=== PATIENT | female | born 1965 | race Caucasian/White ===

== ENCOUNTER → 2016-03-29 | Outpatient (CLI) | payer MEDICAID ==
[2016-03-29 12:50] LABS: ALT 29 U/L (9-52); AST 16 U/L (14-36); Alkaline Phosphatase 62 U/L (38-126); Anion Gap 10 mmol/L; Blood Urea Nitrogen 14 mg/dL (7-17); Calcium 9.6 mg/dL (8.4-10.2); Carbon Dioxide 27 mmol/L (22-30); Chloride 105 mmol/L (98-107); Cholesterol 134 mg/dL (<200); Glucose 90 mg/dL (74-99); HDL Cholesterol 62 mg/dL (40-60); Non-African American GFR(MDRD) >60 (>60 ml/min/1.73 sqM); Potassium 4.1 mmol/L (3.5-5.1); Sodium 142 mmol/L (137-145); Total Bilirubin 0.4 mg/dL (0.2-1.3); Total Protein 6.9 g/dL (6.3-8.2); Triglycerides 139 mg/dL (<150)
== END | disposition home or self-care (01) ==
LOC: LABWHC1 10:56
PROVIDERS: ATTEND Family Medicine
DX: E03.9 Hypothyroidism, unspecified (principal); E55.9 Vitamin D deficiency, unspecified; E78.5 Hyperlipidemia, unspecified; Z80.3 Family history of malignant neoplasm of breast
CPT/HCPCS: 36415; 80053; 80061; 82306; 84439; 84443; 84481

== ENCOUNTER 2016-04-05 14:59 | Emergency (ER) | payer MEDICAID ==
[2016-04-05] MEDS ORDERED: ONDANSETRON 4 MG/2 ML VIAL IVP STA (15:37)
[2016-04-05] MEDS ORDERED: KETOROLAC 30 MG/ML 1 ML VIAL IVP STA (15:37)
[2016-04-05] MEDS ORDERED: SODIUM CHLORIDE 0.9% 1,000 ML IV STA (15:37)
[2016-04-05 16:35] LABS: Basophils % (A) 1 %; CH 33.4; CHCM 35.1; Eosinophils # (A) 0.1 k/uL (0-0.7); Eosinophils % (A) 1 %; HCT 40.4 % (34.0-46.0); HDW 2.63; HGB 13.6 gm/dL (11.4-16.0); Luc # (Auto) 0.06; Luc % (Auto) 1; Lymphocytes # (A) 1.8 k/uL (1.0-4.8); Lymphocytes % (A) 27 %; MCH 32.2 pg (25.0-35.0); MCHC 33.7 g/dL (31.0-37.0); MCV 95.7 fL (80.0-100.0); Mean Platelet Volume 6.9; Monocytes # (A) 0.4 k/uL (0-1.0); Monocytes % (A) 7 %; Neutrophils # (A) 4.1 k/uL (1.3-7.7); Neutrophils % (A) 63 %; RBC 4.22 m/uL (3.80-5.40); RDW 12.3 % (11.5-15.5); WBC 6.5 k/uL (3.8-10.6); WBC (Perox) 6.65
[2016-04-05 16:47] LABS: ALT 36 U/L (9-52); AST 25 U/L (14-36); Alkaline Phosphatase 54 U/L (38-126); Anion Gap 9 mmol/L; Blood Urea Nitrogen 6 mg/dL (7-17); Calcium 8.5 mg/dL (8.4-10.2); Carbon Dioxide 25 mmol/L (22-30); Chloride 109 mmol/L (98-107); Glucose 80 mg/dL (74-99); Non-African American GFR(MDRD) >60 (>60 ml/min/1.73 sqM); Potassium 3.9 mmol/L (3.5-5.1); Sodium 143 mmol/L (137-145); Total Bilirubin 0.4 mg/dL (0.2-1.3)
[2016-04-05 17:02] LABS: Appearance,Urine Clear (Clear); Bilirubin,Urine Negative (Negative); Glucose,Urine (UA) Negative (Negative); Ketones,Urine Negative (Negative); Leukocyte Esterase,Urine Negative (Negative); Nitrite,Urine Negative (Negative); Protein,Urine Negative (Negative); Specific Gravity,Urine 1.007 (1.001-1.035); UA Billing (MACRO vs. MICRO) CHEM; Urobilinogen,Urine <2.0 mg/dL (<2.0)
[2016-04-05 17:15] VITALS: RESP 16
--- NOTE | 2016-04-05 17:25 | ED ---
Nausea/Vomiting/Diarrhea HPI - General Chief complaint: Nausea/Vomiting/Diarrhea Stated complaint: Dr Hager/Magdy Time Seen by Provider: 04/05/16 15:29 Source: patient, RN notes reviewed Mode of arrival: wheelchair Limitations: no limitations - History of Present Illness Initial comments: 50-year-old female since emergency department for possible dehydration. Patient states that she's been sick for approximately 10 days. Patient states she started with cold like symptoms was treated for acute bronchitis with a Z- Jayjay. She states that shortly after she's been having severe diarrhea nausea vomiting. She states she's been off work for 10 days. She states started at work last night and had some near syncopal episodes. Patient went to the office today and which she continued feel very weak, run down. Patient states that she had 2 near syncopal in episodes. Though she did not lose consciousness. Patient was sent outpatient [facility] for IV hydration Tylenol with no relief. Patient states that she still feels very weak and not herself. Patient denies any chest pain, shortness breath, dizziness. Patient states she does feel lightheaded and headache. Patient denies fever but states that she's had hot and cold sweats. - Related Data Home Medications Medication Instructions Recorded Confirmed Hydrocodone/Acetaminophen 1 tab PO QID PRN 08/17/13 04/05/16 [Hydrocodone/Acetaminophen 5-325] Levothyroxine Sodium [Synthroid] 112 mcg PO MOTUWETHFRSA 08/17/13 04/05/16 Loratadine [Claritin] 10 mg PO HS 08/17/13 04/05/16 Montelukast [Singulair] 10 mg PO HS 08/17/13 04/05/16 Zolpidem [Ambien] 5 mg PO HS PRN 08/17/13 04/05/16 Levalbuterol HCl [Xopenex 1.25 mg INHALATION TID PRN 12/12/13 04/05/16 Nebulized] amLODIPine BESYLATE [Norvasc] 2.5 mg PO HS 12/12/13 04/05/16 Clopidogrel [Plavix] 75 mg PO DAILY 05/23/14 04/05/16 Aspirin 325 mg PO DAILY 10/17/14 04/05/16 Cholecalciferol [Vitamin D3] 2,000 unit PO DAILY 06/30/15 04/05/16 Ezetimibe/Simvastatin [Vytorin 1 tab PO HS 06/30/15 04/05/16 10-40 mg Tablet] Levothyroxine Sodium [Synthroid] 224 mcg PO DEAL 06/30/15 04/05/16 Vitamin B Complex 1 cap PO DAILY 06/30/15 04/05/16 Isosorbide Mononitrate ER [Imdur] 15 mg PO DAILY 10/30/15 04/05/16 LORazepam [Ativan] 0.5 mg PO QID PRN 10/30/15 04/05/16 Omeprazole 20 mg PO BID 10/30/15 04/05/16 Acetaminophen Tab [Tylenol Tab] 1,000 mg PO Q6HR PRN 04/05/16 04/05/16 Albuterol Nebulized [Ventolin 2.5 mg INHALATION QID PRN 04/05/16 04/05/16 Nebulized] Metoprolol Tartrate [Lopressor] 12.5 mg PO DAILY 04/05/16 04/05/16 Previous Rx's Medication Instructions Recorded Nitroglycerin Sl Tabs [Nitrostat] 0.4 mg SUBLINGUAL Q5M PRN #25 tab 07/04/15 Allergies Allergy/AdvReac Type Severity Reaction Status Date / Time shellfish derived Allergy throat Verified 04/05/16 15:50 swelling sulfamethoxazole Allergy Rash/Hives Verified 04/05/16 15:50 [From Bactrim] trimethoprim [From Bactrim] Allergy Rash/Hives Verified 04/05/16 15:50 atorvastatin calcium AdvReac muscle Verified 04/05/16 15:50 [From Lipitor] aches diltiazem HCl [From Cardizem] AdvReac EXTREME Verified 04/05/16 15:50 FLUSHING rosuvastatin calcium AdvReac SEVERE Verified 04/05/16 15:50 [From Crestor] MUSCLE PAIN Review of Systems ROS Statement: Those systems with pertinent positive or pertinent negative responses have been documented in the HPI. ROS Other: All systems not noted in ROS Statement are negative. Past Medical History Past Medical History: Asthma, Coronary Artery Disease (CAD), Chest Pain / Angina , GERD/Reflux, Hyperlipidemia, Musculoskeletal Disorder, Thyroid Disorder Additional Past Medical History / Comment(s): raynauds, lupus-suspected, has ruptured disc, hx. stomach ulcer, has 3 cardiac stents, hiatal hernia History of Any Multi-Drug Resistant Organisms: None Reported Past Surgical History: Cholecystectomy, Heart Catheterization With Stent, Tonsillectomy, Uterine Ablation Past Anesthesia/Blood Transfusion Reactions: No Reported Reaction, Family History of Problems w/ Anesthesia Additional Past Anesthesia/Blood Transfusion Reaction / Comment(s): has had hematomas in past after cardiac caths. & syncopal episode, mom had some issues / wanesthesia Date of Last Stent Placement:: Past Psychological History: No Psychological Hx Reported Smoking Status: Never smoker Past Alcohol Use History: None Reported Additional Past Alcohol Use History / Comment(s): quit smoking 18 yrs., smoked for 12 yrs. Past Drug Use History: None Reported - Past Family History Brother(s) Family Medical History: Coronary Artery Disease (CAD), Myocardial Infarction (ID ) Mother Family Medical History: Coronary Artery Disease (CAD), Diabetes Mellitus Father Family Medical History: Pulmonary Embolus General Exam Limitations: no limitations General appearance: alert, in no apparent distress Head exam: Present: atraumatic, normocephalic, normal inspection Eye exam: Present: normal appearance, PERRL, EOMI. Absent: scleral icterus, conjunctival injection, periorbital swelling ENT exam: Present: normal exam, mucous membranes moist Neck exam: Present: normal inspection, full ROM. Absent: tenderness, meningismus, lymphadenopathy Respiratory exam: Present: normal lung sounds bilaterally. Absent: respiratory distress, wheezes, rales, rhonchi, stridor Cardiovascular Exam: Present: regular rate, normal rhythm, normal heart sounds. Absent: systolic murmur, diastolic murmur, rubs, gallop, clicks GI/Abdominal exam: Present: soft, tenderness (Mild diffuse), normal bowel sounds. Absent: distended, guarding, rebound, rigid Neurological exam: Present: alert, oriented X3, CN II-XII intact Course Vital Signs 04/05/16 04/05/16 15:07 17:13 Temperature 97.3 F L 97.9 F Pulse Rate 71 72 Respiratory 18 16 Rate Blood Pressure 135/73 124/73 O2 Sat by Pulse 100 98 Oximetry Medical Decision Making - Medical Decision Making 50-year-old female presented emergency department for nausea vomiting weakness. Patient lab work within normal limits. Patient was sent here for admission by Dr. Gamble. Case discussed for covering physician for Dr. Gamble with Dr. Fenrandes. Who does not accept the patient for admission at this time. Patient will be discharged a at this time. Patient be discharged with C. diff check. - Lab Data Result diagrams: 04/05/16 16:20 04/05/16 16:20 Lab Results 04/05/16 04/05/16 04/05/16 Range/Units 14:50 16:10 16:20 WBC 6.5 (3.8-10.6) k/uL RBC 4.22 (3.80-5.40) m/uL Hgb 13.6 (11.4-16.0) gm/dL Hct 40.4 (34.0-46.0) % MCV 95.7 (80.0-100.0) fL MCH 32.2 (25.0-35.0) pg MCHC 33.7 (31.0-37.0) g/dL RDW 12.3 (11.5-15.5) % Plt Count 290 (150-450) k/uL Neutrophils % 63 % Lymphocytes % 27 % Monocytes % 7 % Eosinophils % 1 % Basophils % 1 % Neutrophils # 4.1 (1.3-7.7) k/uL Lymphocytes # 1.8 (1.0-4.8) k/uL Monocytes # 0.4 (0-1.0) k/uL Eosinophils # 0.1 (0-0.7) k/uL Basophils # 0.0 (0-0.2) k/uL Sodium (137-145) mmol/L Potassium (3.5-5.1) mmol/L Chloride (98-107) mmol/L Carbon Dioxide (22-30) mmol/L Anion Gap mmol/L BUN (7-17) mg/dL Creatinine (0.52-1.04) mg/dL Est GFR (MDRD) Af Amer (>60 ml/min/1.73 sqM) Est GFR (MDRD) Non-Af (>60 ml/min/1.73 sqM) Glucose (74-99) mg/dL Calcium (8.4-10.2) mg/dL Total Bilirubin (0.2-1.3) mg/dL AST (14-36) U/L ALT (9-52) U/L Alkaline Phosphatase (38-126) U/L Total Protein (6.3-8.2) g/dL Albumin (3.5-5.0) g/dL Amylase 38 (30-110) U/L Lipase (23-300) U/L Urine Color Light Yellow Urine Appearance Clear (Clear) Urine pH 6.0 (5.0-8.0) Ur Specific [place] 1.007 (1.001-1.035) Urine Protein Negative (Negative) Urine Glucose (UA) Negative (Negative) Urine Ketones Negative (Negative) Urine Blood Negative (Negative) Urine Nitrate Negative (Negative) Urine Bilirubin Negative (Negative) Urine Urobilinogen <2.0 (<2.0) mg/dL Ur Leukocyte Esterase Negative (Negative) 04/05/16 Range/Units 16:20 WBC (3.8-10.6) k/uL RBC (3.80-5.40) m/uL Hgb (11.4-16.0) gm/dL Hct (34.0-46.0) % MCV (80.0-100.0) fL MCH (25.0-35.0) pg MCHC (31.0-37.0) g/dL RDW (11.5-15.5) % Plt Count (150-450) k/uL Neutrophils % % Lymphocytes % % Monocytes % % Eosinophils % % Basophils % % Neutrophils # (1.3-7.7) k/uL Lymphocytes # (1.0-4.8) k/uL Monocytes # (0-1.0) k/uL Eosinophils # (0-0.7) k/uL Basophils # (0-0.2) k/uL Sodium 143 (137-145) mmol/L Potassium 3.9 (3.5-5.1) mmol/L Chloride 109 H (98-107) mmol/L Carbon Dioxide 25 (22-30) mmol/L Anion Gap 9 mmol/L BUN 6 L (7-17) mg/dL Creatinine 0.60 (0.52-1.04) mg/dL Est GFR (MDRD) Af Amer >60 (>60 ml/min/1.73 sqM) Est GFR (MDRD) Non-Af >60 (>60 ml/min/1.73 sqM) Glucose 80 (74-99) mg/dL Calcium 8.5 (8.4-10.2) mg/dL Total Bilirubin 0.4 (0.2-1.3) mg/dL AST 25 (14-36) U/L ALT 36 (9-52) U/L Alkaline Phosphatase 54 (38-126) U/L Total Protein 6.0 L (6.3-8.2) g/dL Albumin 3.6 (3.5-5.0) g/dL Amylase (30-110) U/L Lipase 57 (23-300) U/L Urine Color Urine Appearance (Clear) Urine pH (5.0-8.0) Ur Specific [place] (1.001-1.035) Urine Protein (Negative) Urine Glucose (UA) (Negative) Urine Ketones (Negative) Urine Blood (Negative) Urine Nitrate (Negative) Urine Bilirubin (Negative) Urine Urobilinogen (<2.0) mg/dL Ur Leukocyte Esterase (Negative) Disposition Clinical Impression: Nausea vomiting and diarrhea, Weakness Disposition: HOME SELF-CARE Condition: Undetermined Instructions: Gastroenteritis (ED) Additional Instructions: Please return to the Emergency Department if symptoms worsen or any other concerns. Time of Disposition: 18:06
[2016-04-05 18:25] VITALS: BP 118/60; PULSE 63; TEMP 97.2
== END 2016-04-05 18:37 | disposition home or self-care (01) ==
LOC: EC 14:59
DX: K52.9 Noninfective gastroenteritis and colitis, unspecified (principal); R53.1 Weakness; J45.909 Unspecified asthma, uncomplicated; I25.10 Atherosclerotic heart disease of native coronary artery without angina pectoris; K21.9 Gastro-esophageal reflux disease without esophagitis; E78.5 Hyperlipidemia, unspecified; E07.9 Disorder of thyroid, unspecified; Z86.79 Personal history of other diseases of the circulatory system; Z87.891 Personal history of nicotine dependence; Z79.52 Long term (current) use of systemic steroids; Z79.01 Long term (current) use of anticoagulants; Z79.82 Long term (current) use of aspirin; Z79.899 Other long term (current) drug therapy; Z91.013 Allergy to seafood; Z88.2 Allergy status to sulfonamides; Z88.8 Allergy status to other drugs, medicaments and biological substances
CPT/HCPCS: 99284; 96374; 96375; 96361 ×3; 36415; 93005; 80053; 82150; 83690; 85025; 81003; J2405; J1885

== ENCOUNTER → 2016-04-05 | Outpatient (CLI) | payer MEDICAID ==
[~2016-04-05] MED LIST: ACETAMINOPHEN TAB 500 MG TAB PO ONE
[2016-04-05] MEDS: SODIUM CHLORIDE 0.9% 1,000 ML IV NR ×2 (12:15→13:25)
[2016-04-05 12:41] VITALS: BP 130/78; PULSE 65; RESP 16; TEMP 98.1
== END | disposition home or self-care (01) ==
LOC: PROCWHC3 11:23
PROVIDERS: ATTEND Family Medicine
DX: E86.0 Dehydration (principal)
CPT/HCPCS: 96360; 96361

== ENCOUNTER → 2016-05-16 | Outpatient (CLI) | payer MEDICAID ==
[2016-05-17 03:42] LABS: EBV - EA (IgG) 26.6 U/mL (<9.0); EBV - VCA IgM 29.1 U/mL (<36.0)
== END | disposition home or self-care (01) ==
LOC: LABWHC1 14:39
PROVIDERS: ATTEND Family Medicine
CPT/HCPCS: 36415; 86663; 86664; 86665

== ENCOUNTER → 2016-10-09 | Outpatient (CLI) | payer MEDICAID ==
[2016-10-09 16:15] LABS: Basophils % (A) 0 %; CH 33.9; CHCM 34.9; Eosinophils # (A) 0.1 k/uL (0-0.7); Eosinophils % (A) 1 %; HCT 45.1 % (34.0-46.0); HDW 2.48; HGB 15.3 gm/dL (11.4-16.0); Luc % (Auto) 1; Lymphocytes # (A) 1.1 k/uL (1.0-4.8); Lymphocytes % (A) 12 %; MCH 33.1 pg (25.0-35.0); MCHC 33.9 g/dL (31.0-37.0); MCV 97.5 fL (80.0-100.0); Mean Platelet Volume 7.1; Monocytes # (A) 0.5 k/uL (0-1.0); Monocytes % (A) 5 %; Neutrophils # (A) 7.3 k/uL (1.3-7.7); Neutrophils % (A) 80 %; RBC 4.63 m/uL (3.80-5.40); WBC 9.1 k/uL (3.8-10.6)
[2016-10-09 16:47] LABS: ALT 31 U/L (9-52); AST 19 U/L (14-36); Alkaline Phosphatase 64 U/L (38-126); Anion Gap 12 mmol/L; Blood Urea Nitrogen 12 mg/dL (7-17); Calcium 9.9 mg/dL (8.4-10.2); Carbon Dioxide 22 mmol/L (22-30); Chloride 107 mmol/L (98-107); Cholesterol 140 mg/dL (<200); Glucose 110 mg/dL (74-99); HDL Cholesterol 60 mg/dL (40-60); Non-African American GFR(MDRD) >60 (>60 ml/min/1.73 sqM); Potassium 4.5 mmol/L (3.5-5.1); Sodium 141 mmol/L (137-145); Total Bilirubin 0.5 mg/dL (0.2-1.3); Triglycerides 77 mg/dL (<150)
[2016-10-09 17:33] LABS: Vitamin B12 370 pg/mL (239-931)
[2016-10-10 06:53] LABS: EBV - EA (IgG) 28.9 U/mL (<9.0)
== END | disposition home or self-care (01) ==
LOC: LABWHC1 15:46
PROVIDERS: ATTEND Family Medicine
DX: R53.83 Other fatigue (principal)
CPT/HCPCS: 36415; 80053; 80061; 82306; 82607; 84439; 84443; 85025; 86308; 86663; 86664; 86665

== ENCOUNTER → 2017-02-25 | Outpatient (CLI) | payer MEDICAID ==
[2017-02-25 15:04] LABS: Basophils % (A) 1 %; CH 33.4; CHCM 35.4; Eosinophils # (A) 0.1 k/uL (0-0.7); Eosinophils % (A) 2 %; HCT 41.9 % (34.0-46.0); HDW 2.74; HGB 14.4 gm/dL (11.4-16.0); Luc # (Auto) 0.07; Luc % (Auto) 2; Lymphocytes # (A) 1.5 k/uL (1.0-4.8); Lymphocytes % (A) 33 %; MCH 32.5 pg (25.0-35.0); MCHC 34.3 g/dL (31.0-37.0); MCV 94.9 fL (80.0-100.0); Mean Platelet Volume 6.2; Monocytes # (A) 0.3 k/uL (0-1.0); Monocytes % (A) 7 %; Neutrophils # (A) 2.6 k/uL (1.3-7.7); Neutrophils % (A) 56 %; RBC 4.42 m/uL (3.80-5.40); RDW 11.8 % (11.5-15.5); WBC 4.5 k/uL (3.8-10.6)
[2017-02-25 15:12] LABS: ALT 37 U/L (9-52); AST 22 U/L (14-36); Alkaline Phosphatase 54 U/L (38-126); Anion Gap 10 mmol/L; Blood Urea Nitrogen 9 mg/dL (7-17); Calcium 9.7 mg/dL (8.4-10.2); Carbon Dioxide 26 mmol/L (22-30); Chloride 105 mmol/L (98-107); Glucose 87 mg/dL (74-99); Non-African American GFR(MDRD) >60 (>60 ml/min/1.73 sqM); Potassium 4.2 mmol/L (3.5-5.1); Sodium 141 mmol/L (137-145); Total Bilirubin 0.4 mg/dL (0.2-1.3); Total Protein 6.7 g/dL (6.3-8.2)
== END | disposition home or self-care (01) ==
LOC: LABWHC1 14:34
PROVIDERS: ATTEND Family Medicine
DX: I50.40 Unspecified combined systolic (congestive) and diastolic (congestive) heart failure (principal)
CPT/HCPCS: 36415; 80053; 83880; 85025

== ENCOUNTER → 2017-04-28 | Outpatient (CLI) | payer OTHER ==
--- NOTE | 2017-04-28 16:49 | XR ---
EXAMINATION TYPE: XR ankle complete RT, XR foot complete RT DATE OF EXAM: 04/28/2017 CLINICAL HISTORY: Right ankle foot pain after fall injury. TECHNIQUE: Frontal, lateral and oblique images of the right ankle and foot are obtained. COMPARISON: None. FINDINGS: There is no acute fracture/dislocation evident in the right ankle. The ankle mortise appe ars within normal limits. The overlying soft tissue appears unremarkable. There is no acute fracture or dislocation evident in the right foot. The joint spaces in the foot ar e preserved. Overlying soft tissue is unremarkable. IMPRESSION: There is no acute fracture or dislocation in the right ankle or foot.
--- NOTE | 2017-04-28 16:50 | XR ---
EXAMINATION TYPE: XR scapula RT DATE OF EXAM: 04/28/2017 COMPARISON: NONE HISTORY: Right scapular pain after fall injury. TECHNIQUE: 2 views right scapula are obtained. FINDINGS: No acute displaced scapular fracture is seen. Visualized ribs are intact. Visualized should er is unremarkable. Overlying soft tissue is unremarkable. IMPRESSION: No acute displaced scapular fracture is seen.
--- NOTE | 2017-04-28 18:19 | CT ---
EXAMINATION TYPE: CT brain lo jules DATE OF EXAM: 04/28/2017 COMPARISON: NONE HISTORY: Fall x3 days. CT DLP: 1535.6 mGycm Automated exposure control for dose reduction was used. TECHNIQUE: CT scan of the head and cervical spine are performed without contrast. FINDINGS: Ventricles and sulci appear normal. There is no mass effect nor midline shift. There is n o sign of intracranial hemorrhage. The calvarium is intact. There is mild straightening of the cervical spine. Skull base is intact. Posterior elements are intac t. There is no evidence of a fracture. There is some narrowing at C5-6 disc space with spurring of th e endplates. There is slight encroachment on the spinal canal at C5-6. IMPRESSION: Negative CT scan of the brain. Spondylosis at C5-6. No fracture seen.
== END | disposition home or self-care (01) ==
LOC: RADCTMAIN 15:48
PROVIDERS: ATTEND Emergency Medicine
DX: M47.812 Spondylosis without myelopathy or radiculopathy, cervical region (principal); S93.401A Sprain of unspecified ligament of right ankle, initial encounter; S93.601A Unspecified sprain of right foot, initial encounter; S00.83XA Contusion of other part of head, initial encounter; S40.011A Contusion of right shoulder, initial encounter
CPT/HCPCS: 70450; 72125

== ENCOUNTER → 2017-05-05 | Outpatient (CLI) | payer OTHER ==
--- NOTE | 2017-05-05 13:14 | US ---
EXAMINATION TYPE: US venous doppler duplex LE RT DATE OF EXAM: 05/05/2017 12:53 PM COMPARISON: NONE CLINICAL HISTORY: M79.604 Pain in right leg; patient fell on 04-25-17 and rolled right ankle and injur ed rt shoulder and neck; c/o right calf pain with ambulation x 1 day SIDE PERFORMED: Right TECHNIQUE: The lower extremity deep venous system is examined utilizing real time linear array sonog hang with graded compression, Doppler sonography and color-flow sonography. VESSELS IMAGED: Common Femoral Vein Deep Femoral Vein Greater Saphenous Vein * Femoral Vein Popliteal Vein Small Saphenous Vein * Proximal Calf Veins (* superficial vessels) Grayscale, color doppler, spectral doppler imaging performed of the deep veins of the lower extremiti es. There is normal flow, compressibility, vascular waveforms. Right Leg: Negative for DVT IMPRESSION: No sonographic evidence of deep venous thrombosis within the right lower extremity.
--- NOTE | 2017-05-05 13:32 | XR ---
EXAMINATION TYPE: XR ankle complete RT DATE OF EXAM: 05/05/2017 CLINICAL HISTORY: Fall one week ago with subsequent right ankle pain TECHNIQUE: Frontal, lateral and oblique images of the right ankle are obtained. COMPARISON: None. FINDINGS: There is no acute fracture/dislocation evident in the right ankle. The ankle mortise appe ars within normal limits. The overlying soft tissue appears unremarkable. IMPRESSION: There is no acute fracture or dislocation in the right ankle.
--- NOTE | 2017-05-05 14:02 | XR ---
EXAMINATION TYPE: XR foot complete RT DATE OF EXAM: 05/05/2017 CLINICAL HISTORY: Fall one week ago with right foot and ankle pain TECHNIQUE: Frontal, lateral, and oblique images of the right foot are obtained. COMPARISON: None FINDINGS: There is no acute fracture/dislocation evident in the right foot. The joint spaces in the right foot appear within normal limits. The overlying soft tissue appears unremarkable. IMPRESSION: There is no acute fracture or dislocation in the right foot.
== END | disposition home or self-care (01) ==
LOC: RADUSWWP 11:40
PROVIDERS: ATTEND Emergency Medicine
DX: M79.604 Pain in right leg (principal); S93.401D Sprain of unspecified ligament of right ankle, subsequent encounter; S93.601D Unspecified sprain of right foot, subsequent encounter; M25.571 Pain in right ankle and joints of right foot; M79.661 Pain in right lower leg

== ENCOUNTER → 2017-05-22 | Outpatient (CLI) | payer MEDICAID ==
[2017-05-22 09:29] LABS: Calcium 9.6 mg/dL (8.4-10.2)
[2017-05-22 09:47] LABS: T4, Free (Free Thyroxine) 0.97 ng/dL (0.78-2.19)
== END | disposition home or self-care (01) ==
LOC: LABWHC1 08:40
PROVIDERS: ATTEND Internal Medicine Endocrinology, Diabetes & Metabolism
DX: E55.9 Vitamin D deficiency, unspecified (principal); E06.3 Autoimmune thyroiditis
CPT/HCPCS: 36415; 82306; 82310; 84439; 84443

== ENCOUNTER → 2017-06-13 | Outpatient (CLI) | payer OTHER ==
--- NOTE | 2017-06-14 15:57 | MR ---
EXAMINATION TYPE: MR ankle RT wo con DATE OF EXAM: 06/13/2017 COMPARISON: Right ankle x-ray May 05, 2017. HISTORY: Rt ankle pain/sprain injury per order. Right ankle pain and limited movement since fall inju ry April 25, 2017 with some improvement with physical therapy. TECHNIQUE: Standard multiplanar, multisequence MRI departmental protocol. Multiplanar, multisequence images of the right ankle were acquired. FINDINGS: Distal Achilles tendon is intact. Visualized plantar fascia is unremarkable. The Peroneus brevis and longus tendons are intact. The flexor tendons along posterior medial aspect o f the ankle are intact. There is focal fluid at level of talus involving the FHL. Fluid surrounds PET tendon at level of mid talus Extensor tendons anteriorly are intact. Anterior tibiofibular and anterior talofibular ligaments are intact. Normal sinus tarsi fat is seen. Bone marrow signal intensity is maintained. Ankle mortise symmetry is preserved. Hindfoot and midfoot articulations are satisfactory. There is moderate tibiotalar joint effusion. There is some ill-defined fluid in the posterior subcuta neous tissue at level of the talus. IMPRESSION: No ligamentous or tendon tear identified. Mild Tenosynovitis of PT and FHL tendons. Possible subcuta neous injury deep to the Achilles tendon without Achilles tear as there is some ill-defined fluid at this level.
== END | disposition home or self-care (01) ==
LOC: RADMRIMAIN 11:16
PROVIDERS: ATTEND Emergency Medicine
DX: M65.9 Synovitis and tenosynovitis, unspecified (principal); S93.401D Sprain of unspecified ligament of right ankle, subsequent encounter; S00.83XD Contusion of other part of head, subsequent encounter; S13.4XXD Sprain of ligaments of cervical spine, subsequent encounter; S40.011D Contusion of right shoulder, subsequent encounter; S93.601D Unspecified sprain of right foot, subsequent encounter

== ENCOUNTER → 2017-07-22 | Outpatient (CLI) | payer MEDICAID ==
[2017-07-22 09:51] LABS: Ionized Calcium 5.2 mg/dL (4.5-5.3)
[2017-07-22 10:16] LABS: T4, Free (Free Thyroxine) 1.16 ng/dL (0.78-2.19)
== END ==
LOC: LABWHC1 08:42
PROVIDERS: ATTEND Internal Medicine Endocrinology, Diabetes & Metabolism
DX: E55.9 Vitamin D deficiency, unspecified (principal); E06.3 Autoimmune thyroiditis
CPT/HCPCS: 36415; 82306; 82330; 84439; 84443

== ENCOUNTER → 2017-12-31 | Outpatient (CLI) | payer MEDICAID ==
--- NOTE | 2018-01-01 13:28 | MM ---
Reason for exam: screening (asymptomatic). Last mammogram was performed 1 year and 10 months ago. History: Family history of breast cancer in sister at age 62. Physical Findings: A clinical breast exam by your physician is recommended on an annual basis and results should be correlated with mammographic findings. MG 3D Screening Mammo W/Cad Bilateral CC and MLO view(s) were taken. Prior study comparison: February 23, 2016, bilateral MG 3d screening mammo w/cad. January 26, 2015, bilateral MG 3d screening mammo w/cad. There are scattered fibroglandular densities. There is no discrete abnormality. No significant changes when compared with prior studies. ASSESSMENT: Negative, BI-RAD 1 RECOMMENDATION: Routine screening mammogram of both breasts in 1 year.
== END ==
LOC: RADMAMWWP 13:22
PROVIDERS: ATTEND Obstetrics & Gynecology
DX: Z12.31 Encounter for screening mammogram for malignant neoplasm of breast (principal); Z80.3 Family history of malignant neoplasm of breast
CPT/HCPCS: 77063; 77067

== ENCOUNTER → 2017-12-31 | Outpatient (CLI) | payer MEDICAID ==
[2017-12-31 19:36] LABS: T4, Free (Free Thyroxine) 1.3 ng/dL (0.80-1.80)
== END | disposition home or self-care (01) ==
LOC: LABWHC1 13:41
PROVIDERS: ATTEND Internal Medicine Endocrinology, Diabetes & Metabolism
DX: R06.2 Wheezing (principal); E06.3 Autoimmune thyroiditis; E55.9 Vitamin D deficiency, unspecified
CPT/HCPCS: 36415; 82306; 84439; 84443

== ENCOUNTER → 2018-04-06 | Outpatient (CLI) | payer MEDICAID ==
[2018-04-06 14:25] LABS: HCT 41.3 % (34.0-46.0); HGB 13.9 gm/dL (11.4-16.0); MCH 32.4 pg (25.0-35.0); MCHC 33.8 g/dL (31.0-37.0); MCV 96.1 fL (80.0-100.0); Mean Platelet Volume 6.5; Platelet Count 298 k/uL (150-450); RBC 4.29 m/uL (3.80-5.40); RDW 12.3 % (11.5-15.5); WBC 6.4 k/uL (3.8-10.6)
[2018-04-07 00:31] LABS: Anion Gap 7.9 mmol/L (4.00-12.00); Calcium 9.3 mg/dL (8.7-10.3); Carbon Dioxide 27.1 mmol/L (21.6-31.8); Potassium 4.3 mmol/L (3.5-5.5)
== END | disposition home or self-care (01) ==
LOC: LABWHC1 13:08
PROVIDERS: ATTEND Internal Medicine Interventional Cardiology
DX: Z01.812 Encounter for preprocedural laboratory examination (principal); I25.10 Atherosclerotic heart disease of native coronary artery without angina pectoris
CPT/HCPCS: 36415; 80048; 85027

== ENCOUNTER 2018-04-09 06:36 | Observation (INO) | payer MEDICAID ==
[2018-04-07 08:58] VITALS: BMI 34.7
[~2018-04-09 06:36] MED LIST changes: -ACETAMINOPHEN TAB 500 MG TAB PO ONE; +ALPRAZolam 0.25 MG TAB PO PRN; +ALPRAZolam 0.5 MG TAB PO PRN; +ASPIRIN 325 MG TAB PO STA; +NITROGLYCERIN SL TABS 0.4 MG TAB SUBLINGUAL PRN; +SODIUM CHLORIDE 0.9% 1,000 ML in EMPTY BAG 1 BAG IV ONE
[2018-04-09] MEDS ORDERED: LIDOCAINE 1% INJ 10MG/ML (20 ML MDV) ONE (07:18)
[2018-04-09] MEDS ORDERED: MIDAZOLAM 2 MG/2 ML VIAL IV ONE (07:43)
[2018-04-09] MEDS ORDERED: LIDOCAINE 1% INJ 10MG/ML (20 ML MDV) SQ ONE (07:45)
[2018-04-09] MEDS ORDERED: fentaNYL (PF) 50 MCG/ML 2 ML AMP ONE (07:50)
[2018-04-09] MEDS: fentaNYL (PF) 50 MCG/ML 2 ML AMP IV ONE ×2 (07:53→08:13)
[2018-04-09] MEDS: NITROGLYCERIN 1000MCG/10ML SYRINGE INTRAARTER ONE ×2 (08:04→08:44)
[2018-04-09] MEDS ORDERED: BIVALIRUDIN BOLUS 250 MG/50 ML IV ONE (08:10)
[2018-04-09] MEDS ORDERED: BIVALIRUDIN 250 MG in SODIUM CHLORIDE 0.9% 50 ML IV ONE (08:10)
[2018-04-09] MEDS ORDERED: IOPAMIDOL-370 125ML BTL INJ ONE ×2 (08:44→08:58)
[2018-04-09] MEDS ORDERED: CLOPIDOGREL 75 MG TAB ONE (08:50)
[2018-04-09] MEDS ORDERED: CLOPIDOGREL 75 MG TAB PO ONE (08:57)
[2018-04-09] MEDS ORDERED: RX INFO: IV CONTRAST WAS GIVEN 1 EACH MISC MISCELLANE PRN (09:00)
[2018-04-09] MEDS ORDERED: ATROPINE SULFATE 0.1 MG/ML 10ML SYRINGE IV PRN (09:00)
[2018-04-09] MEDS ORDERED: NITROGLYCERIN SL TABS 0.4 MG TAB SUBLINGUAL PRN ×2 (09:00→18:43)
[2018-04-09] MEDS ORDERED: MAG HYDROX/AL HYDROX/SIMETH 30 ML CUP PO PRN (09:00)
[2018-04-09] MEDS ORDERED: ZOLPIDEM 5 MG TAB PO PRN ×2 (09:00→18:43)
[2018-04-09] MEDS: SODIUM CHLORIDE 0.9% 1,000 ML IV SCH ×2 (09:15→22:16)
[2018-04-09] MEDS ORDERED: ACETAMINOPHEN TAB 325 MG TAB PO PRN (09:46)
[2018-04-09] MEDS ORDERED: ONDANSETRON 4 MG/2 ML VIAL IVP STA (15:26)
[2018-04-09] MEDS: HYDROmorphone 0.5 MG/0.5 ML SYRINGE IVP PRN ×2 (15:43→23:47)
[2018-04-09] MEDS ORDERED: LORazepam 0.5 MG TAB PO PRN (18:43)
[2018-04-09] MEDS ORDERED: ALBUTEROL NEBULIZED 2.5 MG/3 ML INHALATION PRN (18:43)
[2018-04-09] MEDS: HYDROcodone/APAP 5-325MG 1 EACH TAB PO PRN (19:07)
--- NOTE | 2018-04-09 19:53 | CC ---
CARDIAC CATHETERIZATION REPORT DATE OF SERVICE: 04/09/2018. PROCEDURE: 1. Left heart catheterization and coronary angiography. 2. PTCA off LAD and diagonal with a kissing balloon technique. The diagonal lesion was a restenotic lesion. The LAD had moderate disease. PERFORMED BY: Dr. Praneeth Greenberg. SEDATION: Moderate conscious sedation time was 67 minutes. Patient was administered Versed and fentanyl. Her oxygen saturation, hemodynamics and EKG were monitored closely. CLINICAL INFORMATION: Mrs. Violette Mejias is a 52-year-old lady with a known history of CAD. She also has a strong family history of CAD, Raynaud phenomena, and hyperlipidemia. This lady had stenting of the major diagonal branch of LAD and mid LAD performed in December 2013. The diagonal branch was jailed and after stenting the LAD I bent and stented the diagonal also. Both of these were 2.5 caliber drug-eluting stents. However, she developed restenosis of the diagonal branch, but LAD was free of significant disease and the last cardiac cath was from October of 2015 and at that time I decided not to pursue intervention of the diagonal. She did well on medical therapy, but also since that time she had at least 2 other opinions from 2 intervention cardiologists. Both of whom suggested no intervention as long as there was no ischemia of significance. She did well on medical therapy, but of late has been having anginal symptoms and I performed a stress echo a few days ago which revealed that she had chest pain with ST depression in precordial leads without any evidence of wall motion abnormality on echocardiogram. However given her symptoms and also because of the fact she had significant EKG changes, I recommended coronary angiography and brought in for the procedure. Risks, benefits, options and rationale were discussed at length with the patient. PROCEDURE NOTE: Under local anesthesia and strict aseptic precautions, a 6-Angolan introducer was placed in the right femoral artery. I used a JR4 and JL3 0.5 diagnostic catheter to perform coronary angiography. Following this, I went ahead and performed intervention of the LAD and diagonal. LV pressures were checked but LV gram was not performed. CARDIAC CATHETERIZATION: The left ventricular end-diastolic pressure was about 14 mmHg without any gradient across aortic valve. CORONARY ANGIOGRAPHY FINDINGS: RIGHT CORONARY ARTERY CORONARY ARTERY: Technically a codominant vessel with no significant disease. No more than 20-30 percent narrowing. LEFT MAIN CORONARY ARTERY: Short patent disease-free vessel that bifurcates into LAD and circumflex. LEFT ANTERIOR DESCENDING CORONARY ARTERY: This vessel is widely patent at the site of stenting. There is no more than 20-30 percent narrowing. There is a diagonal branch that comes off from the stented segment and this diagonal also had a stent in it, but the proximal portion of the diagonal has about a 80% stenosis. The LAD, however, did not have any significant narrowing. LEFT POSTERIOR CIRCUMFLEX CORONARY ARTERY: This vessel is a codominant vessel, has minor irregularities, gives off 2 obtuse marginals and there is no significant disease in the circumflex system. LEFT VENTRICULOGRAM was not performed. PCI PROCEDURE DETAILS: This patient received Angiomax bolus and infusion. She also received 300 mg of Plavix additionally and she was already on Plavix and aspirin. I used a left Odalis catheter of 3.5 curve to cannulate the left coronary artery. I used a run-through wire to cross the lesion in the diagonal and kept it distally and used another run-through wire for the LAD as well and kept it distally. Using a 2.25 8 mm long NC Trek balloon, I inflated the diagonal lesion right as it came off from the LAD. Excellent angiographic result was achieved. I then advanced a 3.0 caliber 12 mm NC Trek balloon and this balloon was advanced into the LAD. Both balloons were opposed to each other and I performed a kissing balloon inflation of both the balloons after performing individual separate dilatation of the LAD as well at 13-14 atmospheres. Kissing balloon dilatation was performed at least on 2 different occasions for about 45 minutes and both were up to 12-14 atmospheres. The first time I performed a kissing balloon, the balloon seemed to slip distally in the diagonal branch, but the 2nd time I was able to get a good inflation. The patient had chest pain and mild precordial ST elevation. Angiographically, the result was excellent with remarkably good angiographic appearance and flow without any complication. Multiple angiograms in various projections were obtained. There was no significant compromise and the flow was excellent in the LAD and diagonal. The sheath was then taken out and Angio-Seal device used to secure hemostasis and she was sent to the room in a stable condition. Results were discussed with the patient and family in great detail and I expect she will be discharged tomorrow if she remains stable. MMODL / IJN: [id number] /
[2018-04-09] MEDS ORDERED: MONTELUKAST 10 MG TAB PO SCH (21:00)
[2018-04-09] MEDS ORDERED: SIMVASTATIN 40 MG PO SCH (21:00)
[2018-04-09] MEDS ORDERED: METOPROLOL TARTRATE 12.5 MG TAB PO SCH (21:00)
[2018-04-10 05:06] VITALS: PULSE 80; TEMP 97.6
[2018-04-10] MEDS: HYDROcodone/APAP 5-325MG 1 EACH TAB PO PRN (05:19)
[2018-04-10] MEDS ORDERED: LEVOTHYROXINE 137 MCG TAB PO SCH (06:30)
[2018-04-10 07:59] LABS: Anion Gap 4 mmol/L; Blood Urea Nitrogen 13 mg/dL (7-17); Calcium 8.5 mg/dL (8.4-10.2); Carbon Dioxide 21 mmol/L (22-30); Chloride 112 mmol/L (98-107); Glucose 92 mg/dL (74-99); Sodium 137 mmol/L (137-145)
[2018-04-10 08:04] LABS: Basophils # (A) 0.1 k/uL (0-0.2); Basophils % (A) 1 %; Eosinophils # (A) 0.2 k/uL (0-0.7); Eosinophils % (A) 3 %; HCT 35.4 % (34.0-46.0); HGB 12.6 gm/dL (11.4-16.0); Lymphocytes # (A) 1.1 k/uL (1.0-4.8); Lymphocytes % (A) 20 %; MCH 35.3 pg (25.0-35.0); MCHC 35.6 g/dL (31.0-37.0); MCV 98.9 fL (80.0-100.0); Mean Platelet Volume 6.2; Monocytes # (A) 0.5 k/uL (0-1.0); Monocytes % (A) 8 %; Neutrophils # (A) 3.7 k/uL (1.3-7.7); Neutrophils % (A) 67 %; Platelet Count 225 k/uL (150-450); RBC 3.58 m/uL (3.80-5.40); RDW 12.5 % (11.5-15.5); WBC 5.5 k/uL (3.8-10.6)
[2018-04-10 08:07] LABS: Potassium 4.8 mmol/L (3.5-5.1)
[2018-04-10] MEDS ORDERED: EZETIMIBE 10 MG TAB PO SCH (09:00)
[2018-04-10] MEDS ORDERED: NON-FORMULARY DRUG (Vitamin B Complex [Vitamin B Complex] 1 CAP) PO SCH (09:00)
[2018-04-10] MEDS ORDERED: METOPROLOL TARTRATE 25 MG TAB PO SCH (09:00)
[2018-04-10] MEDS ORDERED: amLODIPine 2.5 MG TAB PO SCH (09:00)
[2018-04-10] MEDS ORDERED: ISOSORBIDE MONONITRATE ER 15 MG TAB PO SCH (09:00)
[2018-04-10] MEDS ORDERED: CLOPIDOGREL 75 MG TAB PO SCH (09:00)
[2018-04-10] MEDS ORDERED: ASPIRIN 81 MG PO SCH (09:00)
[2018-04-10 11:00] VITALS: BP 136/78; RESP 18
[2018-04-10] MEDS ORDERED: CHOLECALCIFEROL 1,000 UNIT TAB PO SCH (12:00)
--- NOTE | 2018-04-10 14:42 | DS ---
DISCHARGE SUMMARY DATE OF ADMISSION: 04/09/2018. DATE OF DISCHARGE: 04/10/2018. DIAGNOSES: 1. Unstable angina with a positive stress test. 2. History of bronchial asthma. 3. Hyperlipidemia. 4. Raynaud phenomenon. PROCEDURES PERFORMED: Left heart catheterization and coronary angiography and PTCA of LAD and diagonal with a kissing balloon technique. CLINICAL INFORMATION: Mrs. Violette Sequeira is a 52-year-old lady with a known history of CAD, underwent stenting of LAD and diagonal performed sometime in 2013. Over the years, she developed angina on and off and had a stenosis involving the diagonal branch, but LAD was widely patent with good flow. She was advised medical therapy and seemed to do well. However, she has been having symptoms of angina recently. Stress echo revealed that symptoms of angina and EKG changes without clear-cut wall motion abnormality, but because of a new EKG changes and symptoms, I recommended coronary angiography. Coronary angiography was performed yesterday, which revealed that the diagonal lesion of 80%, but the LAD had about a 40% lesion. I performed PTCA of both these vessels with a kissing balloon technique with excellent angiographic result. A new stent was not deployed. Postprocedure course was uneventful. Her right groin is clean and dry with a good pulse. Her labs and EKGs were unremarkable. Cardiac catheterization revealed that the circumflex and RCA which were codominant vessel did not have any significant disease. The patient will be discharged today. Discharge instructions regarding activity, diet and medications were given. She will continue aspirin and Plavix along with simvastatin and Zetia. She was advised to call me if there is a question concern or problem. I expect that she will ambulate today and she will be discharged in the next couple of hours. MMODL / IJN: [id number] /
[2018-04-12] MEDS ORDERED: LEVOTHYROXINE 137 MCG TAB PO SCH (06:30)
== END 2018-04-10 10:50 | disposition home or self-care (01) ==
LOC: CATHCVL 06:36 → 3SCARD 08:50 → CATHCVL 04-10 02:57 → 3SCARD 04-10 03:04
PROVIDERS: ADMIT Internal Medicine Interventional Cardiology; ATTEND Internal Medicine Interventional Cardiology
DX: I25.110 Atherosclerotic heart disease of native coronary artery with unstable angina pectoris (principal); G47.33 Obstructive sleep apnea (adult) (pediatric); E78.5 Hyperlipidemia, unspecified; I73.00 Raynaud's syndrome without gangrene; E03.9 Hypothyroidism, unspecified; J45.20 Mild intermittent asthma, uncomplicated; I08.3 Combined rheumatic disorders of mitral, aortic and tricuspid valves; E78.00 Pure hypercholesterolemia, unspecified; E66.9 Obesity, unspecified; Z68.36 Body mass index [BMI] 36.0-36.9, adult; F17.210 Nicotine dependence, cigarettes, uncomplicated; Z79.02 Long term (current) use of antithrombotics/antiplatelets; Z79.82 Long term (current) use of aspirin; Z79.890 Hormone replacement therapy; Z79.899 Other long term (current) drug therapy; Z88.1 Allergy status to other antibiotic agents; Z88.2 Allergy status to sulfonamides; Z88.8 Allergy status to other drugs, medicaments and biological substances; Z95.5 Presence of coronary angioplasty implant and graft; Z82.49 Family history of ischemic heart disease and other diseases of the circulatory system
CPT/HCPCS: 93458; 92920; 92921; 80048; 85025; 81025; 99152; 99153 ×3; G0378; C1760; C1887; C1725 ×2; C1769 ×3; C1894; J2250; J2001; J3010; J0583; J1170; Q9967

== ENCOUNTER → 2018-06-23 | Outpatient (CLI) | payer MEDICAID ==
--- NOTE | 2018-06-23 16:40 | XR ---
EXAMINATION TYPE: XR chest 2V DATE OF EXAM: 06/23/2018 COMPARISON: 12/19/2013 INDICATION: Shortness of breath chest pain TECHNIQUE: Frontal and lateral views of the chest are obtained. FINDINGS: The heart size is normal. The pulmonary vasculature is normal. The lungs are clear. IMPRESSION: 1. No acute pulmonary process.
== END | disposition home or self-care (01) ==
LOC: RADXRMAIN 14:01
PROVIDERS: ATTEND Family Medicine
DX: I25.10 Atherosclerotic heart disease of native coronary artery without angina pectoris (principal)
CPT/HCPCS: 71046

== ENCOUNTER 2019-02-27 04:47 | Observation (INO) | payer BC ==
[2019-02-27] MEDS ORDERED: KETOROLAC 30 MG/ML 1 ML VIAL IVP STA (05:18)
[2019-02-27] MEDS ORDERED: ONDANSETRON 4 MG/2 ML VIAL IVP STA (05:18)
[2019-02-27 06:05] LABS: Basophils % (A) 1 %; Eosinophils # (A) 0.2 k/uL (0-0.7); Eosinophils % (A) 3 %; HCT 38.3 % (34.0-46.0); HGB 13.4 gm/dL (11.4-16.0); Lymphocytes # (A) 1.6 k/uL (1.0-4.8); Lymphocytes % (A) 20 %; MCH 32.5 pg (25.0-35.0); MCHC 34.9 g/dL (31.0-37.0); MCV 93.3 fL (80.0-100.0); Mean Platelet Volume 8.8; Monocytes # (A) 0.4 k/uL (0-1.0); Monocytes % (A) 5 %; Neutrophils # (A) 5.6 k/uL (1.3-7.7); Neutrophils % (A) 71 %; Platelet Count 140 k/uL (150-450); RBC 4.11 m/uL (3.80-5.40); RDW 12.5 % (11.5-15.5)
[2019-02-27 06:18] LABS: ALT 21 U/L (4-34); AST 38 U/L (14-36); African American GFR (CKD) >90 (>60 ml/min/1.73 sqM); Alkaline Phosphatase 84 U/L (38-126); Amylase 68 U/L (30-110); Anion Gap 8 mmol/L; Blood Urea Nitrogen 12 mg/dL (7-17); Calcium 9.6 mg/dL (8.4-10.2); Carbon Dioxide 23 mmol/L (22-30); Chloride 106 mmol/L (98-107); Glucose 106 mg/dL (74-99); Non-African American GFR(CKD) >90 (>60 ml/min/1.73 sqM); Sodium 137 mmol/L (137-145); Total Bilirubin 0.7 mg/dL (0.2-1.3); Total Protein 7.1 g/dL (6.3-8.2)
[2019-02-27 06:27] LABS: Potassium 4.5 mmol/L (3.5-5.1)
--- NOTE | 2019-02-27 06:36 | CT ---
EXAM: CT Abdomen and Pelvis Without Intravenous Contrast CLINICAL HISTORY: Reason: RLQ pain TECHNIQUE: Axial computed tomography images of the abdomen and pelvis without intravenous contrast. CTDI is 20.7 mGy and DLP is 1062 mGy-cm. This CT exam was performed using one or more of the following dose reduction techniques: automated exposure control, adjustment of the mA and/or kV according to patient size, and/or use of iterative reconstruction technique. COMPARISON: No relevant prior studies available. FINDINGS: Lung bases: Moderate-sized hiatal hernia.. ABDOMEN: Liver: Unremarkable. Gallbladder and bile ducts: The gallbladder is surgically absent.. No ductal dilation. Pancreas: Unremarkable. No ductal dilation. Spleen: Unremarkable. No splenomegaly. Adrenals: Unremarkable. No mass. Kidneys and ureters: Unremarkable. No obstructing stones. No hydronephrosis. Stomach and bowel: Unremarkable. No obstruction. No mucosal thickening. PELVIS: Appendix: Moderate appendiceal wall thickening, with the appendix measuring up to 12 mm in diameter. Trace periappendiceal infiltrative changes are seen as well. Slight irregular appearance of the appendiceal wall (best visualized on coronal image 50 of series 202) may be due to presence of small appendiceal diverticula. Bladder: Unremarkable. No stones. Reproductive: Unremarkable as visualized. ABDOMEN and PELVIS: Intraperitoneal space: Unremarkable. No free air. No significant fluid collection. Bones/joints: No acute fracture. No dislocation. Soft tissues: Unremarkable. Vasculature: Unremarkable. No abdominal aortic aneurysm. Lymph nodes: Unremarkable. No enlarged lymph nodes. IMPRESSION: Appendiceal distention, wall thickening and periappendiceal infiltrative changes. Findings are consistent with an early acute appendicitis. <MYCVCSECTION> Communications: 02/27/19 06:44 Call Doctor Regarding Appendicitis, called Dr. Wlaker on 02/27 06:44 (-05:00)
--- NOTE | 2019-02-27 06:37 | ED ---
Abdominal Pain HPI - General Chief Complaint: Abdominal Pain Stated Complaint: abd pain Time Seen by Provider: 02/27/19 05:09 Source: patient, family Mode of arrival: ambulatory Limitations: no limitations - History of Present Illness MD Complaint: abdominal pain Onset/Timin -: days(s) Location: RLQ Radiation: none Migration to: no migration Severity: moderate Quality: aching Consistency: constant Improves With: nothing Worsens With: nothing Associated Symptoms: nausea, diarrhea - Related Data Home Medications Medication Instructions Recorded Confirmed Loratadine [Claritin] 10 mg PO HS 08/17/13 04/10/18 Montelukast [Singulair] 10 mg PO HS 08/17/13 04/10/18 Zolpidem [Ambien] 5 mg PO HS PRN 08/17/13 04/10/18 Levalbuterol HCl [Xopenex 1.25 mg INHALATION RT-TID PRN 12/12/13 04/10/18 Nebulized] amLODIPine BESYLATE [Norvasc] 2.5 mg PO DAILY 12/12/13 04/10/18 Clopidogrel [Plavix] 75 mg PO DAILY 05/23/14 04/10/18 Cholecalciferol [Vitamin D3] 5,000 unit PO DAILY 06/30/15 04/10/18 Vitamin B Complex 1 cap PO DAILY 06/30/15 04/10/18 Isosorbide Mononitrate ER [Imdur] 15 mg PO DAILY 10/30/15 04/10/18 LORazepam [Ativan] 0.5 mg PO QID PRN 10/30/15 04/10/18 Omeprazole 20 mg PO BID 10/30/15 04/10/18 Acetaminophen Tab [Tylenol Tab] 1,000 mg PO Q6HR PRN 04/05/16 04/10/18 Albuterol Nebulized [Ventolin 2.5 mg INHALATION RT-QID PRN 04/05/16 04/10/18 Nebulized] Metoprolol Tartrate [Lopressor] 25 mg PO QAM 04/05/16 04/10/18 Ezetimibe [Zetia] 10 mg PO DAILY 04/07/18 04/10/18 Metoprolol Tartrate 12.5 mg PO HS 04/07/18 04/10/18 Simvastatin [Zocor] 40 mg PO HS 04/07/18 04/10/18 Aspirin EC [Ecotrin Low Dose] 81 mg PO DAILY 04/10/18 04/10/18 Levothyroxine Sodium [Synthroid] 68.5 mcg PO DEAL 04/10/18 04/10/18 Levothyroxine Sodium [Synthroid] 137 mcg PO MOTUWETHFRSA 04/10/18 04/10/18 Previous Rx's Medication Instructions Recorded Nitroglycerin Sl Tabs [Nitrostat] 0.4 mg SUBLINGUAL Q5M PRN #25 tab 07/04/15 Allergies Allergy/AdvReac Type Severity Reaction Status Date / Time shellfish derived Allergy throat Verified 02/27/19 04:55 swelling sulfamethoxazole Allergy Rash/Hives Verified 02/27/19 04:55 [From Bactrim] trimethoprim [From Bactrim] Allergy Rash/Hives Verified 02/27/19 04:55 atorvastatin calcium AdvReac muscle Verified 02/27/19 04:55 [From Lipitor] aches diltiazem HCl [From Cardizem] AdvReac EXTREME Verified 02/27/19 04:55 FLUSHING rosuvastatin calcium AdvReac SEVERE Verified 02/27/19 04:55 [From Crestor] MUSCLE PAIN Review of Systems ROS Statement: Those systems with pertinent positive or pertinent negative responses have been documented in the HPI. ROS Other: All systems not noted in ROS Statement are negative. Constitutional: Denies: fever, chills Respiratory: Denies: cough, dyspnea Cardiovascular: Denies: chest pain, palpitations Gastrointestinal: Reports: abdominal pain, nausea, diarrhea. Denies: constipation, hematemesis, melena, hematochezia Genitourinary: Denies: dysuria, hematuria Musculoskeletal: Denies: back pain Skin: Denies: rash Neurological: Denies: headache, weakness, numbness Past Medical History Past Medical History: Asthma, Coronary Artery Disease (CAD), Chest Pain / Angina, GERD/Reflux, Hyperlipidemia, Musculoskeletal Disorder, Thyroid Disorder Additional Past Medical History / Comment(s): raynauds, lupus-suspected, had ruptured disc, hx. stomach ulcer, has 3 cardiac stents, hiatal hernia, SOB w /exertion recently History of Any Multi-Drug Resistant Organisms: None Reported Past Surgical History: Cholecystectomy, Heart Catheterization, Heart C atheterization With Stent, Tonsillectomy, Uterine Ablation Past Anesthesia/Blood Transfusion Reactions: No Reported Reaction, Family History of Problems w/ Anesthesia Additional Past Anesthesia/Blood Transfusion Reaction / Comment(s): has had hematomas in past after cardiac caths. & syncopal episode, mom had some issues w/anesthesia Date of Last Stent Placement:: Past Psychological History: No Psychological Hx Reported Smoking Status: Former smoker Past Alcohol Use History: None Reported Past Drug Use History: None Reported - Past Family History Brother(s) Family Medical History: Coronary Artery Disease (CAD), Myocardial Infarction ([place]) Mother Family Medical History: Coronary Artery Disease (CAD), Diabetes Mellitus Father Family Medical History: Pulmonary Embolus General Exam Limitations: no limitations General appearance: alert, in no apparent distress Head exam: Present: atraumatic, normocephalic Eye exam: Present: normal appearance. Absent: scleral icterus, conjunctival injection Respiratory exam: Present: normal lung sounds bilaterally. Absent: respiratory distress, wheezes, rales, rhonchi, stridor Cardiovascular Exam: Present: regular rate, normal rhythm, normal heart sounds. Absent: systolic murmur, diastolic murmur, rubs, gallop GI/Abdominal exam: Present: soft, tenderness (right lower quadrant). Absent: distended, guarding, rebound, rigid, mass Extremities exam: Present: normal inspection, normal capillary refill. Absent: pedal edema, calf tenderness Back exam: Present: normal inspection. Absent: CVA tenderness (R), CVA tenderness (L) Neurological exam: Present: alert Skin exam: Present: warm, dry, intact, normal color. Absent: rash Course Vital Signs 02/27/19 04:49 Temperature 97.4 F L Pulse Rate 80 Respiratory 20 Rate Blood Pressure 142/86 O2 Sat by Pulse 98 Oximetry - Reevaluation(s) Reevaluation #1: 02/27/19 06:56 at patient request, as Dr. Luke had performed her cholecystectomy, I did discuss case with him and he states he is unavailable due to the holiday. Medical Decision Making - Medical Decision Making patient's 53-year-old woman with going on 2 days of right lower quadrant abdominal pain. She has tenderness on the exam and the computed tomography scan does show what appears to be early appendicitis. Case discussed with Dr. Vidal, who requests patient be admitted and he will see her shortly. Patient maintained nothing by mouth and antibiotics ordered. - Lab Data Result diagrams: 02/27/19 05:46 02/27/19 05:46 Lab Results 02/27/19 02/27/19 Range/Units 05:46 05:46 WBC 8.0 (3.8-10.6) k/uL RBC 4.11 (3.80-5.40) m/uL Hgb 13.4 (11.4-16.0) gm/dL Hct 38.3 (34.0-46.0) % MCV 93.3 (80.0-100.0) fL MCH 32.5 (25.0-35.0) pg MCHC 34.9 (31.0-37.0) g/dL RDW 12.5 (11.5-15.5) % Plt Count 140 L (150-450) k/uL Neutrophils % 71 % Lymphocytes % 20 % Monocytes % 5 % Eosinophils % 3 % Basophils % 1 % Neutrophils # 5.6 (1.3-7.7) k/uL Lymphocytes # 1.6 (1.0-4.8) k/uL Monocytes # 0.4 (0-1.0) k/uL Eosinophils # 0.2 (0-0.7) k/uL Basophils # 0.0 (0-0.2) k/uL Sodium 137 (137-145) mmol/L Potassium 4.5 (3.5-5.1) mmol/L Chloride 106 (98-107) mmol/L Carbon Dioxide 23 (22-30) mmol/L Anion Gap 8 mmol/L BUN 12 (7-17) mg/dL Creatinine 0.60 (0.52-1.04) mg/dL Est GFR (CKD-EPI)AfAm >90 (>60 ml/min/1.73 sqM) Est GFR (CKD-EPI)NonAf >90 (>60 ml/min/1.73 sqM) Glucose 106 H (74-99) mg/dL Calcium 9.6 (8.4-10.2) mg/dL Total Bilirubin 0.7 (0.2-1.3) mg/dL AST 38 H (14-36) U/L ALT 21 (4-34) U/L Alkaline Phosphatase 84 (38-126) U/L Total Protein 7.1 (6.3-8.2) g/dL Albumin 4.0 (3.5-5.0) g/dL Amylase 68 (30-110) U/L Lipase 55 (23-300) U/L Disposition Clinical Impression: Acute appendicitis, Abdominal pain Disposition: ADMITTED IP TO THIS HOSP Condition: Good Referrals: Rey Espinal DO [Primary Care Provider] - 1-2 days
[2019-02-27] MEDS ORDERED: PIPERACILLIN-TAZOBACTAM 3.375 GM in SODIUM CHLORIDE 0.9% 100 ML IVPB STA (06:41)
[2019-02-27] MEDS ORDERED: NALOXONE 0.4 MG/ML 1 ML VIAL IV PRN ×2 (06:42→09:05)
[2019-02-27] MEDS ORDERED: ONDANSETRON 4 MG/2 ML VIAL IVP PRN (06:42)
[2019-02-27] MEDS ORDERED: MORPHINE SULFATE 4 MG/ML SYRINGE IV PRN (06:42)
[2019-02-27] MEDS ORDERED: SODIUM CHLORIDE 0.9% 1,000 ML IV SCH (06:45)
[2019-02-27 07:09] LABS: Appearance,Urine Clear (Clear); Bilirubin,Urine Negative (Negative); Blood,Urine Trace (Negative); Color,Urine Light Yellow; Glucose,Urine (UA) Negative (Negative); Ketones,Urine Negative (Negative); Leukocyte Esterase,Urine Negative (Negative); Nitrite,Urine Negative (Negative); PH, Urine 5.5 (5.0-8.0); Protein,Urine Negative (Negative); RBC,Urine 1 /hpf (0-5); Specific Gravity,Urine 1.005 (1.001-1.035); Squamous Epithelial Cell,Urine <1 /hpf (0-4); Urobilinogen,Urine <2.0 mg/dL (<2.0)
[2019-02-27] MEDS ORDERED: PROMETHAZINE INJ 25 MG in SODIUM CHLORIDE 0.9% 50 ML IVPB STA (07:20)
--- NOTE | 2019-02-27 08:21 | P.GSHP ---
History of Present Illness H&P Date: 02/27/19 Chief Complaint: Right lower quadrant pain This a 53-year-old female who has a 2 day history of right lower quadrant pain. Patient worked up in the emergency found have evidence of appendicitis. She is admitted for appendectomy. Past Medical History Past Medical History: Asthma, Coronary Artery Disease (CAD), Chest Pain / Angina, GERD/Reflux, Hyperlipidemia, Musculoskeletal Disorder, Thyroid Disorder Additional Past Medical History / Comment(s): raynauds, lupus-suspected, had ruptured disc, hx. stomach ulcer, has 3 cardiac stents, hiatal hernia, SOB w/exertion recently History of Any Multi-Drug Resistant Organisms: None Reported Past Surgical History: Cholecystectomy, Heart Catheterization, Heart Catheterization With Stent, Tonsillectomy, Uterine Ablation Past Anesthesia/Blood Transfusion Reactions: No Reported Reaction, Family History of Problems w/ Anesthesia Additional Past Anesthesia/Blood Transfusion Reaction / Comment(s): has had hematomas in past after cardiac caths. & syncopal episode, mom had some issues w/anesthesia Date of Last Stent Placement:: Past Psychological History: No Psychological Hx Reported Smoking Status: Former smoker Past Alcohol Use History: None Reported Past Drug Use History: None Reported - Past Family History Brother(s) Family Medical History: Coronary Artery Disease (CAD), Myocardial Infarction ([place]) Mother Family Medical History: Coronary Artery Disease (CAD), Diabetes Mellitus Father Family Medical History: Pulmonary Embolus Medications and Allergies Home Medications Medication Instructions Recorded Confirmed Type Loratadine [Claritin] 10 mg PO HS 08/17/13 02/27/19 History Montelukast [Singulair] 10 mg PO HS 08/17/13 02/27/19 History Zolpidem [Ambien] 5 mg PO HS PRN 08/17/13 02/27/19 History amLODIPine BESYLATE [Norvasc] 2.5 mg PO DAILY 12/12/13 02/27/19 History Clopidogrel [Plavix] 75 mg PO DAILY 05/23/14 02/27/19 History Cholecalciferol [Vitamin D3] 5,000 unit PO DAILY 06/30/15 02/27/19 History Nitroglycerin Sl Tabs [Nitrostat] 0.4 mg SUBLINGUAL Q5M PRN #25 tab 07/04/15 02/27/19 Rx Omeprazole 20 mg PO BID 10/30/15 02/27/19 History Albuterol Nebulized [Ventolin 2.5 mg INHALATION RT-QID PRN 04/05/16 02/27/19 History Nebulized] Ezetimibe [Zetia] 10 mg PO HS 04/07/18 02/27/19 History Metoprolol Tartrate 25 mg PO DAILY 04/07/18 02/27/19 History Aspirin EC [Ecotrin Low Dose] 81 mg PO DAILY 04/10/18 02/27/19 History Levothyroxine Sodium [Synthroid] 137 mcg PO MOTUWETHFRSA 04/10/18 02/27/19 History Albuterol Inhaler [Ventolin Hfa 2 puff INHALATION RT-QID PRN 02/27/19 02/27/19 History Inhaler] Ascorbic Acid [Vitamin C] 2,000 mg PO DAILY 02/27/19 02/27/19 History Furosemide [Lasix] 20 mg PO DAILY@1200 02/27/19 02/27/19 History Isosorbide Mononitrate ER [Imdur] 30 mg PO DAILY 02/27/19 02/27/19 History Bonner-3 Fatty Acids [Bonner-3] 1,000 mg PO DAILY 02/27/19 02/27/19 History Allergies Allergy/AdvReac Type Severity Reaction Status Date / Time shellfish derived Allergy throat Verified 02/27/19 07:26 swelling sulfamethoxazole Allergy Rash/Hives Verified 02/27/19 07:26 [From Bactrim] trimethoprim [From Bactrim] Allergy Rash/Hives Verified 02/27/19 07:26 atorvastatin calcium AdvReac muscle Verified 02/27/19 07:26 [From Lipitor] aches diltiazem HCl [From Cardizem] AdvReac EXTREME Verified 02/27/19 07:26 FLUSHING rosuvastatin calcium AdvReac SEVERE Verified 02/27/19 07:26 [From Crestor] MUSCLE PAIN Surgical - Exam Vital Signs Temp Pulse Resp BP Pulse Ox 97.4 F L 80 20 142/86 98 02/27/19 04:49 02/27/19 04:49 02/27/19 04:49 02/27/19 04:49 02/27/19 04:49 - General well developed, well nourished, no distress - Eyes PERRL - ENT normal pinna, normal nares - Neck no masses - Respiratory normal expansion - Cardiovascular Rhythm: regular - Abdomen Tender right lower quadrant Abdomen: soft Results - Labs 02/27/19 05:46 02/27/19 05:46 Abnormal Lab Results - Last 24 Hours (Table) 02/27/19 02/27/19 02/27/19 Range/Units 05:46 05:46 06:50 Plt Count 140 L (150-450) k/uL Glucose 106 H (74-99) mg/dL AST 38 H (14-36) U/L Urine Blood Trace H (Negative) Diabetes panel 02/27/19 Range/Units 05:46 Sodium 137 (137-145) mmol/L Potassium 4.5 (3.5-5.1) mmol/L Chloride 106 (98-107) mmol/L Carbon Dioxide 23 (22-30) mmol/L BUN 12 (7-17) mg/dL Creatinine 0.60 (0.52-1.04) mg/dL Glucose 106 H (74-99) mg/dL Calcium 9.6 (8.4-10.2) mg/dL AST 38 H (14-36) U/L ALT 21 (4-34) U/L Alkaline Phosphatase 84 (38-126) U/L Total Protein 7.1 (6.3-8.2) g/dL Albumin 4.0 (3.5-5.0) g/dL Calcium panel 02/27/19 Range/Units 05:46 Calcium 9.6 (8.4-10.2) mg/dL Albumin 4.0 (3.5-5.0) g/dL Pituitary panel 02/27/19 Range/Units 05:46 Sodium 137 (137-145) mmol/L Potassium 4.5 (3.5-5.1) mmol/L Chloride 106 (98-107) mmol/L Carbon Dioxide 23 (22-30) mmol/L BUN 12 (7-17) mg/dL Creatinine 0.60 (0.52-1.04) mg/dL Glucose 106 H (74-99) mg/dL Calcium 9.6 (8.4-10.2) mg/dL Adrenal panel 02/27/19 Range/Units 05:46 Sodium 137 (137-145) mmol/L Potassium 4.5 (3.5-5.1) mmol/L Chloride 106 (98-107) mmol/L Carbon Dioxide 23 (22-30) mmol/L BUN 12 (7-17) mg/dL Creatinine 0.60 (0.52-1.04) mg/dL Glucose 106 H (74-99) mg/dL Calcium 9.6 (8.4-10.2) mg/dL Total Bilirubin 0.7 (0.2-1.3) mg/dL AST 38 H (14-36) U/L ALT 21 (4-34) U/L Alkaline Phosphatase 84 (38-126) U/L Total Protein 7.1 (6.3-8.2) g/dL Albumin 4.0 (3.5-5.0) g/dL - Imaging CT scan - abdomen: report reviewed (Acute early appendicitis) Assessment and Plan Assessment: Acute appendicitis. We'll perform laparoscopic appendectomy. Patient has extensive cardiac history. We will consult cardiology during her hospitalization. Patient has been on Plavix and aspirin. I discussed the risk of bleeding the patient.
[2019-02-27] MEDS ORDERED: PROPOFOL 10 MG/ML 20 ML VIAL IV ONE (08:25)
[2019-02-27] MEDS ORDERED: KETOROLAC 30 MG/ML 1 ML VIAL ONE (08:25)
[2019-02-27] MEDS ORDERED: SUCCINYLCHOLINE CHLORIDE 100 MG/5 ML SYR IV ONE (08:25)
[2019-02-27] MEDS ORDERED: ROCURONIUM BROMIDE 10 MG/ML 10 ML VIAL IV ONE (08:25)
[2019-02-27] MEDS ORDERED: fentaNYL (PF) 50 MCG/ML 2 ML AMP ONE (08:25)
[2019-02-27] MEDS ORDERED: NEOSTIGMINE 1 MG/ML 10 ML VIAL ONE (08:25)
[2019-02-27] MEDS ORDERED: GLYCOPYRROLATE 0.2 MG/ML 2 ML VIAL ONE (08:25)
[2019-02-27] MEDS ORDERED: MIDAZOLAM 2 MG/2 ML VIAL ONE (08:25)
[2019-02-27] MEDS ORDERED: LIDOCAINE 1% INJ 10MG/ML (20 ML MDV) ONE (08:25)
[2019-02-27] MEDS ORDERED: IV FLUID CONTINUATION 1,000 ML IV ONE (08:27)
[2019-02-27] MEDS ORDERED: BUPIVACAINE (PF) 0.25% 30 ML VIAL SQ ONE (08:45)
[2019-02-27] MEDS ORDERED: HYDROmorphone 0.5 MG/0.5 ML SYRINGE IVP PRN (09:05)
[2019-02-27] MEDS ORDERED: traMADol 50 MG TAB PO PRN (09:05)
[2019-02-27] MEDS ORDERED: LACTATED RINGERS 1,000 ML IV ONE (09:05)
--- NOTE | 2019-02-27 09:05 | P.OP ---
Date of Procedure: 02/27/19 Preoperative Diagnosis: Acute appendicitis Postoperative Diagnosis: Acute appendicitis Procedure(s) Performed: Laparoscopic appendectomy Anesthesia: JENNY Surgeon: Zachery Vidal Estimated Blood Loss (ml): 5 Pathology: other (Appendix) Condition: stable Disposition: PACU Description of Procedure: The patient's placed on the operating table in the supine position. The patient received general anesthesia. The abdomen was prepped and draped in the usual sterile fashion. The skin was anesthetized 1% local Xylocaine at the trocar sites. Using an 11 blade the skin was incised at the umbilicus. The umbilicus was grasped with a Olyphant clamp and then a Veress needle was placed into the peritoneal cavity. Position of the Veress needle was confirmed with positive drop test. After adequate insufflation a 5 mm trocar was placed into the peritoneal cavity. The abdomen was further insufflated. And then the laparoscope was placed in the peritoneal cavity. Next a 5 mm trocar was placed in the midline suprapubic position. And then a 10 mm trocar was placed in the midline epigastric position. The patient was rotated with the right side up and in Trendelenburg. The appendix was visualized. The appendix appeared to be inflamed. The appendix was grasped and then using the Harmonic scissors the mesoappendix was divided. A PDS Endoloop was then placed around the base of the appendix. And then the appendix was divided using Harmonic scissors. The appendix was placed into an Endo Catch and brought out through the 10 mm trocar site. The abdomen was irrigated. There is no bleeding seen. The trochars withdrawn. The skin was closed interrupted 3-0 Monocryl suture. Dermabond dressing was applied. Patient was sent to recovery room in stable condition.
[2019-02-27] MEDS ORDERED: LEVOTHYROXINE 137 MCG TAB PO SCH (12:00)
[2019-02-27] MEDS: ASPIRIN 81 MG PO SCH (12:09)
[2019-02-27] MEDS: ISOSORBIDE MONONITRATE ER 30 MG TAB.ER.24H PO SCH (12:09)
--- NOTE | 2019-02-27 13:11 | P.CONS ---
History of Present Illness - Reason for Consult Consult date: 02/27/19 medical management for multiple medical problems including bradycardia and - Chief Complaint abdominal pain - History of Present Illness this is 53 years old female who presented to the emergency department with abdominal pain patient stated that she has been dealing with abdominal pain for 2 days in the emergency department patient was evaluated by general surgery and impression was acute appendicitis and patient was taken to the surgical suite for laparoscopic appendectomy and transferred back to observation unit for closer monitoring. Patient had significant bradycardia down to the low 40s after surgery but the rest of her vital signs continued to be stable. Patient currently is denying chest pain, shortness breath, dizziness, lightheadedness, nausea, vomiting and stated that her abdominal in stents at 5/10. 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 Patient denied history of obstructive sleep apnea and stated that she was tested 5 years ago. Patient is well known to have coronary artery disease at young age with most recent stent placed in 2015 and patient has been on aspirin and Plavix since 2013 when she got her first stent for total of 3 stents and 1 ballooning in the past. Patient is denying tobacco alcohol or drug abuse. Family at the bedside had multiple concerns and questions all addressed at the bedside in the presence of nursing staff Review of Systems all 14 systems reviewed and negative except as above Past Medical History Past Medical History: Asthma, Coronary Artery Disease (CAD), Chest Pain / Angina, GERD/Reflux, Hyperlipidemia, Musculoskeletal Disorder, Pneumonia, Syncope, Thyroid Disorder, Vascular Disorder Additional Past Medical History / Comment(s): raynauds, lupus-suspected, had ruptured disc, hx. stomach ulcer, has 3 cardiac stents, hiatal hernia, SOB w/exertion recently, microvascular disease History of Any Multi-Drug Resistant Organisms: None Reported Past Surgical History: Appendectomy, Cholecystectomy, Heart Catheterization, Heart Catheterization With Stent, Tonsillectomy, Uterine Ablation Past Anesthesia/Blood Transfusion Reactions: No Reported Reaction, Family History of Problems w/ Anesthesia Additional Past Anesthesia/Blood Transfusion Reaction / Comm: has had hematomas in past after cardiac caths. & syncopal episode, mom had some issues w/anesthesia Date of Last Stent Placement:: Past Psychological History: No Psychological Hx Reported Smoking Status: Former smoker Past Alcohol Use History: None Reported Additional Past Alcohol Use History / Comment(s): quit smoking 20 yrs., smoked for 13yrs. Past Drug Use History: None Reported - Past Family History Brother(s) Family Medical History: Coronary Artery Disease (CAD), Myocardial Infarction ([place]) Mother Family Medical History: Coronary Artery Disease (CAD), Diabetes Mellitus Father Family Medical History: Pulmonary Embolus Medications and Allergies Home Medications Medication Instructions Recorded Confirmed Type Loratadine [Claritin] 10 mg PO HS 08/17/13 02/27/19 History Montelukast [Singulair] 10 mg PO HS 08/17/13 02/27/19 History Zolpidem [Ambien] 5 mg PO HS PRN 08/17/13 02/27/19 History amLODIPine BESYLATE [Norvasc] 2.5 mg PO DAILY 12/12/13 02/27/19 History Clopidogrel [Plavix] 75 mg PO DAILY 05/23/14 02/27/19 History Cholecalciferol [Vitamin D3] 5,000 unit PO DAILY 06/30/15 02/27/19 History Nitroglycerin Sl Tabs [Nitrostat] 0.4 mg SUBLINGUAL Q5M PRN #25 tab 07/04/15 02/27/19 Rx Omeprazole 20 mg PO BID 10/30/15 02/27/19 History Albuterol Nebulized [Ventolin 2.5 mg INHALATION RT-QID PRN 04/05/16 02/27/19 History Nebulized] Ezetimibe [Zetia] 10 mg PO HS 04/07/18 02/27/19 History Metoprolol Tartrate 25 mg PO DAILY 04/07/18 02/27/19 History Aspirin EC [Ecotrin Low Dose] 81 mg PO DAILY 04/10/18 02/27/19 History Levothyroxine Sodium [Synthroid] 137 mcg PO MOTUWETHFRSA 04/10/18 02/27/19 History Albuterol Inhaler [Ventolin Hfa 2 puff INHALATION RT-QID PRN 02/27/19 02/27/19 History Inhaler] Ascorbic Acid [Vitamin C] 2,000 mg PO DAILY 02/27/19 02/27/19 History Furosemide [Lasix] 20 mg PO DAILY@1200 02/27/19 02/27/19 History Isosorbide Mononitrate ER [Imdur] 30 mg PO DAILY 02/27/19 02/27/19 History Weatherford-3 Fatty Acids [[place]-3] 1,000 mg PO DAILY 02/27/19 02/27/19 History Allergies Allergy/AdvReac Type Severity Reaction Status Date / Time shellfish derived Allergy throat Verified 02/27/19 07:26 swelling sulfamethoxazole Allergy Rash/Hives Verified 02/27/19 07:26 [From Bactrim] trimethoprim [From Bactrim] Allergy Rash/Hives Verified 02/27/19 07:26 atorvastatin calcium AdvReac muscle Verified 02/27/19 07:26 [From Lipitor] aches diltiazem HCl [From Cardizem] AdvReac EXTREME Verified 02/27/19 07:26 FLUSHING rosuvastatin calcium AdvReac SEVERE Verified 02/27/19 07:26 [From Crestor] MUSCLE PAIN Physical Exam Vitals: Vital Signs Temp Pulse Pulse Pulse Resp BP BP 02/27/19 10:15 59 L 134/76 02/27/19 10:01 58 L 16 133/77 02/27/19 09:45 62 16 134/76 02/27/19 09:30 68 F L 67 16 134/78 02/27/19 09:23 97.0 F L 68 16 148/84 02/27/19 07:17 77 18 124/79 02/27/19 04:49 97.4 F L 80 20 142/86 Pulse Ox 02/27/19 10:15 100 02/27/19 10:01 100 02/27/19 09:45 100 02/27/19 09:30 100 02/27/19 09:23 100 02/27/19 07:17 98 02/27/19 04:49 98 Intake and Output 02/26/19 02/27/19 02/27/19 22:59 06:59 14:59 Intake Total 650 Output Total 5 Balance 645 Intake: IV 650 Output: Estimated Blood Loss 5 Other: Voiding Method Toilet Weight 95.708 kg 95.708 kg Gen.: in stated age, no acute distress Heart: Normal S1-S2 Lungs: Clear to auscultation bilaterally Abdomen: Soft, generalized tenderness no guarding or rebound Skin: No new rash Psych: Alert and oriented 3 Neuro: No focal deficit Results CBC & Chem 7: 02/27/19 05:46 02/27/19 05:46 Labs: Abnormal Lab Results - Last 24 Hours (Table) 02/27/19 02/27/19 02/27/19 Range/Units 05:46 05:46 06:50 Plt Count 140 L (150-450) k/uL Glucose 106 H (74-99) mg/dL AST 38 H (14-36) U/L Urine Blood Trace H (Negative) Assessment and Plan Assessment: 1. Acute appendicitis status post laparoscopic appendectomy. 2. Sinus bradycardia. 3. Coronary artery disease status post angioplasty most recent in 2015. 4. Obesity. 5. Possible underlying obstructive sleep apnea. 6. Asthma. 7. GERD. 8. Hypothyroidism. 9. Mild thrombocytopenia. 10. Hypertension. I had long discussion with patient and her family in the presence of the nursing staff where I would like to hold beta princess at this point,encourageoralintake etiology for her bradycardia could be related to recent surgery and sedation wi th vasovagal effect. We'll monitor her vital signs closely continue holding aspirin and Plavix until cleared by general surgery and then we can resume it. Patient understands risk and benefit from current treatment and we'll continue monitoring general condition closely along with vital signs and repeat her blood work in the morning we will resume her home medication with holding parameters and consider discharge based on clinical progress
--- NOTE | 2019-02-27 15:05 | CONS ---
CONSULTATION Mrs. Mejias is a 53-year-old female who presented with abdominal discomfort and was diagnosed with acute appendicitis, underwent appendectomy by Dr. Vidal. Cardiology consultation was requested because of her cardiac history. The patient has a known history of coronary artery disease, has been followed by Dr. Praneeth Greenberg on a regular basis, has underwent percutaneous revascularization in the past. Most recently underwent cardiac catheterization in March of this year. Her past history is remarkable for stenting of the major diagonal branch in mid LAD in 2013 with jailing of the LAD, but she has been complaining of recurrent episode of chest discomfort and Dr. Praneeth Greenberg proceeded to undergo repeat cardiac catheterization in March of this year. At that time, the LAD was wide open. The diagonal branch had an 80% stenosis. She underwent balloon angioplasty of the LAD with kissing balloon. The patient continues to have stable angina pectoris and has been evaluated for a second opinion at [facility] and medical therapy was recommended. She denies any dizziness. She has occasional palpitations. She has the dyspnea on exertion. The episode of chest discomfort. She is complaining of abdominal discomfort at this time that started about 2 days ago. CORONARY RISK FACTORS: Her coronary risk factors are remarkable for hypertension and hyperlipidemia. She is nondiabetic. She has history of Raynaud phenomenon. MEDICATIONS: Her medications at home include Norvasc 2.5 mg daily, Singulair 10 mg daily, metoprolol tartrate 25 mg daily, isosorbide mononitrate 30 mg daily, Lasix 20 mg daily, Zetia 10 mg daily, Plavix 75 mg daily, aspirin 81 mg daily. The patient could not tolerate a statin. REVIEW OF SYSTEMS: Respiratory system: She has history of dyspnea on exertion. No recent wheezing or cough. GI system: She had the abdominal pain and nausea as noted. system: No dysuria or hematuria. Nervous system: No stroke or seizure. PHYSICAL EXAMINATION: 53-year-old female, alert, mild discomfort from her abdomen. Blood pressure 134/70 with a heart rate in the 60s. HEAD: Normocephalic. Eyes: Sclerae anicteric. NECK: Good carotid upstroke. No bruit. No jugular venous distention. LUNGS: Clear to auscultation. HEART: Regular rate and rhythm S1, S2. No S3. No rub or gallop. ABDOMEN: Soft, nontender. Positive bowel sounds. EXTREMITIES: No edema. LAB DATA: Lab data revealed BUN and creatinine 12 and 0.6. Potassium 4.5 hemoglobin of 13.4. IMPRESSION: 1. Status post appendectomy. 2. History of coronary artery disease with chronic angina pectoris. Most recent cardiac catheterization in April done at [facility] according to the patient showed no progression of disease. 3. Hypertension. 4. Hyperlipidemia. RECOMMENDATIONS: I will hold her Plavix at this time, but I will re-initiate treatment with the aspirin. Continue rest of her medical regimen. Depending on her progress, further recommendations will be made. Thank you for this consult. We will follow with you. SUSAN / LAURAN: [id number] /
[2019-02-27] MEDS ORDERED: MONTELUKAST 10 MG TAB PO SCH (21:00)
[2019-02-27] MEDS ORDERED: EZETIMIBE 10 MG TAB PO SCH (21:00)
[2019-02-27] MEDS: FUROSEMIDE 20 MG TAB PO SCH (21:23)
[2019-02-27] MEDS: DOCUSATE 100 MG CAP PO SCH (21:23)
[2019-02-27] MEDS: HYDROcodone/APAP 5-325MG 1 EACH TAB PO PRN (21:27)
[2019-02-28] VITALS: RESP 18
[2019-02-28 07:54] VITALS: BP 126/71; PULSE 89; TEMP 98.7
[2019-02-28] MEDS: ISOSORBIDE MONONITRATE ER 30 MG TAB.ER.24H PO SCH (08:17)
[2019-02-28] MEDS: ASPIRIN 81 MG PO SCH (08:17)
[2019-02-28] MEDS: DOCUSATE 100 MG CAP PO SCH (08:17)
[2019-02-28] MEDS ORDERED: ENOXAPARIN 40 MG/0.4 ML SYRINGE SQ SCH (09:00)
[2019-02-28] MEDS ORDERED: amLODIPine 2.5 MG TAB PO SCH (09:00)
[2019-02-28] MEDS ORDERED: METOPROLOL TARTRATE 25 MG TAB PO SCH (09:45)
--- NOTE | 2019-02-28 09:56 | P.PN ---
Subjective Progress Note Date: 02/28/19 Principal diagnosis: appendicitis This is a pleasant 53-year-old patient who follows with Dr. LETY Greenberg in the office. He presented to the emergency department with abdominal pain and was diagnosed with acute appendicitis and subsequently underwent laparoscopic appendectomy by Dr. Vidal. The patient was seen in consultation yesterday by Dr. Ornelas due to the patient's extensive cardiac history. She has a history of stenting of the LAD in 2013 with subsequent angioplasty and stenting of the diagonal branch in March of this year. Cardiac-damian the patient has been feel ing fairly stable. She continues to have stable angina pectoris for which she has been evaluated by stationary equipment mechanic out of [facility] and medical therapy was recommended. This morning the patient is feeling well. She is concerned regarding her medications as her Plavix and metoprolol have been on hold. Vital signs are stable. She continues to have abdominal tenderness and bloating postoperatively. She is passing flatus. She's been up ambulating without difficulties. Objective - Vital Signs Vital signs: Vital Signs Temp 98.7 F 02/28/19 07:52 Pulse 89 02/28/19 07:52 Resp 18 02/28/19 07:52 BP 126/71 02/28/19 07:52 Pulse Ox 95 02/28/19 07:52 Intake & Output 02/27/19 02/28/19 02/28/19 18:59 06:59 18:59 Intake Total 650 160 Output Total 5 Balance 645 160 Weight 95.708 kg Intake: IV 650 Intake, IV Titration 160 Amount Lactated Ringers 1,000 ml 160 @ 80 mls/hr IV .[id number] ONE Rx#:[id number] Output: Estimated Blood Loss 5 Other: Voiding Method Toilet Toilet # Voids 2 1 - Exam PHYSICAL EXAMINATION: HEENT: Head is atraumatic, normocephalic. Pupils equal, round. Neck is supple. There is no elevated jugular venous pressure. HEART EXAMINATION: Heart sounds regular, S1 and S2 normal. No murmur or gallop heard. CHEST EXAMINATION: Lungs are clear to auscultation. No chest wall tenderness is noted on palpation or with deep breathing. ABDOMEN: Soft, mild distention noted with generalized tenderness. Bowel sounds are heard. No organomegaly noted. EXTREMITIES: 2+ peripheral pulses with evidence of +1 peripheral edema and no calf tenderness noted. NEUROLOGIC patient is awake, alert and oriented x3. . - Labs CBC & Chem 7: 02/27/19 05:46 02/27/19 05:46 Labs: Microbiology - Last 24 Hours (Table) 02/27/19 07:10 Blood Culture - Preliminary Blood No Growth after 24 hours Assessment and Plan Assessment: #1 acute appendicitis, status post laparoscopic appendectomy #2 history of coronary artery disease with chronic angina pectoris, most recent cardiac catheterization in April 2069 on hospital according to the patient showed no progression of disease #3 hypertension #4 hyperlipidemia Plan: From cardiology's perspective, we will resume Plavix and beta princess. Patient is stable for discharge home from a cardiac standpoint. Will continue follow-up with Dr. LETY Greenberg in the office as previously scheduled. MANAGER OF SECURITY note has been reviewed, I agree with a documented findings and plan of care. Patient was seen and examined.
[2019-02-28] MEDS: FUROSEMIDE 20 MG TAB PO SCH (12:30)
--- NOTE | 2019-02-28 14:08 | P.DS ---
Providers Date of admission: 02/27/19 06:43 Expected date of discharge: 02/28/19 Attending physician: Zachery Vidal Consults: 02/27/19 09:05 Consult Physician Routine Consulting Provider: René Fernandes Consult Reason/Comments: Medical management Do you want consulting provider notified?: Yes Consult Physician Routine Consulting Provider: Matt Greenberg V Consult Reason/Comments: Cardiac history Do you want consulting provider notified?: Yes Primary care physician: [facility] Course: this a 53-year-old female who was admitted for right lower quadrant abdominal pain. Patient underwent laparoscopic appendectomy. Patient did well postoperative. Please see hospital chart for details. Procedures: laparoscopic appendectomy Patient Condition at Discharge: Good Plan - Discharge Summary Discharge Rx Participant: No New Discharge Prescriptions: New Docusate [Colace] 100 mg PO BID #20 capsule HYDROcodone/APAP 5-325MG [[place] 5-325] 1 tab PO Q6HR PRN #10 tab PRN Reason: Pain No Action Zolpidem [Ambien] 5 mg PO HS PRN PRN Reason: sleep Montelukast [Singulair] 10 mg PO HS Loratadine [Claritin] 10 mg PO HS amLODIPine BESYLATE [Norvasc] 2.5 mg PO DAILY Clopidogrel [Plavix] 75 mg PO DAILY Cholecalciferol [Vitamin D3] 5,000 unit PO DAILY Nitroglycerin Sl Tabs [Nitrostat] 0.4 mg SUBLINGUAL Q5M PRN #25 tab PRN Reason: Chest Pain Omeprazole 20 mg PO BID Albuterol Nebulized [Ventolin Nebulized] 2.5 mg INHALATION RT-QID PRN PRN Reason: Shortness Of Breath Metoprolol Tartrate 25 mg PO DAILY Ezetimibe [Zetia] 10 mg PO HS Aspirin EC [Ecotrin Low Dose] 81 mg PO DAILY Levothyroxine Sodium [Synthroid] 137 mcg PO MOTUWETHFRSA Isosorbide Mononitrate ER [Imdur] 30 mg PO DAILY Furosemide [Lasix] 20 mg PO DAILY@1200 Ascorbic Acid [Vitamin C] 2,000 mg PO DAILY Albuterol Inhaler [Ventolin Hfa Inhaler] 2 puff INHALATION RT-QID PRN PRN Reason: Shortness Of Breath [place]-3 Fatty Acids [[place]-3] 1,000 mg PO DAILY Discharge Medication List Loratadine [Claritin] 10 mg PO HS 08/17/13 [History] Montelukast [Singulair] 10 mg PO HS 08/17/13 [History] Zolpidem [Ambien] 5 mg PO HS PRN 08/17/13 [History] amLODIPine BESYLATE [Norvasc] 2.5 mg PO DAILY 12/12/13 [History] Clopidogrel [Plavix] 75 mg PO DAILY 05/23/14 [History] Cholecalciferol [Vitamin D3] 5,000 unit PO DAILY 06/30/15 [History] Nitroglycerin Sl Tabs [Nitrostat] 0.4 mg SUBLINGUAL Q5M PRN #25 tab 07/04/15 [Rx] Omeprazole 20 mg PO BID 10/30/15 [History] Albuterol Nebulized [Ventolin Nebulized] 2.5 mg INHALATION RT-QID PRN 04/05/16 [History] Ezetimibe [Zetia] 10 mg PO HS 04/07/18 [History] Metoprolol Tartrate 25 mg PO DAILY 04/07/18 [History] Aspirin EC [Ecotrin Low Dose] 81 mg PO DAILY 04/10/18 [History] Levothyroxine Sodium [Synthroid] 137 mcg PO MOTUWETHFRSA 04/10/18 [History] Albuterol Inhaler [Ventolin Hfa Inhaler] 2 puff INHALATION RT-QID PRN 02/27/19 [History] Ascorbic Acid [Vitamin C] 2,000 mg PO DAILY 02/27/19 [History] Furosemide [Lasix] 20 mg PO DAILY@1200 02/27/19 [History] Isosorbide Mononitrate ER [Imdur] 30 mg PO DAILY 02/27/19 [History] [place]-3 Fatty Acids [[place]-3] 1,000 mg PO DAILY 02/27/19 [History] Docusate [Colace] 100 mg PO BID #20 capsule 02/28/19 [Rx] HYDROcodone/APAP 5-325MG [[place] 5-325] 1 tab PO Q6HR PRN #10 tab 02/28/19 [Rx] Follow up Appointment(s)/Referral(s): Rey Espinal DO [Primary Care Provider] - 1-2 days Zachery Vidal MD [STAFF PHYSICIAN] - 1 Week Discharge Disposition: HOME SELF-CARE
[2019-02-28] MEDS: HYDROcodone/APAP 5-325MG 1 EACH TAB PO PRN (14:16)
[2019-02-28] MEDS ORDERED: FUROSEMIDE 20 MG TAB PO SCH (21:16)
[2019-03-01] MEDS ORDERED: CLOPIDOGREL 75 MG TAB PO SCH (09:00)
== END 2019-02-28 15:00 | disposition home or self-care (01) ==
LOC: EC 04:47 → 6PED 06:43 → 1SOBS 09:28
PROVIDERS: ADMIT Surgery; ATTEND Surgery
DX: K35.30 Acute appendicitis with localized peritonitis, without perforation or gangrene (principal); I25.118 Atherosclerotic heart disease of native coronary artery with other forms of angina pectoris; I10 Essential (primary) hypertension; E78.5 Hyperlipidemia, unspecified; R00.1 Bradycardia, unspecified; E66.9 Obesity, unspecified; J45.909 Unspecified asthma, uncomplicated; K21.9 Gastro-esophageal reflux disease without esophagitis; E03.9 Hypothyroidism, unspecified; D69.6 Thrombocytopenia, unspecified; I73.00 Raynaud's syndrome without gangrene; K44.9 Diaphragmatic hernia without obstruction or gangrene; Z68.37 Body mass index [BMI] 37.0-37.9, adult; Z79.899 Other long term (current) drug therapy; Z79.02 Long term (current) use of antithrombotics/antiplatelets; Z79.82 Long term (current) use of aspirin; Z79.890 Hormone replacement therapy; Z91.013 Allergy to seafood; Z88.2 Allergy status to sulfonamides; Z88.8 Allergy status to other drugs, medicaments and biological substances; Z87.39 Personal history of other diseases of the musculoskeletal system and connective tissue; Z87.11 Personal history of peptic ulcer disease; Z95.5 Presence of coronary angioplasty implant and graft; Z90.49 Acquired absence of other specified parts of digestive tract; Z98.890 Other specified postprocedural states; Z90.89 Acquired absence of other organs; Z87.898 Personal history of other specified conditions; Z87.891 Personal history of nicotine dependence; Z84.89 Family history of other specified conditions; Z82.49 Family history of ischemic heart disease and other diseases of the circulatory system; Z83.3 Family history of diabetes mellitus
CPT/HCPCS: 93005; 96374; 96375; 99285; 36415; 88304; 80053; 82150; 83690; 85025; 81001; 81025; 87040; 74176; 44970; G0378 ×3; J2543; J2250; J2550; J2710; J2405; J2001; J3010; J1885; J0330; J2704; J1170

== ENCOUNTER 2019-03-31 11:07 | Inpatient (IN) | payer BC ==
--- NOTE | 2019-03-31 13:39 | CT ---
EXAMINATION TYPE: CT abdomen pelvis wo con DATE OF EXAM: 03/31/2019 COMPARISON: Prior CT 02/27/2019 HISTORY: Pelvic pain x 4 days. Appendectomy 02-27-19. CT DLP: 1038.4 mGycm Automated exposure control for dose reduction was used. TECHNIQUE: Helical acquisition of images from the lung bases through the pelvis. Is received oral co ntrast only. FINDINGS: Lack of intravenous contrast could compromise sensitivity of the exam. There is a hiatal he rnia is noted on prior exam. Increased density in the subcutaneous fat at the level of the right uppe r quadrant noted possibly due to prior surgery LUNG BASES: No significant abnormality is appreciated. AORTA: No significant abnormality is appreciataed. LIVER/GB: Gallbladder is absent status post cholecystectomy. Liver is unremarkable.. PANCREAS: No significant abnormality is seen. SPLEEN: No significant abnormality is seen. ADRENALS: No significant abnormality is seen. KIDNEYS: No significant abnormality is seen. REPRODUCTIVE ORGANS: No significant abnormality is seen. URINARY BLADDER: No significant abnormality is seen. BOWEL: The cecum shows abnormal wall thickening as does the terminal ileum. There is inflammatory ch ekaterina present within the surrounding fat at this level. The appendix shows abnormal wall thickening. FREE AIR: No Free Air is visible. ASCITES: None visible. PELVIC ADENOPATHY: None visualized. RETROPERITONEAL ADENOPATHY: No Retroperitoneal Adenopathy visible. OSSEOUS STRUCTURES: No significant abnormality is seen. IMPRESSION: FINDINGS OF APPENDICITIS HAVE PROGRESSED IN THE INTERVAL.
[2019-03-31] MEDS: HYDROmorphone 1 MG/ML 1 ML SYRINGE IVP PRN ×2 (16:48→22:19)
[2019-03-31] MEDS: PIPERACILLIN-TAZOBACTAM 3.375 GM in SODIUM CHLORIDE 0.9% 100 ML IVPB SCH (17:51)
[2019-03-31] MEDS: KETOROLAC 30 MG/ML 1 ML VIAL IVP SCH (17:51)
[2019-03-31] MEDS: D5-0.45% NACL WITH KCL 20MEQ/L 1,000 ML IV SCH (19:24)
[2019-03-31 23:56] LABS: Basophils # (A) 0.1 k/uL (0-0.2); Basophils % (A) 1 %; Eosinophils # (A) 0.2 k/uL (0-0.7); Eosinophils % (A) 2 %; HCT 43.1 % (34.0-46.0); HGB 13.8 gm/dL (11.4-16.0); Lymphocytes # (A) 1.4 k/uL (1.0-4.8); Lymphocytes % (A) 16 %; MCH 31.2 pg (25.0-35.0); MCV 97.7 fL (80.0-100.0); Mean Platelet Volume 6.8; Monocytes # (A) 0.3 k/uL (0-1.0); Monocytes % (A) 3 %; Neutrophils # (A) 6.6 k/uL (1.3-7.7); Neutrophils % (A) 77 %; RBC 4.42 m/uL (3.80-5.40); RDW 12.7 % (11.5-15.5); WBC 8.6 k/uL (3.8-10.6)
[2019-03-31 23:58] LABS: Platelet Count 328 k/uL (150-450)
[2019-04-01 00:08] LABS: African American GFR (CKD) >90 (>60 ml/min/1.73 sqM); Anion Gap 14 mmol/L; Blood Urea Nitrogen 10 mg/dL (7-17); Calcium 8.9 mg/dL (8.4-10.2); Carbon Dioxide 22 mmol/L (22-30); Chloride 100 mmol/L (98-107); Glucose 90 mg/dL (74-99); Non-African American GFR(CKD) >90 (>60 ml/min/1.73 sqM); Potassium 3.9 mmol/L (3.5-5.1); Sodium 136 mmol/L (137-145)
--- NOTE | 2019-04-01 00:12 | P.CONS ---
History of Present Illness - Reason for Consult Consult date: 03/31/19 surgical infection/appendicitis Requesting physician: Tim Luke - Chief Complaint abdominal pain and draiange x days - History of Present Illness Patient is a 53-year-old female who is status post laparoscopic appendectomy on February 27, 2019, patient apparently did have some problem with some erythema around the incision and minimal drainage with the patient has been evaluated in the outpatient setting by the surgeon and has been treated with oral Keflex however over the last few days patient seemed to be having more pain especially in the right lower quadrant area pain seem to be excruciating and almost 10 out of 10 in severity no significant radiation she has been nauseated but no vomiting she was evaluated by her primary care physician this morning and apparently was able to express some pus out from 1 of the incision which has been sent for the culture subsequently the patient has been sent for a CT of abdominal pelvis which did show some moderate to severe wall thickening involving the base of the cecum with contagious extension medially at the level of pelvis and defined fluid and fat stranding near this level no well-formed fluid collection or drainable abscess patient subsequently has been admitted to hospital directly she was started on Zosyn infectious was consulted for further recommendation about antibiotic therapy patient did have subjective fever but did not recall taking her temperature here on admission hospital patient has been afebrile and no blood work has been done so for. Review of Systems Positive point has been mentioned in HPI rest of the systems are negative Past Medical History Past Medical History: Asthma, Coronary Artery Disease (CAD), Chest Pain / Angina, GERD/Reflux, Hyperlipidemia, Musculoskeletal Disorder, Pneumonia, Syncope, Thyroid Disorder, Vascular Disorder Additional Past Medical History / Comment(s): raynauds, lupus-suspected, had ruptured disc, hx. stomach ulcer, has 3 cardiac stents, hiatal hernia, SOB w/exertion recently, microvascular disease History of Any Multi-Drug Resistant Organisms: None Reported Past Surgical History: Appendectomy, Cholecystectomy, Heart Catheterization, Heart Catheterization With Stent, Tonsillectomy, Uterine Ablation Past Anesthesia/Blood Transfusion Reactions: No Reported Reaction, Family History of Problems w/ Anesthesia Additional Past Anesthesia/Blood Transfusion Reaction / Comm: has had hematomas in past after cardiac caths. & syncopal episode, mom had some issues w/anesthesia Date of Last Stent Placement:: Past Psychological History: No Psychological Hx Reported Smoking Status: Former smoker Past Alcohol Use History: None Reported Additional Past Alcohol Use History / Comment(s): quit smoking 20 yrs., smoked for 13yrs. Past Drug Use History: None Reported - Past Family History Brother(s) Family Medical History: Coronary Artery Disease (CAD), Myocardial Infarction ([place]) Mother Family Medical History: Coronary Artery Disease (CAD), Diabetes Mellitus Father Family Medical History: Pulmonary Embolus Medications and Allergies Home Medications Medication Instructions Recorded Confirmed Type Loratadine [Claritin] 10 mg PO HS 08/17/13 03/31/19 History Montelukast [Singulair] 10 mg PO HS 08/17/13 03/31/19 History amLODIPine BESYLATE [Norvasc] 2.5 mg PO DAILY 12/12/13 03/31/19 History Clopidogrel [Plavix] 75 mg PO DAILY 05/23/14 03/31/19 History Cholecalciferol [Vitamin D3] 5,000 unit PO DAILY 06/30/15 03/31/19 History Nitroglycerin Sl Tabs [Nitrostat] 0.4 mg SUBLINGUAL Q5M PRN #25 tab 07/04/15 03/31/19 Rx Omeprazole 20 mg PO BID 10/30/15 03/31/19 History Albuterol Nebulized [Ventolin 2.5 mg INHALATION RT-QID PRN 04/05/16 03/31/19 History Nebulized] Ezetimibe [Zetia] 10 mg PO HS 04/07/18 03/31/19 History Metoprolol Tartrate 25 mg PO DAILY 04/07/18 03/31/19 History Aspirin EC [Ecotrin Low Dose] 81 mg PO DAILY 04/10/18 03/31/19 History Levothyroxine Sodium [Synthroid] 137 mcg PO MOTUWETHFRSA 04/10/18 03/31/19 History Albuterol Inhaler [Ventolin Hfa 2 puff INHALATION RT-QID PRN 02/27/19 03/31/19 History Inhaler] Ascorbic Acid [Vitamin C] 2,000 mg PO DAILY 02/27/19 03/31/19 History Furosemide [Lasix] 20 mg PO DAILY@1200 02/27/19 03/31/19 History Isosorbide Mononitrate ER [Imdur] 30 mg PO DAILY 02/27/19 03/31/19 History Zolpidem [Ambien] 10 mg PO HS PRN 03/31/19 03/31/19 History Allergies Allergy/AdvReac Type Severity Reaction Status Date / Time shellfish derived Allergy throat Verified 03/31/19 18:00 swelling sulfamethoxazole Allergy Rash/Hives Verified 03/31/19 18:00 [From Bactrim] trimethoprim [From Bactrim] Allergy Rash/Hives Verified 03/31/19 18:00 atorvastatin calcium AdvReac muscle Verified 03/31/19 18:00 [From Lipitor] aches diltiazem HCl [From Cardizem] AdvReac EXTREME Verified 03/31/19 18:00 FLUSHING rosuvastatin calcium AdvReac SEVERE Verified 03/31/19 18:00 [From Crestor] MUSCLE PAIN Physical Exam Vitals: Vital Signs Temp Pulse Resp BP Pulse Ox 03/31/19 16:26 98 F 104 H 16 113/81 97 Intake and Output 03/31/19 03/31/19 03/31/19 06:59 14:59 22:59 Other: Weight 96.162 kg GENERAL DESCRIPTION: Middle-aged male lying in bed, no distress. No tachypnea or accessory muscle of respiration use. HEENT: Shows Pallor , no scleral icterus. Oral mucous membrane is dry. NECK: Trachea central, no thyromegaly. LUNGS: Unlabored breathing. Clear to auscultation anteriorly. No wheeze or crackle. HEART: S1, S2, regular rate and rhythm. ABDOMEN: Soft, right lower quadrant tenderness , no guarding or rigidity EXTREMITIES: No edema of feet. SKIN: No rash, no masses palpable. NEUROLOGICAL: The patient is awake, alert, oriented x3, mood and affect normal. Results CBC & Chem 7: 03/31/19 23:49 Assessment and Plan Assessment: 1-patient being admitted hospital with right lower quadrant pain and concern for possible drainage from the incision in this patient who did have abnormal CT did show significant inflammatory changes in the right lower quadrant, likely organism need to cover will be enteric gram negative both aerobes and anerobes (1) Abdominal infection Current Visit: Yes Status: Acute Code(s): K65.9 - PERITONITIS, UNSPECIFIED SNOMED Code(s): 044261849 Plan: 1-Zosyn 3.375 g every 8 hour 2- Blood cultures x2 CBC BMP and CRP 3-review of CT with the radiologist if CT-guided aspirate could be done for diagnostic purposes 4-IV fluid We will follow on clinical condition and cultures to further adjust medication if needed Thank you for this consultation we will follow the patient along with you Time with Patient: Greater than 30
[2019-04-01 00:33] LABS: C Reactive Protein 177.4 mg/L (<10.0)
[2019-04-01] MEDS: KETOROLAC 30 MG/ML 1 ML VIAL IVP SCH ×5 (00:49→23:43)
[2019-04-01] MEDS: PIPERACILLIN-TAZOBACTAM 3.375 GM in SODIUM CHLORIDE 0.9% 100 ML IVPB SCH ×3 (00:49→15:39)
[2019-04-01] MEDS: HEPARIN SODIUM,PORCINE 5,000 UNIT/ML 1 ML VIAL SQ SCH ×4 (00:57→22:13)
[2019-04-01] MEDS ORDERED: ACETAMINOPHEN IV (For NPO) 1,000 MG in EMPTY BAG 1 BAG IVPB PRN (02:00)
[2019-04-01] MEDS: HYDROmorphone 1 MG/ML 1 ML SYRINGE IVP PRN ×2 (03:03→09:43)
[2019-04-01] MEDS: ONDANSETRON 4 MG/2 ML VIAL IVP PRN ×2 (04:02→11:32)
[2019-04-01 04:37] LABS: Glucose,Whole Blood 142 mg/dL (75-99)
[2019-04-01] MEDS ORDERED: ONDANSETRON 4 MG/2 ML VIAL IVP STA (04:51)
[2019-04-01] MEDS: D5-0.45% NACL WITH KCL 20MEQ/L 1,000 ML IV SCH ×2 (05:43→15:57)
[2019-04-01 05:45] LABS: Basophils # (A) 0.1 k/uL (0-0.2); Basophils % (A) 1 %; Eosinophils # (A) 0.2 k/uL (0-0.7); Eosinophils % (A) 1 %; HCT 38.5 % (34.0-46.0); HGB 12.6 gm/dL (11.4-16.0); Lymphocytes # (A) 0.4 k/uL (1.0-4.8); Lymphocytes % (A) 4 %; MCH 31.4 pg (25.0-35.0); MCHC 32.8 g/dL (31.0-37.0); MCV 95.8 fL (80.0-100.0); Mean Platelet Volume 6.8; Monocytes # (A) 0.6 k/uL (0-1.0); Monocytes % (A) 5 %; Neutrophils # (A) 11.4 k/uL (1.3-7.7); Neutrophils % (A) 89 %; Platelet Count 277 k/uL (150-450); RBC 4.02 m/uL (3.80-5.40); RDW 12.6 % (11.5-15.5); WBC 12.8 k/uL (3.8-10.6)
[2019-04-01 05:52] LABS: ALT 19 U/L (4-34); AST 29 U/L (14-36); African American GFR (CKD) >90 (>60 ml/min/1.73 sqM); Albumin 3.7 g/dL (3.5-5.0); Alkaline Phosphatase 68 U/L (38-126); Anion Gap 10 mmol/L; Blood Urea Nitrogen 11 mg/dL (7-17); Calcium 8.3 mg/dL (8.4-10.2); Carbon Dioxide 23 mmol/L (22-30); Chloride 100 mmol/L (98-107); Glucose 153 mg/dL (74-99); Non-African American GFR(CKD) >90 (>60 ml/min/1.73 sqM); Sodium 133 mmol/L (137-145); Total Bilirubin 1.3 mg/dL (0.2-1.3); Total Protein 6.4 g/dL (6.3-8.2)
[2019-04-01] MEDS: LEVOTHYROXINE 137 MCG TAB PO SCH (06:28)
[2019-04-01] MEDS: METOPROLOL TARTRATE 25 MG TAB PO SCH ×2 (08:41→09:07)
[2019-04-01] MEDS ORDERED: ZOLPIDEM 10 MG TAB PO PRN (09:00)
[2019-04-01] MEDS: PANTOPRAZOLE 40 MG/10 ML VIAL IVP SCH ×2 (09:06→22:14)
[2019-04-01] MEDS: ISOSORBIDE MONONITRATE ER 30 MG TAB.ER.24H PO SCH (09:06)
[2019-04-01] MEDS: CLOPIDOGREL 75 MG TAB PO SCH ×2 (09:06→09:25)
[2019-04-01] MEDS: ASPIRIN 81 MG PO SCH (09:06)
[2019-04-01] MEDS ORDERED: ALBUTEROL NEBULIZED 2.5 MG/3 ML INHALATION PRN (09:26)
--- NOTE | 2019-04-01 12:07 | P.GSHP ---
<Anna Marie Medina A - Last Filed: 04/01/19 11:58> History of Present Illness H&P Date: 04/01/19 CHIEF COMPLAINT: possible surgical infection HISTORY OF PRESENT ILLNESS: 53-year-old female who underwent laparoscopic appendectomy secondary to acute appendicitis with Dr. Vidal on 02/27/2019. Patient states she was doing fairly well postoperatively. She did develop some drainage from one of her surgical sites. She was evaluated by Dr. Luke in the office. She was not prescribed antibiotics at that time. She reports following up with Dr. Vidal a few days after that and was prescribed antibiotics at that time. She reports a few days ago, one of her incisions opened up and she had a lot of bloody drainage. She denies fever or chills at home. However, she did have a fever overnight of 102.5. PAST MEDICAL HISTORY: See list. PAST SURGICAL HISTORY: See list. SOCIAL HISTORY: No illicit drug use. REVIEW OF SYSTEMS: CONSTITUTIONAL: Denies fever or chills. HEENT: Denies blurred vision, vision changes, or eye pain. Denies hemoptysis CARDIOVASCULAR: Denies chest pain or pressure. RESPIRATORY: No shortness of breath. GASTROINTESTINAL: Refer to HPI for pertinent findings HEMATOLOGIC: Denies bleeding disorders. GENITOURINARY: Denies any blood in urine. SKIN: Denies pruitis. Denies rash. Reports opening of incisions with bloody drainage. PHYSICAL EXAM: VITAL SIGNS: Reviewed. GENERAL: Well-developed in no acute distress. HEENT: No sclera icterus. Extraocular movements grossly intact. Moist buccal mucosa. Head is atraumatic, normocephalic. ABDOMEN: Soft. Nondistended. Small pinhole opening near umbilicus with seropurulent drainage. Open incision above umbilicus without drainage at this time. NEUROLOGIC: Alert and oriented. Cranial nerves II through XII grossly intact. LABORATORY DATA: WBC 12.8 IMAGING: CT abdomen and pelvis: moderate to severe wall thickening involving the base of the cecum and contiguous extension medially at level of upper to mid pelvis. Fairly mild ill-defined fluid and fat stranding at this level right upper pelvis anteriorly. Mild wall thickening in the distal ileum. No well-formed fluid collection or drainable abscess. No pneumoperitoneum. Prior study showed dilated appendix without significant surrounding fat stranding there was mild to moderate wall thickening of the distal and terminal ileum. ASSESSMENT: 1. Possible post operative infection 2. Recent appendectomy, February 2019 PLAN: Continue IV antibiotics. Monitor WBC. Dr. Rich on consult Full liquid diet Patient will be re-evaluated by Dr. Luke this afternoon Nurse practitioner note has been reviewed by physician. Signing provider agrees with the documented findings, assessment, and plan of care. Past Medical History Past Medical History: Asthma, Coronary Artery Disease (CAD), Chest Pain / Angina, GERD/Reflux, Hyperlipidemia, Musculoskeletal Disorder, Pneumonia, Syncope, Thyroid Disorder, Vascular Disorder Additional Past Medical History / Comment(s): raynauds, lupus-suspected, had ruptured disc, hx. stomach ulcer, has 3 cardiac stents, hiatal hernia, SOB w/exertion recently, microvascular disease History of Any Multi-Drug Resistant Organisms: None Reported Past Surgical History: Appendectomy, Cholecystectomy, Heart Catheterization, Heart Catheterization With Stent, Tonsillectomy, Uterine Ablation Past Anesthesia/Blood Transfusion Reactions: No Reported Reaction, Family History of Problems w/ Anesthesia Additional Past Anesthesia/Blood Transfusion Reaction / Comment(s): has had hematomas in past after cardiac caths. & syncopal episode, mom had some issues w/anesthesia Date of Last Stent Placement:: Past Psychological History: No Psychological Hx Reported Smoking Status: Former smoker Past Alcohol Use History: None Reported Additional Past Alcohol Use History / Comment(s): quit smoking 20 yrs., smoked for 13yrs. Past Drug Use History: None Reported - Past Family History Brother(s) Family Medical History: Coronary Artery Disease (CAD), Myocardial Infarction ([place]) Mother Family Medical History: Coronary Artery Disease (CAD), Diabetes Mellitus Father Family Medical History: Pulmonary Embolus Medications and Allergies Home Medications Medication Instructions Recorded Confirmed Type Loratadine [Claritin] 10 mg PO HS 08/17/13 03/31/19 History Montelukast [Singulair] 10 mg PO HS 08/17/13 03/31/19 History amLODIPine BESYLATE [Norvasc] 2.5 mg PO DAILY 12/12/13 03/31/19 History Clopidogrel [Plavix] 75 mg PO DAILY 05/23/14 03/31/19 History Cholecalciferol [Vitamin D3] 5,000 unit PO DAILY 06/30/15 03/31/19 History Nitroglycerin Sl Tabs [Nitrostat] 0.4 mg SUBLINGUAL Q5M PRN #25 tab 07/04/15 03/31/19 Rx Omeprazole 20 mg PO BID 10/30/15 03/31/19 History Albuterol Nebulized [Ventolin 2.5 mg INHALATION RT-QID PRN 04/05/16 03/31/19 History Nebulized] Ezetimibe [Zetia] 10 mg PO HS 04/07/18 03/31/19 History Metoprolol Tartrate 25 mg PO DAILY 04/07/18 03/31/19 History Aspirin EC [Ecotrin Low Dose] 81 mg PO DAILY 04/10/18 03/31/19 History Levothyroxine Sodium [Synthroid] 137 mcg PO MOTUWETHFRSA 04/10/18 03/31/19 History Albuterol Inhaler [Ventolin Hfa 2 puff INHALATION RT-QID PRN 02/27/19 03/31/19 History Inhaler] Ascorbic Acid [Vitamin C] 2,000 mg PO DAILY 02/27/19 03/31/19 History Furosemide [Lasix] 20 mg PO DAILY@1200 02/27/19 03/31/19 History Isosorbide Mononitrate ER [Imdur] 30 mg PO DAILY 02/27/19 03/31/19 History Zolpidem [Ambien] 10 mg PO HS PRN 03/31/19 03/31/19 History Allergies Allergy/AdvReac Type Severity Reaction Status Date / Time shellfish derived Allergy throat Verified 03/31/19 18:00 swelling sulfamethoxazole Allergy Rash/Hives Verified 03/31/19 18:00 [From Bactrim] trimethoprim [From Bactrim] Allergy Rash/Hives Verified 03/31/19 18:00 atorvastatin calcium AdvReac muscle Verified 03/31/19 18:00 [From Lipitor] aches diltiazem HCl [From Cardizem] AdvReac EXTREME Verified 03/31/19 18:00 FLUSHING rosuvastatin calcium AdvReac SEVERE Verified 03/31/19 18:00 [From Crestor] MUSCLE PAIN Surgical - Exam Vital Signs Temp Pulse Resp BP Pulse Ox 98 F 104 H 16 113/81 97 03/31/19 16:26 03/31/19 16:26 03/31/19 16:26 03/31/19 16:26 03/31/19 16:26 Results - Labs 04/01/19 05:12 04/01/19 05:12 Abnormal Lab Results - Last 24 Hours (Table) 03/31/19 04/01/19 04/01/19 Range/Units 23:49 04:25 05:12 WBC 12.8 H (3.8-10.6) k/uL Neutrophils # 11.4 H (1.3-7.7) k/uL Lymphocytes # 0.4 L (1.0-4.8) k/uL Sodium 136 L (137-145) mmol/L Glucose (74-99) mg/dL POC Glucose (mg/dL) 142 H (75-99) mg/dL Calcium (8.4-10.2) mg/dL C-Reactive Protein 177.4 H (<10.0) mg/L 04/01/19 Range/Units 05:12 WBC (3.8-10.6) k/uL Neutrophils # (1.3-7.7) k/uL Lymphocytes # (1.0-4.8) k/uL Sodium 133 L (137-145) mmol/L Glucose 153 H (74-99) mg/dL POC Glucose (mg/dL) (75-99) mg/dL Calcium 8.3 L (8.4-10.2) mg/dL C-Reactive Protein (<10.0) mg/L Diabetes panel 03/31/19 04/01/19 Range/Units 23:49 05:12 Sodium 136 L 133 L (137-145) mmol/L Potassium 3.9 4.0 (3.5-5.1) mmol/L Chloride 100 100 (98-107) mmol/L Carbon Dioxide 22 23 (22-30) mmol/L BUN 10 11 (7-17) mg/dL Creatinine 0.70 0.65 (0.52-1.04) mg/dL Glucose 90 153 H (74-99) mg/dL Calcium 8.9 8.3 L (8.4-10.2) mg/dL AST 29 (14-36) U/L ALT 19 (4-34) U/L Alkaline Phosphatase 68 (38-126) U/L Total Protein 6.4 (6.3-8.2) g/dL Albumin 3.7 (3.5-5.0) g/dL Calcium panel 03/31/19 04/01/19 Range/Units 23:49 05:12 Calcium 8.9 8.3 L (8.4-10.2) mg/dL Albumin 3.7 (3.5-5.0) g/dL Pituitary panel 03/31/19 04/01/19 Range/Units 23:49 05:12 Sodium 136 L 133 L (137-145) mmol/L Potassium 3.9 4.0 (3.5-5.1) mmol/L Chloride 100 100 (98-107) mmol/L Carbon Dioxide 22 23 (22-30) mmol/L BUN 10 11 (7-17) mg/dL Creatinine 0.70 0.65 (0.52-1.04) mg/dL Glucose 90 153 H (74-99) mg/dL Calcium 8.9 8.3 L (8.4-10.2) mg/dL Adrenal panel 03/31/19 04/01/19 Range/Units 23:49 05:12 Sodium 136 L 133 L (137-145) mmol/L Potassium 3.9 4.0 (3.5-5.1) mmol/L Chloride 100 100 (98-107) mmol/L Carbon Dioxide 22 23 (22-30) mmol/L BUN 10 11 (7-17) mg/dL Creatinine 0.70 0.65 (0.52-1.04) mg/dL Glucose 90 153 H (74-99) mg/dL Calcium 8.9 8.3 L (8.4-10.2) mg/dL Total Bilirubin 1.3 (0.2-1.3) mg/dL AST 29 (14-36) U/L ALT 19 (4-34) U/L Alkaline Phosphatase 68 (38-126) U/L Total Protein 6.4 (6.3-8.2) g/dL Albumin 3.7 (3.5-5.0) g/dL <Tim Luke - Last Filed: 04/01/19 15:07> History of Present Illness As above. CAT scan showing phlegmon adjacent to the cecum with colonic and small bowel wall thickening. No drainable abscess. Continue IV antibiotics. Monitor white blood cell count. Follow-up blood cultures. Surgical - Exam Vital Signs Temp Pulse Resp BP Pulse Ox 98 F 104 H 16 113/81 97 03/31/19 16:26 03/31/19 16:26 03/31/19 16:26 03/31/19 16:26 03/31/19 16:26 Results - Labs 04/01/19 05:12 04/01/19 05:12 Abnormal Lab Results - Last 24 Hours (Table) 03/31/19 04/01/19 04/01/19 Range/Units 23:49 04:25 05:12 WBC 12.8 H (3.8-10.6) k/uL Neutrophils # 11.4 H (1.3-7.7) k/uL Lymphocytes # 0.4 L (1.0-4.8) k/uL Sodium 136 L (137-145) mmol/L Glucose (74-99) mg/dL POC Glucose (mg/dL) 142 H (75-99) mg/dL Calcium (8.4-10.2) mg/dL C-Reactive Protein 177.4 H (<10.0) mg/L 04/01/19 Range/Units 05:12 WBC (3.8-10.6) k/uL Neutrophils # (1.3-7.7) k/uL Lymphocytes # (1.0-4.8) k/uL Sodium 133 L (137-145) mmol/L Glucose 153 H (74-99) mg/dL POC Glucose (mg/dL) (75-99) mg/dL Calcium 8.3 L (8.4-10.2) mg/dL C-Reactive Protein (<10.0) mg/L Diabetes panel 03/31/19 04/01/19 Range/Units 23:49 05:12 Sodium 136 L 133 L (137-145) mmol/L Potassium 3.9 4.0 (3.5-5.1) mmol/L Chloride 100 100 (98-107) mmol/L Carbon Dioxide 22 23 (22-30) mmol/L BUN 10 11 (7-17) mg/dL Creatinine 0.70 0.65 (0.52-1.04) mg/dL Glucose 90 153 H (74-99) mg/dL Calcium 8.9 8.3 L (8.4-10.2) mg/dL AST 29 (14-36) U/L ALT 19 (4-34) U/L Alkaline Phosphatase 68 (38-126) U/L Total Protein 6.4 (6.3-8.2) g/dL Albumin 3.7 (3.5-5.0) g/dL Calcium panel 03/31/19 04/01/19 Range/Units 23:49 05:12 Calcium 8.9 8.3 L (8.4-10.2) mg/dL Albumin 3.7 (3.5-5.0) g/dL Pituitary panel 03/31/19 04/01/19 Range/Units 23:49 05:12 Sodium 136 L 133 L (137-145) mmol/L Potassium 3.9 4.0 (3.5-5.1) mmol/L Chloride 100 100 (98-107) mmol/L Carbon Dioxide 22 23 (22-30) mmol/L BUN 10 11 (7-17) mg/dL Creatinine 0.70 0.65 (0.52-1.04) mg/dL Glucose 90 153 H (74-99) mg/dL Calcium 8.9 8.3 L (8.4-10.2) mg/dL Adrenal panel 03/31/19 04/01/19 Range/Units 23:49 05:12 Sodium 136 L 133 L (137-145) mmol/L Potassium 3.9 4.0 (3.5-5.1) mmol/L Chloride 100 100 (98-107) mmol/L Carbon Dioxide 22 23 (22-30) mmol/L BUN 10 11 (7-17) mg/dL Creatinine 0.70 0.65 (0.52-1.04) mg/dL Glucose 90 153 H (74-99) mg/dL Calcium 8.9 8.3 L (8.4-10.2) mg/dL Total Bilirubin 1.3 (0.2-1.3) mg/dL AST 29 (14-36) U/L ALT 19 (4-34) U/L Alkaline Phosphatase 68 (38-126) U/L Total Protein 6.4 (6.3-8.2) g/dL Albumin 3.7 (3.5-5.0) g/dL
[2019-04-01] MEDS: FUROSEMIDE 20 MG TAB PO SCH (13:22)
--- NOTE | 2019-04-01 13:24 | P.CONS ---
History of Present Illness - Reason for Consult Consult date: 04/01/19 Medical management - History of Present Illness Patient is a 53-year-old female patient of Dr. Espinal with past medical history of coronary artery disease status post multiple heart catheterizations, stents and PTCA, hyperlipidemia, gastroesophageal reflux disease, hypothyroidism. Patient had a recent hospitalization status post laparoscopic appendectomy on February 27, 2019. The patient had follow-up in the office and had a reaction to the clue and tape that were used at the time. The glue and tape were removed by Dr. Luke in the office. She had a follow-up with Dr. Dubois and was placed on Keflex. On Friday, she states that she was taking her 's blood pressure and she noticed that there was blood on her shirt and her incision popped open. She tried to apply Steri-Strips but had a reaction. She contacted Dr. Vidal on Friday and was told to keep the area clean and dry gauze over it. On Friday evening and into Friday morning pain developed. She tried taking Tylenol and used heating pad but that did not help the pain and she eventually took a Lortab. Patient states that this pain was so severe worsen she's ever had in her life. Patient saw her family physician yes terday and he ordered a stat CAT scan of the abdomen and pelvis without contrast revealed overall findings are consistent with persistent infectious or inflammatory change centered right upper pelvis involving the intraperitoneal cavity, portions of the distal ileum and cecum without drainable thick-walled abscess or free air. Patient's pain is located in the right pelvis area and suprapubic area with occasional radiation up into the abdomen. Patient was directly admitted under Dr. Luke and started on IV fluids, pain medication and Zosyn. Consult in place with Dr. Rich. Blood culture is in progress and will culture will be ordered. WBC 12.8, creatinine 0.65, troponin negative, C-react kenneth protein 177.4. Temperature max 102.5, tachycardic, hypotensive. Patient is on a clear liquid diet we have held Plavix in case any intervention is necessary. 04/09/2018, patient underwent heart catheterization that revealed diagonal lesion of 80% LAD 40% and PTCA was performed of both vessels by Dr. Evita Greenberg. Patient was on Plavix and aspirin at discharge. Review of Systems Constitutional: Reports poor appetite, Denies chills, Denies fatigue, Denies fever, Denies lethargy, Denies malaise Eyes: denies blurred vision, denies pain Ears, nose, mouth and throat: Denies dysphagia, Denies headache, Denies nasal congestion, Denies nasal discharge, Denies sore throat, Denies vertigo Cardiovascular: Denies chest pain, Denies decreased exercise tolerance, Denies dyspnea on exertion, Denies edema, Denies leg edema, Denies lightheadedness, Denies shortness of breath, Denies syncope Respiratory: Denies cough, Denies cough with sputum, Denies dyspnea, Denies excessive sputum, Denies hemoptysis, Denies home oxygen, Denies respiratory infections, Denies sleep apnea Gastrointestinal: Reports abdominal pain, Reports loss of appetite, Reports nausea, Denies diarrhea, Denies vomiting Genitourinary: Reports pelvic pain, Denies dysuria, Denies urgency, Denies urinary frequency Musculoskeletal: Denies frequent falls, Denies gait dysfunction, Denies muscle weakness, Denies myalgias Integumentary: Reports wounds, Denies pruritus, Denies rash Neurological: Denies change in mentation, Denies change in speech, Denies numbness, Denies weakness Psychiatric: Denies anxiety, Denies depression Past Medical History Past Medical History: Asthma, Coronary Artery Disease (CAD), Chest Pain / Angina, GERD/Reflux, Hyperlipidemia, Musculoskeletal Disorder, Pneumonia, Syncope, Thyroid Disorder, Vascular Disorder Additional Past Medical History / Comment(s): raynauds, lupus-suspected, had ruptured disc, hx. stomach ulcer, has 3 cardiac stents, hiatal hernia, SOB w/exertion recently, microvascular disease History of Any Multi-Drug Resistant Organisms: None Reported Past Surgical History: Appendectomy, Cholecystectomy, Heart Catheterization, Heart Catheterization With Stent, Tonsillectomy, Uterine Ablation Past Anesthesia/Blood Transfusion Reactions: No Reported Reaction, Family History of Problems w/ Anesthesia Additional Past Anesthesia/Blood Transfusion Reaction / Comm: has had hematomas in past after cardiac caths. & syncopal episode, mom had some issues w/anesthesia Date of Last Stent Placement:: Past Psychological History: No Psychological Hx Reported Smoking Status: Former smoker Past Alcohol Use History: None Reported Additional Past Alcohol Use History / Comment(s): quit smoking 18 yrs., smoked for 13yrs. Past Drug Use History: None Reported - Past Family History Brother(s) Family Medical History: Coronary Artery Disease (CAD), Myocardial Infarction ([place]) Mother Family Medical History: Coronary Artery Disease (CAD), Diabetes Mellitus Father Family Medical History: Pulmonary Embolus Medications and Allergies Home Medications Medication Instructions Recorded Confirmed Type Loratadine [Claritin] 10 mg PO HS 08/17/13 03/31/19 History Montelukast [Singulair] 10 mg PO HS 08/17/13 03/31/19 History amLODIPine BESYLATE [Norvasc] 2.5 mg PO DAILY 12/12/13 03/31/19 History Clopidogrel [Plavix] 75 mg PO DAILY 05/23/14 03/31/19 History Cholecalciferol [Vitamin D3] 5,000 unit PO DAILY 06/30/15 03/31/19 History Nitroglycerin Sl Tabs [Nitrostat] 0.4 mg SUBLINGUAL Q5M PRN #25 tab 07/04/15 03/31/19 Rx Omeprazole 20 mg PO BID 10/30/15 03/31/19 History Albuterol Nebulized [Ventolin 2.5 mg INHALATION RT-QID PRN 04/05/16 03/31/19 History Nebulized] Ezetimibe [Zetia] 10 mg PO HS 04/07/18 03/31/19 History Metoprolol Tartrate 25 mg PO DAILY 04/07/18 03/31/19 History Aspirin EC [Ecotrin Low Dose] 81 mg PO DAILY 04/10/18 03/31/19 History Levothyroxine Sodium [Synthroid] 137 mcg PO MOTUWETHFRSA 04/10/18 03/31/19 History Albuterol Inhaler [Ventolin Hfa 2 puff INHALATION RT-QID PRN 02/27/19 03/31/19 History Inhaler] Ascorbic Acid [Vitamin C] 2,000 mg PO DAILY 02/27/19 03/31/19 History Furosemide [Lasix] 20 mg PO DAILY@1200 02/27/19 03/31/19 History Isosorbide Mononitrate ER [Imdur] 30 mg PO DAILY 02/27/19 03/31/19 History Zolpidem [Ambien] 10 mg PO HS PRN 03/31/19 03/31/19 History Allergies Allergy/AdvReac Type Severity Reaction Status Date / Time shellfish derived Allergy throat Verified 03/31/19 18:00 swelling sulfamethoxazole Allergy Rash/Hives Verified 03/31/19 18:00 [From Bactrim] trimethoprim [From Bactrim] Allergy Rash/Hives Verified 03/31/19 18:00 atorvastatin calcium AdvReac muscle Verified 03/31/19 18:00 [From Lipitor] aches diltiazem HCl [From Cardizem] AdvReac EXTREME Verified 03/31/19 18:00 FLUSHING rosuvastatin calcium AdvReac SEVERE Verified 03/31/19 18:00 [From Crestor] MUSCLE PAIN Physical Exam Vitals: Vital Signs Temp Pulse Resp BP Pulse Ox 04/01/19 07:00 97.6 F 80 17 94/63 95 04/01/19 04:00 18 04/01/19 02:05 102.5 F H 115 H 18 90/47 95 04/01/19 00:49 16 03/31/19 23:27 99.5 F 104 H 22 106/64 100 03/31/19 19:54 98.2 F 87 18 103/52 94 L 03/31/19 19:20 18 03/31/19 16:26 98 F 104 H 16 113/81 97 Intake and Output 03/31/19 04/01/19 04/01/19 22:59 06:59 14:59 Other: Voiding Method Toilet Toilet Weight 96.162 kg Gen: This is a 53-year-old female, patient is resting in bed and appears to be comfortable and in no acute distress. HEENT: Head is atraumatic, normocephalic. Pupils equal, round. Sclerae is anicteric. NECK: Supple. No JVD. No lymphadenopathy. No thyromegaly. LUNGS: Clear to auscultation. No wheezes or rhonchi. No intercostal retractions. HEART: Regular rate and rhythm. No murmur. ABDOMEN: Soft. Bowel sounds are present. No masses. Right lower quadrant tenderness. Wound above umbilicus a small amount of drainage. EXTREMITIES: No pedal edema. No calf tenderness. NEUROLOGICAL: Patient is awake, alert and oriented x3. Cranial nerves 2 through 12 are grossly intact. Results CBC & Chem 7: 04/01/19 05:12 04/01/19 05:12 Labs: Abnormal Lab Results - Last 24 Hours (Table) 03/31/19 04/01/19 04/01/19 Range/Units 23:49 04:25 05:12 WBC 12.8 H (3.8-10.6) k/uL Neutrophils # 11.4 H (1.3-7.7) k/uL Lymphocytes # 0.4 L (1.0-4.8) k/uL Sodium 136 L (137-145) mmol/L Glucose (74-99) mg/dL POC Glucose (mg/dL) 142 H (75-99) mg/dL Calcium (8.4-10.2) mg/dL C-Reactive Protein 177.4 H (<10.0) mg/L 04/01/19 Range/Units 05:12 WBC (3.8-10.6) k/uL Neutrophils # (1.3-7.7) k/uL Lymphocytes # (1.0-4.8) k/uL Sodium 133 L (137-145) mmol/L Glucose 153 H (74-99) mg/dL POC Glucose (mg/dL) (75-99) mg/dL Calcium 8.3 L (8.4-10.2) mg/dL C-Reactive Protein (<10.0) mg/L Assessment and Plan Plan: 1. Sepsis secondary to possible postoperative infection, inflammatory changes on CAT scan with no clearly identified abscess. Consult with Dr. Burak francis. Continue Zosyn. Wound culture to be obtained, blood culture in progress. 2. History of acute appendicitis status post laparoscopic appendectomy performed by Dr. Vidal on 02/27/2019. 3. Hypertension currently hypotensive secondary to sepsis. Hold amlodipine, hold Lasix with parameters.. 4. Coronary artery disease status post stenting and PTCA. Continue Imdur 30 mg daily, Lopressor 25 mg daily, aspirin 81 mg daily. Hold Plavix. 5. Hypothyroidism. Continue levothyroxine 137 g Friday through Friday. 6. Mild persistent asthma. Continue nebulizer treatments, Claritin, Singulair. 7. Hyperlipidemia. Continue Zetia 10 mg at bedtime. 8. Gastroesophageal reflux disease. Continue omeprazole 20 mg twice daily or equivalent. 9. DVT prophylaxis. Heparin subcu. Patient will be admitted to the hospital for a minimum of 2 night stay. Discharge plan: home Impression and plan of care have been directed as dictated by the signing physician. Toya Jung nurse practitioner acting as scribe for signing physician.
[2019-04-01] MEDS: HYDROmorphone 0.5 MG/0.5 ML SYRINGE IVP PRN ×2 (18:15→22:14)
--- NOTE | 2019-04-01 18:44 | PN ---
PROGRESS NOTE DATE OF SERVICE: 04/01/2019 REASON FOR FOLLOWUP: Intraabdominal infection. INTERVAL HISTORY: The patient did spike a fever early this morning of 102.5 degrees Fahrenheit. The patient says she was not feeling well. The patient is still complaining of pain to the right lower abdominal area, but no worsening compared to yesterday. No nausea, no vomiting. No chest pain, shortness of breath or cough and no diarrhea. PHYSICAL EXAMINATION: Blood pressure 104/68 with a pulse of 81, temperature 98.2. She is 98% on room air. General description is a middle-aged female lying in bed in no distress. RESPIRATORY SYSTEM: Unlabored breathing. Clear to auscultation anteriorly. HEART: S1, S2. Regular rate and rhythm. ABDOMEN: Soft. A little tender. No guarding or rigidity. LABS: Hemoglobin is 12.6, white count 12.8. BUN of 11, creatinine 0.65. Blood culture so far pending. DIAGNOSTIC IMPRESSION AND PLAN: Patient with abdominal infection in this patient who is status post laparoscopic appendectomy with significant inflammatory changes at the right lower quadrant area. Culture has been obtained. That will be followed. Keep the patient on Zosyn. In view of the overall extensive infection, she may benefit from outpatient IV antibiotic therapy, which the patient is currently refusing. Case was discussed with the surgeon. Continue supportive care. MMODL / IJN: [id number] /
[2019-04-01] MEDS: EZETIMIBE 10 MG TAB PO SCH (22:13)
[2019-04-01] MEDS: LORATADINE 10 MG TAB PO SCH (22:13)
[2019-04-01] MEDS: MONTELUKAST 10 MG TAB PO SCH (22:14)
[2019-04-02] MEDS: HEPARIN SODIUM,PORCINE 5,000 UNIT/ML 1 ML VIAL SQ SCH ×4 (00:37→21:45)
[2019-04-02] MEDS: PIPERACILLIN-TAZOBACTAM 3.375 GM in SODIUM CHLORIDE 0.9% 100 ML IVPB SCH ×4 (00:38→23:57)
[2019-04-02] MEDS: HYDROmorphone 1 MG/ML 1 ML SYRINGE IVP PRN ×4 (02:27→20:00)
[2019-04-02] MEDS: D5-0.45% NACL WITH KCL 20MEQ/L 1,000 ML IV SCH ×2 (04:29→11:51)
[2019-04-02] MEDS: KETOROLAC 30 MG/ML 1 ML VIAL IVP SCH ×2 (05:44→11:45)
[2019-04-02] MEDS: LEVOTHYROXINE 137 MCG TAB PO SCH (05:44)
[2019-04-02] MEDS: ASPIRIN 81 MG PO SCH (09:02)
[2019-04-02] MEDS: PANTOPRAZOLE 40 MG TABLET PO SCH ×2 (09:02→21:44)
[2019-04-02] MEDS: ISOSORBIDE MONONITRATE ER 30 MG TAB.ER.24H PO SCH (09:03)
[2019-04-02] MEDS: FUROSEMIDE 20 MG TAB PO SCH (11:44)
[2019-04-02] MEDS: CLOPIDOGREL 75 MG TAB PO SCH (11:45)
[2019-04-02 12:35] LABS: Basophils % (A) 1 %; Eosinophils # (A) 0.1 k/uL (0-0.7); Eosinophils % (A) 2 %; HCT 37.7 % (34.0-46.0); Lymphocytes # (A) 0.8 k/uL (1.0-4.8); Lymphocytes % (A) 10 %; MCH 31.6 pg (25.0-35.0); MCHC 31.8 g/dL (31.0-37.0); MCV 99.3 fL (80.0-100.0); Mean Platelet Volume 7.1; Monocytes # (A) 0.3 k/uL (0-1.0); Monocytes % (A) 4 %; Neutrophils # (A) 7.3 k/uL (1.3-7.7); Neutrophils % (A) 84 %; Platelet Count 285 k/uL (150-450); RBC 3.79 m/uL (3.80-5.40); RDW 12.6 % (11.5-15.5); WBC 8.7 k/uL (3.8-10.6)
--- NOTE | 2019-04-02 13:29 | P.PN ---
Subjective Progress Note Date: 04/02/19 Patient is a 53-year-old female patient of Dr. Espinal with past medical history of coronary artery disease status post multiple heart catheterizations, stents and PTCA, hyperlipidemia, gastroesophageal reflux disease, hypothyroidism. Patient had a recent hospitalization status post laparoscopic appendectomy on February 27, 2019. The patient had follow-up in the office and had a reaction to the clue and tape that were used at the time. The glue and tape were removed by Dr. Luke in the office. She had a follow-up with Dr. Dubois and was placed on Keflex. On Friday, she states that she was taking her 's blood pressure and she noticed that there was blood on her shirt and her incision popped open. She tried to apply Steri-Strips but had a reaction. She contacted Dr. Vidal on Friday and was told to keep the area clean and dry gauze over it. On Friday evening and into Friday morning pain developed. She tried taking Tylenol and used heating pad but that did not help the pain and she eventually took a Lortab. Patient states that this pain was so severe worsen she's ever had in her life. Patient saw her family physician yesterday and he ordered a stat CAT scan of the abdomen and pelvis without contrast revealed overall findings are consistent with persistent infectious or inflammatory change centered right upper pelvis involving the intraperitoneal cavity, portions of the distal ileum and cecum without drainable thick-walled abscess or free air. Patient's pain is located in the right pelvis area and suprapubic area with occasional radiation up into the abdomen. Patient was directly admitted under Dr. Luke and started on IV fluids, pain medication and Zosyn. Consult in place with Dr. Rich. Blood culture is in progress and will culture will be ordered. WBC 12.8, creatinine 0.65, troponin negative, C- reactive protein 177.4. Temperature max 102.5, tachycardic, hypotensive. Patient is on a clear liquid diet we have held Plavix in case any intervention is necessary. 04/09/2018, patient underwent heart catheterization that revealed diagonal lesion of 80% LAD 40% and PTCA was performed of both vessels by Dr. Evita Greenberg. Patient was on Plavix and aspirin at discharge. 04/02: Patient does not have bowel movement today. She states she had a bowel movement yesterday. She states her pain is better today. She has had no fevers. She is currently on Zosyn. She is tolerating a full liquid diet. Blood culture is no growth at 24 hours and wound culture in progress. Patient will be resumed back on Plavix as surgery is no plan for any intervention. Review of Systems Constitutional: Reports poor appetite, Denies chills, Denies fatigue, Denies fever, Denies lethargy, Denies malaise Ears, nose, mouth and throat: Denies dysphagia, Denies headache, Denies nasal co ngestion, Denies nasal discharge, Denies sore throat, Denies vertigo Cardiovascular: Denies chest pain, Denies decreased exercise tolerance, Denies dyspnea on exertion, Denies edema, Denies leg edema, Denies lightheadedness, Denies shortness of breath, Denies syncope Respiratory: Denies cough, Denies cough with sputum, Denies dyspnea, Denies excessive sputum, Denies hemoptysis, Denies home oxygen, Denies respiratory infections, Denies sleep apnea Gastrointestinal: Reports abdominal pain, Reports loss of appetite, Reports nausea, Denies diarrhea, Denies vomiting Genitourinary: Reports pelvic pain, Denies dysuria, Denies urgency, Denies urinary frequency Musculoskeletal: Denies frequent falls, Denies gait dysfunction, Denies muscle weakness, Denies myalgias Integumentary: Reports wounds, Denies pruritus, Denies rash Neurological: Denies change in mentation, Denies change in speech, Denies numbness, Denies weakness Psychiatric: Denies anxiety, Denies depression Objective - Vital Signs Vital signs: Vital Signs Temp 98.1 F 04/02/19 07:29 Pulse 75 04/02/19 07:56 Resp 16 04/02/19 07:56 BP 96/56 04/02/19 07:29 Pulse Ox 96 04/02/19 07:29 Intake & Output 04/01/19 04/02/19 04/02/19 18:59 06:59 18:59 Weight 96.162 kg Other: Voiding Method Toilet Toilet # Voids 2 1 - Exam Gen: This is a 53-year-old female, patient is resting in bed and appears to be comfortable and in no acute distress. HEENT: Head is atraumatic, normocephalic. Pupils equal, round. Sclerae is anicteric. NECK: Supple. No JVD. No lymphadenopathy. No thyromegaly. LUNGS: Clear to auscultation. No wheezes or rhonchi. No intercostal retractions. HEART: Regular rate and rhythm. No murmur. ABDOMEN: Soft. Bowel sounds are present. No masses. Right lower quadrant tenderness. EXTREMITIES: No pedal edema. No calf tenderness. NEUROLOGICAL: Patient is awake, alert and oriented x3. Cranial nerves 2 through 12 are grossly intact. - Labs CBC & Chem 7: 04/02/19 11:30 04/01/19 05:12 Labs: Microbiology - Last 24 Hours (Table) 03/31/19 23:49 Blood Culture - Preliminary Blood No Growth after 24 hours 04/01/19 09:57 Gram Stain - Preliminary Abdomen Wound Culture - Preliminary Assessment and Plan Plan: 1. Sepsis secondary to possible postoperative infection, inflammatory changes on CAT scan with no clearly identified abscess. Consult with Dr. Hilario francis. Continue Zosyn. Wound culture in progress, blood culture no gr owth. Patient is currently on a full liquid diet 2. History of acute appendicitis status post laparoscopic appendectomy performed by Dr. Vidal on 02/27/2019. 3. Hypertension currently hypotensive secondary to sepsis. Hold amlodipine, hold Lasix with parameters.. 4. Coronary artery disease status post stenting and PTCA. Continue Imdur 30 mg daily, Lopressor 25 mg daily, aspirin 81 mg daily. Hold Plavix. 5. Hypothyroidism. Continue levothyroxine 137 g Friday through Friday. 6. Mild persistent asthma. Continue nebulizer treatments, Claritin, Singulair. 7. Hyperlipidemia. Continue Zetia 10 mg at bedtime. 8. Gastroesophageal reflux disease. Continue omeprazole 20 mg twice daily or equivalent. 9. DVT prophylaxis. Heparin subcu. Discharge plan: home in 24-48 hours Impression and plan of care have been directed as dictated by the signing physician. Toya Jung nurse practitioner acting as scribe for signing physician.
[2019-04-02] MEDS: HYDROmorphone 0.5 MG/0.5 ML SYRINGE IVP PRN ×2 (16:03→23:13)
--- NOTE | 2019-04-02 18:34 | P.PN ---
Subjective Progress Note Date: 04/02/19 CHIEF COMPLAINT: Colitis HISTORY OF PRESENT ILLNESS: The patient is a 53-year-old status post appendecto my over a month ago. Over the past 3 to 4 weeks, she had a complicated perioperative course including upper respiratory infection requiring Zithromax. She was on at least 2 antibiotics including Keflex for incision infection and Zithromax for her respiratory infection. Two weeks ago, she developed acute onset right lower quadrant abdominal pain. No reports of blood in stools. She denies any urinary tract infection. She does report pelvic spasms. She is on antibiotics. No further fevers reported. Her abdominal pain has moderately improved from severe to tolerable. She denies any current diarrhea. ROS: No reports of nausea or vomiting. No fevers or chills. No new chest pain. PHYSICAL EXAM: VITAL SIGNS: Reviewed CONSTITUTIONAL: Well developed and in no acute distress. EYES: Conjuctivae without sclera icterus. Extraocular movements grossly intact. HEAD, EARS, NOSE, THROAT: Moist buccal mucosa. Head is atraumatic, normocephalic. Hears conversational speech. No nasal drainage. NECK: Supple. RESPIRATORY: Non-labored respirations and equal bilateral excursions. CARDIOVASCULAR: Palpable 2+ radial pulses. ABDOMEN: Soft. No peritonitis. VAN serosanguinous MUSCULOSKELETAL: No gross deformity of the lower extremities noted. No clubbing. No cyanosis. SKIN: Good skin turgor. Well perfused. NEUROLOGIC: Cranial nerves I through XII grossly intact. No focal or later alizing signs. PSYCH: Alert and oriented to person. CLINICAL LABS: WBC down from 12,800 to 8,700. CRP elevated 177 STUDIES: CT of the abdomen pelvis independently reviewed confirming focal inflammation of the base of the cecum including terminal ileum. ASSESSMENT: 1. Colitis 2. S/p appendectomy 1 month ago 3. Fevers 4. Leukocytosis 5. Right lower quadrant pain PLAN: 1. Infectious disease following for treatment of her colitis. 2. Continue current management. 3. No surgical intervention needed at this time. 4. Management of antibiotic for infectious disease Objective - Vital Signs Vital signs: Vital Signs Temp 98.7 F 04/02/19 14:41 Pulse 85 04/02/19 14:41 Resp 19 04/02/19 14:41 BP 100/64 04/02/19 14:41 Pulse Ox 95 04/02/19 14:41 Intake & Output 04/01/19 04/02/19 04/02/19 18:59 06:59 18:59 Intake Total 100 Balance 100 Weight 96.162 kg Intake: Intake, IV Titration 100 Amount Piperacillin-Tazobactam 3 100 .375 gm In Sodium Chloride 0.9% 100 ml @ 25 mls/hr IVPB Q8HR [facility] Rx# :[id number] Other: Voiding Method Toilet Toilet # Voids 2 1 - Labs CBC & Chem 7: 04/02/19 11:30 04/01/19 05:12 Labs: Abnormal Lab Results - Last 24 Hours (Table) 04/02/19 Range/Units 11:30 RBC 3.79 L (3.80-5.40) m/uL Lymphocytes # 0.8 L (1.0-4.8) k/uL Microbiology - Last 24 Hours (Table) 04/01/19 09:57 Gram Stain - Preliminary Abdomen Wound Culture - Preliminary 03/31/19 23:49 Blood Culture - Preliminary Blood No Growth after 24 hours Assessment and Plan (1) Colitis Current Visit: Yes Status: Acute Code(s): K52.9 - NONINFECTIVE GASTROENTERITIS AND COLITIS, UNSPECIFIED SNOMED Code(s): 81830003 (2) Fever Current Visit: Yes Status: Acute Code(s): R50.9 - FEVER, UNSPECIFIED SNOMED Code(s): 728870986 (3) S/P appendectomy Current Visit: Yes Status: Acute Code(s): Z90.49 - ACQUIRED ABSENCE OF OTHER SPECIFIED PARTS OF DIGESTIVE TRACT SNOMED Code(s): 564870709 (4) Morbid obesity due to excess calories Current Visit: Yes Status: Acute Code(s): E66.01 - MORBID (SEVERE) OBESITY DUE TO EXCESS CALORIES SNOMED Code(s): 103697627 (5) BMI 37.0-37.9, adult Current Visit: Yes Status: Acute Code(s): Z68.37 - BODY MASS INDEX (BMI) 37.0-37.9, ADULT SNOMED Code(s): 607633274 (6) Right lower quadrant abdominal pain Current Visit: Yes Status: Acute Code(s): R10.31 - RIGHT LOWER QUADRANT PAIN SNOMED Code(s): 713833560
--- NOTE | 2019-04-02 19:41 | PN ---
PROGRESS NOTE DATE OF SERVICE: 04/02/2019 REASON FOR FOLLOWUP: Abdominal infection. INTERVAL HISTORY: The patient is currently afebrile. The patient's abdominal pain has slightly decreased in intensity; about 5/10. The patient denies having any chest pain, shortness of breath or cough. No nausea, vomiting or diarrhea. PHYSICAL EXAMINATION: Blood pressure is 100/64 with a pulse of 85, temperature 98.7. She is 95% on room air. General description is a middle-aged female lying in bed in no distress. RESPIRATORY SYSTEM: Unlabored breathing. Clear to auscultation anteriorly. HEART: S1, S2. Regular rate and rhythm. ABDOMEN: Soft. Minimal tenderness. LABS: Hemoglobin is 12, white count 8.7. Abdominal culture currently pending. Blood culture has been negative. DIAGNOSTIC IMPRESSION AND PLAN: Patient with abdominal infection in this patient who did have a recent laparoscopic appendectomy. The patient is currently covered with Zosyn; to continue over the weekend, repeating a CT scan on Friday to make sure overall improvement in inflammatory changes. That will determine her discharge antibiotic as well as the culture report. Her questions and concerns were answered. MMODL / IJN: [id number] /
[2019-04-02] MEDS: ONDANSETRON 4 MG/2 ML VIAL IVP PRN (20:11)
[2019-04-02] MEDS: LORATADINE 10 MG TAB PO SCH (21:44)
[2019-04-02] MEDS: MONTELUKAST 10 MG TAB PO SCH (21:44)
[2019-04-02] MEDS: EZETIMIBE 10 MG TAB PO SCH (21:45)
[2019-04-03] MEDS: HYDROmorphone 1 MG/ML 1 ML SYRINGE IVP PRN ×4 (04:37→13:00)
[2019-04-03] MEDS: ONDANSETRON 4 MG/2 ML VIAL IVP PRN (04:42)
[2019-04-03] MEDS: LEVOTHYROXINE 137 MCG TAB PO SCH (06:53)
[2019-04-03 07:31] LABS: Basophils # (A) 0.1 k/uL (0-0.2); Basophils % (A) 1 %; Eosinophils # (A) 0.1 k/uL (0-0.7); Eosinophils % (A) 2 %; HCT 37.2 % (34.0-46.0); HGB 11.9 gm/dL (11.4-16.0); Lymphocytes # (A) 0.9 k/uL (1.0-4.8); Lymphocytes % (A) 14 %; MCH 31.4 pg (25.0-35.0); MCV 98.1 fL (80.0-100.0); Mean Platelet Volume 7.2; Monocytes # (A) 0.4 k/uL (0-1.0); Monocytes % (A) 6 %; Neutrophils # (A) 4.9 k/uL (1.3-7.7); Neutrophils % (A) 76 %; Platelet Count 305 k/uL (150-450); RBC 3.79 m/uL (3.80-5.40); RDW 12.5 % (11.5-15.5); WBC 6.5 k/uL (3.8-10.6)
[2019-04-03] MEDS: METOPROLOL TARTRATE 25 MG TAB PO SCH (08:54)
[2019-04-03] MEDS: PANTOPRAZOLE 40 MG TABLET PO SCH ×2 (08:55→21:08)
[2019-04-03] MEDS: ASPIRIN 81 MG PO SCH (08:55)
[2019-04-03] MEDS: HEPARIN SODIUM,PORCINE 5,000 UNIT/ML 1 ML VIAL SQ SCH ×2 (08:55→21:08)
[2019-04-03] MEDS: CLOPIDOGREL 75 MG TAB PO SCH (08:55)
[2019-04-03] MEDS: PIPERACILLIN-TAZOBACTAM 3.375 GM in SODIUM CHLORIDE 0.9% 100 ML IVPB SCH ×2 (08:55→23:50)
[2019-04-03] MEDS: ISOSORBIDE MONONITRATE ER 30 MG TAB.ER.24H PO SCH (08:55)
[2019-04-03] MEDS: FUROSEMIDE 20 MG TAB PO SCH (12:02)
--- NOTE | 2019-04-03 13:34 | P.PN ---
Subjective Progress Note Date: 04/03/19 Patient is a 53-year-old female patient of Dr. Espinal with past medical history of coronary artery disease status post multiple heart catheterizations, stents and PTCA, hyperlipidemia, gastroesophageal reflux disease, hypothyroidism. Patient had a recent hospitalization status post laparoscopic appendectomy on February 27, 2019. The patient had follow-up in the office and had a reaction to the clue and tape that were used at the time. The glue and tape were removed by Dr. Luke in the office. She had a follow-up with Dr. Dubois and was placed on Keflex. On Friday, she states that she was taking her 's blood pressure and she noticed that there was blood on her shirt and her incision popped open. She tried to apply Steri-Strips but had a reaction. She contacted Dr. Vidal on Friday and was told to keep the area clean and dry gauze over it. On Friday evening and into Friday morning pain developed. She tried taking Tylenol and used heating pad but that did not help the pain and she eventually took a Lortab. Patient states that this pain was so severe worsen she's ever had in her life. Patient saw her family physician yesterday and he ordered a stat CAT scan of the abdomen and pelvis without contrast revealed overall findings are consistent with persistent infectious or inflammatory change centered right upper pelvis involving the intraperitoneal cavity, portions of the distal ileum and cecum without drainable thick-walled abscess or free air. Patient's pain is located in the right pelvis area and suprapubic area with occasional radiation up into the abdomen. Patient was directly admitted under Dr. Luke and started on IV fluids, pain medication and Zosyn. Consult in place with Dr. Rich. Blood culture is in progress and will culture will be ordered. WBC 12.8, creatinine 0.65, troponin negative, C- reactive protein 177.4. Temperature max 102.5, tachycardic, hypotensive. Patient is on a clear liquid diet we have held Plavix in case any intervention is necessary. 04/09/2018, patient underwent heart catheterization that revealed diagonal lesion of 80% LAD 40% and PTCA was performed of both vessels by Dr. Evita Greenberg. Patient was on Plavix and aspirin at discharge. 04/02: Patient does not have bowel movement today. She states she had a bowel movement yesterday. She states her pain is better today. She has had no fevers. She is currently on Zosyn. She is tolerating a full liquid diet. Blood culture is no growth at 24 hours and wound culture in progress. Patient will be resumed back on Plavix as surgery is no plan for any intervention. 04/03 vision had no episode of fever overnight and has been afebrile for the past 48 hours vitals otherwise stable respiratory rate 12, pulse 85 blood pressure 93/60 leukocytosis is improved WBC 6.5 hemoglobin 11.9 infectious disease recommended continuing with Zosyn and a repeat CAT scan on Friday. Patient continues to have abdominal pain one stat ordered wears off. We'll initiate patient on [place] 5 every 6 hours along with Dilaudid for breakthrough pain. Lasix will be discontinued andblood pressure is on the softer side patient and updated on the change and will be restarted once patient's blood pressure is better Review of Systems Constitutional: Reports poor appetite, Denies chills, Denies fatigue, Denies fever, Denies lethargy, Denies malaise Ears, nose, mouth and throat: Denies dysphagia, Denies headache, Denies nasal congestion, Denies nasal discharge, Denies sore throat, Denies vertigo Cardiovascular: Denies chest pain, Denies decreased exercise tolerance, Denies d yspnea on exertion, Denies edema, Denies leg edema, Denies lightheadedness, Denies shortness of breath, Denies syncope Respiratory: Denies cough, Denies cough with sputum, Denies dyspnea, Denies excessive sputum, Denies hemoptysis, Denies home oxygen, Denies respiratory infe ctions, Denies sleep apnea Gastrointestinal: Reports abdominal pain, Reports loss of appetite, Reports nausea, Denies diarrhea, Denies vomiting Genitourinary: Reports pelvic pain, Denies dysuria, Denies urgency, Denies urinary frequency Musculoskeletal: Denies frequent falls, Denies gait dysfunction, Denies muscle weakness, Denies myalgias Integumentary: Reports wounds, Denies pruritus, Denies rash Neurological: Denies change in mentation, Denies change in speech, Denies numbness, Denies weakness Psychiatric: Denies anxiety, Denies depression Objective - Vital Signs Vital signs: Vital Signs Temp 98.8 F 04/03/19 07:00 Pulse 85 04/03/19 07:00 Resp 12 04/03/19 07:00 BP 93/60 04/03/19 07:00 Pulse Ox 98 04/03/19 07:00 Intake & Output 04/02/19 04/03/19 04/03/19 18:59 06:59 18:59 Intake Total 100 20 Balance 100 20 Weight 96.162 kg Intake: Intake, IV Titration 100 Amount Piperacillin-Tazobactam 3 100 .375 gm In Sodium Chloride 0.9% 100 ml @ 25 mls/hr IVPB Q8HR [facility] Rx# :[id number] Oral 20 Other: Voiding Method Toilet Toilet Toilet - Exam Gen: This is a 53-year-old female, patient is resting in bed and appears to be comfortable and in no acute distress. HEENT: Head is atraumatic, normocephalic. Pupils equal, round. Sclerae is anicteric. NECK: Supple. No JVD. No lymphadenopathy. No thyromegaly. LUNGS: Clear to auscultation. No wheezes or rhonchi. No intercostal retractions. HEART: Regular rate and rhythm. No murmur. ABDOMEN: Soft. Bowel sounds are present. No masses. Right lower quadrant tenderness. EXTREMITIES: No pedal edema. No calf tenderness. NEUROLOGICAL: Patient is awake, alert and oriented x3. Cranial nerves 2 through 12 are grossly intact. - Labs CBC & Chem 7: 04/03/19 06:26 04/01/19 05:12 Labs: Abnormal Lab Results - Last 24 Hours (Table) 04/02/19 04/03/19 Range/Units 11:30 06:26 RBC 3.79 L 3.79 L (3.80-5.40) m/uL Lymphocytes # 0.8 L 0.9 L (1.0-4.8) k/uL Microbiology - Last 24 Hours (Table) 03/31/19 23:49 Blood Culture - Preliminary Blood No Growth after 48 hours 04/01/19 09:57 Gram Stain - Preliminary Abdomen Wound Culture - Preliminary Assessment and Plan Plan: 1. Sepsis secondary to possible postoperative infection, inflammatory changes on CAT scan concerning for colitis with no clearly identified abscess. Consult with Dr. Rich appreciated. Continue Zosyn. Wound culture in progress, blood culture no growth. Patient is currently on a full liquid diet plan to repeat CAT scan on Friday 2. History of acute appendicitis status post laparoscopic appendectomy performed by Dr. Vidal on 02/27/2019. 3. Hypertension currently hypotensive secondary to sepsis. Hold amlodipine, hold Lasix with parameters.. 4. Coronary artery disease status post stenting and PTCA. Continue Imdur 30 mg daily, Lopressor 25 mg daily, aspirin 81 mg daily. Hold Plavix. 5. Hypothyroidism. Continue levothyroxine 137 g Friday through Friday. 6. Mild persistent asthma. Continue nebulizer treatments, Claritin, Singulair. 7. Hyperlipidemia. Continue Zetia 10 mg at bedtime. 8. Gastroesophageal reflux disease. Continue omeprazole 20 mg twice daily or equivalent. 9. DVT prophylaxis. Heparin subcu. Discharge plan: Likely Friday
[2019-04-03] MEDS: HYDROcodone/APAP 5-325MG 1 EACH TAB PO PRN ×2 (14:35→19:04)
[2019-04-03] MEDS ORDERED: DICYCLOMINE 20 MG TAB PO STA (14:58)
--- NOTE | 2019-04-03 15:02 | P.PN ---
Subjective Progress Note Date: 04/03/19 CHIEF COMPLAINT: Colitis HISTORY OF PRESENT ILLNESS: The patient is a 53-year-old status post appendecto my over a month ago. She came to localize colitis. She also reports severe abdominal spasms. She is requesting Dilaudid frequently. No further fevers or chills or temperatures over 100. At the time of my evaluation, she reports feeling sad from being ill for over a month. ROS: No fevers or chills. No new chest pain.no blood in stools. PHYSICAL EXAM: VITAL SIGNS: Reviewed CONSTITUTIONAL: Well developed and in no acute distress. EYES: Conjuctivae without sclera icterus. Extraocular movements grossly intact. HEAD, EARS, NOSE, THROAT: Moist buccal mucosa. Head is atraumatic, normoce phalic. Hears conversational speech. No nasal drainage. NECK: Supple. RESPIRATORY: Non-labored respirations and equal bilateral excursions. CARDIOVASCULAR: Palpable 2+ radial pulses. ABDOMEN: Soft. No peritonitis. Tender right lower quadrant MUSCULOSKELETAL: No gross deformity of the lower extremities noted. No clubbing. No cyanosis. SKIN: Good skin turgor. Well perfused. NEUROLOGIC: Cranial nerves I through XII grossly intact. No focal or lateralizing signs. PSYCH: Alert and oriented to person. CLINICAL LABS: WBC down from 8,700 to 6500 ASSESSMENT: 1. Colitis 2. S/p appendectomy 1 month ago 3. Fevers 4. Leukocytosis 5. Right lower quadrant pain 6. Gastrointestinal spasms PLAN: 1. Will do trial of Bentyl for gastrointestinal spasms 2. IV antibiotic per infectious disease Objective - Vital Signs Vital signs: Vital Signs Temp 98.8 F 04/03/19 07:00 Pulse 85 04/03/19 07:00 Resp 12 04/03/19 07:00 BP 93/60 04/03/19 07:00 Pulse Ox 98 04/03/19 07:00 Intake & Output 04/02/19 04/03/19 04/03/19 18:59 06:59 18:59 Intake Total 100 20 100 Balance 100 20 100 Weight 96.162 kg Intake: Intake, IV Titration 100 100 Amount Piperacillin-Tazobactam 3 100 100 .375 gm In Sodium Chloride 0.9% 100 ml @ 25 mls/hr IVPB Q8HR [facility] Rx# :[id number] Oral 20 Other: Voiding Method Toilet Toilet Toilet - Labs CBC & Chem 7: 04/03/19 06:26 04/01/19 05:12 Labs: Abnormal Lab Results - Last 24 Hours (Table) 04/03/19 Range/Units 06:26 RBC 3.79 L (3.80-5.40) m/uL Lymphocytes # 0.9 L (1.0-4.8) k/uL Microbiology - Last 24 Hours (Table) 04/01/19 09:57 Gram Stain - Final Abdomen Wound Culture - Final 03/31/19 23:49 Blood Culture - Preliminary Blood No Growth after 48 hours Assessment and Plan (1) Colitis Current Visit: Yes Status: Acute Code(s): K52.9 - NONINFECTIVE GASTROENTERITIS AND COLITIS, UNSPECIFIED SNOMED Code(s): 22430259 (2) Fever Current Visit: Yes Status: Acute Code(s): R50.9 - FEVER, UNSPECIFIED SNOMED Code(s): 769730297 (3) S/P appendectomy Current Visit: Yes Status: Acute Code(s): Z90.49 - ACQUIRED ABSENCE OF OTHER SPECIFIED PARTS OF DIGESTIVE TRACT SNOMED Code(s): 405807285 (4) Morbid obesity due to excess calories Current Visit: Yes Status: Acute Code(s): E66.01 - MORBID (SEVERE) OBESITY DUE TO EXCESS CALORIES SNOMED Code(s): 195325376 (5) BMI 37.0-37.9, adult Current Visit: Yes Status: Acute Code(s): Z68.37 - BODY MASS INDEX (BMI) 37.0-37.9, ADULT SNOMED Code(s): 612022863 (6) Right lower quadrant abdominal pain Current Visit: Yes Status: Acute Code(s): R10.31 - RIGHT LOWER QUADRANT PAIN SNOMED Code(s): 591450744
--- NOTE | 2019-04-03 16:03 | P.CRDCN ---
History of Present Illness Consult date: 04/03/19 Consult reason: known to you (Patient of LETY Greenberg) History of present illness: The patient is a 53-year-old female with past medical history coronary artery disease status post stenting and PTCA, hyperlipidemia, GERD, and hypothyroidism, who presented to the hospital with increased abdominal pain. She underwent laparoscopic appendectomy on 02/27/[address] Vidal. She developed wound dehiscence and was following in the office. She was told to keep the area clean and follow up on Friday morning. On Friday she developed increased pain, therefore she presented to the emergency room. CT of the abdomen and pelvis showed persistent infectious or inflammatory change in the intraperitoneal cavity. She was subsequently placed on antibiotics and has been treated for septicemia. Her Plavix was temporarily held due to the possibility of returning to the operating room and has since been restarted by the primary team. On exam today, she appears slightly distressed and anxious. She states she continues to have abdominal pain and is very concerned about her health. She denies any chest pain, chest pressure, dyspnea, dizziness, or vertigo. She states she does have palpitations due to her metoprolol being held. PAST MEDICAL HISTORY: Coronary artery disease status post stenting and PTCA, hyperlipidemia, GERD, hypothyroidism, asthma, hypertension REVIEW OF SYSTEMS: Positive for fever or chills. No cough or expectoration. No diaphoresis. Patient denies headache, dizziness, blurred vision, double vision. Positive for stomach pain. No nausea, vomiting. No hematochezia. No hematemesis. Denies any black stools or blood in his stools. Denies dysuria or hematuria. No muscle weakness or numbness. No chest discomfort. No shortness of breath. PHYSICAL EXAMINATION: This is a 53-year-old female in mild emotional distress at the time of my examination. HEENT: Head is atraumatic, normocephalic. Pupils are equal, round. Sclerae anicteric. Conjunctivae are clear. Mucous membranes of the mouth are moist. Neck is supple. There is no jugular venous distention. No carotid bruit is heard. CHEST EXAMINATION: Lungs are clear to auscultation. No chest wall tenderness is noted on palpation or with deep breathing. HEART EXAMINATION: Heart regular rate and rhythm. S1, S2 heard. No murmurs, gallops or rub. ABDOMEN: Soft, nontender. Bowel sounds are heard. No organomegaly noted. EXTREMITIES: 2+ peripheral pulses with no evidence of peripheral edema and no calf tenderness noted. NEUROLOGIC EXAMINATION: Patient is awake, alert and oriented x3. LABORATORY DATA: WBC 6.5, hemoglobin 11.9, hematocrit 37.2, platelet 305, sodium 133, potassium 4.0, BUN 11, creatinine 0.65, lactic acid 0.9, troponin negative 1 FINAL ASSESSMENT AND PLAN: #1 sepsis secondary to postoperative infection #2 history of coronary artery disease, currently on aspirin and Plavix #3 hypertension, Norvasc currently being held to prevent hypotension #4 palpitations #5 hyperlipidemia PLAN: We will resume metoprolol 12.5 mg twice daily. Recommend resuming aspirin and Plavix until the decision is made if she must return to the operating room. Continue holding Norvasc, unless patient becomes hypertensive. We'll continue to monitor Past Medical History Past Medical History: Asthma, Coronary Artery Disease (CAD), Chest Pain / Angina, GERD/Reflux, Hyperlipidemia, Musculoskeletal Disorder, Pneumonia, Syncope, Thyroid Disorder, Vascular Disorder Additional Past Medical History / Comment(s): raynauds, lupus-suspected, had ruptured disc, hx. stomach ulcer, has 3 cardiac stents, hiatal hernia, SOB w/exertion recently, microvascular disease History of Any Multi-Drug Resistant Organisms: None Reported Past Surgical History: Appendectomy, Cholecystectomy, Heart Catheterization, Heart Catheterization With Stent, Tonsillectomy, Uterine Ablation Past Anesthesia/Blood Transfusion Reactions: No Reported Reaction, Family History of Problems w/ Anesthesia Additional Past Anesthesia/Blood Transfusion Reaction / Comment(s): has had hematomas in past after cardiac caths. & syncopal episode, mom had some issues w/anesthesia Date of Last Stent Placement:: Smoking Status: Former smoker - Past Family History Brother(s) Family Medical History: Coronary Artery Disease (CAD), Myocardial Infarction ([place]) Mother Family Medical History: Coronary Artery Disease (CAD), Diabetes Mellitus Father Family Medical History: Pulmonary Embolus Medications and Allergies Home Medications Medication Instructions Recorded Confirmed Type Loratadine [Claritin] 10 mg PO HS 08/17/13 03/31/19 History Montelukast [Singulair] 10 mg PO HS 08/17/13 03/31/19 History amLODIPine BESYLATE [Norvasc] 2.5 mg PO DAILY 12/12/13 03/31/19 History Clopidogrel [Plavix] 75 mg PO DAILY 05/23/14 03/31/19 History Cholecalciferol [Vitamin D3] 5,000 unit PO DAILY 06/30/15 03/31/19 History Nitroglycerin Sl Tabs [Nitrostat] 0.4 mg SUBLINGUAL Q5M PRN #25 tab 07/04/15 03/31/19 Rx Omeprazole 20 mg PO BID 10/30/15 03/31/19 History Albuterol Nebulized [Ventolin 2.5 mg INHALATION RT-QID PRN 04/05/16 03/31/19 History Nebulized] Ezetimibe [Zetia] 10 mg PO HS 04/07/18 03/31/19 History Metoprolol Tartrate 25 mg PO DAILY 04/07/18 03/31/19 History Aspirin EC [Ecotrin Low Dose] 81 mg PO DAILY 04/10/18 03/31/19 History Levothyroxine Sodium [Synthroid] 137 mcg PO MOTUWETHFRSA 04/10/18 03/31/19 History Albuterol Inhaler [Ventolin Hfa 2 puff INHALATION RT-QID PRN 02/27/19 03/31/19 History Inhaler] Ascorbic Acid [Vitamin C] 2,000 mg PO DAILY 02/27/19 03/31/19 History Furosemide [Lasix] 20 mg PO DAILY@1200 02/27/19 03/31/19 History Isosorbide Mononitrate ER [Imdur] 30 mg PO DAILY 02/27/19 03/31/19 History Zolpidem [Ambien] 10 mg PO HS PRN 03/31/19 03/31/19 History Allergies Allergy/AdvReac Type Severity Reaction Status Date / Time shellfish derived Allergy throat Verified 03/31/19 18:00 swelling sulfamethoxazole Allergy Rash/Hives Verified 03/31/19 18:00 [From Bactrim] trimethoprim [From Bactrim] Allergy Rash/Hives Verified 03/31/19 18:00 atorvastatin calcium AdvReac muscle Verified 03/31/19 18:00 [From Lipitor] aches diltiazem HCl [From Cardizem] AdvReac EXTREME Verified 03/31/19 18:00 FLUSHING rosuvastatin calcium AdvReac SEVERE Verified 03/31/19 18:00 [From Crestor] MUSCLE PAIN Physical Exam Vitals: Vital Signs Temp Pulse Resp BP Pulse Ox 04/03/19 07:00 98.8 F 85 12 93/60 98 04/03/19 01:52 99.6 F 95 16 132/81 94 L 04/02/19 20:06 98.2 F 88 120/67 99 Intake and Output 04/03/19 04/03/19 04/03/19 06:59 14:59 22:59 Intake Total 100 Balance 100 Intake: Intake, IV Titration 100 Amount Piperacillin-Tazobactam 3 100 .375 gm In Sodium Chloride 0.9% 100 ml @ 25 mls/hr IVPB Q8HR [facility] Rx# :[id number] Other: Voiding Method Toilet Results 04/03/19 06:26 04/01/19 05:12 CBC 04/03/19 Range/Units 06:26 WBC 6.5 (3.8-10.6) k/uL RBC 3.79 L (3.80-5.40) m/uL Hgb 11.9 (11.4-16.0) gm/dL Hct 37.2 (34.0-46.0) % Plt Count 305 (150-450) k/uL Current Medications Generic Name Dose Route Start Last Admin Trade Name Freq PRN Reason Stop Dose Admin Hydrocodone Bitart/Acetaminophen 1 each 04/03/19 13:09 04/03/19 14:35 Howe 5-325 PO 1 each Q6HR PRN Administration Pain Albuterol Sulfate 2.5 mg 04/01/19 09:26 Ventolin Nebulized INHALATION RT-QID PRN Shortness Of Breath Aspirin 81 mg 04/01/19 09:00 04/03/19 08:55 Aspirin PO 81 mg DAILY [facility] Administration Clopidogrel Bisulfate 75 mg 04/02/19 10:30 04/03/19 08:55 Plavix PO 75 mg DAILY [facility] Administration Dicyclomine HCl 10 mg 04/03/19 18:00 Bentyl PO QID [facility] Ezetimibe 10 mg 04/01/19 21:00 04/02/19 21:45 Zetia PO 10 mg HS [facility] Administration Heparin Sodium (Porcine) 5,000 unit 04/01/19 21:00 04/03/19 08:55 Heparin SQ 5,000 unit Q12HR [facility] Administration Hydromorphone HCl 0.5 mg 04/01/19 09:54 04/02/19 23:13 Dilaudid IVP 0.5 mg Q3HR PRN Administration Moderate Pain Piperacillin Sod/Tazobactam 100 mls @ 25 mls/hr 03/31/19 16:45 04/03/19 08:55 Sod 3.375 gm/ Sodium Chloride IVPB 25 mls/hr Q8HR [facility] Administration Isosorbide Mononitrate 30 mg 04/01/19 09:00 04/03/19 08:55 Imdur PO 30 mg DAILY [facility] Administration Levothyroxine Sodium 137 mcg 04/01/19 06:30 04/03/19 06:53 Synthroid PO 137 mcg [id number] [facility] Administration Loratadine 10 mg 04/01/19 21:00 04/02/19 21:44 Claritin PO 10 mg HS [facility] Administration Metoprolol Tartrate 25 mg 04/01/19 09:00 04/03/19 08:54 Lopressor PO Not Given DAILY [facility] Metoprolol Tartrate 12.5 mg 04/03/19 21:00 Lopressor PO BID [facility] Montelukast Sodium 10 mg 04/01/19 21:00 04/02/19 21:44 Singulair PO 10 mg HS [facility] Administration Ondansetron HCl 4 mg 03/31/19 16:24 04/03/19 04:42 Zofran IVP 4 mg Q6HR PRN Administration Nausea And Vomiting Pantoprazole Sodium 40 mg 04/02/19 09:00 04/03/19 08:55 Protonix PO 40 mg BID [facility] Administration Zolpidem Tartrate 10 mg 04/01/19 09:00 Ambien PO HS PRN Insomnia Intake and Output 04/03/19 04/03/19 04/03/19 06:59 14:59 22:59 Intake Total 100 Balance 100 Intake: Intake, IV Titration 100 Amount Piperacillin-Tazobactam 3 100 .375 gm In Sodium Chloride 0.9% 100 ml @ 25 mls/hr IVPB Q8HR [facility] Rx# :[id number] Other: Voiding Method Toilet 04/03/19 06:26 04/01/19 05:12
[2019-04-03] MEDS: DICYCLOMINE 10 MG CAP PO SCH ×2 (18:18→21:07)
[2019-04-03] MEDS: EZETIMIBE 10 MG TAB PO SCH (21:07)
[2019-04-03] MEDS: MONTELUKAST 10 MG TAB PO SCH (21:07)
[2019-04-03] MEDS: METOPROLOL TARTRATE 12.5 MG TAB PO SCH (21:08)
[2019-04-03] MEDS: LORATADINE 10 MG TAB PO SCH (21:08)
[2019-04-04] MEDS: HYDROmorphone 0.5 MG/0.5 ML SYRINGE IVP PRN ×6 (00:01→21:24)
[2019-04-04] MEDS: HYDROcodone/APAP 5-325MG 1 EACH TAB PO PRN ×5 (05:05→23:58)
[2019-04-04] MEDS: PIPERACILLIN-TAZOBACTAM 3.375 GM in SODIUM CHLORIDE 0.9% 100 ML IVPB SCH ×3 (06:56→16:12)
[2019-04-04] MEDS: ASPIRIN 81 MG PO SCH (07:36)
[2019-04-04] MEDS: DICYCLOMINE 10 MG CAP PO SCH ×4 (07:36→22:54)
[2019-04-04] MEDS: ISOSORBIDE MONONITRATE ER 30 MG TAB.ER.24H PO SCH (07:36)
[2019-04-04] MEDS: HEPARIN SODIUM,PORCINE 5,000 UNIT/ML 1 ML VIAL SQ SCH ×2 (07:36→22:43)
[2019-04-04] MEDS: CLOPIDOGREL 75 MG TAB PO SCH (07:36)
[2019-04-04] MEDS: METOPROLOL TARTRATE 12.5 MG TAB PO SCH ×2 (07:36→21:24)
[2019-04-04] MEDS: PANTOPRAZOLE 40 MG TABLET PO SCH ×2 (10:29→21:24)
--- NOTE | 2019-04-04 13:33 | P.PN ---
Subjective Progress Note Date: 04/04/19 CHIEF COMPLAINT: Colitis HISTORY OF PRESENT ILLNESS: The patient is a 53-year-old status post appendecto my over a month ago. She came in with localized colitis. Yesterday, she had severe abdominal spasms. She was placed on Bentyl with moderate relief of her abdominal pain. She is in happier spirits today than yesterday. Dr. Su also at bedside. ROS: No fevers or chills. No new chest pain. PHYSICAL EXAM: VITAL SIGNS: Reviewed CONSTITUTIONAL: Well developed and in no acute distress. EYES: Conjuctivae without sclera icterus. Extraocular movements grossly intact. HEAD, EARS, NOSE, THROAT: Moist buccal mucosa. Head is atraumatic, normocephalic. Hears conversational speech. No nasal drainage. NECK: Supple. RESPIRATORY: Non-labored respirations and equal bilateral excursions. CARDIOVASCULAR: Palpable 2+ radial pulses. ABDOMEN: No peritonitis. MUSCULOSKELETAL: No gross deformity of the lower extremities noted. No clubbing. No cyanosis. SKIN: Good skin turgor. Well perfused. NEUROLOGIC: Cranial nerves I through XII grossly intact. No focal or lateralizing signs. PSYCH: Alert and oriented to person. CLINICAL LABS: WBC normal ASSESSMENT: 1. Colitis 2. S/p appendectomy 1 month ago 3. Fevers 4. Leukocytosis 5. Right lower quadrant pain 6. Gastrointestinal spasms, improved. PLAN: 1. Colon spasms moderately improved with Bentyl. Please continue following discharge. 2. No surgical intervention needed. Objective - Vital Signs Vital signs: Vital Signs Temp 98.7 F 04/04/19 07:00 Pulse 89 04/04/19 07:00 Resp 18 04/04/19 07:00 BP 115/78 04/04/19 07:00 Pulse Ox 92 L 04/04/19 07:00 Intake & Output 04/03/19 04/04/19 04/04/19 18:59 06:59 18:59 Intake Total 100 120 118 Balance 100 120 118 Intake: Intake, IV Titration 100 Amount Piperacillin-Tazobactam 3 100 .375 gm In Sodium Chloride 0.9% 100 ml @ 25 mls/hr IVPB Q8HR [facility] Rx# :[id number] Oral 120 118 Other: Voiding Method Toilet Toilet # Voids 1 - Labs CBC & Chem 7: 04/03/19 06:26 04/01/19 05:12 Labs: Microbiology - Last 24 Hours (Table) 03/31/19 23:49 Blood Culture - Preliminary Blood No Growth after 72 hours 04/01/19 09:57 Gram Stain - Final Abdomen Wound Culture - Final Assessment and Plan (1) Colitis Current Visit: Yes Status: Acute Code(s): K52.9 - NONINFECTIVE GASTROENTERITIS AND COLITIS, UNSPECIFIED SNOMED Code(s): 52797950 (2) Fever Current Visit: Yes Status: Acute Code(s): R50.9 - FEVER, UNSPECIFIED SNOMED Code(s): 062609612 (3) S/P appendectomy Current Visit: Yes Status: Acute Code(s): Z90.49 - ACQUIRED ABSENCE OF OTHER SPECIFIED PARTS OF DIGESTIVE TRACT SNOMED Code(s): 101530958 (4) Morbid obesity due to excess calories Current Visit: Yes Status: Acute Code(s): E66.01 - MORBID (SEVERE) OBESITY DUE TO EXCESS CALORIES SNOMED Code(s): 680024260 (5) BMI 37.0-37.9, adult Current Visit: Yes Status: Acute Code(s): Z68.37 - BODY MASS INDEX (BMI) 37.0-37.9, ADULT SNOMED Code(s): 936804805 (6) Right lower quadrant abdominal pain Current Visit: Yes Status: Acute Code(s): R10.31 - RIGHT LOWER QUADRANT PAIN SNOMED Code(s): 384357194
--- NOTE | 2019-04-04 16:04 | P.PN ---
Subjective Progress Note Date: 04/04/19 Patient is a 53-year-old female patient of Dr. Espinal with past medical history of coronary artery disease status post multiple heart catheterizations, stents and PTCA, hyperlipidemia, gastroesophageal reflux disease, hypothyroidism. Patient had a recent hospitalization status post laparoscopic appendectomy on February 27, 2019. The patient had follow-up in the office and had a reaction to the clue and tape that were used at the time. The glue and tape were removed by Dr. Luke in the office. She had a follow-up with Dr. Dubois and was placed on Keflex. On Friday, she states that she was taking her 's blood pressure and she noticed that there was blood on her shirt and her incision popped open. She tried to apply Steri-Strips but had a reaction. She contacted Dr. Vidal on Friday and was told to keep the area clean and dry gauze over it. On Friday evening and into Friday morning pain developed. She tried taking Tylenol and used heating pad but that did not help the pain and she eventually took a Lortab. Patient states that this pain was so severe worsen she's ever had in her life. Patient saw her family physician yesterday and he ordered a stat CAT scan of the abdomen and pelvis without contrast revealed overall findings are consistent with persistent infectious or inflammatory change centered right upper pelvis involving the intraperitoneal cavity, portions of the distal ileum and cecum without drainable thick-walled abscess or free air. Patient's pain is located in the right pelvis area and suprapubic area with occasional radiation up into the abdomen. Patient was directly admitted under Dr. Luke and started on IV fluids, pain medication and Zosyn. Consult in place with Dr. Rich. Blood culture is in progress and will culture will be ordered. WBC 12.8, creatinine 0.65, troponin negative, C- reactive protein 177.4. Temperature max 102.5, tachycardic, hypotensive. Patient is on a clear liquid diet we have held Plavix in case any intervention is necessary. 04/09/2018, patient underwent heart catheterization that revealed diagonal lesion of 80% LAD 40% and PTCA was performed of both vessels by Dr. Evita Greenberg. Patient was on Plavix and aspirin at discharge. 04/02: Patient does not have bowel movement today. She states she had a bowel movement yesterday. She states her pain is better today. She has had no fevers. She is currently on Zosyn. She is tolerating a full liquid diet. Blood culture is no growth at 24 hours and wound culture in progress. Patient will be resumed back on Plavix as surgery is no plan for any intervention. 04/03 vision had no episode of fever overnight and has been afebrile for the past 48 hours vitals otherwise stable respiratory rate 12, pulse 85 blood pressure 93/60 leukocytosis is improved WBC 6.5 hemoglobin 11.9 infectious disease recommended continuing with Zosyn and a repeat CAT scan on Friday. Patient continues to have abdominal pain one stat ordered wears off. We'll initiate patient on [place] 5 every 6 hours along with Dilaudid for breakthrough pain. Lasix will be discontinued andblood pressure is on the softer side patient and updated on the change and will be restarted once patient's blood pressure is better 04/04 patient examined bedside. Has been afebrile respiratory rate 18 pulse 77 blood pressure % on room air. Patient was initiated on Bentyl yesterday which helped with abdominal pain along with [place] and Dilaudid. Patient had no bowel movement for past 4 days senna and MiraLAX will be added and patient be switched on low fiber diet. Review of Systems Constitutional: Reports poor appetite, Denies chills, Denies fatigue, Denies fever, Denies lethargy, Denies malaise Ears, nose, mouth and throat: Denies dysphagia, Denies headache, Denies nasal congestion, Denies nasal discharge, Denies sore throat, Denies vertigo Cardiovascular: Denies chest pain, Denies decreased exercise tolerance, Denies dyspnea on exertion, Denies edema, Denies leg edema, Denies lightheadedness, Denies shortness of breath, Denies syncope Respiratory: Denies cough, Denies cough with sputum, Denies dyspnea, Denies excessive sputum, Denies hemoptysis, Denies home oxygen, Denies respiratory infections, Denies sleep apnea Gastrointestinal: Reports abdominal pain, Reports loss of appetite, Reports nausea, Denies diarrhea, Denies vomiting Genitourinary: Reports pelvic pain, Denies dysuria, Denies urgency, Denies urinary frequency Musculoskeletal: Denies frequent falls, Denies gait dysfunction, Denies muscle weakness, Denies myalgias Integumentary: Reports wounds, Denies pruritus, Denies rash Neurological: Denies change in mentation, Denies change in speech, Denies numbness, Denies weakness Psychiatric: Denies anxiety, Denies depression Objective - Vital Signs Vital signs: Vital Signs Temp 97.8 F 04/04/19 15:00 Pulse 77 04/04/19 15:00 Resp 18 04/04/19 15:00 BP 95/63 04/04/19 15:00 Pulse Ox 93 L 04/04/19 15:00 Intake & Output 04/03/19 04/04/19 04/04/19 18:59 06:59 18:59 Intake Total 100 120 918 Balance 100 120 918 Intake: Intake, IV Titration 100 100 Amount Piperacillin-Tazobactam 3 100 100 .375 gm In Sodium Chloride 0.9% 100 ml @ 25 mls/hr IVPB Q8HR [facility] Rx# :[id number] Oral 120 818 Other: Voiding Method Toilet Toilet # Voids 1 - Exam Gen: This is a 53-year-old female, patient is resting in bed and appears to be comfortable and in no acute distress. HEENT: Head is atraumatic, normocephalic. Pupils equal, round. Sclerae is anicteric. NECK: Supple. No JVD. No lymphadenopathy. No thyromegaly. LUNGS: Clear to auscultation. No wheezes or rhonchi. No intercostal retractions. HEART: Regular rate and rhythm. No murmur. ABDOMEN: Soft. Bowel sounds are present. No masses. Right lower quadrant tenderness. EXTREMITIES: No pedal edema. No calf tenderness. NEUROLOGICAL: Patient is awake, alert and oriented x3. Cranial nerves 2 through 12 are grossly intact. - Labs CBC & Chem 7: 04/03/19 06:26 04/01/19 05:12 Labs: Microbiology - Last 24 Hours (Table) 03/31/19 23:49 Blood Culture - Preliminary Blood No Growth after 72 hours 04/01/19 09:57 Gram Stain - Final Abdomen Wound Culture - Final Assessment and Plan Plan: 1. Sepsis secondary to possible postoperative infection, inflammatory changes on CAT scan concerning for colitis with no clearly identified abscess. Consult with Dr. Hilario francis. Continue Zosyn. Wound culture in progress, blood culture no growth. Patient is currently on a full liquid diet plan to repeat CAT scan on Friday pain controlled with Bentyl, not call and Dilaudid as needed 2. History of acute appendicitis status post laparoscopic appendectomy performed by Dr. Vidal on 02/27/2019. 3. Hypertension currently hypotensive secondary to sepsis. Hold amlodipine, hold Lasix with parameters.. 4. Coronary artery disease status post stenting and PTCA. Continue Imdur 30 mg daily, metoprolol 12.5 twice a day, aspirin 81 mg daily. Hold Plavix. 5. Hypothyroidism. Continue levothyroxine 137 g Friday through Friday. 6. Mild persistent asthma. Continue nebulizer treatments, Claritin, Singulair. 7. Hyperlipidemia. Continue Zetia 10 mg at bedtime. 8. Gastroesophageal reflux disease. Continue omeprazole 20 mg twice daily or equivalent. 9. DVT prophylaxis. Heparin subcu. Discharge plan: Likely Friday
[2019-04-04] MEDS: DOCUSATE 100 MG CAP PO SCH (16:11)
[2019-04-04] MEDS: POLYETHYLENE GLYCOL 3350 17 GM POWD.PACK PO SCH (16:11)
[2019-04-04] MEDS: ONDANSETRON 4 MG/2 ML VIAL IVP PRN (17:36)
[2019-04-04] MEDS: MONTELUKAST 10 MG TAB PO SCH (21:24)
[2019-04-04] MEDS: EZETIMIBE 10 MG TAB PO SCH (21:24)
[2019-04-04] MEDS: LORATADINE 10 MG TAB PO SCH (21:24)
[2019-04-04] MEDS ORDERED: IOPAMIDOL CONTRAST (ORAL USE) VIAL PO PRN (23:17)
[2019-04-05] MEDS: AMPICILLIN-SULBACTAM 3 GM in SODIUM CHLORIDE 0.9% 100 ML IVPB SCH ×4 (02:32→19:17)
[2019-04-05] MEDS: HYDROmorphone 0.5 MG/0.5 ML SYRINGE IVP PRN ×3 (02:46→09:14)
--- NOTE | 2019-04-05 06:45 | PN ---
PROGRESS NOTE DATE OF SERVICE: 04/04/2019 REASON FOR FOLLOWUP: Abdominal infection. INTERVAL HISTORY: The patient is currently afebrile. She has been breathing comfortably. Pain seems to be controlled with pain medication. No nausea, no vomiting and no diarrhea. PHYSICAL EXAMINATION: Blood pressure is 111/73 with a pulse of 82, temperature 98.7. She is 95% on room air. General description is a middle-aged female up in the bed in no distress. RESPIRATORY SYSTEM: Unlabored breathing, decreased breath sounds at the bases. No wheeze. HEART: S1, S2. Regular rate and rhythm. ABDOMEN: Soft, no tenderness. LABS: Hemoglobin is 11.9, white count 6.5, creatinine 0.65. Blood culture has been negative. Abdominal culture was negative. DIAGNOSTIC IMPRESSION AND PLAN: Patient with abdominal infection in this patient who did have a recent laparoscopic cholecystectomy with significant inflammatory changes, but there was no drainable abscess. The patient apparently did have slight drainage from the laparoscopic site. Those cultures have been negative. We will try to track down culture obtained by the PCP. Recommend antibiotic switching over to Unasyn repeating a CAT scan in the morning to follow on her abdominal infection and continue supportive care. MMODL / IJN: [id number] /
[2019-04-05] MEDS: LEVOTHYROXINE 137 MCG TAB PO SCH (06:49)
[2019-04-05] MEDS ORDERED: methylPREDNISolone SOD SUCCI 125 MG/2 ML VIAL IV ONE (08:43)
[2019-04-05] MEDS ORDERED: FAMOTIDINE 20 MG/2 ML VIAL IV ONE (08:43)
[2019-04-05] MEDS ORDERED: diphenhydrAMINE 50 MG/ML 1 ML VIAL IVP ONE (08:43)
[2019-04-05] MEDS: METOPROLOL TARTRATE 12.5 MG TAB PO SCH ×2 (09:14→21:56)
[2019-04-05] MEDS: POLYETHYLENE GLYCOL 3350 17 GM POWD.PACK PO SCH (09:14)
[2019-04-05] MEDS: CLOPIDOGREL 75 MG TAB PO SCH (09:15)
[2019-04-05] MEDS: ISOSORBIDE MONONITRATE ER 30 MG TAB.ER.24H PO SCH (09:15)
[2019-04-05] MEDS: PANTOPRAZOLE 40 MG TABLET PO SCH ×2 (09:15→21:56)
[2019-04-05] MEDS: DOCUSATE 100 MG CAP PO SCH (09:15)
[2019-04-05] MEDS: ASPIRIN 81 MG PO SCH (09:15)
[2019-04-05] MEDS: DICYCLOMINE 10 MG CAP PO SCH ×4 (09:15→21:56)
[2019-04-05] MEDS ORDERED: KETOROLAC 30 MG/ML 1 ML VIAL IVP PRN (09:21)
[2019-04-05 09:29] LABS: HCT 40.4 % (34.0-46.0); HGB 12.8 gm/dL (11.4-16.0); MCH 31.1 pg (25.0-35.0); MCHC 31.6 g/dL (31.0-37.0); MCV 98.2 fL (80.0-100.0); Platelet Count 398 k/uL (150-450); RBC 4.12 m/uL (3.80-5.40); RDW 12.5 % (11.5-15.5); WBC 6.6 k/uL (3.8-10.6)
[2019-04-05 09:44] LABS: ALT 12 U/L (4-34); AST 18 U/L (14-36); African American GFR (CKD) >90 (>60 ml/min/1.73 sqM); Albumin 3.4 g/dL (3.5-5.0); Alkaline Phosphatase 69 U/L (38-126); Anion Gap 8 mmol/L; Blood Urea Nitrogen 5 mg/dL (7-17); Calcium 8.9 mg/dL (8.4-10.2); Carbon Dioxide 28 mmol/L (22-30); Chloride 105 mmol/L (98-107); Glucose 76 mg/dL (74-99); Non-African American GFR(CKD) >90 (>60 ml/min/1.73 sqM); Potassium 4.2 mmol/L (3.5-5.1); Sodium 141 mmol/L (137-145); Total Bilirubin 0.4 mg/dL (0.2-1.3); Total Protein 6.3 g/dL (6.3-8.2)
--- NOTE | 2019-04-05 11:13 | P.PN ---
<Anna Marie Medina - Last Filed: 04/05/19 11:07> Subjective Progress Note Date: 04/05/19 CHIEF COMPLAINT: possible surgical infection HISTORY OF PRESENT ILLNESS: Patient examined this morning at the bedside. She reports persistent abdominal pain. She was started on Bentyl over the weekend which has helped with her pain but she is still requiring IV Dilaudid and [place]. She is passing flatus. Reports last BM was Friday. PHYSICAL EXAM: VITAL SIGNS: Reviewed. GENERAL: Well-developed in no acute distress. HEENT: No sclera icterus. Extraocular movements grossly intact. Moist buccal mucosa. Head is atraumatic, normocephalic. ABDOMEN: Soft. Nondistended. Incisions without drainage at time of examination. Tenderness with palpation. NEUROLOGIC: Alert and oriented. Cranial nerves II through XII grossly intact. ASSESSMENT: 1. Possible colitis 2. Possible post operative infection 3. Recent appendectomy, February 2019 PLAN: Continue IV antibiotics. Monitor WBC. Dr. Rich on consult Repeat CT scan ordered per Dr. Rich. Await results Continue Bentyl Pain management. Continue IV Dilaudid and [place]. Will add Toradol 15mg Q6 hours PRN Continue diet as tolerated Continue Miralax and colace. Nurse practitioner note has been reviewed by physician. Signing provider agrees with the documented findings, assessment, and plan of care. Objective - Vital Signs Vital signs: Vital Signs Temp 99.3 F 04/05/19 07:00 Pulse 83 04/05/19 07:20 Resp 12 04/05/19 07:20 BP 95/64 04/05/19 07:00 Pulse Ox 95 04/05/19 07:00 Intake & Output 04/04/19 04/05/19 04/05/19 18:59 06:59 18:59 Intake Total 918 Balance 918 Intake: Intake, IV Titration 100 Amount Piperacillin-Tazobactam 3 100 .375 gm In Sodium Chloride 0.9% 100 ml @ 25 mls/hr IVPB Q8HR [facility] Rx# :[id number] Oral 818 Other: Voiding Method Toilet Toilet Toilet - Labs CBC & Chem 7: 04/05/19 09:07 04/05/19 09:07 Labs: Abnormal Lab Results - Last 24 Hours (Table) 04/05/19 Range/Units 09:07 BUN 5 L (7-17) mg/dL Albumin 3.4 L (3.5-5.0) g/dL Microbiology - Last 24 Hours (Table) 03/31/19 23:49 Blood Culture - Preliminary Blood No Growth after 96 hours <Tim Luke - Last Filed: 04/05/19 13:02> Subjective As above. Patient still having spastic abdominal pain. Suspect this may be related to inflammatory changes around the ileum. Agree with plans for repeat CAT scan today. Objective - Vital Signs Vital signs: Vital Signs Temp 99.3 F 04/05/19 07:00 Pulse 83 04/05/19 07:20 Resp 12 04/05/19 07:20 BP 95/64 04/05/19 07:00 Pulse Ox 95 04/05/19 07:00 Intake & Output 04/04/19 04/05/19 04/05/19 18:59 06:59 18:59 Intake Total 918 Balance 918 Intake: Intake, IV Titration 100 Amount Piperacillin-Tazobactam 3 100 .375 gm In Sodium Chloride 0.9% 100 ml @ 25 mls/hr IVPB Q8HR [facility] Rx# :[id number] Oral 818 Other: Voiding Method Toilet Toilet Toilet - Labs CBC & Chem 7: 04/05/19 09:07 04/05/19 09:07 Labs: Abnormal Lab Results - Last 24 Hours (Table) 04/05/19 Range/Units 09:07 BUN 5 L (7-17) mg/dL Albumin 3.4 L (3.5-5.0) g/dL Microbiology - Last 24 Hours (Table) 03/31/19 23:49 Blood Culture - Preliminary Blood No Growth after 96 hours
[2019-04-05] MEDS: BARIUM SULFATE 450 ML ORAL.SUSP BOTTLE PO PRN ×2 (11:21→14:04)
--- NOTE | 2019-04-05 11:24 | P.PN ---
Subjective Progress Note Date: 04/05/19 Patient is a 53-year-old female patient of Dr. Espinal with past medical history of coronary artery disease status post multiple heart catheterizations, stents and PTCA, hyperlipidemia, gastroesophageal reflux disease, hypothyroidism. Patient had a recent hospitalization status post laparoscopic appendectomy on February 27, 2019. The patient had follow-up in the office and had a reaction to the clue and tape that were used at the time. The glue and tape were removed by Dr. Luke in the office. She had a follow-up with Dr. Dubois and was placed on Keflex. On Friday, she states that she was taking her 's blood pressure and she noticed that there was blood on her shirt and her incision popped open. She tried to apply Steri-Strips but had a reaction. She contacted Dr. Vidal on Friday and was told to keep the area clean and dry gauze over it. On Friday evening and into Friday morning pain developed. She tried taking Tylenol and used heating pad but that did not help the pain and she eventually took a Lortab. Patient states that this pain was so severe worsen she's ever had in her life. Patient saw her family physician yesterday and he ordered a stat CAT scan of the abdomen and pelvis without contrast revealed overall findings are consistent with persistent infectious or inflammatory change centered right upper pelvis involving the intraperitoneal cavity, portions of the distal ileum and cecum without drainable thick-walled abscess or free air. Patient's pain is located in the right pelvis area and suprapubic area with occasional radiation up into the abdomen. Patient was directly admitted under Dr. Luke and started on IV fluids, pain medication and Zosyn. Consult in place with Dr. Rich. Blood culture is in progress and will culture will be ordered. WBC 12.8, creatinine 0.65, troponin negative, C- reactive protein 177.4. Temperature max 102.5, tachycardic, hypotensive. Patient is on a clear liquid diet we have held Plavix in case any intervention is necessary. 04/09/2018, patient underwent heart catheterization that revealed diagonal lesion of 80% LAD 40% and PTCA was performed of both vessels by Dr. Evita Greenberg. Patient was on Plavix and aspirin at discharge. 04/02: Patient does not have bowel movement today. She states she had a bowel movement yesterday. She states her pain is better today. She has had no fevers. She is currently on Zosyn. She is tolerating a full liquid diet. Blood culture is no growth at 24 hours and wound culture in progress. Patient will be resumed back on Plavix as surgery is no plan for any intervention. 04/03 vision had no episode of fever overnight and has been afebrile for the past 48 hours vitals otherwise stable respiratory rate 12, pulse 85 blood pressure 93/60 leukocytosis is improved WBC 6.5 hemoglobin 11.9 infectious disease recommended continuing with Zosyn and a repeat CAT scan on Friday. Patient continues to have abdominal pain one stat ordered wears off. We'll initiate patient on [place] 5 every 6 hours along with Dilaudid for breakthrough pain. Lasix will be discontinued andblood pressure is on the softer side patient and updated on the change and will be restarted once patient's blood pressure is better 04/04 patient examined bedside. Has been afebrile respiratory rate 18 pulse 77 blood pressure % on room air. Patient was initiated on Bentyl yesterday which helped with abdominal pain along with [place] and Dilaudid. Patient had no bowel movement for past 4 days senna and MiraLAX will be added and patient be switched on low fiber diet. 04/05: Patient continues to have pain to the right lower pelvic area is very sore with palpation. She states her last bowel movement was on Friday. She has been tolerating a full liquid diet. Patient afebrile, heart rate 83, blood pressure 95/64, pulse ox 95% on room air. Dr. Rich has transitioned Zosyn to Unasyn. Patient is scheduled for CAT scan of the abdomen and pelvis today with contrast, patient will be premedicated due to shellfish ALLERGY. Review of Systems Constitutional: Reports poor appetite, Denies chills, Denies fatigue, Denies fever, Denies lethargy, Denies malaise Ears, nose, mouth and throat: Denies dysphagia, Denies headache, Denies nasal congestion, Denies nasal discharge, Denies sore throat, Denies vertigo Cardiovascular: Denies chest pain, Denies decreased exercise tolerance, Denies dyspnea on exertion, Denies edema, Denies leg edema, Denies lightheadedness, Denies shortness of breath, Denies syncope Respiratory: Denies cough, Denies cough with sputum, Denies dyspnea, Denies excessive sputum, Denies hemoptysis, Denies home oxygen, Denies respiratory infections, Denies sleep apnea Gastrointestinal: Reports abdominal pain, Reports loss of appetite, Reports nausea, Denies diarrhea, Denies vomiting, reports constipation Genitourinary: Reports pelvic pain, Denies dysuria, Denies urgency, Denies urinary frequency Musculoskeletal: Denies frequent falls, Denies gait dysfunction, Denies muscle weakness, Denies myalgias Integumentary: Reports wounds, Denies pruritus, Denies rash Neurological: Denies change in mentation, Denies change in speech, Denies numbness, Denies weakness Psychiatric: Denies anxiety, Denies depression Objective - Vital Signs Vital signs: Vital Signs Temp 99.3 F 04/05/19 07:00 Pulse 83 04/05/19 07:00 Resp 12 04/05/19 07:00 BP 95/64 04/05/19 07:00 Pulse Ox 95 04/05/19 07:00 Intake & Output 04/04/19 04/05/19 04/05/19 18:59 06:59 18:59 Intake Total 918 Balance 918 Intake: Intake, IV Titration 100 Amount Piperacillin-Tazobactam 3 100 .375 gm In Sodium Chloride 0.9% 100 ml @ 25 mls/hr IVPB Q8HR [facility] Rx# :[id number] Oral 818 Other: Voiding Method Toilet Toilet - Exam Gen: This is a 53-year-old female, patient is resting in bed and appears to be comfortable and in no acute distress. HEENT: Head is atraumatic, normocephalic. Pupils equal, round. Sclerae is anicteric. NECK: Supple. No JVD. No lymphadenopathy. No thyromegaly. LUNGS: Clear to auscultation. No wheezes or rhonchi. No intercostal retractions. HEART: Regular rate and rhythm. No murmur. ABDOMEN: Soft. Bowel sounds are present. No masses. Right lower quadrant/pelvic tenderness. EXTREMITIES: No pedal edema. No calf tenderness. NEUROLOGICAL: Patient is awake, alert and oriented x3. Cranial nerves 2 through 12 are grossly intact. - Labs CBC & Chem 7: 04/05/19 09:07 04/05/19 09:07 Labs: Microbiology - Last 24 Hours (Table) 03/31/19 23:49 Blood Culture - Preliminary Blood No Growth after 96 hours Assessment and Plan Plan: 1. Sepsis secondary to possible postoperative infection, inflammatory changes on CAT scan with no clearly identified abscess. Consult with Dr. Rich appreciated. Zosyn was transitioned to Unasyn. Wound culture is showing no growth and finalized. Repeat CAT scan of the abdomen and pelvis with contrast ordered for today. bhumika is currently on a full liquid diet 2. History of acute appendicitis status post laparoscopic appendectomy performed by Dr. Vidal on 02/27/2019. 3. Hypertension currently hypotensive secondary to sepsis. Hold amlodipine, hold Lasix with parameters.. 4. Coronary artery disease status post stenting and PTCA. Continue Imdur 30 mg daily, Lopressor 25 mg daily, aspirin 81 mg daily. Hold Plavix. 5. Hypothyroidism. Continue levothyroxine 137 g Friday through Friday. 6. Mild persistent asthma. Continue nebulizer treatments, Claritin, Singulair. 7. Hyperlipidemia. Continue Zetia 10 mg at bedtime. 8. Gastroesophageal reflux disease. Continue omeprazole 20 mg twice daily or equivalent. 9. DVT prophylaxis. Heparin subcu. Discharge plan: home Impression and plan of care have been directed as dictated by the signing physician. Toya Jung nurse practitioner acting as scribe for signing physician.
[2019-04-05] MEDS: HEPARIN SODIUM,PORCINE 5,000 UNIT/ML 1 ML VIAL SQ SCH ×2 (11:46→21:57)
--- NOTE | 2019-04-05 15:52 | CT ---
"EXAMINATION TYPE: CT abdomen pelvis wo/w con DATE OF EXAM: 04/05/2019 HISTORY: abdominal pain CT DLP: 3114.7mGycm Automated Exposure Control for Dose Reduction was Utilized. CONTRAST: CT scan of the abdomen and pelvis is performed with oral and without and with IV Contrast, patient in jected with 100 mL of Isovue 300. COMPARISON: CT abdomen and pelvis 5 days ago FINDINGS: LUNG BASES: No significant abnormality is appreciated. LIVER/GB: Cholecystectomy clips again seen. PANCREAS: No significant abnormality is seen. SPLEEN: No significant abnormality is seen. ADRENALS: No significant abnormality is seen. KIDNEYS: No renal calculi. Symmetric cortical medullary uptake and excretion without hydronephrosis s een bilaterally. BOWEL: Moderate size hiatal hernia redemonstrated. Oral contrast reaches level of rectum. Terminal il eum appears within normal limits coronal image 40. Persistent area of moderate to severe wall thicken ing from base of cecum or outpouching of uncertain etiology given patient have history of appendectom y. This is best seen coronal image 42. Inflammatory changes can't appear to be centered at this level on current study. Mild wall thickening in the sigmoid colon is present. UTERUS/ADNEXA: Anteverted uterus. Both ovaries likely normal in size adjacent to the superior margin of uterus. Right ovary now has present 3.4 cm thin-walled cyst on image 65 from prior study. Left ova ry more ill-defined axial image 60 on current study. There is 2.6 x 2.0 cm thin-walled fluid collecti on axial image 54 current study which is new from Prior. There is new [id number] ill-defined fl uid and fat stranding involving the left lower quadrant and pelvis with mild/moderate wall thickening involving anterior bowel loops. Smaller developing fluid collection left pelvis axial image 61 is th ought present adjacent to bowel loops. There is mild fat stranding along superior margin of the bladd er. Prominent lower uterine segment and/or cervix redemonstrated. There is 1.1 cm hypodense area righ t aspect axis image 71 less well seen on prior studies could reflect nabothian cyst. Mild fluid in pe lvic cul-de-sac on current study. LYMPH NODES: No greater than 1cm abdominal or pelvic lymph nodes are appreciated. OSSEOUS STRUCTURES: No significant abnormality is seen. OTHER: No significant additional abnormality is seen. IMPRESSION: There is worsening inflammatory change left lower quadrant and diffusely throughout the p yadira from most recent CT where it was more localized to the right pelvis. Developing intraperitoneal fluid collection or abscesses are present. One must consider leak given history of surgery for appen dectomy February 27, 2019. No contrast expulsion to definitively suggest leak is noted. There is pers istent abnormal outpouching with severe wall thickening from base of cecum could reflect portion of r etained appendix otherwise is of uncertain etiology. Reactive inflammatory changes on small and large bowel loops along with portion of bladder and uterus are thought present. A Yellow level critical message alert has been initiated for Slime Su MD~[id number] via the [employer] | Critical Results System on 04/05/2019 3:49 PM. This message alert has been sent to Slime Su MD~[id number] via the preferences provided by the clinician for the receipt of Radiology Critical Findings. Message ID [id number]."
[2019-04-05] MEDS: DEXTROSE 5%-0.45% NACL 1,000 ML IV SCH (19:18)
[2019-04-05] MEDS: EZETIMIBE 10 MG TAB PO SCH (21:56)
[2019-04-05] MEDS: MONTELUKAST 10 MG TAB PO SCH (21:56)
[2019-04-05] MEDS: LORATADINE 10 MG TAB PO SCH (21:56)
[2019-04-06] MEDS: ONDANSETRON 4 MG/2 ML VIAL IVP PRN ×2 (00:21→07:04)
[2019-04-06] MEDS: AMPICILLIN-SULBACTAM 3 GM in SODIUM CHLORIDE 0.9% 100 ML IVPB SCH ×4 (00:21→18:36)
[2019-04-06] MEDS: HYDROcodone/APAP 5-325MG 1 EACH TAB PO PRN ×2 (00:37→21:57)
--- NOTE | 2019-04-06 01:59 | PN ---
PROGRESS NOTE DATE OF SERVICE: 04/05/2019 REASON FOR FOLLOWUP: Secondary peritonitis post appendicitis/appendectomy. INTERVAL HISTORY: The patient was seen on rounds this afternoon. The patient has been afebrile. Still complaining of significant abdominal pain and requiring some IV pain medication. No nausea, no vomiting. No chest pain. Shortness of breath. No cough and no diarrhea. PHYSICAL EXAMINATION: Blood pressure 145/84 with a pulse of 94, temperature 98.7, she is 96% on room air. General description is a middle-aged female up in the room in no distress. Respiratory system: Unlabored breathing. Clear to auscultation anteriorly. Heart S1, S2. Regular rate and rhythm. ABDOMEN: Soft. Mild tenderness. LABS: Hemoglobin is 12.1, white count 6.6, BUN of 5, creatinine 0.64. Blood and urine and abdominal cultures have been negative. DIAGNOSTIC IMPRESSION/PLAN: Patient admitted to the hospital with abdominal pain and fever. This patient likely leakage from her appendectomy site as the CT did show significant worsening inflammatory changes. The patient is covered with Unasyn. The patient has been made n.p.o. with bowel rest. May need surgical exploration to control possible leak and monitor course closely. Questions and concerns were answered. MMODL / IJN: [id number] /
[2019-04-06] MEDS: HYDROmorphone 0.5 MG/0.5 ML SYRINGE IVP PRN (06:03)
[2019-04-06] MEDS: LEVOTHYROXINE 137 MCG TAB PO SCH (07:05)
[2019-04-06] MEDS: ISOSORBIDE MONONITRATE ER 30 MG TAB.ER.24H PO SCH (09:24)
[2019-04-06] MEDS: METOPROLOL TARTRATE 12.5 MG TAB PO SCH ×2 (09:24→21:55)
[2019-04-06] MEDS: DOCUSATE 100 MG CAP PO SCH (09:24)
[2019-04-06] MEDS: HEPARIN SODIUM,PORCINE 5,000 UNIT/ML 1 ML VIAL SQ SCH ×2 (09:24→22:00)
[2019-04-06] MEDS: DICYCLOMINE 10 MG CAP PO SCH ×4 (09:24→21:57)
[2019-04-06] MEDS ORDERED: ACETAMINOPHEN TAB 325 MG TAB PO PRN (09:32)
[2019-04-06 10:29] LABS: Basophils # (A) 0.3 k/uL (0-0.2); Basophils % (A) 3 %; Eosinophils % (A) 0 %; HCT 36.4 % (34.0-46.0); HGB 11.9 gm/dL (11.4-16.0); Lymphocytes # (A) 1.1 k/uL (1.0-4.8); Lymphocytes % (A) 12 %; MCH 31.9 pg (25.0-35.0); MCHC 32.7 g/dL (31.0-37.0); MCV 97.4 fL (80.0-100.0); Mean Platelet Volume 7.3; Monocytes # (A) 0.5 k/uL (0-1.0); Monocytes % (A) 6 %; Neutrophils # (A) 6.8 k/uL (1.3-7.7); Neutrophils % (A) 77 %; Platelet Count 430 k/uL (150-450); RBC 3.74 m/uL (3.80-5.40); RDW 12.5 % (11.5-15.5); WBC 8.8 k/uL (3.8-10.6)
[2019-04-06 10:33] LABS: ALT 13 U/L (4-34); AST 19 U/L (14-36); African American GFR (CKD) >90 (>60 ml/min/1.73 sqM); Albumin 3.4 g/dL (3.5-5.0); Alkaline Phosphatase 62 U/L (38-126); Anion Gap 6 mmol/L; Blood Urea Nitrogen 5 mg/dL (7-17); Carbon Dioxide 29 mmol/L (22-30); Chloride 106 mmol/L (98-107); Glucose 97 mg/dL (74-99); Non-African American GFR(CKD) >90 (>60 ml/min/1.73 sqM); Potassium 4.2 mmol/L (3.5-5.1); Sodium 141 mmol/L (137-145); Total Bilirubin 0.3 mg/dL (0.2-1.3); Total Protein 6.3 g/dL (6.3-8.2)
[2019-04-06 11:05] LABS: Creatine Kinase MB 0.6 ng/mL (0.0-2.4); Troponin I <0.012 ng/mL (0.000-0.034)
--- NOTE | 2019-04-06 11:19 | P.PN ---
<Anna Marie Medina - Last Filed: 04/06/19 11:13> Subjective Progress Note Date: 04/06/19 CHIEF COMPLAINT: possible surgical infection HISTORY OF PRESENT ILLNESS: Patient examined this morning at the bedside. She reports improvement in abdominal pain. She is passing flatus. Reports small bowel movement yesterday. She is complaining of a headache this morning. WBC 8.8. Hemoglobin 11.9. PHYSICAL EXAM: VITAL SIGNS: Reviewed. GENERAL: Well-developed in no acute distress. HEENT: No sclera icterus. Extraocular movements grossly intact. Moist buccal mucosa. Head is atraumatic, normocephalic. ABDOMEN: Soft. Nondistended. Incisions without drainage at time of examination. NEUROLOGIC: Alert and oriented. Cranial nerves II through XII grossly intact. ASSESSMENT: 1. Possible colitis 2. Possible post operative infection 3. Recent appendectomy, February 2019 PLAN: Continue IV antibiotics. Dr. Rich on consult Dr. Luke reviewed CT scan. He will also review CT scan this afternoon with radiologist. No immediate surgical intervention recommended May resume full liquid diet Nurse practitioner note has been reviewed by physician. Signing provider agrees with the documented findings, assessment, and plan of care. Objective - Vital Signs Vital signs: Vital Signs Temp 98.7 F 04/06/19 07:00 Pulse 80 04/06/19 07:00 Resp 12 04/06/19 07:00 BP 116/72 04/06/19 07:00 Pulse Ox 97 04/06/19 07:00 Intake & Output 04/05/19 04/06/19 04/06/19 18:59 06:59 18:59 Output Total 800 Balance -800 Output: Urine 800 Other: Voiding Method Toilet Toilet # Voids 3 1 - Labs CBC & Chem 7: 04/06/19 09:40 04/06/19 09:40 Labs: Abnormal Lab Results - Last 24 Hours (Table) 04/06/19 04/06/19 Range/Units 09:40 09:40 RBC 3.74 L (3.80-5.40) m/uL Basophils # 0.3 H (0-0.2) k/uL BUN 5 L (7-17) mg/dL Albumin 3.4 L (3.5-5.0) g/dL Microbiology - Last 24 Hours (Table) 03/31/19 23:49 Blood Culture - Preliminary Blood No Growth after 120 hours <Tim Luke - Last Filed: 04/06/19 21:32> Subjective As above. Films reviewed with Dr. Qureshi. Some increase in pelvic inflammatory changes. No abscess or definite stump leak seen. Excellent contrast filling of cecum. Patient had sudden increase in pain the evening following her first CAT scan. Suspect we are seeing sequela related to that episode. No surgical intervention advised at this time. Patient is asking for more Eat. Her exam is fairly benign. She is afebrile without tachycardia. Begin low fiber diet. Agree with plans for home IV antibiotics. Objective - Vital Signs Vital signs: Vital Signs Temp 98.3 F 04/06/19 19:05 Pulse 97 04/06/19 19:05 Resp 12 04/06/19 15:57 BP 105/70 04/06/19 19:05 Pulse Ox 96 04/06/19 19:05 Intake & Output 04/06/19 04/06/19 04/07/19 06:59 18:59 06:59 Output Total 800 Balance -800 Output: Urine 800 Other: Voiding Method Toilet # Voids 1 3 - Labs CBC & Chem 7: 04/06/19 09:40 04/06/19 09:40 Labs: Abnormal Lab Results - Last 24 Hours (Table) 04/06/19 04/06/19 Range/Units 09:40 09:40 RBC 3.74 L (3.80-5.40) m/uL Basophils # 0.3 H (0-0.2) k/uL BUN 5 L (7-17) mg/dL Albumin 3.4 L (3.5-5.0) g/dL Microbiology - Last 24 Hours (Table) 03/31/19 23:49 Blood Culture - Preliminary Blood No Growth after 120 hours
[2019-04-06] MEDS: PANTOPRAZOLE 40 MG TABLET PO SCH ×2 (12:12→21:56)
[2019-04-06] MEDS: POLYETHYLENE GLYCOL 3350 17 GM POWD.PACK PO SCH (12:12)
[2019-04-06] MEDS: FUROSEMIDE 20 MG TAB PO SCH (12:12)
[2019-04-06] MEDS: DEXTROSE 5%-0.45% NACL 1,000 ML IV SCH (13:18)
--- NOTE | 2019-04-06 13:48 | P.PN ---
Subjective Progress Note Date: 04/06/19 Patient is a 53-year-old female patient of Dr. Espinal with past medical history of coronary artery disease status post multiple heart catheterizations, stents and PTCA, hyperlipidemia, gastroesophageal reflux disease, hypothyroidism. Patient had a recent hospitalization status post laparoscopic appendectomy on February 27, 2019. The patient had follow-up in the office and had a reaction to the clue and tape that were used at the time. The glue and tape were removed by Dr. Luke in the office. She had a follow-up with Dr. Dubois and was placed on Keflex. On Friday, she states that she was taking her 's blood pressure and she noticed that there was blood on her shirt and her incision popped open. She tried to apply Steri-Strips but had a reaction. She contacted Dr. Vidal on Friday and was told to keep the area clean and dry gauze over it. On Friday evening and into Friday morning pain developed. She tried taking Tylenol and used heating pad but that did not help the pain and she eventually took a Lortab. Patient states that this pain was so severe worsen she's ever had in her life. Patient saw her family physician yesterday and he ordered a stat CAT scan of the abdomen and pelvis without contrast revealed overall findings are consistent with persistent infectious or inflammatory change centered right upper pelvis involving the intraperitoneal cavity, portions of the distal ileum and cecum without drainable thick-walled abscess or free air. Patient's pain is located in the right pelvis area and suprapubic area with occasional radiation up into the abdomen. Patient was directly admitted under Dr. Luke and started on IV fluids, pain medication and Zosyn. Consult in place with Dr. Rich. Blood culture is in progress and will culture will be ordered. WBC 12.8, creatinine 0.65, troponin negative, C- reactive protein 177.4. Temperature max 102.5, tachycardic, hypotensive. Patient is on a clear liquid diet we have held Plavix in case any intervention is necessary. 04/09/2018, patient underwent heart catheterization that revealed diagonal lesion of 80% LAD 40% and PTCA was performed of both vessels by Dr. Evita Greenberg. Patient was on Plavix and aspirin at discharge. 04/02: Patient does not have bowel movement today. She states she had a bowel movement yesterday. She states her pain is better today. She has had no fevers. She is currently on Zosyn. She is tolerating a full liquid diet. Blood culture is no growth at 24 hours and wound culture in progress. Patient will be resumed back on Plavix as surgery is no plan for any intervention. 04/03 vision had no episode of fever overnight and has been afebrile for the past 48 hours vitals otherwise stable respiratory rate 12, pulse 85 blood pressure 93/60 leukocytosis is improved WBC 6.5 hemoglobin 11.9 infectious disease recommended continuing with Zosyn and a repeat CAT scan on Friday. Patient continues to have abdominal pain one stat ordered wears off. We'll initiate patient on Antlers 5 every 6 hours along with Dilaudid for breakthrough pain. Lasix will be discontinued andblood pressure is on the softer side patient and updated on the change and will be restarted once patient's blood pressure is better 04/04 patient examined bedside. Has been afebrile respiratory rate 18 pulse 77 blood pressure % on room air. Patient was initiated on Bentyl yesterday which helped with abdominal pain along with Antlers and Dilaudid. Patient had no bowel movement for past 4 days senna and MiraLAX will be added and patient be switched on low fiber diet. 04/05: Patient continues to have pain to the right lower pelvic area is very sore with palpation. She states her last bowel movement was on Friday. She has been tolerating a full liquid diet. Patient afebrile, heart rate 83, blood pressure 95/64, pulse ox 95% on room air. Dr. Rich has transitioned Zosyn to Unasyn. Patient is scheduled for CAT scan of the abdomen and pelvis today with contrast, patient will be premedicated due to shellfish ALLERGY. 04/06: CAT scan of the abdomen and pelvis with and without contrast revealed worsening inflammatory change left lower quadrant and diffusely throughout the pelvis where it is more localized to the right pelvis. Developing intraperitoneal fluid collection or abscesses are present. Consider week given history of surgery for appendectomy. No contrast expulsion 2 different lays suggest leak. Persistent abnormal approaching with severe wall thickening from base of cecum could reflect portion of retained appendix otherwise uncertain etiology. Reactive inflammatory changes on small large bowel loops along with partial bladder and uterus are thought present. CAT scan to be reviewed by Dr. Luke to determine if any further intervention is necessary. Patient's abdominal pain is improving and she states she is feeling much better last night was her best night since admission. She is currently nothing by mouth. Patient is requesting Lasix be resumed which will be done. She has been afebrile, heart rate 80, blood pressure 116/72 and pulse ox 97% on room air. Patient relates that yesterday when she was given Pepcid pre-ALLERGIC prophylaxis for CAT scan, she developed episode of chest pain but none at this time. She also is con cerned that since that time her blood pressure has been elevated. 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 I'll repeat lab work reveals white count of 8.8, hemoglobin 11.9, electrolytes in liver function tests are normal, troponin negative, CK-MB negative. Anticipate probable discharge the next 24 hours. Plavix and aspirin are on hold. Review of Systems Constitutional: Reports poor appetite, Denies chills, Denies fatigue, Denies fever, Denies lethargy, Denies malaise Ears, nose, mouth and throat: Denies dysphagia, Denies headache, Denies nasal congestion, Denies nasal discharge, Denies sore throat, Denies vertigo Cardiovascular: Denies chest pain, Denies decreased exercise tolerance, Denies dyspnea on exertion, Denies edema, Denies leg edema, Denies lightheadedness, Denies shortness of breath, Denies syncope Respiratory: Denies cough, Denies cough with sputum, Denies dyspnea, Denies excessive sputum, Denies hemoptysis, Denies home oxygen, Denies respiratory infections, Denies sleep apnea Gastrointestinal: Reports abdominal pain-improving Reports loss of appetite, denies nausea, Denies diarrhea, Denies vomiting, reports constipation Genitourinary: Reports pelvic pain, Denies dysuria, Denies urgency, Denies urinary frequency Musculoskeletal: Denies frequent falls, Denies gait dysfunction, Denies muscle weakness, Denies myalgias Integumentary: Reports wounds, Denies pruritus, Denies rash Neurological: Denies change in mentation, Denies change in speech, Denies numbness, Denies weakness Psychiatric: Denies anxiety, Denies depression Objective - Vital Signs Vital signs: Vital Signs Temp 98.7 F 04/06/19 07:00 Pulse 80 04/06/19 07:00 Resp 12 04/06/19 07:00 BP 116/72 04/06/19 07:00 Pulse Ox 97 04/06/19 07:00 Intake & Output 04/05/19 04/06/19 04/06/19 18:59 06:59 18:59 Output Total 800 Balance -800 Output: Urine 800 Other: Voiding Method Toilet Toilet # Voids 3 1 - Exam Gen: This is a 53-year-old female, patient is resting in bed and appears to be comfortable and in no acute distress. HEENT: Head is atraumatic, normocephalic. Pupils equal, round. Sclerae is anicteric. NECK: Supple. No JVD. No lymphadenopathy. No thyromegaly. LUNGS: Clear to auscultation. No wheezes or rhonchi. No intercostal retractions. HEART: Regular rate and rhythm. No murmur. ABDOMEN: Soft. Bowel sounds are present. No masses. Right lower quadrant/pelvic tenderness improving. EXTREMITIES: No pedal edema. No calf tenderness. NEUROLOGICAL: Patient is awake, alert and oriented x3. Cranial nerves 2 through 12 are grossly intact. - Labs CBC & Chem 7: 04/06/19 09:40 04/06/19 09:40 Labs: Abnormal Lab Results - Last 24 Hours (Table) 04/06/19 04/06/19 Range/Units 09:40 09:40 RBC 3.74 L (3.80-5.40) m/uL Basophils # 0.3 H (0-0.2) k/uL BUN 5 L (7-17) mg/dL Albumin 3.4 L (3.5-5.0) g/dL Microbiology - Last 24 Hours (Table) 03/31/19 23:49 Blood Culture - Preliminary Blood No Growth after 120 hours Assessment and Plan Plan: 1. Sepsis secondary to possible postoperative infection, inflammatory changes on CAT scan with no clearly identified abscess. Consult with Dr. Hilario francis. Zosyn was transitioned to Unasyn. Wound culture is showing no growth and finalized. Repeat CAT scan of the abdomen and pelvis as above. Plavix and aspirin on hold. 2. History of acute appendicitis status post laparoscopic appendectomy performed by Dr. Vidal on 02/27/2019. 3. Hypertension currently hypotensive secondary to sepsis. Hold amlodipine, hold Lasix with parameters.. 4. Coronary artery disease status post stenting and PTCA. Continue Imdur 30 mg daily, Lopressor 25 mg daily, aspirin 81 mg daily. Hold Plavix. 5. Hypothyroidism. Continue levothyroxine 137 g Friday through Friday. 6. Mild persistent asthma. Continue nebulizer treatments, Claritin, Singulair. 7. Hyperlipidemia. Continue Zetia 10 mg at bedtime. 8. Gastroesophageal reflux disease. Continue omeprazole 20 mg twice daily or equivalent. 9. DVT prophylaxis. Heparin subcu. Discharge plan: home Impression and plan of care have been directed as dictated by the signing physician. Toya Jung nurse practitioner acting as scribe for signing physician.
[2019-04-06] MEDS: MONTELUKAST 10 MG TAB PO SCH (21:56)
[2019-04-06] MEDS: EZETIMIBE 10 MG TAB PO SCH (21:57)
[2019-04-06] MEDS: LORATADINE 10 MG TAB PO SCH (21:57)
--- NOTE | 2019-04-06 23:28 | PN ---
PROGRESS NOTE DATE OF SERVICE: 04/06/2019. REASON FOR FOLLOWUP: Abdominal infection. INTERVAL HISTORY: The patient is currently afebrile. The patient is breathing comfortably. Denies any chest pain, shortness of breath. No cough or any worsening abdominal pain. No nausea, vomiting or diarrhea. PHYSICAL EXAMINATION: Blood pressure is 105/70 with a pulse of 97, temperature 98.3. She is 96% on room air. GENERAL DESCRIPTION: The patient is a middle-aged female up in the bed in no distress. RESPIRATORY SYSTEM: Unlabored breathing. Clear to auscultation anteriorly. HEART S1, S2. Regular rate and rhythm. ABDOMEN: Soft. No tenderness. No guarding or rigidity. LABS: Hemoglobin is 11.1, white count 8.8 with a BUN of 5 creatinine 0.55. DIAGNOSTIC IMPRESSION AND PLAN: Patient admitted to the hospital with sepsis, concern of abdominal infection. This patient did have recent laparoscopic appendectomy. CT did show significant finding though the patient clinically does not seem toxic. Correspond with a CT finding, care has been discussed in detail with the surgeon. The patient would likely benefit from IV antibiotic therapy for which a PICC line will be placed with the discharge antibiotic either Invanz 1 g daily, Rocephin 2 g and Flagyl p.o. Depending upon the shortness and cost-effective and close outpatient followup thank you. SUSAN / KALEE: [id number] /
[2019-04-07] MEDS: DEXTROSE 5%-0.45% NACL 1,000 ML IV SCH ×2 (01:04→13:06)
[2019-04-07] MEDS: AMPICILLIN-SULBACTAM 3 GM in SODIUM CHLORIDE 0.9% 100 ML IVPB SCH ×2 (01:06→05:57)
[2019-04-07] MEDS: HYDROmorphone 0.5 MG/0.5 ML SYRINGE IVP PRN (01:31)
[2019-04-07] MEDS: LEVOTHYROXINE 137 MCG TAB PO SCH (05:56)
[2019-04-07 08:14] LABS: HCT 35.9 % (34.0-46.0); HGB 11.6 gm/dL (11.4-16.0); MCH 31.5 pg (25.0-35.0); MCHC 32.5 g/dL (31.0-37.0); MCV 97.1 fL (80.0-100.0); Mean Platelet Volume 6.8; Platelet Count 449 k/uL (150-450); RBC 3.69 m/uL (3.80-5.40); RDW 12.8 % (11.5-15.5); WBC 5.1 k/uL (3.8-10.6)
[2019-04-07 08:17] LABS: INR 0.9 (<1.2); Prothrombin Time 9.9 sec (9.0-12.0)
[2019-04-07 08:23] LABS: ALT 17 U/L (4-34); AST 27 U/L (14-36); African American GFR (CKD) >90 (>60 ml/min/1.73 sqM); Alkaline Phosphatase 60 U/L (38-126); Anion Gap 7 mmol/L; Blood Urea Nitrogen 8 mg/dL (7-17); Calcium 8.6 mg/dL (8.4-10.2); Carbon Dioxide 29 mmol/L (22-30); Chloride 105 mmol/L (98-107); Glucose 84 mg/dL (74-99); Non-African American GFR(CKD) >90 (>60 ml/min/1.73 sqM); Potassium 3.8 mmol/L (3.5-5.1); Sodium 141 mmol/L (137-145); Total Bilirubin 0.2 mg/dL (0.2-1.3); Total Protein 5.7 g/dL (6.3-8.2)
[2019-04-07] MEDS: ISOSORBIDE MONONITRATE ER 30 MG TAB.ER.24H PO SCH (08:33)
[2019-04-07] MEDS: DOCUSATE 100 MG CAP PO SCH (08:33)
[2019-04-07] MEDS: HEPARIN SODIUM,PORCINE 5,000 UNIT/ML 1 ML VIAL SQ SCH ×2 (08:33→22:04)
[2019-04-07] MEDS: DICYCLOMINE 10 MG CAP PO SCH ×4 (08:33→22:04)
[2019-04-07] MEDS: PANTOPRAZOLE 40 MG TABLET PO SCH ×2 (08:33→22:04)
[2019-04-07] MEDS: METOPROLOL TARTRATE 12.5 MG TAB PO SCH ×2 (08:33→22:20)
[2019-04-07] MEDS: POLYETHYLENE GLYCOL 3350 17 GM POWD.PACK PO SCH (08:34)
[2019-04-07] MEDS ORDERED: ONDANSETRON 4 MG TAB PO PRN (10:31)
--- NOTE | 2019-04-07 10:39 | P.PN ---
<Anna Marie Medina - Last Filed: 04/07/19 10:35> Subjective Progress Note Date: 04/07/19 CHIEF COMPLAINT: possible surgical infection HISTORY OF PRESENT ILLNESS: Patient examined this morning at the bedside. She states she had some abdominal cramping yesterday after dinner. She reports having eggs this morning for breakfast and tolerated it well. She does report some mild nausea this morning. Passing flatus. Reports having a bowel movement. Pain is currently controlled. WBC 5.1. Hemoglobin 11.6. Vital signs are stable. She is afebrile. PHYSICAL EXAM: VITAL SIGNS: Reviewed. GENERAL: Well-developed in no acute distress. HEENT: No sclera icterus. Extraocular movements grossly intact. Moist buccal mucosa. Head is atraumatic, normocephalic. ABDOMEN: Soft. Nondistended. Incisions without drainage at time of examination. NEUROLOGIC: Alert and oriented. Cranial nerves II through XII grossly intact. ASSESSMENT: 1. Possible colitis 2. Possible post operative infection 3. Recent appendectomy, February 2019 PLAN: Patient scheduled to receive PICC line today. Continue IV antibiotics per Dr. Rich Patient currently without IV access. She is requesting medication for nausea. We will add oral Zofran. Continue diet as tolerated Nurse practitioner note has been reviewed by physician. Signing provider agrees with the documented findings, assessment, and plan of care. Objective - Vital Signs Vital signs: Vital Signs Temp 98.0 F 04/07/19 07:00 Pulse 69 04/07/19 07:00 Resp 16 04/07/19 07:00 BP 125/83 04/07/19 07:00 Pulse Ox 99 04/07/19 07:00 Intake & Output 04/06/19 04/07/19 04/07/19 18:59 06:59 18:59 Intake Total 1930 Output Total 600 Balance 1330 Intake: Intake, IV Titration 1450 Amount Ampicillin-Sulbactam 3 gm 400 In Sodium Chloride 0.9% 100 ml @ 200 mls/hr IVPB Q6HR [facility] Rx#:[id number] Dextrose 5%-0.45% NaCl 1, 1050 000 ml @ 75 mls/hr IV . [id number] [facility] Rx#:[id number] Oral 480 Output: Urine 600 Other: Voiding Method Toilet # Voids 3 3 - Labs CBC & Chem 7: 04/07/19 07:42 04/07/19 07:42 Labs: Abnormal Lab Results - Last 24 Hours (Table) 04/07/19 04/07/19 Range/Units 07:42 07:42 RBC 3.69 L (3.80-5.40) m/uL Total Protein 5.7 L (6.3-8.2) g/dL Albumin 3.0 L (3.5-5.0) g/dL Microbiology - Last 24 Hours (Table) 03/31/19 23:49 Blood Culture - Final Blood No Growth after 144 hours <Tim Luke - Last Filed: 04/07/19 12:55> Subjective As above. Patient doing better. Some nausea. Resume IV fluids. Hopefully home tomorrow. Objective - Vital Signs Vital signs: Vital Signs Temp 98.0 F 04/07/19 07:00 Pulse 69 04/07/19 07:00 Resp 16 04/07/19 07:00 BP 125/83 04/07/19 07:00 Pulse Ox 99 04/07/19 07:00 Intake & Output 04/06/19 04/07/19 04/07/19 18:59 06:59 18:59 Intake Total 1930 Output Total 600 Balance 1330 Intake: Intake, IV Titration 1450 Amount Ampicillin-Sulbactam 3 gm 400 In Sodium Chloride 0.9% 100 ml @ 200 mls/hr IVPB Q6HR [facility] Rx#:[id number] Dextrose 5%-0.45% NaCl 1, 1050 000 ml @ 75 mls/hr IV . [id number] [facility] Rx#:[id number] Oral 480 Output: Urine 600 Other: Voiding Method Toilet # Voids 3 3 - Labs CBC & Chem 7: 04/07/19 07:42 04/07/19 07:42 Labs: Abnormal Lab Results - Last 24 Hours (Table) 04/07/19 04/07/19 Range/Units 07:42 07:42 RBC 3.69 L (3.80-5.40) m/uL Total Protein 5.7 L (6.3-8.2) g/dL Albumin 3.0 L (3.5-5.0) g/dL Microbiology - Last 24 Hours (Table) 03/31/19 23:49 Blood Culture - Final Blood No Growth after 144 hours
[2019-04-07] MEDS ORDERED: LIDOCAINE 1% INJ 10MG/ML (20 ML MDV) ONE (10:42)
[2019-04-07] MEDS ORDERED: LIDOCAINE 1% INJ 10MG/ML (20 ML MDV) SQ ONE (10:56)
[2019-04-07] MEDS: ONDANSETRON 4 MG/2 ML VIAL IVP PRN ×2 (11:49→22:20)
--- NOTE | 2019-04-07 12:27 | P.PN ---
Subjective Progress Note Date: 04/07/19 Patient is a 53-year-old female patient of Dr. Espinal with past medical history of coronary artery disease status post multiple heart catheterizations, stents and PTCA, hyperlipidemia, gastroesophageal reflux disease, hypothyroidism. Patient had a recent hospitalization status post laparoscopic appendectomy on February 27, 2019. The patient had follow-up in the office and had a reaction to the clue and tape that were used at the time. The glue and tape were removed by Dr. Luke in the office. She had a follow-up with Dr. Dubois and was placed on Keflex. On Friday, she states that she was taking her 's blood pressure and she noticed that there was blood on her shirt and her incision popped open. She tried to apply Steri-Strips but had a reaction. She contacted Dr. Vidal on Friday and was told to keep the area clean and dry gauze over it. On Friday evening and into Friday morning pain developed. She tried taking Tylenol and used heating pad but that did not help the pain and she eventually took a Lortab. Patient states that this pain was so severe worsen she's ever had in her life. Patient saw her family physician yesterday and he ordered a stat CAT scan of the abdomen and pelvis without contrast revealed overall findings are consistent with persistent infectious or inflammatory change centered right upper pelvis involving the intraperitoneal cavity, portions of the distal ileum and cecum without drainable thick-walled abscess or free air. Patient's pain is located in the right pelvis area and suprapubic area with occasional radiation up into the abdomen. Patient was directly admitted under Dr. Luke and started on IV fluids, pain medication and Zosyn. Consult in place with Dr. Rich. Blood culture is in progress and will culture will be ordered. WBC 12.8, creatinine 0.65, troponin negative, C- reactive protein 177.4. Temperature max 102.5, tachycardic, hypotensive. Patient is on a clear liquid diet we have held Plavix in case any intervention is necessary. 04/09/2018, patient underwent heart catheterization that revealed diagonal lesion of 80% LAD 40% and PTCA was performed of both vessels by Dr. Evita Greenberg. Patient was on Plavix and aspirin at discharge. 04/02: Patient does not have bowel movement today. She states she had a bowel movement yesterday. She states her pain is better today. She has had no fevers. She is currently on Zosyn. She is tolerating a full liquid diet. Blood culture is no growth at 24 hours and wound culture in progress. Patient will be resumed back on Plavix as surgery is no plan for any intervention. 04/03 vision had no episode of fever overnight and has been afebrile for the past 48 hours vitals otherwise stable respiratory rate 12, pulse 85 blood pressure 93/60 leukocytosis is improved WBC 6.5 hemoglobin 11.9 infectious disease recommended continuing with Zosyn and a repeat CAT scan on Friday. Patient continues to have abdominal pain one stat ordered wears off. We'll initiate patient on Letona 5 every 6 hours along with Dilaudid for breakthrough pain. Lasix will be discontinued andblood pressure is on the softer side patient and updated on the change and will be restarted once patient's blood pressure is better 04/04 patient examined bedside. Has been afebrile respiratory rate 18 pulse 77 blood pressure % on room air. Patient was initiated on Bentyl yesterday which helped with abdominal pain along with Letona and Dilaudid. Patient had no bowel movement for past 4 days senna and MiraLAX will be added and patient be switched on low fiber diet. 04/05: Patient continues to have pain to the right lower pelvic area is very sore with palpation. She states her last bowel movement was on Friday. She has been tolerating a full liquid diet. Patient afebrile, heart rate 83, blood pressure 95/64, pulse ox 95% on room air. Dr. Rich has transitioned Zosyn to Unasyn. Patient is scheduled for CAT scan of the abdomen and pelvis today with contrast, patient will be premedicated due to shellfish ALLERGY. 04/06: CAT scan of the abdomen and pelvis with and without contrast revealed worsening inflammatory change left lower quadrant and diffusely throughout the pelvis where it is more localized to the right pelvis. Developing intraperitoneal fluid collection or abscesses are present. Consider week given history of surgery for appendectomy. No contrast expulsion 2 different lays suggest leak. Persistent abnormal approaching with severe wall thickening from base of cecum could reflect portion of retained appendix otherwise uncertain etiology. Reactive inflammatory changes on small large bowel loops along with partial bladder and uterus are thought present. CAT scan to be reviewed by Dr. Luke to determine if any further intervention is necessary. Patient's abdominal pain is improving and she states she is feeling much better last night was her best night since admission. She is currently nothing by mouth. Patient is requesting Lasix be resumed which will be done. She has been afebrile, heart rate 80, blood pressure 116/72 and pulse ox 97% on room air. Patient relates that yesterday when she was given Pepcid pre-ALLERGIC prophylaxis for CAT scan, she developed episode of chest pain but none at this time. She also is con cerned that since that time her blood pressure has been elevated. She has notified her senior research consultant. I'll repeat lab work reveals white count of 8.8, hemoglobin 11.9, electrolytes in liver function tests are normal, troponin negative, CK-MB negative. Anticipate probable discharge the next 24 hours. Plavix and aspirin are on hold. 04/07: Patient's pain is well controlled today. Dr. Luke has determined that no need for surgical intervention. Dr. Rich is requesting home IV antibiotics. PICC line ordered for today. Plan is for discharge home tomorrow. Patient states she had one loose stool last night and 1 watery stool. Patient is tolerating diet. 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 Review of Systems Constitutional: Reports poor appetite, Denies chills, Denies fatigue, Denies fever, Denies lethargy, Denies malaise Ears, nose, mouth and throat: Denies dysphagia, Denies headache, Denies nasal congestion, Denies nasal discharge, Denies sore throat, Denies vertigo Cardiovascular: Denies chest pain, Denies decreased exercise tolerance, Denies dyspnea on exertion, Denies edema, Denies leg edema, Denies lightheadedness, Denies shortness of breath, Denies syncope Respiratory: Denies cough, Denies cough with sputum, Denies dyspnea, Denies excessive sputum, Denies hemoptysis, Denies home oxygen, Denies respiratory infections, Denies sleep apnea Gastrointestinal: Reports abdominal pain-improving denies loss of appetite, denies nausea, Denies diarrhea, Denies vomiting, reports constipation Genitourinary: Reports pelvic pain, Denies dysuria, Denies urgency, Denies urinary frequency Musculoskeletal: Denies frequent falls, Denies gait dysfunction, Denies muscle weakness, Denies myalgias Integumentary: Reports wounds, Denies pruritus, Denies rash Neurological: Denies change in mentation, Denies change in speech, Denies numbness, Denies weakness Psychiatric: Denies anxiety, Denies depression Objective - Vital Signs Vital signs: Vital Signs Temp 98.0 F 04/07/19 07:00 Pulse 69 04/07/19 07:00 Resp 16 04/07/19 07:00 BP 125/83 04/07/19 07:00 Pulse Ox 99 04/07/19 07:00 Intake & Output 04/06/19 04/07/19 04/07/19 18:59 06:59 18:59 Intake Total 1930 Output Total 600 Balance 1330 Intake: Intake, IV Titration 1450 Amount Ampicillin-Sulbactam 3 gm 400 In Sodium Chloride 0.9% 100 ml @ 200 mls/hr IVPB Q6HR [facility] Rx#:[id number] Dextrose 5%-0.45% NaCl 1, 1050 000 ml @ 75 mls/hr IV . [id number] [facility] Rx#:[id number] Oral 480 Output: Urine 600 Other: Voiding Method Toilet # Voids 3 3 - Exam Gen: This is a 53-year-old female, patient is resting on edge of bed and appears to be comfortable and in no acute distress. HEENT: Head is atraumatic, normocephalic. Pupils equal, round. Sclerae is anicteric. NECK: Supple. No JVD. No lymphadenopathy. No thyromegaly. LUNGS: Clear to auscultation. No wheezes or rhonchi. No intercostal retractions. HEART: Regular rate and rhythm. No murmur. ABDOMEN: Soft. Bowel sounds are present. No masses. Right lower quadrant/pelvic tenderness improving. EXTREMITIES: No pedal edema. No calf tenderness. NEUROLOGICAL: Patient is awake, alert and oriented x3. Cranial nerves 2 through 12 are grossly intact. - Labs CBC & Chem 7: 04/07/19 07:42 04/07/19 07:42 Labs: Abnormal Lab Results - Last 24 Hours (Table) 04/06/19 04/06/19 04/07/19 Range/Units 09:40 09:40 07:42 RBC 3.74 L 3.69 L (3.80-5.40) m/uL Basophils # 0.3 H (0-0.2) k/uL BUN 5 L (7-17) mg/dL Total Protein (6.3-8.2) g/dL Albumin 3.4 L (3.5-5.0) g/dL 04/07/19 Range/Units 07:42 RBC (3.80-5.40) m/uL Basophils # (0-0.2) k/uL BUN (7-17) mg/dL Total Protein 5.7 L (6.3-8.2) g/dL Albumin 3.0 L (3.5-5.0) g/dL Microbiology - Last 24 Hours (Table) 03/31/19 23:49 Blood Culture - Final Blood No Growth after 144 hours Assessment and Plan Plan: 1. Sepsis secondary to possible postoperative infection, inflammatory changes on CAT scan with no clearly identified abscess. Consult with Dr. Rich appreciated. Zosyn was transitioned to Unasyn. Wound culture is showing no growth and finalized. Repeat CAT scan of the abdomen and pelvis as above. Plavix and aspirin will be resumed. 2. History of acute appendicitis status post laparoscopic appendectomy performed by Dr. Vidal on 02/27/2019. 3. Hypertension currently hypotensive secondary to sepsis. Hold amlodipine, hold Lasix with parameters.. 4. Coronary artery disease status post stenting and PTCA. Continue Imdur 30 mg daily, Lopressor 25 mg daily, aspirin 81 mg daily. Resume Plavix. 5. Hypothyroidism. Continue levothyroxine 137 g Friday through Friday. 6. Mild persistent asthma. Continue nebulizer treatments, Claritin, Singulair. 7. Hyperlipidemia. Continue Zetia 10 mg at bedtime. 8. Gastroesophageal reflux disease. Continue omeprazole 20 mg twice daily or equivalent. 9. DVT prophylaxis. Heparin subcu. Discharge plan: home tomorrow with IV antibiotics Impression and plan of care have been directed as dictated by the signing physician. Toya Jung nurse practitioner acting as scribe for signing physician.
[2019-04-07] MEDS: FUROSEMIDE 20 MG TAB PO SCH (12:45)
[2019-04-07] MEDS: HYDROcodone/APAP 5-325MG 1 EACH TAB PO PRN ×2 (12:55→22:20)
--- NOTE | 2019-04-07 14:49 | PN ---
PROGRESS NOTE DATE OF SERVICE: 04/07/2019 REASON FOR FOLLOWUP: Abdominal infection. INTERVAL HISTORY: The patient is currently afebrile. Patient has been breathing comfortably. Denies having any chest pain, shortness of breath or cough. No nausea, no vomiting. No diarrhea. PHYSICAL EXAMINATION: Blood pressure 135/83 with a pulse of 69, temperature 98, she is 99% on room air. General description is a middle-aged female, up in the room in no distress. RESPIRATORY SYSTEM: Unlabored breathing, clear to auscultation anteriorly. HEART: S1, S2. Regular rate and rhythm. ABDOMEN: Soft, no tenderness. LABS: Hemoglobin is 11.1, white count of.5.1, BUN of 8, creatinine 0.61, abdominal culture has been negative. Cultures done with PCP did show anaerobic gram-negative, blood cultures were negative. DIAGNOSTIC IMPRESSION AND PLAN: Patient admitted to hospital with abdominal pain, recent appendectomy with evidence of abdominal infection from the CT. Plan at this time is to switch over to Rocephin 2 g daily and oral Flagyl to continue for at least 2 weeks with the plan for repeating a CAT scan at the end of antibiotic therapy. All her questions and concerns were answered. Once antibiotic is arranged, she is ready to go home from ID standpoint. MMODL / IJN: [id number] /
[2019-04-07] MEDS: metroNIDAZOLE 500 MG TAB PO SCH ×2 (17:01→22:04)
[2019-04-07] MEDS: LORATADINE 10 MG TAB PO SCH (22:04)
[2019-04-07] MEDS: EZETIMIBE 10 MG TAB PO SCH (22:04)
[2019-04-07] MEDS: MONTELUKAST 10 MG TAB PO SCH (22:04)
[2019-04-08] MEDS: DEXTROSE 5%-0.45% NACL 1,000 ML IV SCH (00:18)
[2019-04-08] MEDS: LEVOTHYROXINE 137 MCG TAB PO SCH (05:49)
[2019-04-08] MEDS: HYDROcodone/APAP 5-325MG 1 EACH TAB PO PRN ×2 (05:51→14:57)
[2019-04-08 07:13] VITALS: BP 120/72; TEMP 97.9
--- NOTE | 2019-04-08 08:44 | IR ---
EXAMINATION TYPE: IR cvc insert >=5 years DATE OF EXAM: 04/07/2019 COMPARISON: NONE CLINICAL HISTORY: Infection Needs long-term intravenous access for antibiotics. PROCEDURE: Hand hygiene obtained with soap and water and alcohol-based hand rub. After informed consent, the skin overlying the left brachial vein was localized with ultrasound and n oted to be compressible and patent. An ultrasound image was obtained and submitted on the patient's chart. The overlying skin was prepped and draped and Lidocaine was used for local anesthesia. A ski n clarke was made with a scalpel. Access was gained to the vein under ultrasound guidance with a 21 ga uge needle and a 0.018 inch wire was advanced. Access site was dilated with Peel-Away sheath and cat heter tailored to the appropriate length and advanced such that the distal tip is at the cavoatrial j unction. Spot image was obtained verifying placement. Catheter was fixed to the skin and a sterile dressing was placed following hemostasis. Catheter was aspirated and flushed with saline. Patient w as discharged in stable condition without complication.Maximal barrier technique is utilized. Ultras ound image is documented on the chart. Ultrasound used with sterile technique. Fluoro time and fluoroscopic images submitted to document procedure: 0.2 minutes fluoroscopy time, 46 intraoperative images document the procedure IMPRESSION: STATUS POST ULTRASOUND AND FLUOROSCOPIC GUIDED PICC LINE PLACEMENT, READY FOR USE. THIS PROCEDURE WAS PERFORMED BY THE UNDERSIGNED.
[2019-04-08] MEDS: HEPARIN SODIUM,PORCINE 5,000 UNIT/ML 1 ML VIAL SQ SCH (09:05)
[2019-04-08] MEDS: DICYCLOMINE 10 MG CAP PO SCH ×2 (09:09→13:52)
[2019-04-08] MEDS: DOCUSATE 100 MG CAP PO SCH (09:09)
[2019-04-08] MEDS: METOPROLOL TARTRATE 12.5 MG TAB PO SCH (09:10)
[2019-04-08] MEDS: POLYETHYLENE GLYCOL 3350 17 GM POWD.PACK PO SCH (09:10)
[2019-04-08] MEDS: metroNIDAZOLE 500 MG TAB PO SCH (09:10)
[2019-04-08] MEDS: ISOSORBIDE MONONITRATE ER 30 MG TAB.ER.24H PO SCH (09:10)
[2019-04-08] MEDS: PANTOPRAZOLE 40 MG TABLET PO SCH (09:10)
[2019-04-08 10:06] VITALS: PULSE 63; RESP 17
--- NOTE | 2019-04-08 11:33 | P.DS ---
<Anna Marie Medina Brenda - Last Filed: 04/08/19 11:28> Providers Expected date of discharge: 04/08/19 Hospital Course: 53-year-old female who underwent laparoscopic appendectomy secondary to acute appendicitis with Dr. Vidal on 02/27/2019. Patient states she was doing fairly well postoperatively. She did develop some drainage from one of her surgical sites. She was evaluated by Dr. Luke in the office. She was not prescribed antibiotics at that time. She reports following up with Dr. Vidal a few days after that and was prescribed antibiotics at that time. She reports a few days ago, one of her incisions opened up and she had a lot of bloody drainage. She denies fever or chills at home. Patient was evaluated by Dr. Luke during hospitalization. She was also evaluated by infectious disease. Patient did not require surgical intervention during hospitalization. She was started on clear liquid diet and advanced as tolerated. She received a PICC line and is discharged home with IV antibiotics per infectious disease recommendations. She is stable for discharge home today. Please see EMR for further hospital course details. DC Diagnosis: 1. Possible colitis 2. Possible post operative infection 3. Recent appendectomy, February 2019 Nurse practitioner note has been reviewed by physician. Signing provider agrees with the documented findings, assessment, and plan of care. Plan - Discharge Summary Discharge Rx Participant: No New Discharge Prescriptions: New metroNIDAZOLE [Flagyl] 500 mg PO Q8HR #42 tab cefTRIAXone [Rocephin] 2 gm IVPB Q24H #14 bag Dicyclomine [Bentyl] 10 mg PO QID #120 cap Polyethylene Glycol 3350 [Miralax] 17 gm PO DAILY #30 powd.pack HYDROcodone/APAP 5-325MG [Minter 5-325] 1 each PO Q4HR PRN #18 tab PRN Reason: Pain Ondansetron [Zofran] 4 mg PO Q6H PRN #30 tab PRN Reason: Nausea And Vomiting Continue Montelukast [Singulair] 10 mg PO HS Loratadine [Claritin] 10 mg PO HS amLODIPine BESYLATE [Norvasc] 2.5 mg PO DAILY Clopidogrel [Plavix] 75 mg PO DAILY Cholecalciferol [Vitamin D3 (25 Mcg = 1000 Iu)] 5,000 unit PO DAILY Nitroglycerin Sl Tabs [Nitrostat] 0.4 mg SUBLINGUAL Q5M PRN #25 tab PRN Reason: Chest Pain Omeprazole 20 mg PO BID Albuterol Nebulized [Ventolin Nebulized] 2.5 mg INHALATION RT-QID PRN PRN Reason: Shortness Of Breath Metoprolol Tartrate 25 mg PO DAILY Ezetimibe [Zetia] 10 mg PO HS Aspirin EC [Ecotrin Low Dose] 81 mg PO DAILY Levothyroxine Sodium [Synthroid] 137 mcg PO MOTUWETHFRSA Isosorbide Mononitrate ER [Imdur] 30 mg PO DAILY Furosemide [Lasix] 20 mg PO DAILY@1200 Ascorbic Acid [Vitamin C] 2,000 mg PO DAILY Albuterol Inhaler [Ventolin Hfa Inhaler] 2 puff INHALATION RT-QID PRN PRN Reason: Shortness Of Breath Zolpidem [Ambien] 10 mg PO HS PRN PRN Reason: Insomnia Discharge Medication List Loratadine [Claritin] 10 mg PO HS 08/17/13 [History] Montelukast [Singulair] 10 mg PO HS 08/17/13 [History] amLODIPine BESYLATE [Norvasc] 2.5 mg PO DAILY 12/12/13 [History] Clopidogrel [Plavix] 75 mg PO DAILY 05/23/14 [History] Cholecalciferol [Vitamin D3 (25 Mcg = 1000 Iu)] 5,000 unit PO DAILY 06/30/15 [History] Nitroglycerin Sl Tabs [Nitrostat] 0.4 mg SUBLINGUAL Q5M PRN #25 tab 07/04/15 [Rx] Omeprazole 20 mg PO BID 10/30/15 [History] Albuterol Nebulized [Ventolin Nebulized] 2.5 mg INHALATION RT-QID PRN 04/05/16 [History] Ezetimibe [Zetia] 10 mg PO HS 04/07/18 [History] Metoprolol Tartrate 25 mg PO DAILY 04/07/18 [History] Aspirin EC [Ecotrin Low Dose] 81 mg PO DAILY 04/10/18 [History] Levothyroxine Sodium [Synthroid] 137 mcg PO MOTUWETHFRSA 04/10/18 [History] Albuterol Inhaler [Ventolin Hfa Inhaler] 2 puff INHALATION RT-QID PRN 02/27/19 [History] Ascorbic Acid [Vitamin C] 2,000 mg PO DAILY 02/27/19 [History] Furosemide [Lasix] 20 mg PO DAILY@1200 02/27/19 [History] Isosorbide Mononitrate ER [Imdur] 30 mg PO DAILY 02/27/19 [History] Zolpidem [Ambien] 10 mg PO HS PRN 03/31/19 [History] cefTRIAXone [Rocephin] 2 gm IVPB Q24H #14 bag 04/07/19 [Rx] metroNIDAZOLE [Flagyl] 500 mg PO Q8HR #42 tab 04/07/19 [Rx] Dicyclomine [Bentyl] 10 mg PO QID #120 cap 04/08/19 [Rx] HYDROcodone/APAP 5-325MG [Minter 5-325] 1 each PO Q4HR PRN #18 tab 04/08/19 [Rx] Ondansetron [Zofran] 4 mg PO Q6H PRN #30 tab 04/08/19 [Rx] Polyethylene Glycol 3350 [Miralax] 17 gm PO DAILY #30 powd.pack 04/08/19 [Rx] Follow up Appointment(s)/Referral(s): Tim Luke MD [Medical Doctor] - 04/14/19 3:10 pm [facility], [NON-STAFF] - As Needed [facility] [NON-STAFF] - As Needed Rey Espinal DO [Primary Care Provider] - 1 Week (Please call for your appointment per office. Thank you.) Neville Rich MD [STAFF PHYSICIAN] - 1 Week Ambulatory/Diagnostic Orders: Basic Metabolic Panel [LAB.AMB] Location: None Selected Complete Blood Count w/diff [LAB.AMB] Location: None Selected Activity/Diet/Wound Care/Special Instructions: Low fiber diet Discharge Disposition: HOME WITH HOME HEALTH SERVICES <Tim Luke - Last Filed: 04/08/19 14:32> Providers Date of admission: 03/31/19 15:19 Attending physician: Tim Luke Consults: 03/31/19 16:21 Consult Physician Routine Consulting Provider: Neville Rich Consult Reason/Comments: surgical infection/appendicitis Do you want consulting provider notified?: Yes Placement Type Exists?: Yes 03/31/19 16:26 Consult Physician Routine Consulting Provider: Slime Su Consult Reason/Comments: medical management Do you want consulting provider notified?: Yes Placement Type Exists?: Yes Primary care physician: [facility] Course: As above. Patient doing well at this time. She is afebrile. Will plan discharge if cleared by consultants. Follow-up one week. Outpatient IV antibiotics.
[2019-04-08] MEDS: FUROSEMIDE 20 MG TAB PO SCH (13:52)
--- NOTE | 2019-04-08 14:08 | PN ---
PROGRESS NOTE DATE OF SERVICE: 04/08/2019 REASON FOR FOLLOWUP: Abdominal infection, possible secondary peritonitis. INTERVAL HISTORY: The patient is currently in atrial fibrillation. The patient has been breathing comfortably. Denies having any chest pain or any cough. No nausea, vomiting. The abdominal pain has decreased in intensity. No diarrhea. The patient did have not have any bowel movement. PHYSICAL EXAMINATION: Blood pressure 120/72 with a pulse of 60, temperature is 97.9. General description is a middle-aged female, up in the room in no distress. RESPIRATORY SYSTEM: Unlabored breathing, clear to auscultation anteriorly. HEART: S1, S2. Regular rate and rhythm. ABDOMEN: Soft, no tenderness. LABS: No new labs been obtained today. DIAGNOSTIC IMPRESSION AND PLAN: Patient with an abdominal infection, likely secondary peritonitis. The patient did have recent laparoscopic appendectomy with no evidence of any drainable abscess. The patient's symptoms clinically responding to the Rocephin and Flagyl to continue for 2 weeks with plan for a repeat CT before completion of the antibiotic. CBC will be repeated today. The patient remains to be stable before discharge. Questions were answered. MMODL / IJN: [id number] /
[2019-04-08 14:11] LABS: Basophils # (A) 0.2 k/uL (0-0.2); Basophils % (A) 3 %; Eosinophils # (A) 0.2 k/uL (0-0.7); Eosinophils % (A) 3 %; HCT 37.3 % (34.0-46.0); HGB 12.5 gm/dL (11.4-16.0); Lymphocytes # (A) 1.2 k/uL (1.0-4.8); Lymphocytes % (A) 22 %; MCH 32.7 pg (25.0-35.0); MCHC 33.6 g/dL (31.0-37.0); MCV 97.3 fL (80.0-100.0); Mean Platelet Volume 6.9; Monocytes # (A) 0.3 k/uL (0-1.0); Monocytes % (A) 5 %; Neutrophils # (A) 3.6 k/uL (1.3-7.7); Neutrophils % (A) 66 %; Platelet Count 434 k/uL (150-450); RBC 3.83 m/uL (3.80-5.40); RDW 12.5 % (11.5-15.5); WBC 5.4 k/uL (3.8-10.6)
--- NOTE | 2019-04-08 15:09 | P.PN ---
Subjective Progress Note Date: 04/08/19 Patient is a 53-year-old female patient of Dr. Espinal with past medical history of coronary artery disease status post multiple heart catheterizations, stents and PTCA, hyperlipidemia, gastroesophageal reflux disease, hypothyroidism. Patient had a recent hospitalization status post laparoscopic appendectomy on February 27, 2019. The patient had follow-up in the office and had a reaction to the clue and tape that were used at the time. The glue and tape were removed by Dr. Luke in the office. She had a follow-up with Dr. Dubois and was placed on Keflex. On Friday, she states that she was taking her 's blood pressure and she noticed that there was blood on her shirt and her incision popped open. She tried to apply Steri-Strips but had a reaction. She contacted Dr. Vidal on Friday and was told to keep the area clean and dry gauze over it. On Friday evening and into Friday morning pain developed. She tried taking Tylenol and used heating pad but that did not help the pain and she eventually took a Lortab. Patient states that this pain was so severe worsen she's ever had in her life. Patient saw her family physician yesterday and he ordered a stat CAT scan of the abdomen and pelvis without contrast revealed overall findings are consistent with persistent infectious or inflammatory change centered right upper pelvis involving the intraperitoneal cavity, portions of the distal ileum and cecum without drainable thick-walled abscess or free air. Patient's pain is located in the right pelvis area and suprapubic area with occasional radiation up into the abdomen. Patient was directly admitted under Dr. Luke and started on IV fluids, pain medication and Zosyn. Consult in place with Dr. Rich. Blood culture is in progress and will culture will be ordered. WBC 12.8, creatinine 0.65, troponin negative, C- reactive protein 177.4. Temperature max 102.5, tachycardic, hypotensive. Patient is on a clear liquid diet we have held Plavix in case any intervention is necessary. 04/09/2018, patient underwent heart catheterization that revealed diagonal lesion of 80% LAD 40% and PTCA was performed of both vessels by Dr. Evita Greenberg. Patient was on Plavix and aspirin at discharge. 04/02: Patient does not have bowel movement today. She states she had a bowel movement yesterday. She states her pain is better today. She has had no fevers. She is currently on Zosyn. She is tolerating a full liquid diet. Blood culture is no growth at 24 hours and wound culture in progress. Patient will be resumed back on Plavix as surgery is no plan for any intervention. 04/03 vision had no episode of fever overnight and has been afebrile for the past 48 hours vitals otherwise stable respiratory rate 12, pulse 85 blood pressure 93/60 leukocytosis is improved WBC 6.5 hemoglobin 11.9 infectious disease recommended continuing with Zosyn and a repeat CAT scan on Friday. Patient continues to have abdominal pain one stat ordered wears off. We'll initiate patient on [place] 5 every 6 hours along with Dilaudid for breakthrough pain. Lasix will be discontinued andblood pressure is on the softer side patient and updated on the change and will be restarted once patient's blood pressure is better 04/04 patient examined bedside. Has been afebrile respiratory rate 18 pulse 77 blood pressure % on room air. Patient was initiated on Bentyl yesterday which helped with abdominal pain along with [place] and Dilaudid. Patient had no bowel movement for past 4 days senna and MiraLAX will be added and patient be switched on low fiber diet. 04/05: Patient continues to have pain to the right lower pelvic area is very sore with palpation. She states her last bowel movement was on Friday. She has been tolerating a full liquid diet. Patient afebrile, heart rate 83, blood pressure 95/64, pulse ox 95% on room air. Dr. Rich has transitioned Zosyn to Unasyn. Patient is scheduled for CAT scan of the abdomen and pelvis today with contrast, patient will be premedicated due to shellfish ALLERGY. 04/06: CAT scan of the abdomen and pelvis with and without contrast revealed worsening inflammatory change left lower quadrant and diffusely throughout the pelvis where it is more localized to the right pelvis. Developing intraperitoneal fluid collection or abscesses are present. Consider week given history of surgery for appendectomy. No contrast expulsion 2 different lays suggest leak. Persistent abnormal approaching with severe wall thickening from base of cecum could reflect portion of retained appendix otherwise uncertain etiology. Reactive inflammatory changes on small large bowel loops along with partial bladder and uterus are thought present. CAT scan to be reviewed by Dr. Luke to determine if any further intervention is necessary. Patient's abdominal pain is improving and she states she is feeling much better last night was her best night since admission. She is currently nothing by mouth. Patient is requesting Lasix be resumed which will be done. She has been afebrile, heart rate 80, blood pressure 116/72 and pulse ox 97% on room air. Patient relates that yesterday when she was given Pepcid pre-ALLERGIC prophylaxis for CAT scan, she developed episode of chest pain but none at this time. She also is con cerned that since that time her blood pressure has been elevated. She has notified her community service coordinator. I'll repeat lab work reveals white count of 8.8, hemoglobin 11.9, electrolytes in liver function tests are normal, troponin negative, CK-MB negative. Anticipate probable discharge the next 24 hours. Plavix and aspirin are on hold. 04/07: Patient's pain is well controlled today. Dr. Luke has determined that no need for surgical intervention. Dr. Rich is requesting home IV antibiotics. PICC line ordered for today. Plan is for discharge home tomorrow. Patient states she had one loose stool last night and 1 watery stool. Patient is tolerating diet. manager mechanical has been updated. 04/08: The patient is seen in follow-up. She does have her PICC line in place and antibiotics have been arranged for home. She states she has had some nausea today and not much appetite. She did have her bring in food from home last evening. Patient is scheduled for discharge home today. Plavix and aspirin will be resumed. Patient is being discharged in stable condition. Review of Systems Constitutional: Reports poor appetite, Denies chills, Denies fatigue, Denies fever, Denies lethargy, Denies malaise Ears, nose, mouth and throat: Denies dysphagia, Denies headache, Denies nasal congestion, Denies nasal discharge, Denies sore throat, Denies vertigo Cardiovascular: Denies chest pain, Denies decreased exercise tolerance, Denies dyspnea on exertion, Denies edema, Denies leg edema, Denies lightheadedness, Denies shortness of breath, Denies syncope Respiratory: Denies cough, Denies cough with sputum, Denies dyspnea, Denies excessive sputum, Denies hemoptysis, Denies home oxygen, Denies respiratory infections, Denies sleep apnea Gastrointestinal: Reports abdominal pain-improving, reports nausea, Denies diarrhea, Denies vomiting, reports constipation Genitourinary: Reports pelvic pain, Denies dysuria, Denies urgency, Denies urinary frequency Musculoskeletal: Denies frequent falls, Denies gait dysfunction, Denies muscle weakness, Denies myalgias Integumentary: Reports wounds, Denies pruritus, Denies rash Neurological: Denies change in mentation, Denies change in speech, Denies numbness, Denies weakness Psychiatric: Denies anxiety, Denies depression Objective - Vital Signs Vital signs: Vital Signs Temp 97.9 F 04/08/19 07:11 Pulse 63 04/08/19 08:55 Resp 17 04/08/19 08:55 BP 120/72 04/08/19 07:11 Pulse Ox 98 04/07/19 19:25 Intake & Output 04/07/19 04/08/19 04/08/19 18:59 06:59 18:59 Output Total 600 Balance -600 Output: Urine 600 Other: Voiding Method Toilet Toilet Toilet # Voids 2 1 - Exam Gen: This is a 53-year-old female, patient is resting on edge of bed and appears to be comfortable and in no acute distress. HEENT: Head is atraumatic, normocephalic. Pupils equal, round. Sclerae is anicteric. NECK: Supple. No JVD. No lymphadenopathy. No thyromegaly. LUNGS: Clear to auscultation. No wheezes or rhonchi. No intercostal retractions. HEART: Regular rate and rhythm. No murmur. ABDOMEN: Soft. Bowel sounds are present. No masses. Mild right lower quadrant/pelvic tenderness improving. EXTREMITIES: No pedal edema. No calf tenderness. NEUROLOGICAL: Patient is awake, alert and oriented x3. Cranial nerves 2 through 12 are grossly intact. - Labs CBC & Chem 7: 04/08/19 13:57 04/07/19 07:42 Assessment and Plan Plan: 1. Sepsis secondary to possible postoperative infection, inflammatory changes on CAT scan with no clearly identified abscess. Consult with Dr. Rich appreciated. Zosyn was transitioned to Unasyn. Wound culture is showing no growth and finalized. Repeat CAT scan of the abdomen and pelvis as above. Plavix and aspirin will be resumed. for home 2. History of acute appendicitis status post laparoscopic appendectomy performed by Dr. Vidal on 02/27/2019. 3. Hypertension currently hypotensive secondary to sepsis. resume amlodipine, Lasix. 4. Coronary artery disease status post stenting and PTCA. Continue Imdur 30 mg daily, Lopressor 25 mg daily, aspirin 81 mg daily. Resume Plavix. 5. Hypothyroidism. Continue levothyroxine 137 g Friday through Friday. 6. Mild persistent asthma. Continue nebulizer treatments, Claritin, Singulair. 7. Hyperlipidemia. Continue Zetia 10 mg at bedtime. 8. Gastroesophageal reflux disease. Continue omeprazole 20 mg twice daily or equivalent. 9. DVT prophylaxis. Heparin subcu. Discharge plan: home tomorrow with IV antibiotics Impression and plan of care have been directed as dictated by the signing physician. Toya Jung nurse practitioner acting as scribe for signing physician.
[2019-04-08 16:10] VITALS: BMI 37.5
== END 2019-04-08 16:10 | disposition home health service (06) | DRG 862 ==
LOC: RADCTMAIN 11:07 → 4SSUR 15:19
PROVIDERS: ADMIT Surgery; ATTEND Surgery
PROC: 02HV33Z Insertion of Infusion Device into Superior Vena Cava, Percutaneous Approach (ICD-10-PCS; principal; 2019-04-08)
DX: T81.44XA Sepsis following a procedure, initial encounter (principal); A41.9 Sepsis, unspecified organism; K65.9 Peritonitis, unspecified; E03.9 Hypothyroidism, unspecified; E66.01 Morbid (severe) obesity due to excess calories; E78.5 Hyperlipidemia, unspecified; I10 Essential (primary) hypertension; I25.10 Atherosclerotic heart disease of native coronary artery without angina pectoris; I48.91 Unspecified atrial fibrillation; I73.00 Raynaud's syndrome without gangrene; J45.909 Unspecified asthma, uncomplicated; K21.9 Gastro-esophageal reflux disease without esophagitis; Z68.37 Body mass index [BMI] 37.0-37.9, adult; Z79.02 Long term (current) use of antithrombotics/antiplatelets; Z79.82 Long term (current) use of aspirin; Z79.890 Hormone replacement therapy; Z79.899 Other long term (current) drug therapy; Z82.49 Family history of ischemic heart disease and other diseases of the circulatory system; Z83.3 Family history of diabetes mellitus; Z87.891 Personal history of nicotine dependence; Z90.49 Acquired absence of other specified parts of digestive tract; Z95.5 Presence of coronary angioplasty implant and graft
CPT/HCPCS: 36573; 74176; 74178; 80048; 80053; 82553; 83605; 84484; 85025; 85027; 85610; 86140; 87040; 87070; 87205; 93005

== ENCOUNTER → 2019-04-28 | Outpatient (CLI) | payer BC ==
[2019-04-28 12:43] LABS: African American GFR (CKD) >90 (>60 ml/min/1.73 sqM); Blood Urea Nitrogen 13 mg/dL (7-17); Non-African American GFR(CKD) >90 (>60 ml/min/1.73 sqM)
--- NOTE | 2019-04-28 15:21 | CT ---
EXAMINATION TYPE: CT abdomen pelvis w con DATE OF EXAM: 04/28/2019 COMPARISON: 04/05/2019 HISTORY: 53-year-old female Follow up RLQ pain post appendectomy TECHNIQUE: Contiguous axial scanning of the abdomen and pelvis following administration of 100 ml Iso trent 300 IV contrast. Delayed images through the kidneys and coronal/sagittal reconstructions perform ed. CT DLP: 1730.7 mGycm Automated exposure control for dose reduction was used. FINDINGS: Heart normal size without pericardial effusion. Moderate-sized hiatal hernia. Some mild atelectasis a t the lung bases without pleural effusion. No focal liver lesion or biliary ductal dilatation. Portal venous system is patent. Cholecystectomy clips. Adrenal glands, kidneys, and spleen appear within normal limits. Slightly bulbous 1.4 cm appearance to the pancreatic tail may be transient and positional, axial imag e 14 and axial image 15 of the delayed kidney images. Short interval three-month follow-up can be per formed. No dilated small bowel, free fluid, or free air. No mesenteric or retroperitoneal lymph adenopathy. Mild atherosclerotic calcifications infrarenal abdominal aorta and common iliac arteries without aneu rysm. Mild to moderate stool in the right hemicolon. No pericolonic inflammatory change. Short stump comprising the base of the appendix is identified. Previously seen extensive inflammatory change within the lower abdomen and pelvis has resolved. Only trace right adnexal fluid remains. Bladder urine distended. Suspect 1.4 cm cervical nabothian cyst on the right. An additional 8 mm hypo density seems to be located along the posterior lower uterine segment versus cervix. Small pelvic phl eboliths. Ovaries are visualized. 2.0 cm dominant follicle or functional cyst left ovary. Trace right adnexal free fluid. Cul-de-sac free fluid seen previously has significantly improved. No pelvic lymp hadenopathy. Bones: No osseous destructive process. IMPRESSION: 1. INTERVAL RESOLUTION OF THE PREVIOUS LOWER ABDOMINAL AND PELVIC INFLAMMATION. SMALL STUMP OF THE AP PENDICEAL BASE AND TRACE RIGHT ADNEXAL FREE FLUID REMAINS. 2. Slightly bulbous 1.4 cm appearance to the pancreatic tail probably positional. Precautionary three -month follow-up CT recommended. 3. Suspect a 1.4 cm cervical nabothian cysts. An additional 8 mm hypodensity along the posterior lowe r uterine segment versus cervix, possible additional nabothian cyst. Pelvic ultrasound can further ev aluate. 4. A 2.0 cm dominant follicle or functional cyst in the left ovary.
== END | disposition home or self-care (01) ==
LOC: RADCTMAIN 11:37
PROVIDERS: ATTEND Surgery
DX: K38.8 Other specified diseases of appendix (principal); N83.202 Unspecified ovarian cyst, left side
CPT/HCPCS: 82565; 84520; 74177; 36415; Q9967

== ENCOUNTER → 2019-07-27 | Outpatient (CLI) | payer BC ==
--- NOTE | 2019-07-27 12:43 | CT ---
EXAMINATION TYPE: CT abdomen pelvis w con DATE OF EXAM: 07/27/2019 COMPARISON: 04/28/2019 INDICATION: continued RLQ pain post appendectomy, nonhealing surgical site, pancreatic cyst DLP: 2125 mGycm, Automated exposure control for dose reduction was used. CONTRAST: 100 mL of Isovue 300. Study performed with Oral Contrast TECHNIQUE: Axial images were obtained from above the diaphragm to the pubic rami in the axial plane a t 5 mm thick sections. Reconstructed images are reviewed on the computer in the coronal plane. FINDINGS: Limited CT sections are obtained the lung bases. The lung bases are clear. There is a moderate size hiatal hernia present CT ABDOMEN: Liver: Normal Spleen: Normal Pancreas: There is a rounded fullness within the distal tail of the pancreas currently measuring 1.6 cm. Previous measurement 1.7 cm, within measurement error and stable. Density is 65 suggestion this t o be solid and cystic. Remainder the pancreas appears normal without additional masses or cysts. No p ancreatic duct dilatation is evident. Adrenal glands: The adrenal glands are normal. Gallbladder: Surgically absent Kidneys: No masses are evident. No hydronephrosis is present. No cysts are present. Delayed images were obtained through the kidneys, which remain unremarkable. Aorta: Vascular calcification is within the aorta. Inferior vena cava: Normal. Loops of bowel distended with oral contrast normal. No evidence of obstruction is evident. There are loops of bowel lacking oral contrast are limited distention limiting their evaluation. IMPRESSIONS: 1. Stable appearance of the tail of the pancreas. No interval increase in size is evident. Continued monitoring with follow-up CT abdomen in 3 months is recommended.
== END | disposition home or self-care (01) ==
LOC: RADCTMAIN 11:05
PROVIDERS: ATTEND Surgery
DX: K86.2 Cyst of pancreas (principal); Z91.013 Allergy to seafood
CPT/HCPCS: 74177; Q9967

== ENCOUNTER → 2019-08-04 | Outpatient (CLI) | payer BC ==
[2019-08-04 19:25] LABS: Amylase 31 U/L (23-121)
== END | disposition home or self-care (01) ==
LOC: LABWHC1 11:28
PROVIDERS: ATTEND Family Medicine
DX: R10.9 Unspecified abdominal pain (principal)
CPT/HCPCS: 36415; 82150; 83690

== ENCOUNTER → 2019-08-11 | Outpatient (CLI) | payer BC ==
[2019-08-11 19:35] LABS: T4, Free (Free Thyroxine) 1.3 ng/dL (0.80-1.80)
== END | disposition home or self-care (01) ==
LOC: LABWHC1 13:12
PROVIDERS: ATTEND Internal Medicine
DX: E06.3 Autoimmune thyroiditis (principal); E55.9 Vitamin D deficiency, unspecified
CPT/HCPCS: 36415; 82306; 84439; 84443

== ENCOUNTER → 2019-11-09 | Outpatient (CLI) | payer BC ==
--- NOTE | 2019-11-10 10:15 | MM ---
Reason for exam: screening (asymptomatic). Last mammogram was performed 1 year and 10 months ago. History: Patient is postmenopausal. Family history of breast cancer in sister at age 62. Physical Findings: A clinical breast exam by your physician is recommended on an annual basis and results should be correlated with mammographic findings. MG 3D Screening Mammo W/Cad Bilateral CC and MLO view(s) were taken. Prior study comparison: December 31, 2017, bilateral MG 3d screening mammo w/cad. February 23, 2016, bilateral MG 3d screening mammo w/cad. The breast tissue is heterogeneously dense. This may lower the sensitivity of mammography. There is no discrete abnormality. No significant changes when compared with prior studies. ASSESSMENT: Negative, BI-RAD 1 RECOMMENDATION: Routine screening mammogram of both breasts in 1 year.
== END | disposition home or self-care (01) ==
LOC: RADMAMWWP 09:10
PROVIDERS: ATTEND Obstetrics & Gynecology
DX: Z12.31 Encounter for screening mammogram for malignant neoplasm of breast (principal); Z80.3 Family history of malignant neoplasm of breast
CPT/HCPCS: 77063; 77067

== ENCOUNTER 2020-02-04 18:40 | Inpatient (IN) | payer BC ==
[2020-02-04 19:30] LABS: Basophils % (A) 1 %; Eosinophils # (A) 0.1 k/uL (0-0.7); Eosinophils % (A) 3 %; HCT 42.8 % (34.0-46.0); Lymphocytes % (A) 38 %; MCH 31.8 pg (25.0-35.0); MCHC 32.6 g/dL (31.0-37.0); Mean Platelet Volume 6.4; Monocytes # (A) 0.4 k/uL (0-1.0); Monocytes % (A) 7 %; Neutrophils # (A) 2.6 k/uL (1.3-7.7); Neutrophils % (A) 50 %; Platelet Count 291 k/uL (150-450); RBC 4.39 m/uL (3.80-5.40); RDW 12.4 % (11.5-15.5); WBC 5.2 k/uL (3.8-10.6)
[2020-02-04 19:31] LABS: MCV 97.3 fL (80.0-100.0)
--- NOTE | 2020-02-04 19:37 | ED ---
General Adult HPI - General Chief complaint: Chest Pain Stated complaint: chest pains Time Seen by Provider: 02/04/20 18:49 Source: patient Mode of arrival: wheelchair Limitations: no limitations - History of Present Illness Initial comments: Dictation was produced using [employer] dictation software. please excuse any grammatical, word or spelling errors. This patient was cared for during a federal and state declared state of emergency secondary to Covid 19 Chief Complaint: 54-year-old female presents with chest pain History of Present Illness: 54-year-old female she has past medical history of heart disease, she has 3 stents. She presents today with worsening chest pain. Patient was talking to her dairy helper told her to come to the emergency department. Patient was full several heart catheterization on Friday which is in 4 days. Patient states she has a pressure-like sensation in her substernal chest that is improving the nitroglycerin. Patient's been going undergoing a lot of stress and causes of final stages of of her divorce. The ROS documented in this emergency department record has been reviewed and confirmed by me. Those systems with pertinent positive or negative responses have been documented in the HPI. All other systems are other negative and/or noncontributory. PHYSICAL EXAM: General Impression: Alert and oriented x3, not in acute distress HEENT: Normocephalic atraumatic, extra-ocular movements intact, pupils equal and reactive to light bilaterally, mucous membranes moist. Cardiovascular: Heart regular rate and rhythm Chest: Able to complete full sentences, no retractions, no tachypnea Abdomen: abdomen soft, non-tender, non-distended, no organomegaly Musculoskeletal: Pulses present and equal in all extremities, no peripheral edema Motor: no focal deficits noted Neurological: CN II-XII grossly intact, no focal motor or sensory deficits noted Skin: Intact with no visualized rashes Psych: Normal affect and mood ED course: 54-year-old female presents with chest pain concerning for acute coronary syndrome. She has history of coronary artery disease and has a scheduled catheterization on Friday. Vital signs upon arrival are within acceptable limits. EKG does not show any signs of myocardial infarction or ischemia. Laboratory evaluation obtained. CBC unremarkable. Cardiac panel is negative. Metabolic panel shows no acute processes. First troponin is within normal limit s. Chest x-ray shows borderline cardiomegaly. Patient reevaluated at bedside at approximately 8:15 PM found to be in stable medical condition. She states that her chest pain is barely noticeable. Given patient's clinical presentation with extensive history of coronary artery disease patient will be started on heparin and will be admitted to observation for serial troponins and cardiology consultation. Care was discussed with Dr. Whitmore who is willing to accept patients care EKG interpretation: Ventricular rate 90, normal sinus rhythm,. A little 172, QRS 96, QTC 402. No NV prolongation, no QTC prolongation, no ST or T-wave changes noted. Overall, this EKG is unremarkable - Related Data Home Medications Medication Instructions Recorded Confirmed Loratadine [Claritin] 10 mg PO HS 08/17/13 02/01/20 Montelukast [Singulair] 10 mg PO HS 08/17/13 02/01/20 amLODIPine BESYLATE [Norvasc] 2.5 mg PO DAILY 12/12/13 02/01/20 Clopidogrel [Plavix] 75 mg PO DAILY 05/23/14 02/01/20 Cholecalciferol [Vitamin D3 (25 5,000 unit PO DAILY 06/30/15 02/01/20 Mcg = 1000 Iu)] Omeprazole 20 mg PO BID 10/30/15 02/01/20 Albuterol Nebulized [Ventolin 2.5 mg INHALATION RT-QID PRN 04/05/16 02/01/20 Nebulized] Ezetimibe [Zetia] 10 mg PO HS 04/07/18 02/01/20 Metoprolol Tartrate 25 mg PO DAILY 04/07/18 02/01/20 Aspirin EC [Ecotrin Low Dose] 81 mg PO DAILY 04/10/18 02/01/20 Levothyroxine Sodium [Synthroid] 137 mcg PO MOTUWETHFRSA 04/10/18 02/01/20 Albuterol Inhaler (Mhu) [Ventolin 2 puff INHALATION RT-QID PRN 02/27/19 02/01/20 Hfa Inhaler (Mhu)] Ascorbic Acid [Vitamin C] 2,000 mg PO DAILY 02/27/19 02/01/20 Furosemide [Lasix] 20 mg PO DAILY@1000 02/27/19 02/01/20 Isosorbide Mononitrate ER [Imdur] 30 mg PO DAILY 02/27/19 02/01/20 Zolpidem [Ambien] 10 mg PO HS PRN 03/31/19 02/01/20 Glucos Sul 2Kcl/MSM/Chond/C/Mn 1 each PO DAILY 02/01/20 02/01/20 [Glucosamine Chondroitin Cap] Multivitamins, Thera [Multivitamin 1 tab PO HS 02/01/20 02/01/20 (formulary)] Turmeric Root Extract [Turmeric] 500 mg PO DAILY 02/01/20 02/01/20 Vitamin A 2,400 mcg PO DAILY 02/01/20 02/01/20 Vitamin B Complex 1 each PO DAILY 02/01/20 02/01/20 Zinc 50 mg PO DAILY 02/01/20 02/01/20 Previous Rx's Medication Instructions Recorded Nitroglycerin Sl Tabs [Nitrostat] 0.4 mg SUBLINGUAL Q5M PRN #25 tab 07/04/15 Allergies Allergy/AdvReac Type Severity Reaction Status Date / Time adhesive Allergy skin came Verified 02/04/20 18:45 off ranolazine [From Ranexa] Allergy Dyspnea, Verified 02/04/20 18:45 Edema shellfish derived Allergy throat Verified 02/04/20 18:45 swelling sulfamethoxazole Allergy Rash/Hives Verified 02/04/20 18:45 [From Bactrim] trimethoprim [From Bactrim] Allergy Rash/Hives Verified 02/04/20 18:45 atorvastatin calcium AdvReac muscle Verified 02/04/20 18:45 [From Lipitor] aches diltiazem HCl [From Cardizem] AdvReac EXTREME Verified 02/04/20 18:45 FLUSHING rosuvastatin calcium AdvReac SEVERE Verified 02/04/20 18:45 [From Crestor] MUSCLE PAIN Review of Systems ROS Statement: Those systems with pertinent positive or pertinent negative responses have been documented in the HPI. ROS Other: All systems not noted in ROS Statement are negative. Past Medical History Past Medical History: Asthma, Coronary Artery Disease (CAD), Chest Pain / Angina, GERD/Reflux, Hyperlipidemia, Musculoskeletal Disorder, Pneumonia, Syncope, Thyroid Disorder, Vascular Disorder Additional Past Medical History / Comment(s): raynauds, lupus-suspected, had ruptured disc, hx. stomach ulcer, has 3 cardiac stents, hiatal hernia, SOB w/exertion recently, microvascular disease History of Any Multi-Drug Resistant Organisms: None Reported Past Surgical History: Appendectomy, Cholecystectomy, Heart Catheterization, Heart Catheterization With Stent, Tonsillectomy, Uterine Ablation Past Anesthesia/Blood Transfusion Reactions: No Reported Reaction, Family History of Problems w/ Anesthesia Additional Past Anesthesia/Blood Transfusion Reaction / Comment(s): has had hematomas in past after cardiac caths. & syncopal episode, mom had some issues w/anesthesia Date of Last Stent Placement:: Past Psychological History: No Psychological Hx Reported Smoking Status: Never smoker Past Alcohol Use History: None Reported Past Drug Use History: None Reported - Past Family History Brother(s) Family Medical History: Coronary Artery Disease (CAD), Myocardial Infarction ([place]) Mother Family Medical History: Coronary Artery Disease (CAD), Diabetes Mellitus Sister(s) Family Medical History: Cancer Father Family Medical History: Cancer, Pulmonary Embolus General Exam Limitations: no limitations Course Vital Signs 02/04/20 18:43 Temperature 97.8 F Pulse Rate 84 Respiratory 18 Rate Blood Pressure 159/97 O2 Sat by Pulse 99 Oximetry Medical Decision Making - Lab Data Result diagrams: 02/04/20 19:20 02/04/20 19:20 Lab Results 02/04/20 02/04/20 02/04/20 Range/Units 19:20 19:20 19:20 WBC 5.2 (3.8-10.6) k/uL RBC 4.39 (3.80-5.40) m/uL Hgb 14.0 (11.4-16.0) gm/dL Hct 42.8 (34.0-46.0) % MCV 97.3 D (80.0-100.0) fL MCH 31.8 (25.0-35.0) pg MCHC 32.6 (31.0-37.0) g/dL RDW 12.4 (11.5-15.5) % Plt Count 291 (150-450) k/uL MPV 6.4 Neutrophils % 50 % Lymphocytes % 38 % Monocytes % 7 % Eosinophils % 3 % Basophils % 1 % Neutrophils # 2.6 (1.3-7.7) k/uL Lymphocytes # 2.0 (1.0-4.8) k/uL Monocytes # 0.4 (0-1.0) k/uL Eosinophils # 0.1 (0-0.7) k/uL Basophils # 0.0 (0-0.2) k/uL PT 9.4 (9.0-12.0) sec INR 0.9 (<1.2) APTT 24.5 (22.0-30.0) sec Sodium 139 (137-145) mmol/L Potassium 3.9 (3.5-5.1) mmol/L Chloride 105 (98-107) mmol/L Carbon Dioxide 27 (22-30) mmol/L Anion Gap 7 mmol/L BUN 14 (7-17) mg/dL Creatinine 0.58 (0.52-1.04) mg/dL Est GFR (CKD-EPI)AfAm >90 (>60 ml/min/1.73 sqM) Est GFR (CKD-EPI)NonAf >90 (>60 ml/min/1.73 sqM) Glucose 89 (74-99) mg/dL Calcium 9.9 (8.4-10.2) mg/dL Magnesium 2.0 (1.6-2.3) mg/dL Total Bilirubin 0.4 (0.2-1.3) mg/dL AST 26 (14-36) U/L ALT 24 (4-34) U/L Alkaline Phosphatase 85 (38-126) U/L Troponin I (0.000-0.034) ng/mL Total Protein 7.7 (6.3-8.2) g/dL Albumin 4.7 (3.5-5.0) g/dL 02/04/20 Range/Units 19:20 WBC (3.8-10.6) k/uL RBC (3.80-5.40) m/uL Hgb (11.4-16.0) gm/dL Hct (34.0-46.0) % MCV (80.0-100.0) fL MCH (25.0-35.0) pg MCHC (31.0-37.0) g/dL RDW (11.5-15.5) % Plt Count (150-450) k/uL MPV Neutrophils % % Lymphocytes % % Monocytes % % Eosinophils % % Basophils % % Neutrophils # (1.3-7.7) k/uL Lymphocytes # (1.0-4.8) k/uL Monocytes # (0-1.0) k/uL Eosinophils # (0-0.7) k/uL Basophils # (0-0.2) k/uL PT (9.0-12.0) sec INR (<1.2) APTT (22.0-30.0) sec Sodium (137-145) mmol/L Potassium (3.5-5.1) mmol/L Chloride (98-107) mmol/L Carbon Dioxide (22-30) mmol/L Anion Gap mmol/L BUN (7-17) mg/dL Creatinine (0.52-1.04) mg/dL Est GFR (CKD-EPI)AfAm (>60 ml/min/1.73 sqM) Est GFR (CKD-EPI)NonAf (>60 ml/min/1.73 sqM) Glucose (74-99) mg/dL Calcium (8.4-10.2) mg/dL Magnesium (1.6-2.3) mg/dL Total Bilirubin (0.2-1.3) mg/dL AST (14-36) U/L ALT (4-34) U/L Alkaline Phosphatase (38-126) U/L Troponin I <0.012 (0.000-0.034) ng/mL Total Protein (6.3-8.2) g/dL Albumin (3.5-5.0) g/dL Disposition Clinical Impression: Chest pain Disposition: ADMITTED IP TO THIS HOSP Condition: Fair Referrals: Rey Espinal DO [Primary Care Provider] - 1-2 days Decision Time: 20:28
[2020-02-04 19:38] LABS: ALT 24 U/L (4-34); AST 26 U/L (14-36); African American GFR (CKD) >90 (>60 ml/min/1.73 sqM); Albumin 4.7 g/dL (3.5-5.0); Alkaline Phosphatase 85 U/L (38-126); Anion Gap 7 mmol/L; Blood Urea Nitrogen 14 mg/dL (7-17); Calcium 9.9 mg/dL (8.4-10.2); Carbon Dioxide 27 mmol/L (22-30); Chloride 105 mmol/L (98-107); Glucose 89 mg/dL (74-99); Non-African American GFR(CKD) >90 (>60 ml/min/1.73 sqM); Potassium 3.9 mmol/L (3.5-5.1); Sodium 139 mmol/L (137-145); Total Bilirubin 0.4 mg/dL (0.2-1.3); Total Protein 7.7 g/dL (6.3-8.2)
[2020-02-04 19:50] LABS: INR 0.9 (<1.2); Partial Thromboplastin Time 24.5 sec (22.0-30.0); Prothrombin Time 9.4 sec (9.0-12.0)
[2020-02-04] MEDS ORDERED: HEPARIN SODIUM,PORCINE 5,000 UNIT/ML 1 ML VIAL IV ONE (20:04)
[2020-02-04] MEDS ORDERED: ASPIRIN 81 MG PO STA (20:04)
[2020-02-04] MEDS ORDERED: NITROGLYCERIN SL TABS 0.4 MG TAB SUBLINGUAL PRN (20:04)
[2020-02-04] MEDS ORDERED: HEPARIN SOD,PORK IN 0.45% NACL 25,000 UNIT in 0.45% NACL 1 250ML.BAG IV SCH (20:15)
--- NOTE | 2020-02-04 20:27 | XR ---
EXAMINATION TYPE: XR chest 1V portable DATE OF EXAM: 02/04/2020 COMPARISON: 06/23/2018 HISTORY: Chest pain TECHNIQUE: FINDINGS: Heart appears borderline enlarged. Lungs are clear. There is no heart failure. There are ch est leads. Bony thorax is intact. IMPRESSION: Borderline cardiomegaly. Heart appears increased compared to old exam.
[2020-02-05] MEDS: PANTOPRAZOLE 40 MG TABLET PO SCH ×3 (02:05→22:34)
[2020-02-05] MEDS: ACETAMINOPHEN TAB 325 MG TAB PO PRN ×3 (02:05→22:34)
[2020-02-05] MEDS: ZOLPIDEM 5 MG TAB PO PRN ×2 (02:05→22:34)
[2020-02-05] MEDS: EZETIMIBE 10 MG TAB PO SCH ×2 (02:05→22:34)
[2020-02-05] MEDS: MONTELUKAST 10 MG TAB PO SCH ×2 (02:05→22:34)
[2020-02-05] MEDS: LORATADINE 10 MG TAB PO SCH ×2 (02:05→22:34)
[2020-02-05] MEDS: LEVOTHYROXINE 137 MCG TAB PO SCH (06:49)
[2020-02-05] MEDS ORDERED: ASPIRIN 325 MG TAB PO SCH (09:00)
--- NOTE | 2020-02-05 09:53 | P.CRDCN ---
History of Present Illness Consult date: 02/05/20 Requesting physician: Vicki Whitmore Reason for Consult (text): chest pain Chief complaint: chest pain History of present illness: This is a pleasant 54-year-old female patient who follows with Dr. LETY Greenberg in the office. She has a history of CAD, hyperlipidemia, Raynaud's phenomenon. She is a history of stenting of the major diagonal branch and that mid LAD in 2013 with repeat cardiac catheterization done in March 2018 which showed the diagonal branch with an 80% stenosis and at that time underwent balloon angioplasty of the LAD with kissing balloon. She was subsequently evaluated at [facility] for a second opinion and it was recommended medical therapy at that time. She been doing fairly well from a cardiac standpoint up until recently due to an increased amount of stress in her life has developed more frequent and more intense episodes of chest discomfort. She does have occasional shortness of breath, occasional nausea and occasional anus with her chest discomfort. The chest discomfort usually occurs during times of emotional stress. Yesterday she was having an argument on the phone with her sister and started to develop some chest tightness she subsequently had a bike to eat and relaxed and then went and did some shopping and the chest discomfort recurred with significant weakness and flushing. She did take sublingual nitro with initial relief but the discomfort recurred. She then decided to come to the emergency department for further evaluation. She was recently seen in the office by Dr. LETY Greenberg and was scheduled for cardiac catheterization to be done on February 07. On presentation EKG showed sinus rhythm with no ischemic changes. Troponins have been negative 3. Laboratory values are unremarkable. She's been initiated on a heparin drip. On examination, patient is resting comfortably in bed. She has no current complaints of chest discomfort. Vital signs have been relatively stable with some occasional spikes in her blood pressure during times of headache. Home medications currently include levothyroxine, Lasix 20 mg daily, Zetia 10 mg daily, omeprazole, amlodipine 2.5 mg by mouth daily, metoprolol tartrate 25 mg by mouth daily, isosorbide mononitrate ER 30 mg by mouth daily, Plavix 75 mg by mouth daily and aspirin 81 mg by mouth daily. She's been intolerant to statins in the past including Lipitor, Crestor and Zocor due to severe muscle pain. Past Medical History Past Medical History: Asthma, Coronary Artery Disease (CAD), Chest Pain / Angina, GERD/Reflux, Musculoskeletal Disorder, Pneumonia, Syncope, Thyroid Disorder, Vascular Disorder Additional Past Medical History / Comment(s): raynauds, lupus-suspected, had ruptured disc, hx. stomach ulcer, has 3 cardiac stents, hiatal hernia, SOB w/exertion recently, microvascular disease History of Any Multi-Drug Resistant Organisms: None Reported Past Surgical History: Appendectomy, Cholecystectomy, Heart Catheterization, Heart Catheterization With Stent, Tonsillectomy, Uterine Ablation Past Anesthesia/Blood Transfusion Reactions: No Reported Reaction, Family History of Problems w/ Anesthesia Additional Past Anesthesia/Blood Transfusion Reaction / Comment(s): has had hematomas in past after cardiac caths. & syncopal episode, mom had some issues w/anesthesia Date of Last Stent Placement:: Past Psychological History: No Psychological Hx Reported Smoking Status: Never smoker Past Alcohol Use History: None Reported Additional Past Alcohol Use History / Comment(s): quit smoking 20 yrs., smoked for 13yrs. Past Drug Use History: None Reported - Past Family History Brother(s) Family Medical History: Coronary Artery Disease (CAD), Myocardial Infarction ([place]) Mother Family Medical History: Coronary Artery Disease (CAD), Diabetes Mellitus Sister(s) Family Medical History: Cancer Father Family Medical History: Cancer, Pulmonary Embolus Medications and Allergies Home Medications Medication Instructions Recorded Confirmed Type Loratadine [Claritin] 10 mg PO HS 08/17/13 02/04/20 History Montelukast [Singulair] 10 mg PO HS 08/17/13 02/04/20 History amLODIPine BESYLATE [Norvasc] 2.5 mg PO DAILY 12/12/13 02/04/20 History Clopidogrel [Plavix] 75 mg PO DAILY 05/23/14 02/04/20 History Cholecalciferol [Vitamin D3 (25 5,000 unit PO DAILY 06/30/15 02/04/20 History Mcg = 1000 Iu)] Nitroglycerin Sl Tabs [Nitrostat] 0.4 mg SUBLINGUAL Q5M PRN #25 tab 07/04/15 02/04/20 Rx Omeprazole 20 mg PO BID 10/30/15 02/04/20 History Albuterol Nebulized [Ventolin 2.5 mg INHALATION RT-QID PRN 04/05/16 02/04/20 History Nebulized] Ezetimibe [Zetia] 10 mg PO HS 04/07/18 02/04/20 History Metoprolol Tartrate 25 mg PO DAILY 04/07/18 02/04/20 History Aspirin EC [Ecotrin Low Dose] 81 mg PO DAILY 04/10/18 02/04/20 History Levothyroxine Sodium [Synthroid] 137 mcg PO MOTUWETHFRSA 04/10/18 02/04/20 History Ascorbic Acid [Vitamin C] 2,000 mg PO W/LUNCH 02/27/19 02/04/20 History Furosemide [Lasix] 20 mg PO DAILY 02/27/19 02/04/20 History Isosorbide Mononitrate ER [Imdur] 30 mg PO DAILY 02/27/19 02/04/20 History Zolpidem [Ambien] 5 mg PO HS PRN 03/31/19 02/04/20 History Glucos Sul 2Kcl/MSM/Chond/C/Mn 1 cap PO W/LUNCH 02/01/20 02/04/20 History [Glucosamine Chondroitin Cap] Turmeric Root Extract [Turmeric] 500 mg PO W/LUNCH 02/01/20 02/04/20 History Vitamin A 2,400 mcg PO DAILY 02/01/20 02/04/20 History Albuterol Sulfate [Albuterol 2 puff PO RT-BID 02/04/20 02/04/20 History Sulfate Hfa] Calcium Carbonate [Calcium] 1,200 mg PO W/LUNCH 02/04/20 02/04/20 History Allergies Allergy/AdvReac Type Severity Reaction Status Date / Time adhesive Allergy skin came Verified 02/04/20 22:52 off ranolazine [From Ranexa] Allergy Dyspnea, Verified 02/04/20 22:52 Edema shellfish derived Allergy throat Verified 02/04/20 22:52 swelling sulfamethoxazole Allergy Rash/Hives Verified 02/04/20 22:52 [From Bactrim] trimethoprim [From Bactrim] Allergy Rash/Hives Verified 02/04/20 22:52 atorvastatin calcium AdvReac muscle Verified 02/04/20 22:52 [From Lipitor] aches diltiazem HCl [From Cardizem] AdvReac EXTREME Verified 02/04/20 22:52 FLUSHING rosuvastatin calcium AdvReac SEVERE Verified 02/04/20 22:52 [From Crestor] MUSCLE PAIN simvastatin [From Zocor] AdvReac MUSCLE PAIN Verified 02/04/20 22:52 Physical Exam Vitals: Vital Signs Temp Pulse Pulse Resp BP BP Pulse Ox 02/05/20 07:42 97.5 F L 68 16 121/79 97 02/05/20 02:30 97.4 F L 74 16 119/79 99 02/04/20 23:42 97.6 F 75 16 154/88 99 02/04/20 23:40 16 02/04/20 21:26 126 H 16 101/85 100 02/04/20 20:44 81 16 135/62 97 02/04/20 18:43 97.8 F 84 18 159/97 99 Intake and Output 02/04/20 02/05/20 02/05/20 22:59 06:59 14:59 Intake Total 62.333 Balance 62.333 Intake: Intake, IV Titration 62.333 Amount Heparin Sod,Pork in 0.45% 62.333 NaCl 25,000 unit In 0.45 % NaCl 1 250ml.bag @ 10. 65 UNITS/KG/HR 10 mls/hr IV .Q24H [facility] Rx#: [id number] Other: Voiding Method Toilet Toilet # Voids 1 Weight 93.894 kg 93.894 kg PHYSICAL EXAMINATION: This is a 54-year-old female in no apparent distress at the time of my examination. VITAL SIGNS: Blood pressure 121/79, heart rate 68, respirations 16, temp 97.5F. Patient is 97 % on room air. HEENT: Head is atraumatic, normocephalic. Pupils are equal, round. Sclerae anicteric. Conjunctivae are clear. Mucous membranes of the mouth are moist. Neck is supple. There is no elevated jugular venous pressure. No carotid bruit is heard. CHEST EXAMINATION: Clear to auscultation bilaterally. No wheezes rales or rhonchi. Respirations even and nonlabored. HEART EXAMINATION: Heart regular, positive S1 and S2. No S3. No S4. No clicks, rubs or murmurs. ABDOMEN: Soft, nontender. Bowel sounds are heard. No organomegaly noted. EXTREMITIES: 2+ peripheral pulses with evidence of trace peripheral edema and no calf tenderness noted. NEUROLOGIC EXAMINATION: Patient is awake, alert and oriented x3. Results 02/04/20 19:20 02/04/20 19:20 Cardiac Enzymes 02/04/20 02/04/20 02/04/20 Range/Units 19:20 19:20 22:18 AST 26 (14-36) U/L Troponin I <0.012 <0.012 (0.000-0.034) ng/mL 02/05/20 Range/Units 01:52 AST (14-36) U/L Troponin I <0.012 (0.000-0.034) ng/mL Coagulation 02/04/20 02/05/20 Range/Units 19: 01:52 PT 9.4 (9.0-12.0) sec APTT 24.5 44.2 H (22.0-30.0) sec CBC 02/04/20 Range/Units 19:20 WBC 5.2 (3.8-10.6) k/uL RBC 4.39 (3.80-5.40) m/uL Hgb 14.0 (11.4-16.0) gm/dL Hct 42.8 (34.0-46.0) % Plt Count 291 (150-450) k/uL Comprehensive Metabolic Panel 02/04/20 Range/Units 19:20 Sodium 139 (137-145) mmol/L Potassium 3.9 (3.5-5.1) mmol/L Chloride 105 (98-107) mmol/L Carbon Dioxide 27 (22-30) mmol/L BUN 14 (7-17) mg/dL Creatinine 0.58 (0.52-1.04) mg/dL Glucose 89 (74-99) mg/dL Calcium 9.9 (8.4-10.2) mg/dL AST 26 (14-36) U/L ALT 24 (4-34) U/L Alkaline Phosphatase 85 (38-126) U/L Total Protein 7.7 (6.3-8.2) g/dL Albumin 4.7 (3.5-5.0) g/dL Current Medications Generic Name Dose Route Start Last Admin Trade Name Freq PRN Reason Stop Dose Admin Acetaminophen 650 mg 02/05/20 01:45 02/05/20 02:05 Acetaminophen Tab 325 Mg Tab PO 650 mg Q6HR PRN Administration Fever and/ or Pain Amlodipine Besylate 2.5 mg 02/05/20 09:30 Amlodipine 2.5 Mg Tab PO DAILY [facility] Aspirin 325 mg 02/05/20 09:00 02/05/20 08:55 Aspirin 325 Mg Tab PO 325 mg DAILY [facility] Administration Clopidogrel Bisulfate 75 mg 02/05/20 09:45 Clopidogrel 75 Mg Tab PO DAILY [facility] Ezetimibe 10 mg 02/05/20 01:45 02/05/20 02:05 Ezetimibe 10 Mg Tab PO 10 mg HS [facility] Administration Furosemide 20 mg 02/05/20 09:45 Furosemide 20 Mg Tab PO DAILY [facility] Heparin Sodium/Sodium Chloride 250 mls @ 10 mls/hr 02/04/20 20:15 02/05/20 02:54 25,000 unit/ Sodium Chloride IV 10.65 units/kg/hr .Q24H [facility] 10 mls/hr Titration Protocol 10.65 UNITS/KG/HR Isosorbide Mononitrate 30 mg 02/05/20 09:45 Isosorbide Mononitrate Er 30 Mg Tab.Er.24h PO DAILY [facility] Levothyroxine Sodium 137 mcg 02/05/20 06:30 02/05/20 06:49 Levothyroxine 137 Mcg Tab PO 137 mcg [id number] [facility] Administration Loratadine 10 mg 02/05/20 01:45 02/05/20 02:05 Loratadine 10 Mg Tab PO 10 mg HS [facility] Administration Metoprolol Tartrate 25 mg 02/05/20 09:45 Metoprolol Tartrate 25 Mg Tab PO DAILY [facility] Montelukast Sodium 10 mg 02/05/20 01:45 02/05/20 02:05 Montelukast 10 Mg Tab PO 10 mg HS [facility] Administration Nitroglycerin 0.4 mg 02/04/20 20:04 Nitroglycerin Sl Tabs 0.4 Mg Tab SUBLINGUAL Q5M PRN Chest Pain Non-Formulary Medication 81 mg 02/05/20 09:30 Aspirin Ec PO DAILY [facility] Pantoprazole Sodium 40 mg 02/05/20 01:45 02/05/20 08:55 Pantoprazole 40 Mg Tablet PO 40 mg BID [facility] Administration Zolpidem Tartrate 5 mg 02/05/20 01:45 02/05/20 02:05 Zolpidem 5 Mg Tab PO 5 mg HS PRN Administration Insomnia Intake and Output 02/04/20 02/05/20 02/05/20 22:59 06:59 14:59 Intake Total 62.333 Balance 62.333 Intake: Intake, IV Titration 62.333 Amount Heparin Sod,Pork in 0.45% 62.333 NaCl 25,000 unit In 0.45 % NaCl 1 250ml.bag @ 10. 65 UNITS/KG/HR 10 mls/hr IV .Q24H [facility] Rx#: [id number] Other: Voiding Method Toilet Toilet # Voids 1 Weight 93.894 kg 93.894 kg 02/04/20 19:20 02/04/20 19:20 EKG Interpretations (text) Sinus rhythm Assessment and Plan Assessment: #1 symptoms of chest tightness with weakness, nausea and shortness of breath, and acute coronary event has been ruled out #2 history of CAD with prior stenting and balloon angioplasty #3 hyperlipidemia #4 hypothyroidism #5 statin intolerance Plan: From residential glazier perspective we will obtain a 2-D echo with Doppler to assess cardiac structure and function. We will discontinue IV heparin. Resume the patient's amlodipine, aspirin, Plavix, metoprolol, isosorbide and Lasix. Increase the patient's activity. Continue to monitor the patient overnight and depending on the results of the echocardiogram and the patient's symptoms further recommendations will be made. [facility] [facility] note has been reviewed, I agree with a documented findings and plan of care. Patient was seen and examined.
[2020-02-05] MEDS ORDERED: ALPRAZolam 0.25 MG TAB PO PRN (10:23)
[2020-02-05] MEDS ORDERED: ALPRAZolam 0.5 MG TAB PO PRN (10:23)
[2020-02-05] MEDS: amLODIPine 2.5 MG TAB PO SCH (10:28)
[2020-02-05] MEDS: METOPROLOL TARTRATE 25 MG TAB PO SCH (10:28)
[2020-02-05] MEDS: CLOPIDOGREL 75 MG TAB PO SCH (10:28)
[2020-02-05] MEDS: ISOSORBIDE MONONITRATE ER 30 MG TAB.ER.24H PO SCH (10:30)
[2020-02-05 10:48] LABS: Cholesterol 208 mg/dL (<200); HDL Cholesterol 52 mg/dL (40-60); LDL Cholesterol,Calculated 120 mg/dL (0-99); Triglycerides 178 mg/dL (<150)
--- NOTE | 2020-02-05 12:01 | ECHOF ---
Referral Reason:chest pain MEASUREMENTS -------- HEIGHT: 160.0 cm WEIGHT: 93.9 kg BP: IVSd: 0.7 cm (0.6 - 1.1) LVIDd: 4.9 cm (3.9 - 5.3) LVPWd: 0.9 cm (0.6 - 1.1) EDV(Teich): 114 ml IVSs: 1.2 cm LVIDs: 2.5 cm LVPWs: 1.8 cm %IVS Thck: 71 % ESV(Teich): 23 ml EF(Teich): 80 % %FS: 49 % SV(Teich): 91 ml RVIDd: 2.5 cm (< 3.3) IVC: 13.67 mm LALs A4C: 5.3 cm LAAs A4C: 18.1 cm LAESV A-L A4C: 52 ml LAESV MOD A4C: 50 ml LALs A2C: 5.1 cm LAAs A2C: 14.2 cm LAESV A-L A2C: 34 ml LAESV MOD A2C: 32 ml LAESV(A-L): 43 ml LAESV Index (A-L): 21.76 ml/m Ao Diam: 2.8 cm (2.0 - 3.7) LA Diam: 3.0 cm (2.7 - 3.8) AV Cusp: 2.1 cm (1.5 - 2.6) EPSS: 0.7 cm MV E Des: 0.92 m/s MV DecT: 162 ms MV Dec Maries: 5.7 m/s MV A Des: 0.74 m/s MV E/A Ratio: 1.24 MV PHT: 47 ms AV Vmax: 1.08 m/s AV maxP.64 mmHg TR Vmax: 1.63 m/s TR maxP.57 mmHg RAP: 5.00 mmHg RVSP: 15.57 mmHg MV EF SLOPE: 73.35 mm/s (70 - 150) MV EXCURSION: 13.19 mm (> 18.000) FINDINGS -------- This was a technically adequate study. The left ventricular size is normal. Left ventricular wall thickness is normal. Overall left vent ricular systolic function is low-normal with, an EF between 50 - 55 %. Normal LAP Grade 1 Diastolic Dysfunction. The right ventricle is normal in size. The left atrial size is normal. The right atrial size is normal. The aortic valve is trileaflet and appears structurally normal. The mitral valve is normal. Mild mitral regurgitation is present. The tricuspid valve appears structurally normal. Mild tricuspid regurgitation present. Right vent ricular systolic pressure is normal at < 35 mmHg. There is no pulmonic regurgitation present. The aortic root size is normal. Normal inferior vena cava with normal inspiratory collapse consistent with estimated right atrial pre ssure of 5 mmHg. Echo free space indicative of a pericardial fat pad. CONCLUSIONS -------- 1. The left ventricular size is normal. 2. Left ventricular wall thickness is normal. 3. Overall left ventricular systolic function is low-normal with, an EF between 50 - 55 %. 4. Normal LAP Grade 1 Diastolic Dysfunction. 5. Mild mitral regurgitation is present. 6. Mild tricuspid regurgitation present. 7. Echo free space indicative of a pericardial fat pad. SAFETY AND HEALTH CONSULTANT: Alyssa Daley RDCS
[2020-02-05] MEDS: FUROSEMIDE 20 MG TAB PO SCH (13:47)
--- NOTE | 2020-02-05 17:21 | P.HPIM ---
History of Present Illness H&P Date: 02/05/20 This is a pleasant 54-year-old female patient of Dr. Espinal, known history of CAD with multiple heart cath and stents, requiring mid LAD stent 2013, heart cath in September 2018 with 80% stenosis, along with history of statin intolerance, hyperlipidemia, lumbar disc disease hypothyroidism 3 nodes disease, admitted to the emergency room secondary to chest pressure. Patient has minimal relief with one sublingual nitroglycerin at home, was seen in emergency room for this particular chest pain. He spoke to Dr. LETY Greenberg, for which she was scheduled to have a heart cath on February 07, and requested to be seen in the emergency room for management. Prior history significant for sepsis from a previous gallbladder infection, requiring laparoscopic cholecystectomy February 2019, patient denies any GI bleed melena hematochezia no fever no chills. Patient is comfortable when seen in the medical floor, on IV heparin, Imdur, sublingual nitro when necessary, Plavix. Patient has contralateral stress, as they have recently finalized marriage contract, In the emergency room, troponins are point 0.0123, INR 0.9, liver function tests is normal, creatinine of 0.58, CBC is normal, LDL of 120, glucose of 89. Patient denies any history of diabetes PE DVT in the past, no history of aneurysm. He is now seen in observation floor, with consultation from cardiology echocardiogram EF 50-55%, with grade 1 diastolic dysfunction, no wall motion abnormality, right ventricular systolic pressure of less than 35, no aortic stenosis. EKG shows normal sinus rhythm heart rate 69, no acute ST-T wave changes, no old changes as well Review of Systems Constitutional: Reports as per HPI, Denies anorexia, Denies chills, Denies chronic headaches, Denies chronic pain, Denies daytime sleepiness, Denies fatigue, Denies fever, Denies lethargy, Denies malaise, Denies night sweats, Denies poor appetite, Denies sweats, Denies weakness, Denies weight gain, Denies weight loss Ears, nose, mouth and throat: Reports as per HPI Cardiovascular: Reports as per HPI, Reports chest pain Respiratory: Reports as per HPI, Denies congestion, Denies cough, Denies cough with sputum, Denies dyspnea, Denies excessive sputum, Denies hemoptysis, Denies home oxygen, Denies pain, Denies pain on inspiration, Denies pleurisy, Denies respiratory infections, Denies sleep apnea, Denies snoring, Denies wheezing Gastrointestinal: Reports as per HPI Genitourinary: Reports as per HPI, Denies abnormal vaginal bleeding, Denies decreased libido, Denies difficulty conceiving, Denies difficulty voiding, Denies dysmenorrhea, Denies dyspareunia, Denies dysuria, Denies flank pain, Denies genital sores, Denies hematuria, Denies hot flashes, Denies incomplete emptying, Denies kidney stones, Denies menorrhagia, Denies mixed incontinence, Denies nocturia, Denies pelvic pain, Denies post void dribbling, Denies , Denies prolapse symptoms, Denies stress incontinence, Denies urge incontinence, Denies urgency, Denies urinary frequency, Denies vaginal discharge, Denies vaginal dryness, Denies vaginal itching, Denies vaginal odor Menstruation: Reports as per HPI, Reports amenorrhea Musculoskeletal: Reports as per HPI, Denies arm numbness/tingling, Denies atrophy, Denies fractures, Denies frequent falls, Denies gait dysfunction, Denies hot joints, Denies leg numbness/tingling, Denies limitation of motion, Denies loss of height, Denies low back pain, Denies morning stiffness, Denies muscle cramps, Denies muscle weakness, Denies myalgias, Denies neck pain, Denies neck stiffness, Denies prior amputations, Denies redness of joints, Denies shooting arm pain, Denies shooting leg pain Integumentary: Reports as per HPI Neurological: Reports as per HPI, Denies aphasia, Denies ataxia, Denies balance difficulties, Denies burning pain, Denies change in mentation, Denies change in smell/taste, Denies change in speech, Denies confusion, Denies convulsions, Denies double vision, Denies gait dysfunction, Denies head injury, Denies headaches, Denies hearing difficulties, Denies lack of coordination, Denies loss of vision, Denies memory loss, Denies migraines, Denies motor disturbance, Denies numbness, Denies paralysis, Denies paresthesias, Denies seizures, Denies sensory deficit, Denies spasticity, Denies syncope, Denies tic, Denies tingling, Denies transient paralysis, Denies tremors, Denies vertigo, Denies weakness, Denies visual changes Psychiatric: Reports as per HPI, Reports anxiety Endocrine: Reports as per HPI Hematologic/Lymphatic: Reports as per HPI, Denies easy bleeding, Denies easy bruising, Denies lymphadenopathy, Denies lymphedema, Denies thrombophilia Allergic/Immunologic: Reports as per HPI Past Medical History Past Medical History: Asthma, Coronary Artery Disease (CAD), Chest Pain / Angina, GERD/Reflux, Musculoskeletal Disorder, Pneumonia, Syncope, Thyroid Disorder, Vascular Disorder Additional Past Medical History / Comment(s): raynauds, lupus-suspected, had ruptured disc, hx. stomach ulcer, has 3 cardiac stents, hiatal hernia, SOB w/exertion recently, microvascular disease History of Any Multi-Drug Resistant Organisms: None Reported Past Surgical History: Appendectomy, Cholecystectomy, Heart Catheterization, Heart Catheterization With Stent, Tonsillectomy, Uterine Ablation Past Anesthesia/Blood Transfusion Reactions: No Reported Reaction, Family History of Problems w/ Anesthesia Additional Past Anesthesia/Blood Transfusion Reaction / Comment(s): has had hematomas in past after cardiac caths. & syncopal episode, mom had some issues w/anesthesia Date of Last Stent Placement:: Past Psychological History: No Psychological Hx Reported Smoking Status: Never smoker Past Alcohol Use History: None Reported Additional Past Alcohol Use History / Comment(s): quit smoking 20 yrs., smoked for 13yrs. Past Drug Use History: None Reported - Past Family History Brother(s) Family Medical History: Coronary Artery Disease (CAD), Myocardial Infarction ([place]) Mother Family Medical History: Coronary Artery Disease (CAD), Diabetes Mellitus Sister(s) Family Medical History: Cancer Father Family Medical History: Cancer, Pulmonary Embolus Medications and Allergies Home Medications Medication Instructions Recorded Confirmed Type Loratadine [Claritin] 10 mg PO HS 08/17/13 02/05/20 History Montelukast [Singulair] 10 mg PO HS 08/17/13 02/05/20 History amLODIPine BESYLATE [Norvasc] 2.5 mg PO DAILY 12/12/13 02/05/20 History Clopidogrel [Plavix] 75 mg PO DAILY 05/23/14 02/05/20 History Cholecalciferol [Vitamin D3 (25 5,000 unit PO DAILY 06/30/15 02/05/20 History Mcg = 1000 Iu)] Nitroglycerin Sl Tabs [Nitrostat] 0.4 mg SUBLINGUAL Q5M PRN #25 tab 07/04/15 02/05/20 Rx Omeprazole 20 mg PO BID 10/30/15 02/05/20 History Albuterol Nebulized [Ventolin 2.5 mg INHALATION RT-QID PRN 04/05/16 02/05/20 History Nebulized] Ezetimibe [Zetia] 10 mg PO HS 04/07/18 02/05/20 History Metoprolol Tartrate 25 mg PO DAILY 04/07/18 02/05/20 History Aspirin EC [Ecotrin Low Dose] 81 mg PO DAILY 04/10/18 02/05/20 History Levothyroxine Sodium [Synthroid] 137 mcg PO MOTUWETHFRSA 04/10/18 02/05/20 History Ascorbic Acid [Vitamin C] 2,000 mg PO W/LUNCH 02/27/19 02/05/20 History Furosemide [Lasix] 20 mg PO DAILY 02/27/19 02/05/20 History Isosorbide Mononitrate ER [Imdur] 30 mg PO DAILY 02/27/19 02/05/20 History Zolpidem [Ambien] 5 mg PO HS PRN 03/31/19 02/05/20 History Glucos Sul 2Kcl/MSM/Chond/C/Mn 1 cap PO W/LUNCH 02/01/20 02/05/20 History [Glucosamine Chondroitin Cap] Turmeric Root Extract [Turmeric] 500 mg PO W/LUNCH 02/01/20 02/05/20 History Vitamin A 2,400 mcg PO DAILY 02/01/20 02/05/20 History Albuterol Sulfate [Albuterol 2 puff PO RT-BID 02/04/20 02/05/20 History Sulfate Hfa] Calcium Carbonate [Calcium] 1,200 mg PO W/LUNCH 02/04/20 02/05/20 History Allergies Allergy/AdvReac Type Severity Reaction Status Date / Time adhesive Allergy skin came Verified 02/05/20 10:27 off ranolazine [From Ranexa] Allergy Dyspnea, Verified 02/05/20 10:27 Edema shellfish derived Allergy throat Verified 02/05/20 10:27 swelling sulfamethoxazole Allergy Rash/Hives Verified 02/05/20 10:27 [From Bactrim] trimethoprim [From Bactrim] Allergy Rash/Hives Verified 02/05/20 10:27 atorvastatin calcium AdvReac muscle Verified 02/05/20 10:27 [From Lipitor] aches diltiazem HCl [From Cardizem] AdvReac EXTREME Verified 02/05/20 10:27 FLUSHING rosuvastatin calcium AdvReac SEVERE Verified 02/05/20 10:27 [From Crestor] MUSCLE PAIN simvastatin [From Zocor] AdvReac MUSCLE PAIN Verified 02/05/20 10:27 Physical Exam Vitals: Vital Signs Temp Pulse Pulse Resp BP BP Pulse Ox 02/05/20 07:42 97.5 F L 68 16 121/79 97 02/05/20 02:30 97.4 F L 74 16 119/79 99 02/04/20 23:42 97.6 F 75 16 154/88 99 02/04/20 23:40 16 02/04/20 21:26 126 H 16 101/85 100 02/04/20 20:44 81 16 135/62 97 02/04/20 18:43 97.8 F 84 18 159/97 99 Intake and Output 02/04/20 02/05/20 02/05/20 22:59 06:59 14:59 Intake Total 62.333 Balance 62.333 Intake: Intake, IV Titration 62.333 Amount Heparin Sod,Pork in 0.45% 62.333 NaCl 25,000 unit In 0.45 % NaCl 1 250ml.bag @ 10. 65 UNITS/KG/HR 10 mls/hr IV .Q24H [facility] Rx#: [id number] Other: Voiding Method Toilet Toilet # Voids 1 Weight 93.894 kg 93.894 kg - Constitutional General appearance: cooperative, no acute distress, obese - EENT Eyes: anicteric sclerae, EOMI, PERRLA, dentition normal ENT: NA/AT - Neck Neck: normal ROM - Respiratory Respiratory: bilateral: CTA, negative: diminished, dullness, rales, wheezing, prolonged expiration - Cardiovascular Rhythm: regular Heart sounds: normal: S1, S2 Abnormal Heart Sounds: no systolic murmur, no rub, no S3 Gallop, no S4 Gallop, no click, no other - Gastrointestinal General gastrointestinal: normal bowel sounds, soft - Integumentary Integumentary: decreased turgor, normal - Neurologic Neurologic: CNII-XII intact - Musculoskeletal Musculoskeletal: gait normal, strength equal bilaterally - Psychiatric Psychiatric: A&O x's 3, appropriate affect Results CBC & Chem 7: 02/04/20 19:20 02/04/20 19:20 Labs: Abnormal Lab Results - Last 24 Hours (Table) 02/05/20 02/05/20 02/05/20 Range/Units 01:52 10:15 10:15 APTT 44.2 H 37.0 H (22.0-30.0) sec Triglycerides 178 H (<150) mg/dL Cholesterol 208 H (<200) mg/dL LDL Cholesterol, Calc 120 H (0-99) mg/dL Laboratory Results WBC 5.2 k/uL (3.8-10.6) 02/04/20 19: RBC 4.39 m/uL (3.80-5.40) 02/04/20 19: Hgb 14.0 gm/dL (11.4-16.0) 02/04/20 19: Hct 42.8 % (34.0-46.0) 02/04/20 19:20 MCV 97.3 fL (80.0-100.0) D 02/04/20 19: MCH 31.8 pg (25.0-35.0) 02/04/20 19: MCHC 32.6 g/dL (31.0-37.0) 02/04/20 19: RDW 12.4 % (11.5-15.5) 02/04/20 19: Plt Count 291 k/uL (150-450) 02/04/20 19:20 MPV 6.4 02/04/20 19:20 Neutrophils % 50 % 02/04/20 19:20 Lymphocytes % 38 % 02/04/20 19:20 Monocytes % 7 % 02/04/20 19:20 Eosinophils % 3 % 02/04/20 19:20 Basophils % 1 % 02/04/20 19:20 Neutrophils # 2.6 k/uL (1.3-7.7) 02/04/20 19: Lymphocytes # 2.0 k/uL (1.0-4.8) 02/04/20 19: Monocytes # 0.4 k/uL (0-1.0) 02/04/20 19:20 Eosinophils # 0.1 k/uL (0-0.7) 02/04/20 19:20 Basophils # 0.0 k/uL (0-0.2) 02/04/20 19:20 PT 9.4 sec (9.0-12.0) 02/04/20 19:20 INR 0.9 (<1.2) 02/04/20 19:20 APTT 37.0 sec (22.0-30.0) H 02/05/20 10:15 Sodium 139 mmol/L (137-145) 02/04/20 19:20 Potassium 3.9 mmol/L (3.5-5.1) 02/04/20 19:20 Chloride 105 mmol/L (98-107) 02/04/20 19:20 Carbon Dioxide 27 mmol/L (22-30) 02/04/20 19:20 Anion Gap 7 mmol/L 02/04/20 19:20 BUN 14 mg/dL (7-17) 02/04/20 19:20 Creatinine 0.58 mg/dL (0.52-1.04) 02/04/20 19:20 Est GFR (CKD-EPI)AfAm >90 (>60 ml/min/1.73 sqM) 02/04/20 19:20 Est GFR (CKD-EPI)NonAf >90 (>60 ml/min/1.73 sqM) 02/04/20 19:20 Glucose 89 mg/dL (74-99) 02/04/20 19:20 Calcium 9.9 mg/dL (8.4-10.2) 02/04/20 19:20 Magnesium 2.0 mg/dL (1.6-2.3) 02/04/20 19:20 Total Bilirubin 0.4 mg/dL (0.2-1.3) 02/04/20 19:20 AST 26 U/L (14-36) 02/04/20 19:20 ALT 24 U/L (4-34) 02/04/20 19:20 Alkaline Phosphatase 85 U/L (38-126) 02/04/20 19:20 Troponin I <0.012 ng/mL (0.000-0.034) 11/28/20 01:52 Total Protein 7.7 g/dL (6.3-8.2) 02/04/20 19:20 Albumin 4.7 g/dL (3.5-5.0) 02/04/20 19:20 Triglycerides 178 mg/dL (<150) H 02/05/20 10:15 Cholesterol 208 mg/dL (<200) H 02/05/20 10:15 LDL Cholesterol, Calc 120 mg/dL (0-99) H 02/05/20 10:15 HDL Cholesterol 52 mg/dL (40-60) 02/05/20 10:15 Thrombosis Risk Factor Assmnt - Choose All That Apply Each Factor Represents 1 point: Age 41-60 years, Obesity (BMI >25) Thrombosis Risk Factor Assessment Total Risk Factor Score: 2 Thrombosis Risk Factor Assessment Level: Low Risk Assessment and Plan Plan: 1.1. Unstable angina with known history of CAD with disease in the mid LAD, req uiring prior stent 2013 and 80% stenosis in the LAD with balloon angioplasty in 2018. Currently undergoing emotional stress, with recent divorce. Patient would be seen consultation by Dr. jamie andrew for which she already was scheduled to have a heart cath early February, this one would be push ahead for a scheduled cath on Friday. Patient has 2 serial troponins that are negative, EKG failed to reveal any acute ischemic change, stress management is discussed patient seems to be comfortable now that the voices done, and patient does not need any SSRIs or insomnia medication. Continue on aspirin 81 mg daily, she needs statins however she has previous history of statin intolerance, Lipitor was given the emergency room, patient most likely can benefit from PSK9 drugs which could be out the rest as an outpatient. Check for hemoglobin A1c, continue on sublingual nitro when necessary, and metoprolol 25 mg daily 2. Asthma without any exacerbation, Singulair daily 3. Prior history of cholecystectomy, complicated by sepsis, February 2019 4. Coronary artery disease status post stenting and PTCA. Continue Imdur 30 mg daily, metoprolol 12.5 twice a day, aspirin 81 mg daily. Plavix. Will need statin, or PSK 9 LDL is 120 5. Hypothyroidism. Continue levothyroxine 137 g Friday through Friday. 6. Mild persistent asthma. Continue nebulizer treatments, Claritin, Singulair. 7. Hyperlipidemia. Continue Zetia 10 mg at bedtime. 8. Gastroesophageal reflux disease. Continue omeprazole 20 mg twice daily or equivalent. 9. DVT prophylaxis. Heparin subcu.
[2020-02-06] MEDS: METOPROLOL TARTRATE 25 MG TAB PO SCH (09:29)
[2020-02-06] MEDS: PANTOPRAZOLE 40 MG TABLET PO SCH (09:29)
[2020-02-06] MEDS: ISOSORBIDE MONONITRATE ER 30 MG TAB.ER.24H PO SCH (09:29)
[2020-02-06] MEDS: CLOPIDOGREL 75 MG TAB PO SCH (09:29)
[2020-02-06] MEDS: ASPIRIN 81 MG PO SCH (09:30)
[2020-02-06] MEDS: FUROSEMIDE 20 MG TAB PO SCH (09:30)
[2020-02-06] MEDS: amLODIPine 2.5 MG TAB PO SCH (09:30)
[2020-02-06] MEDS: ACETAMINOPHEN TAB 325 MG TAB PO PRN ×2 (09:35→16:45)
--- NOTE | 2020-02-06 10:29 | P.PN ---
Subjective Progress Note Date: 02/06/20 This is a pleasant 54-year-old female patient of Dr. Espinal, known history of CAD with multiple heart cath and stents, requiring mid LAD stent 2013, heart cath in September 2018 with 80% stenosis, along with history of statin intolerance, hyperlipidemia, lumbar disc disease hypothyroidism 3 nodes disease, admitted to the emergency room secondary to chest pressure. Patient has minimal relief with one sublingual nitroglycerin at home, was seen in emergency room for this particular chest pain. He spoke to Dr. LETY Greenberg, for which she was scheduled to have a heart cath on February 07, and requested to be seen in the emergency room for management. Prior history significant for sepsis from a previous gallbladder infection, requiring laparoscopic cholecystectomy February 2019, patient denies any GI bleed melena hematochezia no fever no chills. Patient is comfortable when seen in the medical floor, on IV heparin, Imdur, sublingual nitro when necessary, Plavix. Patient has contralateral stress, as they have recently finalized marriage contract, In the emergency room, troponins are point 0.0123, INR 0.9, liver function tests is normal, creatinine of 0.58, CBC is normal, LDL of 120, glucose of 89. Patient denies any history of diabetes PE DVT in the past, no history of an eurysm. He is now seen in observation floor, with consultation from cardiology echocardiogram EF 50-55%, with grade 1 diastolic dysfunction, no wall motion abnormality, right ventricular systolic pressure of less than 35, no aortic stenosis. EKG shows normal sinus rhythm heart rate 69, no acute ST-T wave changes, no old changes as well February 05: Patient's doing much better, no significant chest pain today, discussed diet, and initiation of another statin, she has high dose statin intolerance, was able to tolerate Zocor in the past until this was readjusted, LDL the past were under 70, however LDL this time was 120. Statin was discontinued after her last lipid test in November, which reflects the low LDL of under 70. She is willing to try pravastatin 40 mg daily, with additional mo dification of diet. Awaiting For the morning Review of Systems Constitutional: Reports as per HPI, Denies anorexia, Denies chills, Denies chronic headaches, Denies chronic pain, Denies daytime sleepiness, Denies fatigue, Denies fever, Denies lethargy, Denies malaise, Denies night sweats, Denies poor appetite, Denies sweats, Denies weakness, Denies weight gain, Denies weight loss Ears, nose, mouth and throat: Reports as per HPI Cardiovascular: Reports as per HPI, Reports chest pain Respiratory: Reports as per HPI, Denies congestion, Denies cough, Denies cough with sputum, Denies dyspnea, Denies excessive sputum, Denies hemoptysis, Denies home oxygen, Denies pain, Denies pain on inspiration, Denies pleurisy, Denies respiratory infections, Denies sleep apnea, Denies snoring, Denies wheezing Gastrointestinal: Reports as per HPI Genitourinary: Reports as per HPI, Denies abnormal vaginal bleeding, Denies decreased libido, Denies difficulty conceiving, Denies difficulty voiding, Denies dysmenorrhea, Denies dyspareunia, Denies dysuria, Denies flank pain, Denies genital sores, Denies hematuria, Denies hot flashes, Denies incomplete emptying, Denies kidney stones, Denies menorrhagia, Denies mixed incontinence, Denies nocturia, Denies pelvic pain, Denies post void dribbling, Denies , Denies prolapse symptoms, Denies stress incontinence, Denies urge incontinence, Denies urgency, Denies urinary frequency, Denies vaginal discharge, Denies vaginal dryness, Denies vaginal itching, Denies vaginal odor Menstruation: Reports as per HPI, Reports amenorrhea Musculoskeletal: Reports as per HPI, Denies arm numbness/tingling, Denies atrophy, Denies fractures, Denies frequent falls, Denies gait dysfunction, Denies hot joints, Denies leg numbness/tingling, Denies limitation of motion, Denies loss of height, Denies low back pain, Denies morning stiffness, Denies muscle cramps, Denies muscle weakness, Denies myalgias, Denies neck pain, Denies neck stiffness, Denies prior amputations, Denies redness of joints, Denies shooting arm pain, Denies shooting leg pain Integumentary: Reports as per HPI Neurological: Reports as per HPI, Denies aphasia, Denies ataxia, Denies balance difficulties, Denies burning pain, Denies change in mentation, Denies change in smell/taste, Denies change in speech, Denies confusion, Denies convulsions, Denies double vision, Denies gait dysfunction, Denies head injury, Denies headaches, Denies hearing difficulties, Denies lack of coordination, Denies loss of vision, Denies memory loss, Denies migraines, Denies motor disturbance, Denies numbness, Denies paralysis, Denies paresthesias, Denies seizures, Denies sensory deficit, Denies spasticity, Denies syncope, Denies tic, Denies tingling, Denies transient paralysis, Denies tremors, Denies vertigo, Denies weakness, Denies visual changes Psychiatric: Reports as per HPI, Reports anxiety Endocrine: Reports as per HPI Hematologic/Lymphatic: Reports as per HPI, Denies easy bleeding, Denies easy bruising, Denies lymphadenopathy, Denies lymphedema, Denies thrombophilia Allergic/Immunologic: Reports as per HPI Objective - Vital Signs Vital signs: Vital Signs Temp 97.9 F 02/06/20 09:00 Pulse 71 02/06/20 09:00 Resp 16 02/06/20 09:00 BP 111/76 02/06/20 09:00 Pulse Ox 97 02/06/20 09:00 Intake & Output 02/05/20 02/06/20 02/06/20 18:59 06:59 18:59 Intake Total 480 Balance 480 Intake: Oral 480 Other: Voiding Method Toilet Toilet # Voids 3 # Bowel Movements 1 - Constitutional General appearance: Present: cooperative, no acute distress - EENT Eyes: Present: EOMI, PERRLA, dentition normal ENT: Present: NA/AT, normal oropharynx - Neck Neck: Present: normal ROM - Respiratory Respiratory: bilateral: CTA, negative: diminished, dullness - Cardiovascular Rhythm: regular Heart sounds: normal: S1, S2 - Gastrointestinal General gastrointestinal: Present: normal bowel sounds, soft - Integumentary Integumentary: Present: normal - Neurologic Neurologic: Present: CNII-XII intact - Musculoskeletal Musculoskeletal: Present: gait normal - Labs CBC & Chem 7: 02/04/20 19:20 02/04/20 19:20 Labs: Abnormal Lab Results - Last 24 Hours (Table) 02/05/20 02/05/20 Range/Units 10:15 10:15 APTT 37.0 H (22.0-30.0) sec Triglycerides 178 H (<150) mg/dL Cholesterol 208 H (<200) mg/dL LDL Cholesterol, Calc 120 H (0-99) mg/dL Assessment and Plan Plan: 1.1. Unstable angina with known history of CAD with disease in the mid LAD, requiring prior stent 2013 and 80% stenosis in the LAD with balloon angioplasty in 2018. Currently undergoing emotional stress, with recent divorce. Patient would be seen consultation by be ready for which she already was scheduled to have a heart cath early February, this one would be push ahead for a scheduled cath on Friday. Patient has 2 serial troponins that are negative, EKG failed to reveal any acute ischemic change, stress management is discussed patient seems to be comfortable now that the voices done, and patient does not need any SSRIs or insomnia medication. Continue on aspirin 81 mg daily, she needs statins however she has previous history of statin intolerance, Lipitor was given the emergency room, patient most likely can benefit from PSK9 drugs which could be out the rest as an outpatient. Check for hemoglobin A1c, continue on sublingual nitro when necessary, and metoprolol 25 mg daily start p ravastatin 40 mg daily, did not tolerate high-dose Zocor 2. Asthma without any exacerbation, Singulair daily 3. Prior history of cholecystectomy, complicated by sepsis, February 2019 4. Coronary artery disease status post stenting and PTCA. Continue Imdur 30 mg daily, metoprolol 12.5 twice a day, aspirin 81 mg daily. Plavix. Will need statin, or PSK 9 LDL is 120 5. Hypothyroidism. Continue levothyroxine 137 g Friday through Friday. 6. Mild persistent asthma. Continue nebulizer treatments, Claritin, Singulair. 7. Hyperlipidemia. Continue Zetia 10 mg at bedtime. Start pravastatin 40 start pravastatin 40 for which she agreed to try did not tolerate high-dose Zocor 80 8. Gastroesophageal reflux disease. Continue omeprazole 20 mg twice daily or equivalent. 9. DVT prophylaxis. Heparin subcu.
--- NOTE | 2020-02-06 10:35 | PN ---
PROGRESS NOTE Mrs. Mejias is a 54-year-old female with known history of coronary artery disease who presented with symptoms of chest discomfort. She is complaining of headache, but the discomfort is better. Her breathing is stable. She denies any dizziness or palpitation. She denies any nausea. She continues to be on amlodipine 2.5 mg daily, aspirin 81 mg daily, Lipitor 80 mg daily, Plavix 75 mg daily, Zetia 10 mg daily, Lasix 20 mg daily, isosorbide mononitrate 30 mg daily, metoprolol tartrate 25 mg once a day. PHYSICAL EXAMINATION: Blood pressure 111/70 with a heart rate in 70s. LUNGS: Clear. HEART: Regular rate and rhythm, S1, S2. No S3. No rub. ABDOMEN: Soft, nontender. EXTREMITIES: No edema. LAB DATA: Cholesterol 208, LDL of 120. Her echocardiogram performed yesterday revealed ejection fraction of 50% to 55% with mild mitral and tricuspid regurgitation. IMPRESSION: 1. Chest discomfort in a patient with known history of coronary disease. Rule out progression of disease. 2. History of hypertension. 3. Hyperlipidemia. RECOMMENDATIONS: The patient will undergo cardiac catheterization tomorrow by Dr. Praneeth Greenberg to evaluate her coronary anatomy and guide her treatment and depending on the results of testing, further recommendations will be made. MMODL / IJN: [id number] /
[2020-02-06 13:34] LABS: Hemoglobin A1C 5.5 % (4.0-6.0)
[2020-02-06] MEDS ORDERED: HYDROcodone/APAP 5-325MG 1 EACH TAB PO PRN (19:01)
[2020-02-06] MEDS ORDERED: PRAVASTATIN SODIUM 40 MG TAB PO SCH (21:00)
[2020-02-07] MEDS: LORATADINE 10 MG TAB PO SCH (00:19)
[2020-02-07] MEDS: PANTOPRAZOLE 40 MG TABLET PO SCH ×2 (00:19→10:08)
[2020-02-07] MEDS: MONTELUKAST 10 MG TAB PO SCH (00:19)
[2020-02-07] MEDS: EZETIMIBE 10 MG TAB PO SCH (00:19)
[2020-02-07] MEDS: ZOLPIDEM 5 MG TAB PO PRN (00:21)
[2020-02-07 01:43] VITALS: RESP 16
[2020-02-07] MEDS ORDERED: SODIUM CHLORIDE 0.9% 1,000 ML in EMPTY BAG 1 BAG IV ONE (06:00)
[2020-02-07] MEDS ORDERED: ASPIRIN 325 MG TAB PO ONE (06:00)
[2020-02-07] MEDS ORDERED: ATORVASTATIN 80 MG TAB PO ONE (06:00)
[2020-02-07] MEDS: LEVOTHYROXINE 137 MCG TAB PO SCH (06:43)
[2020-02-07 09:15] VITALS: PULSE 74
[2020-02-07] MEDS: FUROSEMIDE 20 MG TAB PO SCH (09:18)
[2020-02-07] MEDS: METOPROLOL TARTRATE 25 MG TAB PO SCH (10:08)
[2020-02-07] MEDS: CLOPIDOGREL 75 MG TAB PO SCH (10:08)
[2020-02-07] MEDS: ISOSORBIDE MONONITRATE ER 30 MG TAB.ER.24H PO SCH (10:08)
[2020-02-07] MEDS: ASPIRIN 81 MG PO SCH (10:08)
[2020-02-07] MEDS: amLODIPine 2.5 MG TAB PO SCH (10:08)
--- NOTE | 2020-02-07 10:10 | P.PN ---
Subjective Progress Note Date: 02/07/20 HISTORY OF PRESENT ILLNESS This is a pleasant 54-year-old female patient of Dr. Espinal, known history of CAD with multiple heart cath and stents, requiring mid LAD stent 2013, heart cath in September 2018 with 80% stenosis, along with history of statin intolerance, hyperlipidemia, lumbar disc disease hypothyroidism 3 nodes disease, admitted to the emergency room secondary to chest pressure. Patient has minimal relief with one sublingual nitroglycerin at home, was seen in emergency room for this particular chest pain. He spoke to Dr. LETY Greenberg, for which she was sarah eduled to have a heart cath on February 07, and requested to be seen in the emergency room for management. Prior history significant for sepsis from a previous gallbladder infection, requiring laparoscopic cholecystectomy February 2019, patient denies any GI bleed melena hematochezia no fever no chills. Patient is comfortable when seen in the medical floor, on IV heparin, Imdur, sublingual nitro when necessary, Plavix. Patient has contralateral stress, as they have recently finalized marriage contract, In the emergency room, troponins are point 0.0123, INR 0.9, liver function test s is normal, creatinine of 0.58, CBC is normal, LDL of 120, glucose of 89. Patient denies any history of diabetes PE DVT in the past, no history of aneurysm. He is now seen in observation floor, with consultation from cardiology echocardiogram EF 50-55%, with grade 1 diastolic dysfunction, no wall motion abnormality, right ventricular systolic pressure of less than 35, no aortic stenosis. EKG shows normal sinus rhythm heart rate 69, no acute ST-T wave changes, no old changes as well February 05: Patient's doing much better, no significant chest pain today, discussed diet, and initiation of another statin, she has high dose statin intolerance, was able to tolerate Zocor in the past until this was readjusted, LDL the past were under 70, however LDL this time was 120. Statin was disconti nued after her last lipid test in November, which reflects the low LDL of under 70. She is willing to try pravastatin 40 mg daily, with additional modification of diet. Awaiting For the morning 02/06: The patient is scheduled for heart catheterization today. She denies having any chest pain or shortness of breath. She discussed with Dr. Whitmore about starting pravastatin versus atorvastatin which she is willing to try. Patient has been afebrile, heart rate 74, blood pressure 134/84, pulse ox 97% on room air. A1c 5.5. Homocystine 9.62. Platelets are 178, cholesterol 208, LDL 120, HDL 52. REVIEW OF SYSTEMS At the time of evaluation: Constitutional: No fever, no chills, no night sweats. No weight change. No weakness, fatigue or lethargy. No daytime sleepiness. EENT: No headache. No blurred vision or double vision, no loss of vision. No dizziness. No nasal drainage or congestion. No epistaxis. No sore throat. Lungs: No shortness of breath, cough, no sputum production. No wheezing. Cardiovascular: No chest pain, no lower extremity edema. No palpitations. No paroxysmal nocturnal dyspnea. No orthopnea. No lightheadedness or dizziness. No syncopal episodes. Abdominal: No abdominal pain. No nausea, vomiting. No diarrhea. No constipation. No bloody or tarry stools. Genitourinary: No dysuria, increased frequency, urgency. Musculoskeletal: No myalgias. No muscle weakness, no gait dysfunction, no frequent falls. No back pain. No neck pain. Integumentary: No wounds, no lesions. No rash or pruritus. Neurologic: No aphasia. No facial droop. No change in mentation. No head injury. No headache. Psychiatric: No depression. No anxiety. No mood swings. Endocrine: No abnormal blood sugars. No weight change. PHYSICAL EXAMINATION Gen: This is a 54-year-old female. Patient is resting in bed and appears to be comfortable and in no acute distress. HEENT: Head is atraumatic, normocephalic. Pupils equal, round. Sclerae is anicteric. NECK: Supple. No JVD. No lymphadenopathy. No thyromegaly. LUNGS: Clear to auscultation. No wheezes or rhonchi. No intercostal ret ractions. HEART: Regular rate and rhythm. No murmur. ABDOMEN: Soft. Bowel sounds are present. No masses. No tenderness. EXTREMITIES: No pedal edema. No calf tenderness. Dorsalis pedis palpable gerry aterally. NEUROLOGICAL: Patient is awake, alert and oriented x3. Cranial nerves 2 through 12 are grossly intact. ASSESSMENT AND PLAN 1. Unstable angina with known history of CAD with disease in the mid LAD, requiring prior stent 2013 and 80% stenosis in the LAD with balloon angioplasty in 2019. Currently undergoing emotional stress, with recent divorce. Cardiology consult appreciated. Heart catheterization scheduled for today. Continue on aspirin 81 mg daily, she needs statins however she has previous history of statin intolerance, Lipitor was given the emergency room, patient most likely can benefit from PSK9 drugs which could be out the rest as an outpatient. Continue on sublingual nitro when necessary, and metoprolol 25 mg daily start pravastatin 40 mg daily, did not tolerate high-dose Zocor 2. Mild intermittent asthma without any exacerbation, Singulair daily 3. Prior history of cholecystectomy, complicated by sepsis, February 2019 4. Coronary artery disease status post stenting and PTCA. Continue Imdur 30 mg daily, metoprolol 12.5 twice a day, aspirin 81 mg daily. Plavix. Will need statin, or PSK 9 LDL is 120 5. Hypothyroidism. Continue levothyroxine 137 g Friday through Friday. 6. Mild persistent asthma. Continue nebulizer treatments, Claritin, Singulair. 7. Hyperlipidemia. Continue Zetia 10 mg at bedtime. Start pravastatin 40 start pravastatin 40 for which she agreed to try did not tolerate high-dose Zocor 80 8. Gastroesophageal reflux disease. Continue omeprazole 20 mg twice daily or equivalent. 9. DVT prophylaxis. Heparin subcu. DISCHARGE PLAN Home. Impression and plan of care have been directed as dictated by the signing physician. Toya Jung nurse practitioner acting as scribe for signing physician. Objective - Vital Signs Vital signs: Vital Signs Temp 97.6 F 02/07/20 03:00 Pulse 85 02/07/20 03:00 Resp 16 02/07/20 03:00 BP 101/63 02/07/20 03:00 Pulse Ox 94 L 02/07/20 03:00 Intake & Output 02/06/20 02/07/20 02/07/20 18:59 06:59 18:59 Intake Total 480 Balance 480 Intake: Oral 480 Other: Voiding Method Toilet # Voids 2 - Labs CBC & Chem 7: 02/04/20 19:20 02/04/20 19:20
[2020-02-07] MEDS ORDERED: IV FLUID CONTINUATION 650 ML IV ONE (11:29)
[2020-02-07] MEDS ORDERED: MIDAZOLAM 2 MG/2 ML VIAL IV ONE (11:56)
[2020-02-07] MEDS ORDERED: HYDROmorphone 0.5 MG/0.5 ML SYRINGE IVP ONE (11:58)
[2020-02-07] MEDS ORDERED: diphenhydrAMINE 50 MG/ML 1 ML VIAL IVP ONE (12:00)
[2020-02-07] MEDS ORDERED: LIDOCAINE 1% INJ 10MG/ML (10 ML MDV) SQ ONE (12:00)
[2020-02-07] MEDS: ATROPINE SULFATE 0.1 MG/ML 10ML SYRINGE IV ONE ×2 (12:08→12:10)
[2020-02-07] MEDS: NITROGLYCERIN 1000MCG/10ML SYRINGE INTRACORON ONE ×2 (12:20→12:48)
[2020-02-07] MEDS ORDERED: BIVALIRUDIN BOLUS 250 MG/50 ML IV ONE (12:31)
[2020-02-07] MEDS ORDERED: BIVALIRUDIN 250 MG in SODIUM CHLORIDE 0.9% 50 ML IV ONE (12:32)
[2020-02-07] MEDS ORDERED: IOPAMIDOL-370 100ML BTL INJ ONE ×2 (12:33→12:52)
[2020-02-07] MEDS ORDERED: CLOPIDOGREL 75 MG TAB PO ONE (12:50)
[2020-02-07] MEDS ORDERED: ONDANSETRON 4 MG/2 ML VIAL IVP ONE (13:13)
[2020-02-07] MEDS ORDERED: MAG HYDROX/AL HYDROX/SIMETH 30 ML CUP PO ONE (13:13)
[2020-02-07] MEDS: SODIUM CHLORIDE 0.9% 1,000 ML IV SCH (13:15)
[2020-02-07] MEDS: ACETAMINOPHEN TAB 325 MG TAB PO PRN (15:48)
[2020-02-07] MEDS ORDERED: FUROSEMIDE 20 MG TAB PO STA (17:19)
--- NOTE | 2020-02-07 19:42 | CC ---
CARDIAC CATHETERIZATION REPORT DATE OF SERVICE: 02/07/2020. PROCEDURE PERFORMED: 1. Left heart catheterization and coronary angiography. 2. PTCA and stenting of a proximal dominant RCA with a drug-eluting stent. PERFORMED BY: Dr. Praneeth Greenberg. SEDATION: Moderate conscious sedation time was 57 minutes. Patient was administered Versed. Oxygen saturation, hemodynamics and EKG were monitored closely. CLINICAL INFORMATION: Mrs. Violette Mejias is a 54-year-old lady with a history of bronchial asthma, some Raynaud phenomena, CAD, family history of premature coronary artery disease. She underwent stenting of LAD performed initially in 2013 and subsequently the last intervention was performed of a bifurcation LAD diagonal. Kissing balloon technique was used to perform this vessel. A 2.25 caliber 8 mm balloon was used for the diagonal and a 3.0 caliber 12 mm NC Trek balloon was used for the LAD. Kissing balloon technique was performed. After that, she had a repeat cardiac cath a couple of weeks later, which revealed that the vessel was patent by ultrasound also. However, she has been having symptoms of angina, was hospitalized with unstable angina. No troponin elevation, but because of her previous intervention, she was advised coronary angiography and PCI if indicated. She has a dominant RCA without significant disease and also circumflex nondominant, but no significant disease based on a cardiac cath from March 2018. She was advised cardiac cath after due discussion regarding risks, benefits, and options. PROCEDURE NOTE: Under local anesthesia and strict aseptic precautions, a 6-Turkish introducer was placed in the right femoral artery. Using JR4 and JL 3.5 catheters, I performed selective coronary angiography. I used the same right catheter to check LV pressures but did not perform an LV gram. Following the cardiac catheterization procedure, I proceeded to perform intervention of the RCA in the same setting. CARDIAC CATHETERIZATION FINDINGS: Left ventricular end-diastolic pressure was 5 mmHg without any gradient across the aortic valve. CORONARY ANGIOGRAPHY FINDINGS: RIGHT CORONARY ARTERY: Technically this is a dominant vessel, very proximally, there is 80-90 percent lesion and distally bifurcates into a PDA and PLV branch. Proximally in the ostium, when I cannulated the right coronary artery, there was some damping suggesting a moderate ostial lesion, but in the proximal portion after the origin of a conus branch, there was an eccentric 80% lesion which I thought initially was spasm. I gave some nitroglycerin and rechecked it but the lesion persisted and appears to be quite significant 80-90 percent proximal RCA lesion, very concentric seen in multiple projections. The lesion is located after a conus branch and a small acute marginal branch. Distally, the vessel appears to be of good caliber. There is some damping with the cannulation, but there is modest amount of reflux noted. LEFT MAIN CORONARY ARTERY: Short patent vessel, free of significant disease that bifurcates into LAD and circumflex. LEFT ANTERIOR DESCENDING CORONARY ARTERY: Good caliber vessel, has a 35% lesion. The stented area just before the diagonal and after the diagonal is widely patent with good flow. The diagonal has about a 40% narrowing but the flow is excellent in the diagonal. The LAD diagonal have no significant disease. There are small septal branches free of significant disease. LEFT POSTERIOR CIRCUMFLEX CORONARY ARTERY: Nondominant vessel gives off 2 small obtuse marginal branches and then continues distally as a posterolateral branch. No significant disease in the nondominant circumflex system. Left ventriculogram was not performed. FINAL IMPRESSION: This patient has a new lesion in the dominant RCA with an ostial dampening and also proximal 80-90 percent lesion. This may be the culprit lesion. LAD that was stented and had a kissing balloon performed in March of 2018, now is widely patent. There is no more than 30 to 35% narrowing in the diagonal branch, but LAD itself appears to be of good caliber and distribution. Beyond the stented segment in mid LAD, there is about a 40% lesion, but the flow is very brisk. The filling pressures are normal and there is no gradient across aortic valve. RECOMMENDATIONS: I am recommended PCI of RCA. LAD does not require any intervention. The lesion distal to the stented segment does not appear to be significant in multiple views. I recommended PCI of RCA and performed this in the same setting. PCI PROCEDURE DETAILS: I used a right Odalis guide catheter 4.0 curved and a run-through wire. With this combination, I crossed the lesion and pre-dilated with a 2.5 12 mm NC Trek balloon at 12 atmospheres. I then deployed a 12 mm long Xience stent at 13-14 atmospheres. Patient had chest and abdominal discomfort but no EKG changes. Excellent angiographic result was achieved without complication. The sheath was then taken out and Angio-Seal device used to secure hemostasis. Before I began the procedure, after placing the sheath in the groin, she had an episode of vasovagal type situation with a heart rate in the low 50s and blood pressure in the 80s requiring IV fluids and 1 mg of atropine for after which she has stabilized. This issue did not occur after I placed the Angio-Seal. The patient had some nausea for which I gave her some Zofran. Excellent angiographic result was achieved. Patient received Angiomax bolus and infusion as per protocol and also received 300 mg of Plavix at the end of the procedure and she was already on aspirin and Plavix. I expect she will be discharged tomorrow if she remains stable. MMODL / IJN: [id number] /
[2020-02-08] MEDS: ZOLPIDEM 5 MG TAB PO PRN (00:07)
[2020-02-08] MEDS: MONTELUKAST 10 MG TAB PO SCH (00:07)
[2020-02-08] MEDS: PANTOPRAZOLE 40 MG TABLET PO SCH ×2 (00:07→07:44)
[2020-02-08] MEDS: LORATADINE 10 MG TAB PO SCH (00:07)
[2020-02-08] MEDS: EZETIMIBE 10 MG TAB PO SCH (00:07)
[2020-02-08] MEDS: SODIUM CHLORIDE 0.9% 1,000 ML IV SCH (00:07)
[2020-02-08] MEDS: LEVOTHYROXINE 137 MCG TAB PO SCH (06:06)
[2020-02-08] MEDS: ISOSORBIDE MONONITRATE ER 30 MG TAB.ER.24H PO SCH (07:43)
[2020-02-08] MEDS: METOPROLOL TARTRATE 25 MG TAB PO SCH (07:44)
[2020-02-08] MEDS: ASPIRIN 81 MG PO SCH (07:44)
[2020-02-08] MEDS: amLODIPine 2.5 MG TAB PO SCH (07:44)
[2020-02-08] MEDS: CLOPIDOGREL 75 MG TAB PO SCH (07:46)
[2020-02-08 07:51] VITALS: BP 105/70; TEMP 97.7
--- NOTE | 2020-02-08 08:40 | P.DS ---
Providers Date of admission: 02/07/20 07:30 Expected date of discharge: 02/08/20 Attending physician: Vicki Whitmore Consults: 02/04/20 20:04 Consult Physician Urgent Consulting Provider: Isidoro Greenberg Consult Reason/Comments: chest pain Do you want consulting provider notified?: Yes [facility]: HISTORY OF PRESENT ILLNESS This is a pleasant 54-year-old female patient of Dr. Espinal, known history of CAD with multiple heart cath and stents, requiring mid LAD stent 2013, heart cath in September 2018 with 80% stenosis, along with history of statin intolerance, hyperlipidemia, lumbar disc disease hypothyroidism 3 nodes disease, admitted to the emergency room secondary to chest pressure. Patient has minimal relief with one sublingual nitroglycerin at home, was seen in emergency room for this particular chest pain. He spoke to Dr. LETY Greenberg, for which she was scheduled to have a heart cath on February 07, and requested to be seen in the emergency room for management. Prior history significant for sepsis from a previous gallbladder infection, requiring laparoscopic cholecystectomy February 2019, patient denies any GI bleed melena hematochezia no fever no chills. Patient is comfortable when seen in the medical floor, on IV heparin, Imdur, sublingual nitro when necessary, Plavix. Patient has contralateral stress, as they have recently finalized marriage contract, In the emergency room, troponins are point 0.0123, INR 0.9, liver function tests is normal, creatinine of 0.58, CBC is normal, LDL of 120, glucose of 89. Patient denies any history of diabetes PE DVT in the past, no history of aneurysm. He is now seen in observation floor, with consultation from cardiolog y echocardiogram EF 50-55%, with grade 1 diastolic dysfunction, no wall motion abnormality, right ventricular systolic pressure of less than 35, no aortic stenosis. EKG shows normal sinus rhythm heart rate 69, no acute ST-T wave changes, no old changes as well February 05: Patient's doing much better, no significant chest pain today, discussed diet, and initiation of another statin, she has high dose statin intolerance, was able to tolerate Zocor in the past until this was readjusted, LDL the past were under 70, however LDL this time was 120. Statin was discontinued after her last lipid test in November, which reflects the low LDL of under 70. She is willing to try pravastatin 40 mg daily, with additional modification of diet. Awaiting For the morning 02/06: The patient is scheduled for heart catheterization today. She denies having any chest pain or shortness of breath. She discussed with Dr. Whitmore about starting pravastatin versus atorvastatin which she is willing to try. Patient has been afebrile, heart rate 74, blood pressure 134/84, pulse ox 97% on room air. A1c 5.5. Homocystine 9.62. Platelets are 178, cholesterol 208, LDL 120, HDL 52. 02/07: Yesterday, patient underwent heart catheterization with Dr. LETY Greenberg that found severe stenosis in the proximal right coronary artery and underwent successful stenting of the vessel. She had patent stents in the LAD and diagonal branch. This morning, patient denies having any chest pain or shortness of breath. She was seen by Dr. LETY Greenberg this morning and agreed to take Lipitor and try it for one month. Pravastatin will be discontinued and Lipitor sent to her pharmacy. She has been afebrile, heart rate 74, blood pressure 105/70, pulse ox 95% on room air. Repeat creatinine 0.61. Patient will be discharged home today in stable condition. DISCHARGE DIAGNOSES 1. Unstable angina status post stent in the proximal RCA 2. Asthma, mild intermittent without exacerbation 3. Prior history of cholecystectomy, complicated by sepsis, February 2019 4. Coronary artery disease status post stenting and PTCA. 5. Hypothyroidism. 6. Mild persistent asthma. 7. Hyperlipidemia. 8. Gastroesophageal reflux disease. Discharge plan: Home Impression and plan of care have been directed as dictated by the signing physician. Toya Jung nurse practitioner acting as scribe for signing physician. Patient Condition at Discharge: Good Plan - Discharge Summary Discharge Rx Participant: No New Discharge Prescriptions: New Atorvastatin [Lipitor] 40 mg PO HS #30 tablet Continue Montelukast [Singulair] 10 mg PO HS Loratadine [Claritin] 10 mg PO HS amLODIPine BESYLATE [Norvasc] 2.5 mg PO DAILY Clopidogrel [Plavix] 75 mg PO DAILY Cholecalciferol [Vitamin D3 (25 Mcg = 1000 Iu)] 5,000 unit PO DAILY Nitroglycerin Sl Tabs [Nitrostat] 0.4 mg SUBLINGUAL Q5M PRN #25 tab PRN Reason: Chest Pain Omeprazole 20 mg PO BID Albuterol Nebulized [Ventolin Nebulized] 2.5 mg INHALATION RT-QID PRN PRN Reason: Shortness Of Breath Metoprolol Tartrate 25 mg PO DAILY Ezetimibe [Zetia] 10 mg PO HS Aspirin EC [Ecotrin Low Dose] 81 mg PO DAILY Levothyroxine Sodium [Synthroid] 137 mcg PO MOTUWETHFRSA Isosorbide Mononitrate ER [Imdur] 30 mg PO DAILY Furosemide [Lasix] 20 mg PO DAILY Ascorbic Acid [Vitamin C] 2,000 mg PO W/LUNCH Zolpidem [Ambien] 5 mg PO HS PRN PRN Reason: Insomnia Turmeric Root Extract [Turmeric] 500 mg PO W/LUNCH Glucos Sul 2Kcl/MSM/Chond/C/Mn [Glucosamine Chondroitin Cap] 1 cap PO W/LUNCH Vitamin A 2,400 mcg PO DAILY Albuterol Sulfate [Albuterol Sulfate Hfa] 2 puff PO RT-BID Calcium Carbonate [Calcium] 1,200 mg PO W/LUNCH Discharge Medication List Loratadine [Claritin] 10 mg PO HS 08/17/13 [History] Montelukast [Singulair] 10 mg PO HS 08/17/13 [History] amLODIPine BESYLATE [Norvasc] 2.5 mg PO DAILY 12/12/13 [History] Clopidogrel [Plavix] 75 mg PO DAILY 05/23/14 [History] Cholecalciferol [Vitamin D3 (25 Mcg = 1000 Iu)] 5,000 unit PO DAILY 06/30/15 [History] Nitroglycerin Sl Tabs [Nitrostat] 0.4 mg SUBLINGUAL Q5M PRN #25 tab 07/04/15 [Rx] Omeprazole 20 mg PO BID 10/30/15 [History] Albuterol Nebulized [Ventolin Nebulized] 2.5 mg INHALATION RT-QID PRN 04/05/16 [History] Ezetimibe [Zetia] 10 mg PO HS 04/07/18 [History] Metoprolol Tartrate 25 mg PO DAILY 04/07/18 [History] Aspirin EC [Ecotrin Low Dose] 81 mg PO DAILY 04/10/18 [History] Levothyroxine Sodium [Synthroid] 137 mcg PO MOTUWETHFRSA 04/10/18 [History] Ascorbic Acid [Vitamin C] 2,000 mg PO W/LUNCH 02/27/19 [History] Furosemide [Lasix] 20 mg PO DAILY 02/27/19 [History] Isosorbide Mononitrate ER [Imdur] 30 mg PO DAILY 02/27/19 [History] Zolpidem [Ambien] 5 mg PO HS PRN 03/31/19 [History] Glucos Sul 2Kcl/MSM/Chond/C/Mn [Glucosamine Chondroitin Cap] 1 cap PO W/LUNCH 02/01/20 [History] Turmeric Root Extract [Turmeric] 500 mg PO W/LUNCH 02/01/20 [History] Vitamin A 2,400 mcg PO DAILY 02/01/20 [History] Albuterol Sulfate [Albuterol Sulfate Hfa] 2 puff PO RT-BID 02/04/20 [History] Calcium Carbonate [Calcium] 1,200 mg PO W/LUNCH 02/04/20 [History] Atorvastatin [Lipitor] 40 mg PO HS #30 tablet 02/08/20 [Rx] Follow up Appointment(s)/Referral(s): Isidoro Greenberg MD [STAFF PHYSICIAN] - 02/15/20 2:30 pm Rey Espinal DO [Primary Care Provider] - 1 Week Patient Instructions/Handouts: *Surgery [facility] - After Heart Catheterization - Sign Erector Instructions Discharge Disposition: HOME SELF-CARE
[2020-02-08] MEDS ORDERED: ATORVASTATIN 40 MG TAB PO SCH (09:00)
--- NOTE | 2020-02-08 09:18 | PN ---
PROGRESS NOTE Mrs. Mejias is a 54-year-old female with a history of coronary artery disease who presented with symptoms of chest discomfort, underwent cardiac catheterization yesterday by Dr. Greenberg and was found to have severe stenosis in the proximal right coronary artery and underwent successful stenting of that vessel. She is doing well this morning. She is denying any symptoms of chest pain. She denies any dizziness, palpitation. She denies any nausea or vomiting. She was found to have patent stents to the LAD and to the diagonal branch. She continues to be at this time on aspirin once a day, amlodipine 2.5 mg daily, Lipitor 40 mg daily, Plavix 75 mg daily, Zetia 10 mg daily, Lasix 20 mg daily, isosorbide mononitrate 30 mg daily, levothyroxine, metoprolol tartrate 25 mg daily. PHYSICAL EXAMINATION: Blood pressure 105/70 with a heart rate in the 60s and 70s. LUNGS: Clear. HEART: Regular rate and rhythm, S1, S2. No S3. No rub. ABDOMEN: Soft, nontender, right groin no hematoma. IMPRESSION: 1. Status post stenting of the RCA, stable. 2. Prior history of coronary artery disease. 3. Hypertension. 4. Hyperlipidemia. RECOMMENDATION: From the cardiac standpoint, she should be able to be discharged home today and follow up in one week with Dr. Greenberg. MMODL / IJN: [id number] /
[2020-02-08 10:14] LABS: HCT 39.4 % (34.0-46.0); HGB 13.6 gm/dL (11.4-16.0); MCH 33.5 pg (25.0-35.0); MCHC 34.5 g/dL (31.0-37.0); MCV 97.2 fL (80.0-100.0); Mean Platelet Volume 6.5; Platelet Count 253 k/uL (150-450); RBC 4.05 m/uL (3.80-5.40); RDW 11.6 % (11.5-15.5); WBC 5.9 k/uL (3.8-10.6)
[2020-02-08 10:23] LABS: African American GFR (CKD) >90 (>60 ml/min/1.73 sqM); Anion Gap 5 mmol/L; Blood Urea Nitrogen 11 mg/dL (7-17); Calcium 9.6 mg/dL (8.4-10.2); Carbon Dioxide 27 mmol/L (22-30); Chloride 104 mmol/L (98-107); Glucose 107 mg/dL (74-99); Non-African American GFR(CKD) >90 (>60 ml/min/1.73 sqM); Potassium 4.3 mmol/L (3.5-5.1); Sodium 136 mmol/L (137-145)
[2020-02-08] MEDS: FUROSEMIDE 20 MG TAB PO SCH (11:01)
== END 2020-02-08 12:39 | disposition home or self-care (01) | DRG 247 ==
LOC: EC 18:40 → 1SOBS 20:06 → OBSVTOIN 02-07 07:30
PROVIDERS: ADMIT Family Medicine; ATTEND Family Medicine
DX: I25.110 Atherosclerotic heart disease of native coronary artery with unstable angina pectoris (principal); E78.5 Hyperlipidemia, unspecified; E03.9 Hypothyroidism, unspecified; I10 Essential (primary) hypertension; I73.00 Raynaud's syndrome without gangrene; J45.30 Mild persistent asthma, uncomplicated; K21.9 Gastro-esophageal reflux disease without esophagitis; Z79.02 Long term (current) use of antithrombotics/antiplatelets; Z79.82 Long term (current) use of aspirin; Z79.890 Hormone replacement therapy; Z79.899 Other long term (current) drug therapy; Z82.49 Family history of ischemic heart disease and other diseases of the circulatory system; Z83.3 Family history of diabetes mellitus; Z90.49 Acquired absence of other specified parts of digestive tract; Z91.013 Allergy to seafood; Z88.2 Allergy status to sulfonamides; Z91.09 Other allergy status, other than to drugs and biological substances; Z87.01 Personal history of pneumonia (recurrent); Z95.5 Presence of coronary angioplasty implant and graft; Z98.890 Other specified postprocedural states; Z80.9 Family history of malignant neoplasm, unspecified
CPT/HCPCS: 36415; 71045; 80048; 80053; 80061; 83036; 83090; 83735; 84484; 85025; 85027; 85610; 85730; 93005; 93306; 93458; 96365; 96366; 96376; 99285

== ENCOUNTER → 2020-04-03 | Outpatient (CLI) | payer MEDICAID ==
[2020-04-03 21:09] LABS: Chol/HDL Ratio 3.3; LDL Cholesterol,Calculated 58.2 mg/dL (0.0-131.0); VLDL Calculation 42.8 mg/dL (5.00-40.00)
== END | disposition home or self-care (01) ==
LOC: LABWHC1 12:03
PROVIDERS: ATTEND Internal Medicine Interventional Cardiology
DX: I25.10 Atherosclerotic heart disease of native coronary artery without angina pectoris (principal); E78.5 Hyperlipidemia, unspecified
CPT/HCPCS: 36415; 80061; 82550; 84450; 84460

== ENCOUNTER → 2020-04-26 | Outpatient (CLI) | payer MEDICAID ==
--- NOTE | 2020-04-26 11:48 | XR ---
EXAMINATION TYPE: XR ribs RT DATE OF EXAM: 04/26/2020 CLINICAL HISTORY: Pain, Fall Four views of the ribs fail demonstrate evidence for displaced rib fracture or secondary sign of rib fracture. Visualized lungs are clear. No evidence for pneumothorax. IMPRESSION: 1. No displaced rib fractures seen. ICD 10 NO FRACTURE, INITIAL EVALUATION
== END | disposition home or self-care (01) ==
LOC: RADXRMAIN 10:56
PROVIDERS: ATTEND Family Medicine
DX: R07.81 Pleurodynia (principal)

== ENCOUNTER → 2020-08-30 | Outpatient (CLI) | payer MEDICAID ==
--- NOTE | 2020-08-30 16:04 | XR ---
EXAMINATION TYPE: XR cervical spine comp DATE OF EXAM: 08/30/2020 TECHNIQUE: Frontal, lateral, oblique, swimmers, and open mouth view of the cervical spine are obtaine d. HISTORY: Radiculopathy COMPARISON: None FINDINGS: Vertebral body heights are preserved. There is reversal of the normal cervical lordosis. There is mil d retrolisthesis of C4 on 5 and C5 on 6 measuring 3 mm and 4 mm respectively. Multilevel endplate scl erosis and osteophytosis is seen. There is multilevel uncovertebral and facet arthropathy with bony e ncroachment upon the left C4-5, C5-6 and C6-7 and right C5-6 and C6-7 neural foramen. No enlargement of the prevertebral soft tissues. IMPRESSION: Reversal of the normal cervical lordosis with mild retrolisthesis of C4 on 5 and C5 on 6 with multilevel disc disease and osteoarthritic changes.
== END | disposition home or self-care (01) ==
LOC: RADXRMAIN 15:39
PROVIDERS: ATTEND Family Medicine
DX: M47.22 Other spondylosis with radiculopathy, cervical region (principal)
CPT/HCPCS: 72050

== ENCOUNTER → 2020-11-23 | Outpatient (CLI) | payer MEDICARE ==
--- NOTE | 2020-11-23 15:22 | US ---
EXAMINATION TYPE: US carotid duplex BILAT DATE OF EXAM: 11/23/2020 COMPARISON: NONE CLINICAL HISTORY: 55-year-old female I65.29 Occlusion/stenosis of unspecified carotid artery. CAD TECHNIQUE: Carotid duplex ultrasound examination. Indirect Doppler criteria was utilized. FINDINGS: EXAM MEASUREMENTS: RIGHT: Peak Systolic Velocity (PSV) cm/sec ----- Right CCA: 58.1 ----- Right ICA: 89.7 ----- Right ECA: 109.5 ICA/CCA ratio: 1.5 RIGHT: End Diastole cm/sec ----- Right CCA: 23.2 ----- Right ICA: 42.4 ----- Right ECA: 21.5 LEFT: Peak Systolic Velocity (PSV) cm/sec ----- Left CCA: 61.6 ----- Left ICA: 88.6 ----- Left ECA: 88.6 ICA/CCA ratio: 1.4 LEFT: End Diastole cm/sec ----- Left CCA: 20.4 ----- Left ICA: 32.8 ----- Left ECA: 18.8 VERTEBRALS (direction of flow): Right Vertebral: Antegrade Left Vertebral: Antegrade Rhythm: Normal Mild plaque bilateral bifurcations. No evidence of increased velocities IMPRESSION: Mild bilateral atherosclerotic changes at the left greater than right bifurcations. No hemodynamicall y significant ICA stenosis on either side. Criteria for Assigning % of Stenosis / Diameter reduction (Estimation based on the indirect measurements of the internal carotid artery velocities (ICA PSV). 1. Normal (no stenosis)=ICA PSV < 125 cm/s: ratio < 2.0: ICA EDV<40 cm/s. 2. Less than 50% stenosis=ICA PSV < 125 cm/s: ratio < 2.0: ICA EDV<40 cm/s. 3. 50 to 69% stenosis=ICA PSV of 125 to 230 cm/s: ration 2.0 ? 4.0: ICA EDV 40-100 cm/s. 4. Greater than 70% stenosis to near occlusion= ICA PSV > 230 cm/s: ratio > 4.0: ICA EDV > 100 cm/s. 5. Near occlusion= ICA PSV velocities may be low or undetectable: variable ratio and ICA EDV. 6. Total occlusion=unable to detect flow.
== END | disposition home or self-care (01) ==
LOC: RADUSWWP 12:19
PROVIDERS: ATTEND Family Medicine
DX: I65.23 Occlusion and stenosis of bilateral carotid arteries (principal)
CPT/HCPCS: 93880

== ENCOUNTER → 2020-12-15 | Outpatient (CLI) | payer MEDICARE ==
--- NOTE | 2020-12-15 19:11 | XR ---
Bilateral feet HISTORY: Pain 3 views of each foot, correlation to prior radiograph right foot 05/05/2017 Bone mineralization, joint spaces and alignment are maintained. IMPRESSION: Normal feet
== END | disposition home or self-care (01) ==
LOC: RADXRMAIN 16:25
PROVIDERS: ATTEND Family Medicine
DX: M79.671 Pain in right foot (principal); M79.672 Pain in left foot

== ENCOUNTER → 2021-01-31 | Outpatient (CLI) | payer MEDICARE ==
--- NOTE | 2021-01-31 21:50 | CONS ---
CONSULTATION DATE OF SERVICE: 01/31/2021 This 55-year-old lady has been evaluated in [facility] for obstructive sleep apnea- hypopnea syndrome. HISTORY OF PRESENT ILLNESS/SLEEP-WAKE EVALUATION: This patient was diagnosed with obstructive sleep apnea about 15 years ago, was started on treatment with CPAP but then lost weight and subsequently stopped therapy. About 5 years results of sleep study were in normal range. Presently patient's weight increased and she again developed symptoms of sleep apnea. Her sleep schedule is from midnight or 1 a.m. until 10 or 11 a.m. No problems with falling asleep. No TV in bedroom. She usually sleeps on the back and side positions. According to her family, she snores very loudly and she wakes up from sleep 4 times with up to 2 episodes of nocturia. No history of hypnagogic hallucinations, sleep paralysis or cataplexy. [place] Sleepiness Scale is 7. She rarely takes naps. No problems with falling asleep at night. No TV in bedroom. PAST MEDICAL HISTORY: Positive for coronary artery disease, status post several stent insertions, hypothyroidism, hyperlipidemia, asthma, endometriosis. PAST SURGICAL HISTORY: Cholecystectomy, ablation for endometriosis, tonsillectomy, appendectomy, multiple cardiac catheterizations and stent insertions. MEDICATIONS: 1. Lasix 20 mg once a day. 2. Metoprolol 25 mg once a day. 3. Imdur 30 mg once a day. 4. Aspirin 81 mg once a day. 5. Norvasc 2.5 mg once a day. 6. Plavix 75 mg once a day. 7. Synthroid 137 mcg once a day. 8. Omeprazole 20 mg twice a day. 9. Singulair 10 mg at bedtime. 10.Zetia 10 mg at bedtime. 11.Lipitor 20 mg at bedtime. 12.Loratadine 10 mg at bedtime. 13.Vitamin D, C, A, zinc, calcium supplement. 14.Albuterol inhaler. 15.Spironolactone 50 mg once a day. 16.Methocarbamol 750 mg 3 times a day. 17.Ambien 10 mg half tablet at bedtime if necessary. SOCIAL HISTORY: Quit smoking 23 years ago. Alcohol consumption: None. FAMILY HISTORY: Diabetes, mental illness, crib , cancer, arthritis, stroke. REVIEW OF SYSTEMS: Multiple awakenings from sleep, snoring. No fevers. No double vision. No recent chest pain. No shortness of breath. No abdominal pain. No bleeding episodes. No blood in the urine. No seizure episodes. PHYSICAL EXAMINATION: GENERAL: Pleasant lady without distress. VITAL SIGNS: BP 107/72, HR 75, RR 15, height 5 feet 3 inches, weight 211.8, temperature 97.4, oxygen saturation at room air 97%. BMI 37.3. HEENT: PERRLA, EOMI, evaluation of oropharynx showed tongue protrudes midline. Low position of soft palate; Mallampati III to IV. NECK: Supple, no JVD. Thyroid is not palpable. Neck is wide at 15-3/4 inches in circumference. LUNGS: Clear to percussion and to auscultation. Good air exchange. No wheezing or rhonchi. HEART: S1, S2 regular. No murmurs, gallops, or rubs. ABDOMEN: Obese. EXTREMITIES: No clubbing or cyanosis. ASSEMBLER WATCH TRAIN: Awake, alert, and oriented X3. Cranial nerves 2 to 7 intact. There is no fasciculation or atrophy. noted. No focal deficits observed. IMPRESSION: 1. History of obstructive sleep apnea in the past, loud snoring, episodes of stopped breathing during sleep, low position of soft palate, Mallampati III to IV, awakenings from sleep; obstructive sleep apnea-hypopnea syndrome. 2. Coronary artery disease, status post multiple stent insertions. 3. Hypothyroidism. 4. Asthma. 5. Hyperlipidemia. 6. Status post tonsillectomy. 7. Endometriosis, status post uterus ablation. 8. Status post cholecystectomy. PLAN: 1. Polysomnography for evaluation of patient's breathing during sleep. 2. CPAP/BiPAP titration if sleep study confirms obstructive sleep apnea-hypopnea syndrome. 3. Preferable position during sleep on the side. 4. No driving if patient feels any sleepiness. 5. I will see patient for follow up visit to explain results of testing and following plan. Thank you very much for referring this patient for reevaluation. Sincerely, Leo Sage MD, PhD, FAASM Diplomat of [place] [employer] Sleep Medicine [employer] [place] [employer] [place] Worker of [facility] [place] MMODL / IJN: [id number] /
== END ==
LOC: SLEEP 15:45
PROVIDERS: ATTEND Internal Medicine
DX: G47.33 Obstructive sleep apnea (adult) (pediatric) (principal); E03.9 Hypothyroidism, unspecified; I25.10 Atherosclerotic heart disease of native coronary artery without angina pectoris; J45.909 Unspecified asthma, uncomplicated; E78.5 Hyperlipidemia, unspecified; N80.9 Endometriosis, unspecified; Z90.09 Acquired absence of other part of head and neck; Z90.49 Acquired absence of other specified parts of digestive tract; Z98.890 Other specified postprocedural states; Z79.82 Long term (current) use of aspirin; Z79.890 Hormone replacement therapy; Z79.51 Long term (current) use of inhaled steroids; Z87.891 Personal history of nicotine dependence; Z91.048 Other nonmedicinal substance allergy status; Z91.013 Allergy to seafood; Z88.2 Allergy status to sulfonamides; Z88.8 Allergy status to other drugs, medicaments and biological substances
CPT/HCPCS: 99211

== ENCOUNTER 2021-03-16 21:12 | Emergency (ER) | payer MEDICARE ==
[2021-03-16] MEDS ORDERED: ONDANSETRON 4 MG/2 ML VIAL IVP STA (23:15)
[2021-03-16] MEDS ORDERED: KETOROLAC 15 MG/ML 1 ML VIAL IVP STA (23:15)
[2021-03-16] MEDS ORDERED: SODIUM CHLORIDE 0.9% 1,000 ML IV STA (23:15)
[2021-03-16] MEDS ORDERED: ACETAMINOPHEN TAB 500 MG TAB PO STA (23:15)
[2021-03-16] MEDS ORDERED: DEXAMETHASONE SOD PHOSPHATE 10 MG/ML 1 ML VIAL IVP STA (23:15)
--- NOTE | 2021-03-16 23:35 | ED ---
Recheck HPI - General Chief Complaint: Upper Respiratory Infection Stated Complaint: wants bam infusion Time Seen by Provider: 03/16/21 23:15 Source: patient, RN notes reviewed, old records reviewed Mode of arrival: ambulatory Limitations: no limitations - History of Present Illness Initial Comments: This is a 55-year-old female to the ER today for evaluation. Patient does suffer from asthma is on day 3-5 of coronavirus. Did test positive for rivera virus. Patient has history of asthma. Patient has not only several from shortness of breath this increasing weakness nausea vomiting body aches pains fatigue overall lack of not feeling well. Patient denying current chest pain MD Complaint: abnormal lab (Positive for coronavirus) -: days(s) (5) Returns Today for: Called Because of Abnormal Lab/Test, persistent/worsening pain related to initial visit Symptoms Since Prior Visit: worsening pain, fever Associated Symptoms: fever, chills, malaise, nausea Treatments Prior to Arrival: other medications - Related Data Home Medications Medication Instructions Recorded Confirmed Loratadine [Claritin] 10 mg PO HS 08/17/13 02/05/20 Montelukast [Singulair] 10 mg PO HS 08/17/13 02/05/20 amLODIPine BESYLATE [Norvasc] 2.5 mg PO DAILY 12/12/13 02/05/20 Clopidogrel [Plavix] 75 mg PO DAILY 05/23/14 02/05/20 Cholecalciferol [Vitamin D3 (25 5,000 unit PO DAILY 06/30/15 02/05/20 Mcg = 1000 Iu)] Omeprazole 20 mg PO BID 10/30/15 02/05/20 Albuterol Nebulized [Ventolin 2.5 mg INHALATION RT-QID PRN 04/05/16 02/05/20 Nebulized] Ezetimibe [Zetia] 10 mg PO HS 04/07/18 02/05/20 Metoprolol Tartrate 25 mg PO DAILY 04/07/18 02/05/20 Aspirin EC [Ecotrin Low Dose] 81 mg PO DAILY 04/10/18 02/05/20 Levothyroxine Sodium [Synthroid] 137 mcg PO MOTUWETHFRSA 04/10/18 02/05/20 Ascorbic Acid [Vitamin C] 2,000 mg PO W/LUNCH 02/27/19 02/05/20 Furosemide [Lasix] 20 mg PO DAILY 02/27/19 02/05/20 Isosorbide Mononitrate ER [Imdur] 30 mg PO DAILY 02/27/19 02/05/20 Zolpidem [Ambien] 5 mg PO HS PRN 03/31/19 02/05/20 Glucos Sul 2Kcl/MSM/Chond/C/Mn 1 cap PO W/LUNCH 02/01/20 02/05/20 [Glucosamine Chondroitin Cap] Turmeric Root Extract [Turmeric] 500 mg PO W/LUNCH 02/01/20 02/05/20 Vitamin A [Vitamin A (8,000 Units 2,400 mcg PO DAILY 02/01/20 02/05/20 = 2,400 MCG)] Albuterol Sulfate [Albuterol 2 puff PO RT-BID 02/04/20 02/05/20 Sulfate Hfa] Calcium Carbonate [Calcium] 1,200 mg PO W/LUNCH 02/04/20 02/05/20 Previous Rx's Medication Instructions Recorded Nitroglycerin Sl Tabs [Nitrostat] 0.4 mg SUBLINGUAL Q5M PRN #25 tab 07/04/15 Atorvastatin [Lipitor] 40 mg PO HS #30 tablet 02/08/20 Dexamethasone [Decadron] 6 mg PO DAILY #7 tablet 03/17/21 Allergies Allergy/AdvReac Type Severity Reaction Status Date / Time adhesive Allergy skin came Verified 03/16/21 22:39 off ranolazine [From Ranexa] Allergy Dyspnea, Verified 03/16/21 22:39 Edema shellfish derived Allergy throat Verified 03/16/21 22:39 swelling sulfamethoxazole Allergy Rash/Hives Verified 03/16/21 22:39 [From Bactrim] trimethoprim [From Bactrim] Allergy Rash/Hives Verified 03/16/21 22:39 atorvastatin calcium AdvReac muscle Verified 03/16/21 22:39 [From Lipitor] aches diltiazem HCl [From Cardizem] AdvReac EXTREME Verified 03/16/21 22:39 FLUSHING rosuvastatin calcium AdvReac SEVERE Verified 03/16/21 22:39 [From Crestor] MUSCLE PAIN simvastatin [From Zocor] AdvReac MUSCLE PAIN Verified 03/16/21 22:39 Review of Systems ROS Statement: Those systems with pertinent positive or pertinent negative responses have been documented in the HPI. ROS Other: All systems not noted in ROS Statement are negative. Past Medical History Past Medical History: Asthma, Coronary Artery Disease (CAD), Chest Pain / Angina, GERD/Reflux, Musculoskeletal Disorder, Pneumonia, Syncope, Thyroid Disorder, Vascular Disorder Additional Past Medical History / Comment(s): raynauds, lupus-suspected, had ruptured disc, hx. stomach ulcer, has 4 cardiac stents, hiatal hernia, sepsis History of Any Multi-Drug Resistant Organisms: None Reported Past Surgical History: Appendectomy, Cholecystectomy, Heart Catheterization With Stent, Tonsillectomy, Uterine Ablation Past Anesthesia/Blood Transfusion Reactions: No Reported Reaction, Family His tory of Problems w/ Anesthesia Additional Past Anesthesia/Blood Transfusion Reaction / Comment(s): has had hematomas in past after cardiac caths. & syncopal episode, mom had some issues w/anesthesia Date of Last Stent Placement:: Past Psychological History: No Psychological Hx Reported Smoking Status: Former smoker Past Alcohol Use History: None Reported Past Drug Use History: None Reported - Past Family History Brother(s) Family Medical History: Coronary Artery Disease (CAD), Myocardial Infarction (VT) Mother Family Medical History: Coronary Artery Disease (CAD), Diabetes Mellitus Sister(s) Family Medical History: Cancer Father Family Medical History: Cancer, Pulmonary Embolus General Exam General appearance: alert, anxious, lethargic Head exam: Present: atraumatic, normocephalic, normal inspection Eye exam: Present: normal appearance, PERRL, EOMI. Absent: scleral icterus, conjunctival injection, periorbital swelling ENT exam: Present: normal exam, mucous membranes moist Neck exam: Present: normal inspection. Absent: tenderness, meningismus, lymphadenopathy Respiratory exam: Present: normal lung sounds bilaterally. Absent: respiratory distress, wheezes, rales, rhonchi, stridor Cardiovascular Exam: Present: normal rhythm, tachycardia, normal heart sounds. Absent: systolic murmur, diastolic murmur, rubs, gallop, clicks GI/Abdominal exam: Present: soft, normal bowel sounds. Absent: distended, tenderness, guarding, rebound, rigid Extremities exam: Present: normal inspection, full ROM, normal capillary refill. Absent: tenderness, pedal edema, joint swelling, calf tenderness Back exam: Present: normal inspection Neurological exam: Present: alert, oriented X3, CN II-XII intact Psychiatric exam: Present: normal affect, normal mood Skin exam: Present: warm, dry, intact, normal color. Absent: rash Course Vital Signs 03/16/21 23:04 Temperature 101.4 F H Pulse Rate 105 H Respiratory 19 Rate Blood Pressure 124/76 O2 Sat by Pulse 99 Oximetry - Reevaluation(s) Reevaluation #1: 03/17/21 00:21 Medical record is reviewed Reevaluation #2: 03/17/21 00:22 A shunt does consent to receiving anti body treatment Reevaluation #3: 03/17/21 00:22 Patient symptoms are unchanged here in the ER she has normal oxygen feels good for discharge Medical Decision Making - Medical Decision Making 55 female to the emergency department for evaluation patient receives anti- body treatment here in the ER, patient can be discharged home - Lab Data Result diagrams: 03/16/21 23:52 03/16/21 23:52 Lab Results 03/16/21 03/16/21 Range/Units 23:52 23:52 WBC 2.2 L (3.8-10.6) k/uL RBC 4.39 (3.80-5.40) m/uL Hgb 14.3 (11.4-16.0) gm/dL Hct 41.8 (34.0-46.0) % MCV 95.2 (80.0-100.0) fL MCH 32.4 (25.0-35.0) pg MCHC 34.1 (31.0-37.0) g/dL RDW 11.8 (11.5-15.5) % Plt Count 194 (150-450) k/uL MPV 7.4 Neutrophils % 52 % Lymphocytes % 37 % Monocytes % 9 % Eosinophils % 0 % Basophils % 1 % Neutrophils # 1.2 L (1.3-7.7) k/uL Lymphocytes # 0.8 L (1.0-4.8) k/uL Monocytes # 0.2 (0-1.0) k/uL Eosinophils # 0.0 (0-0.7) k/uL Basophils # 0.0 (0-0.2) k/uL Sodium 134 L (137-145) mmol/L Potassium 3.8 (3.5-5.1) mmol/L Chloride 98 (98-107) mmol/L Carbon Dioxide 27 (22-30) mmol/L Anion Gap 9 mmol/L BUN 7 (7-17) mg/dL Creatinine 0.64 (0.52-1.04) mg/dL Est GFR (CKD-EPI)AfAm >90 (>60 ml/min/1.73 sqM) Est GFR (CKD-EPI)NonAf >90 (>60 ml/min/1.73 sqM) Glucose 95 (74-99) mg/dL Calcium 9.0 (8.4-10.2) mg/dL Magnesium 2.0 (1.6-2.3) mg/dL Total Bilirubin 0.5 (0.2-1.3) mg/dL AST 30 (14-36) U/L ALT 28 (4-34) U/L Alkaline Phosphatase 91 (38-126) U/L Lactate Dehydrogenase 524 (313-618) U/L Total Protein 7.0 (6.3-8.2) g/dL Albumin 4.4 (3.5-5.0) g/dL - EKG Data -: EKG Interpreted by Me (EKG is sinus rhythm 90 SC 160 QRS 90 QTC 442) - Radiology Data Radiology results: report reviewed (Chest x-rays negative for acute disease), image reviewed Disposition Clinical Impression: Coronavirus infection, COVID-19 Disposition: HOME SELF-CARE Condition: Good Instructions (If sedation given, give patient instructions): Coronavirus Disease 2019 (COVID-19) Prescriptions: Dexamethasone [Decadron] 6 mg PO DAILY #7 tablet Is patient prescribed a controlled substance at d/c from ED?: No Referrals: Rey Espinal DO [Primary Care Provider] - 1-2 days
[2021-03-17 00:11] LABS: Basophils % (A) 1 %; Eosinophils % (A) 0 %; HCT 41.8 % (34.0-46.0); HGB 14.3 gm/dL (11.4-16.0); Lymphocytes # (A) 0.8 k/uL (1.0-4.8); Lymphocytes % (A) 37 %; MCH 32.4 pg (25.0-35.0); MCHC 34.1 g/dL (31.0-37.0); MCV 95.2 fL (80.0-100.0); Mean Platelet Volume 7.4; Monocytes # (A) 0.2 k/uL (0-1.0); Monocytes % (A) 9 %; Neutrophils # (A) 1.2 k/uL (1.3-7.7); Neutrophils % (A) 52 %; Platelet Count 194 k/uL (150-450); RBC 4.39 m/uL (3.80-5.40); RDW 11.8 % (11.5-15.5); WBC 2.2 k/uL (3.8-10.6)
[2021-03-17 00:17] LABS: ALT 28 U/L (4-34); AST 30 U/L (14-36); African American GFR (CKD) >90 (>60 ml/min/1.73 sqM); Albumin 4.4 g/dL (3.5-5.0); Alkaline Phosphatase 91 U/L (38-126); Anion Gap 9 mmol/L; Blood Urea Nitrogen 7 mg/dL (7-17); Carbon Dioxide 27 mmol/L (22-30); Chloride 98 mmol/L (98-107); Glucose 95 mg/dL (74-99); LDH 524 U/L (313-618); Non-African American GFR(CKD) >90 (>60 ml/min/1.73 sqM); Potassium 3.8 mmol/L (3.5-5.1); Sodium 134 mmol/L (137-145); Total Bilirubin 0.5 mg/dL (0.2-1.3)
--- NOTE | 2021-03-17 00:17 | XR ---
EXAMINATION TYPE: XR chest 1V portable DATE OF EXAM: 03/16/2021 COMPARISON: 02/04/2020 HISTORY: Single view TECHNIQUE: FINDINGS: Heart is normal. Lungs are clear of infiltrate. There is no heart failure. There are no hilar masses. Costophrenic angles are clear. IMPRESSION: No active cardiopulmonary disease. No change.
[2021-03-17] MEDS ORDERED: SODIUM CHLORIDE 0.9% 50 ML IVPB ONE (01:00)
[2021-03-17] MEDS ORDERED: CASIRIVIMAB (REGN10933) (EUA) 600 MG, IMDEVIMAB (REGN10987) (EUA) 600 MG in SODIUM CHLO... IVPB ONE (01:00)
[2021-03-17] MEDS ORDERED: ONDANSETRON 4 MG ODT STARTER PACK 2 TAB BTL PO STA (02:59)
[2021-03-17 03:01] VITALS: BP 107/74; PULSE 87; RESP 18
[2021-03-17 03:08] VITALS: TEMP 97.5
== END 2021-03-17 03:08 | disposition home or self-care (01) ==
LOC: EC 21:12
DX: U07.1 COVID-19 (principal); J45.909 Unspecified asthma, uncomplicated; I25.10 Atherosclerotic heart disease of native coronary artery without angina pectoris; K21.9 Gastro-esophageal reflux disease without esophagitis; E07.9 Disorder of thyroid, unspecified; Z79.02 Long term (current) use of antithrombotics/antiplatelets; Z79.82 Long term (current) use of aspirin; Z88.1 Allergy status to other antibiotic agents; Z88.2 Allergy status to sulfonamides; Z90.49 Acquired absence of other specified parts of digestive tract; Z87.891 Personal history of nicotine dependence
CPT/HCPCS: 99285; 96374; 96375 ×2; 96361 ×2; 36415; 93005; 80053; 83615; 83735; 85025; 84145; 71045; J1100; J2405; J1885; S0119; Q0244

== ENCOUNTER 2021-03-20 22:50 | Inpatient (IN) | payer MEDICARE ==
[2021-03-20] MEDS ORDERED: ACETAMINOPHEN TAB 500 MG TAB PO STA (22:55)
[2021-03-20] MEDS ORDERED: ALBUTEROL HFA INHALER INHALATION STA (22:55)
[2021-03-20] MEDS ORDERED: KETOROLAC 15 MG/ML 1 ML VIAL IVP STA (22:55)
[2021-03-20] MEDS ORDERED: SODIUM CHLORIDE 0.9% 1,000 ML IV STA ×2 (22:55)
[2021-03-20] MEDS ORDERED: DEXAMETHASONE SOD PHOSPHATE 10 MG/ML 1 ML VIAL IVP STA (22:55)
--- NOTE | 2021-03-20 22:56 | ED ---
Recheck HPI - General Stated Complaint: Covid+,SOB Time Seen by Provider: 03/20/21 22:54 Source: RN notes reviewed, old records reviewed Mode of arrival: EMS Limitations: no limitations - History of Present Illness Initial Comments: This is a 55-year-old female who is not feeling well. Patient has recent diagnosis of coronavirus also told that she does have pneumonia from [facility]. Patient has underlying asthma and COPD. At home patient is beginning and significantly declining, states she is on day 11. During last ER visit she did receive anti- week treatment here in the emergency department. Patient states symptoms have not gotten better. The persistent maybe worse. Diminished activity level with body aches pains decreased appetite. MD Complaint: abnormal lab (Coronavirus), other (Patient overall not feeling well) -: days(s) (11) Returns Today for: persistent/worsening pain related to initial visit Symptoms Since Prior Visit: worsening pain, fever Context: planned re-check Associated Symptoms: fever, chills, shortness of breath, malaise, abdominal pain Treatments Prior to Arrival: other (none) - Related Data Home Medications Medication Instructions Recorded Confirmed Loratadine [Claritin] 10 mg PO HS 08/17/13 03/20/21 Montelukast [Singulair] 10 mg PO HS 08/17/13 03/20/21 amLODIPine BESYLATE [Norvasc] 2.5 mg PO DAILY 12/12/13 03/20/21 Clopidogrel [Plavix] 75 mg PO DAILY 05/23/14 03/20/21 Omeprazole 20 mg PO BID 10/30/15 03/20/21 Albuterol Nebulized [Ventolin 2.5 mg INHALATION RT-QID PRN 04/05/16 03/20/21 Nebulized] Ezetimibe [Zetia] 10 mg PO HS 04/07/18 03/20/21 Metoprolol Tartrate 25 mg PO DAILY 04/07/18 03/20/21 Aspirin EC [Ecotrin Low Dose] 81 mg PO DAILY 04/10/18 03/20/21 Levothyroxine Sodium [Synthroid] 137 mcg PO MOTUWETHFRSA 04/10/18 03/20/21 Ascorbic Acid [Vitamin C] 2,000 mg PO DAILY 02/27/19 03/20/21 Furosemide [Lasix] 20 mg PO DAILY PRN 02/27/19 03/20/21 Isosorbide Mononitrate ER [Imdur] 30 mg PO DAILY 02/27/19 03/20/21 Zolpidem [Ambien] 5 mg PO HS PRN 03/31/19 03/20/21 Vitamin A [Vitamin A (8,000 Units 8,000 unit PO DAILY 02/01/20 03/20/21 = 2,400 MCG)] Albuterol Sulfate [Albuterol 2 puff PO RT-QID PRN 02/04/20 03/20/21 Sulfate Hfa] Calcium Carbonate [Calcium] 1,200 mg PO DAILY 02/04/20 03/20/21 Atorvastatin [Lipitor] 20 mg PO HS 03/20/21 03/20/21 Azithromycin [Zithromax Z-pack (6 See Taper PO DIRECTED 03/20/21 03/20/21 tabs)] Cholecalciferol (Vitamin D3) 125 mcg PO DAILY 03/20/21 03/20/21 [Vitamin D3 (125 MCG = 5,000 IU)] Hdbdlvbakxg-Yokkrrqwmls-Douivkxa 1 tab PO DAILY 03/20/21 03/20/21 L.acidoph,Paracasei, B.lactis 1 cap PO DAILY 03/20/21 03/20/21 [Probiotic] Methocarbamol [Robaxin-750] 750 mg PO TID PRN 03/20/21 03/20/21 Multivit-Min/Iron/Folic/Lutein 1 tab PO DAILY 03/20/21 03/20/21 [Centrum Silver Women Tablet] Ondansetron [Zofran] 4 mg PO TID PRN 03/20/21 03/20/21 Spironolactone 50 mg PO DAILY PRN 03/20/21 03/20/21 Zinc 50 mg PO DAILY 03/20/21 03/20/21 Previous Rx's Medication Instructions Recorded Nitroglycerin Sl Tabs [Nitrostat] 0.4 mg SUBLINGUAL Q5M PRN #25 tab 07/04/15 Dexamethasone [Decadron] 6 mg PO DAILY #7 tablet 03/17/21 Allergies Allergy/AdvReac Type Severity Reaction Status Date / Time adhesive Allergy skin came Verified 03/20/21 23:30 off ranolazine [From Ranexa] Allergy Dyspnea, Verified 03/20/21 23:30 Edema shellfish derived Allergy throat Verified 03/20/21 23:30 swelling sulfamethoxazole Allergy Rash/Hives Verified 03/20/21 23:30 [From Bactrim] trimethoprim [From Bactrim] Allergy Rash/Hives Verified 03/20/21 23:30 atorvastatin calcium AdvReac muscle Verified 03/20/21 23:30 [From Lipitor] aches diltiazem HCl [From Cardizem] AdvReac EXTREME Verified 03/20/21 23:30 FLUSHING rosuvastatin calcium AdvReac SEVERE Verified 03/20/21 23:30 [From Crestor] MUSCLE PAIN simvastatin [From Zocor] AdvReac MUSCLE PAIN Verified 03/20/21 23:30 Review of Systems ROS Statement: Those systems with pertinent positive or pertinent negative responses have been documented in the HPI. ROS Other: All systems not noted in ROS Statement are negative. Past Medical History Past Medical History: Asthma, Coronary Artery Disease (CAD), Chest Pain / Angina , GERD/Reflux, Musculoskeletal Disorder, Pneumonia, Syncope, Thyroid Disorder, Vascular Disorder Additional Past Medical History / Comment(s): raynauds, lupus-suspected, had r uptured disc, hx. stomach ulcer, has 4 cardiac stents, hiatal hernia, sepsis History of Any Multi-Drug Resistant Organisms: None Reported Past Surgical History: Appendectomy, Cholecystectomy, Heart Catheterization With Stent, Tonsillectomy, Uterine Ablation Past Anesthesia/Blood Transfusion Reactions: No Reported Reaction, Family History of Problems w/ Anesthesia Additional Past Anesthesia/Blood Transfusion Reaction / Comment(s): has had hematomas in past after cardiac caths. & syncopal episode, mom had some issues w/anesthesia Date of Last Stent Placement:: Past Psychological History: No Psychological Hx Reported Smoking Status: Former smoker Past Alcohol Use History: None Reported Past Drug Use History: None Reported - Past Family History Brother(s) Family Medical History: Coronary Artery Disease (CAD), Myocardial Infarction (SD) Mother Family Medical History: Coronary Artery Disease (CAD), Diabetes Mellitus Sister(s) Family Medical History: Cancer Father Family Medical History: Cancer, Pulmonary Embolus General Exam Limitations: physical limitation General appearance: anxious, lethargic Head exam: Present: atraumatic, normocephalic, normal inspection Eye exam: Present: normal appearance, PERRL, EOMI. Absent: scleral icterus, conjunctival injection, periorbital swelling ENT exam: Present: normal exam, mucous membranes dry Neck exam: Present: normal inspection. Absent: tenderness, meningismus, lymphadenopathy Respiratory exam: Present: wheezes, rhonchi, accessory muscle use, decreased breath sounds, prolonged expiratory. Absent: rales, stridor Cardiovascular Exam: Present: tachycardia, normal heart sounds. Absent: systolic murmur, diastolic murmur, rubs, gallop, clicks GI/Abdominal exam: Present: soft, normal bowel sounds. Absent: distended, tenderness, guarding, rebound, rigid Extremities exam: Present: normal inspection, full ROM, normal capillary refill. Absent: tenderness, pedal edema, joint swelling, calf tenderness Back exam: Present: normal inspection Neurological exam: Present: alert, oriented X3, CN II-XII intact Psychiatric exam: Present: normal affect, normal mood Skin exam: Present: warm, dry, intact, normal color. Absent: rash Course Vital Signs 03/20/21 22:52 Temperature 97.5 F L Pulse Rate 130 H Respiratory 22 Rate Blood Pressure 95/62 O2 Sat by Pulse 97 Oximetry - Reevaluation(s) Reevaluation #1: 03/21/21 00:01 Medical records reviewed Reevaluation #2: 03/21/21 00:01 Patient remains significantly weak Achy not feeling well here in the ER Reevaluation #3: 03/21/21 00:01 Patient informed of results and questions answered - Consultations Consultation #1: roland grant for admission Medical Decision Making - Medical Decision Making 55 female DF for evaluation of recurrent coronavirus and significant tachycardia. Not hypoxic but significantly elevated heart rate. History of mild heart disease asthma and COPD. Patient has received anti-body treatment. Patient be admitted for further supportive care - Lab Data Result diagrams: 03/20/21 23:23 03/20/21 23:23 Lab Results 03/20/21 03/20/21 03/20/21 Range/Units 23:23 23:23 23:23 WBC 2.9 L (3.8-10.6) k/uL RBC 4.24 (3.80-5.40) m/uL Hgb 13.5 (11.4-16.0) gm/dL Hct 39.9 (34.0-46.0) % MCV 94.0 (80.0-100.0) fL MCH 31.9 (25.0-35.0) pg MCHC 33.9 (31.0-37.0) g/dL RDW 11.6 (11.5-15.5) % Plt Count 244 (150-450) k/uL MPV 7.3 Neutrophils % 77 % Lymphocytes % 14 % Monocytes % 6 % Eosinophils % 0 % Basophils % 0 % Neutrophils # 2.2 (1.3-7.7) k/uL Lymphocytes # 0.4 L (1.0-4.8) k/uL Monocytes # 0.2 (0-1.0) k/uL Eosinophils # 0.0 (0-0.7) k/uL Basophils # 0.0 (0-0.2) k/uL PT 9.6 (9.0-12.0) sec INR 0.9 (<1.2) APTT 22.3 (22.0-30.0) sec Sodium 133 L (137-145) mmol/L Potassium 3.7 (3.5-5.1) mmol/L Chloride 102 (98-107) mmol/L Carbon Dioxide 16 L (22-30) mmol/L Anion Gap 15 mmol/L BUN 12 (7-17) mg/dL Creatinine 0.50 L (0.52-1.04) mg/dL Est GFR (CKD-EPI)AfAm >90 (>60 ml/min/1.73 sqM) Est GFR (CKD-EPI)NonAf >90 (>60 ml/min/1.73 sqM) Glucose 288 H (74-99) mg/dL Calcium 9.1 (8.4-10.2) mg/dL Magnesium 1.9 (1.6-2.3) mg/dL Total Bilirubin 0.5 (0.2-1.3) mg/dL AST 35 (14-36) U/L ALT 45 H (4-34) U/L Alkaline Phosphatase 83 (38-126) U/L Lactate Dehydrogenase 665 H (313-618) U/L C-Reactive Protein 6.8 H (<1.0) mg/dL Total Protein 6.5 (6.3-8.2) g/dL Albumin 3.8 (3.5-5.0) g/dL - Radiology Data Radiology results: report reviewed (S x-ray shows worsening coronavirus pneumonia), image reviewed Disposition Clinical Impression: COVID-19, Fever, Pneumonia due to COVID-19 virus, Tachycardia Disposition: ADMITTED IP TO THIS HOSP Condition: Fair Is patient prescribed a controlled substance at d/c from ED?: No Referrals: Rey Espinal DO [Primary Care Provider] - 1-2 days
[2021-03-20 23:35] LABS: Basophils % (A) 0 %; Eosinophils % (A) 0 %; HCT 39.9 % (34.0-46.0); HGB 13.5 gm/dL (11.4-16.0); Lymphocytes # (A) 0.4 k/uL (1.0-4.8); Lymphocytes % (A) 14 %; MCH 31.9 pg (25.0-35.0); MCHC 33.9 g/dL (31.0-37.0); Mean Platelet Volume 7.3; Monocytes # (A) 0.2 k/uL (0-1.0); Monocytes % (A) 6 %; Neutrophils # (A) 2.2 k/uL (1.3-7.7); Neutrophils % (A) 77 %; Platelet Count 244 k/uL (150-450); RBC 4.24 m/uL (3.80-5.40); RDW 11.6 % (11.5-15.5); WBC 2.9 k/uL (3.8-10.6)
[2021-03-20 23:44] LABS: INR 0.9 (<1.2); Partial Thromboplastin Time 22.3 sec (22.0-30.0); Prothrombin Time 9.6 sec (9.0-12.0)
[2021-03-20 23:49] LABS: AST 35 U/L (14-36); African American GFR (CKD) >90 (>60 ml/min/1.73 sqM); Albumin 3.8 g/dL (3.5-5.0); Alkaline Phosphatase 83 U/L (38-126); Anion Gap 15 mmol/L; Blood Urea Nitrogen 12 mg/dL (7-17); C Reactive Protein 6.8 mg/dL (<1.0); Calcium 9.1 mg/dL (8.4-10.2); Carbon Dioxide 16 mmol/L (22-30); Chloride 102 mmol/L (98-107); Glucose 288 mg/dL (74-99); LDH 665 U/L (313-618); Magnesium 1.9 mg/dL (1.6-2.3); Non-African American GFR(CKD) >90 (>60 ml/min/1.73 sqM); Potassium 3.7 mmol/L (3.5-5.1); Sodium 133 mmol/L (137-145); Total Bilirubin 0.5 mg/dL (0.2-1.3); Total Protein 6.5 g/dL (6.3-8.2)
--- NOTE | 2021-03-20 23:53 | XR ---
EXAMINATION TYPE: XR chest 1V portable DATE OF EXAM: 03/20/2021 COMPARISON: 03/16/2021 HISTORY: Short of breath TECHNIQUE: Single view FINDINGS: There are some patchy interstitial infiltrate in both lungs. Heart is borderline enlarged. There are no hilar masses. IMPRESSION: There are some interstitial pneumonia that is worse than last exam.
[2021-03-20 23:54] LABS: ALT 45 U/L (4-34)
[2021-03-20] MEDS ORDERED: MORPHINE SULFATE 4 MG/ML SYRINGE IV PRN (23:58)
[2021-03-20] MEDS ORDERED: ONDANSETRON 4 MG/2 ML VIAL IVP PRN (23:58)
[2021-03-20] MEDS ORDERED: NALOXONE 0.4 MG/ML 1 ML VIAL IV PRN (23:58)
[2021-03-20] MEDS ORDERED: IBUPROFEN 400 MG TAB PO PRN (23:58)
[2021-03-20] MEDS ORDERED: LORazepam 2 MG/ML INJ IV PRN (23:58)
[2021-03-21] MEDS ORDERED: SODIUM CHLORIDE 0.9% 1,000 ML IV STA
[2021-03-21] MEDS: SODIUM CHLORIDE 0.9% 1,000 ML IV SCH ×4 (02:05→23:37)
[2021-03-21] MEDS: ALBUTEROL HFA INHALER INHALATION SCH ×4 (03:46→17:16)
[2021-03-21 03:55] LABS: ALT 28 U/L (4-34); AST 26 U/L (14-36); African American GFR (CKD) >90 (>60 ml/min/1.73 sqM); Albumin 3.1 g/dL (3.5-5.0); Alkaline Phosphatase 67 U/L (38-126); Anion Gap 10 mmol/L; Blood Urea Nitrogen 9 mg/dL (7-17); Calcium 7.9 mg/dL (8.4-10.2); Carbon Dioxide 19 mmol/L (22-30); Chloride 107 mmol/L (98-107); Glucose 196 mg/dL (74-99); Magnesium 1.9 mg/dL (1.6-2.3); Non-African American GFR(CKD) >90 (>60 ml/min/1.73 sqM); Phosphorus 3.4 mg/dL (2.5-4.5); Potassium 3.8 mmol/L (3.5-5.1); Sodium 136 mmol/L (137-145); Total Bilirubin 0.3 mg/dL (0.2-1.3); Total Protein 5.4 g/dL (6.3-8.2)
[2021-03-21 04:01] LABS: Basophils % (A) 0 %; Eosinophils % (A) 0 %; HCT 35.6 % (34.0-46.0); HGB 12.2 gm/dL (11.4-16.0); Lymphocytes # (A) 0.5 k/uL (1.0-4.8); Lymphocytes % (A) 24 %; MCH 33.1 pg (25.0-35.0); MCHC 34.3 g/dL (31.0-37.0); MCV 96.7 fL (80.0-100.0); Mean Platelet Volume 7.3; Monocytes # (A) 0.1 k/uL (0-1.0); Monocytes % (A) 6 %; Neutrophils # (A) 1.3 k/uL (1.3-7.7); Neutrophils % (A) 67 %; Platelet Count 221 k/uL (150-450); RBC 3.69 m/uL (3.80-5.40); RDW 11.7 % (11.5-15.5); WBC 1.9 k/uL (3.8-10.6)
[2021-03-21] MEDS ORDERED: SPIRONOLACTONE 25 MG TAB PO PRN (10:40)
--- NOTE | 2021-03-21 10:44 | P.CRDCN ---
History of Present Illness Consult date: 03/21/21 History of present illness: CHIEF COMPLAINT: Tachycardia HISTORY OF PRESENT ILLNESS: This is a 55-year-old female with a past medical history significant for CAD with multivessel PCI, hypertension, hyperlipidemia, and asthma. Patient follows in the office with Dr. Greenberg. We have been asked to see the patient in consultation for tachycardia. The patient is admitted to the hospital secondary to Covid. The patient was complaining of palpitations yesterday which have resolved. Telemetry reviewed revealing sinus mechanism. Patient's EKG on admission reveals sinus mechanism. She denies any chest pain or pressure. Blood pressure 126/79. Heart rate in the 70s. She is on 3 L nasal cannula with oxygen saturations greater than 92%. She is afebrile. DIAGNOSTICS: EKG reveals sinus mechanism with heart rate of 80 Chest xray there are some interstitial pneumonia that is worse than last exam Laboratory data: WBC 1.9. Hemoglobin 12.2. Platelet count 221. Sodium 136. Potassium 3.8. BUN 9. Creatinine 0.43. Lactic acid 5.1. Repeat 1.2. Current home cardiac medications include metoprolol tartrate 25 mg daily, Imdur 39 g daily, Plavix 75 mg daily, Lasix 20 mg daily as needed, that he attended milligrams at night, spironolactone 50 mg daily as needed Echocardiogram completed in January 2020 revealed ejection fraction 50-55%, mild mitral regurgitation, and mild tricuspid regurgitation Patient underwent cardiac catheterization in January 2020 revealing dominant RCA has a new 80-90% proximal lesion with some ostial 40% disease. Previously stented LAD diagonal patent with a 40% lesion in the LAD beyond the stent. Circumflex was free of significant disease. Stenting of the RCA was performed with a drug-eluting stent. REVIEW OF SYSTEMS: Thorough review of systems not completed secondary to limited evaluation/examination due to Covid19 PHYSICAL EXAM: Thorough physical exam not completed secondary to limited evaluation/examination due to Covid19 ASSESSMENT: Palpitations Covid 19 pneumonia Coronary artery disease with multivessel PCI Hypertension Hyperlipidemia Asthma PLAN: Resume patient's home cardiac medications including her metorprolol Continue telemetry monitoring If patient develops any tachycardia during hospitalization please feel free to reconsult cardiology We will follow on an as-needed basis. Nurse practitioner note has been reviewed by physician. Signing provider agrees with the documented findings, assessment, and plan of care. Past Medical History Past Medical History: Asthma, Coronary Artery Disease (CAD), Chest Pain / Angina, GERD/Reflux, Musculoskeletal Disorder, Pneumonia, Syncope, Thyroid Disorder, Vascular Disorder Additional Past Medical History / Comment(s): raynauds, lupus-suspected, had ruptured disc, hx. stomach ulcer, has 4 cardiac stents, hiatal hernia, sepsis History of Any Multi-Drug Resistant Organisms: None Reported Past Surgical History: Appendectomy, Cholecystectomy, Heart Catheterization With Stent, Tonsillectomy, Uterine Ablation Past Anesthesia/Blood Transfusion Reactions: No Reported Reaction, Family History of Problems w/ Anesthesia Additional Past Anesthesia/Blood Transfusion Reaction / Comment(s): has had hematomas in past after cardiac caths. & syncopal episode, mom had some issues w/anesthesia Date of Last Stent Placement:: Past Psychological History: No Psychological Hx Reported Smoking Status: Former smoker Past Alcohol Use History: None Reported Additional Past Alcohol Use History / Comment(s): quit smoking 20 yrs., smoked for 13yrs. Past Drug Use History: None Reported - Past Family History Brother(s) Family Medical History: Coronary Artery Disease (CAD), Myocardial Infarction ([place]) Mother Family Medical History: Coronary Artery Disease (CAD), Diabetes Mellitus Sister(s) Family Medical History: Cancer Father Family Medical History: Cancer, Pulmonary Embolus Medications and Allergies Home Medications Medication Instructions Recorded Confirmed Type Loratadine [Claritin] 10 mg PO HS 08/17/13 03/20/21 History Montelukast [Singulair] 10 mg PO HS 08/17/13 03/20/21 History amLODIPine BESYLATE [Norvasc] 2.5 mg PO DAILY 12/12/13 03/20/21 History Clopidogrel [Plavix] 75 mg PO DAILY 05/23/14 03/20/21 History Nitroglycerin Sl Tabs [Nitrostat] 0.4 mg SUBLINGUAL Q5M PRN #25 tab 07/04/15 03/20/21 Rx Omeprazole 20 mg PO BID 10/30/15 03/20/21 History Albuterol Nebulized [Ventolin 2.5 mg INHALATION RT-QID PRN 04/05/16 03/20/21 History Nebulized] Ezetimibe [Zetia] 10 mg PO HS 04/07/18 03/20/21 History Metoprolol Tartrate 25 mg PO DAILY 04/07/18 03/20/21 History Aspirin EC [Ecotrin Low Dose] 81 mg PO DAILY 04/10/18 03/20/21 History Levothyroxine Sodium [Synthroid] 137 mcg PO MOTUWETHFRSA 04/10/18 03/20/21 History Ascorbic Acid [Vitamin C] 2,000 mg PO DAILY 02/27/19 03/20/21 History Furosemide [Lasix] 20 mg PO DAILY PRN 02/27/19 03/20/21 History Isosorbide Mononitrate ER [Imdur] 30 mg PO DAILY 02/27/19 03/20/21 History Zolpidem [Ambien] 5 mg PO HS PRN 03/31/19 03/20/21 History Vitamin A [Vitamin A (8,000 Units 8,000 unit PO DAILY 02/01/20 03/20/21 History = 2,400 MCG)] Albuterol Sulfate [Albuterol 2 puff PO RT-QID PRN 02/04/20 03/20/21 History Sulfate Hfa] Calcium Carbonate [Calcium] 1,200 mg PO DAILY 02/04/20 03/20/21 History Dexamethasone [Decadron] 6 mg PO DAILY #7 tablet 03/17/21 03/20/21 Rx Atorvastatin [Lipitor] 20 mg PO HS 03/20/21 03/20/21 History Azithromycin [Zithromax Z-pack (6 See Taper PO DIRECTED 03/20/21 03/20/21 History tabs)] Cholecalciferol (Vitamin D3) 125 mcg PO DAILY 03/20/21 03/20/21 History [Vitamin D3 (125 MCG = 5,000 IU)] Bffyfyzgfct-Zlfhjsqdpbl-Zluoosxh 1 tab PO DAILY 03/20/21 03/20/21 History L.acidoph,Paracasei, B.lactis 1 cap PO DAILY 03/20/21 03/20/21 History [Probiotic] Methocarbamol [Robaxin-750] 750 mg PO TID PRN 03/20/21 03/20/21 History Multivit-Min/Iron/Folic/Lutein 1 tab PO DAILY 03/20/21 03/20/21 History [Centrum Silver Women Tablet] Ondansetron [Zofran] 4 mg PO TID PRN 03/20/21 03/20/21 History Spironolactone 50 mg PO DAILY PRN 03/20/21 03/20/21 History Zinc 50 mg PO DAILY 03/20/21 03/20/21 History Allergies Allergy/AdvReac Type Severity Reaction Status Date / Time adhesive Allergy skin came Verified 03/20/21 23:30 off ranolazine [From Ranexa] Allergy Dyspnea, Verified 03/20/21 23:30 Edema shellfish derived Allergy throat Verified 03/20/21 23:30 swelling sulfamethoxazole Allergy Rash/Hives Verified 03/20/21 23:30 [From Bactrim] trimethoprim [From Bactrim] Allergy Rash/Hives Verified 03/20/21 23:30 atorvastatin calcium AdvReac muscle Verified 03/20/21 23:30 [From Lipitor] aches diltiazem HCl [From Cardizem] AdvReac EXTREME Verified 03/20/21 23:30 FLUSHING rosuvastatin calcium AdvReac SEVERE Verified 03/20/21 23:30 [From Crestor] MUSCLE PAIN simvastatin [From Zocor] AdvReac MUSCLE PAIN Verified 03/20/21 23:30 Physical Exam Vitals: Vital Signs Temp Pulse Pulse Resp BP BP Pulse Ox 03/21/21 09:20 97.8 F 75 18 126/79 96 03/21/21 07:15 16 03/21/21 06:05 97.1 F L 71 16 116/72 94 L 03/21/21 02:41 18 03/21/21 02:00 97.5 F L 72 16 105/64 94 L 03/21/21 00:10 92 18 99/66 97 03/20/21 22:52 97.5 F L 130 H 22 95/62 97 Intake and Output 03/20/21 03/21/21 03/21/21 22:59 06:59 14:59 Intake Total 2259 Balance 2259 Intake: IV 2259 Sodium Chloride 0.9% 1, 2259 000 ml @ 999 mls/hr IV . Q1H1M STA Rx#:[id number] Other: # Voids 1 Weight 95.254 kg 95.254 kg Results 03/21/21 03:18 03/21/21 03:18 Cardiac Enzymes 03/20/21 03/21/21 Range/Units 23:23 03:18 AST 35 26 (14-36) U/L Lactate Dehydrogenase 665 H (313-618) U/L Coagulation 03/20/21 Range/Units 23:23 PT 9.6 (9.0-12.0) sec APTT 22.3 (22.0-30.0) sec CBC 03/20/21 03/21/21 Range/Units 23:23 03:18 WBC 2.9 L 1.9 L (3.8-10.6) k/uL RBC 4.24 3.69 L (3.80-5.40) m/uL Hgb 13.5 12.2 (11.4-16.0) gm/dL Hct 39.9 35.6 (34.0-46.0) % Plt Count 244 221 (150-450) k/uL Comprehensive Metabolic Panel 03/20/21 03/21/21 Range/Units 23:23 03:18 Sodium 133 L 136 L (137-145) mmol/L Potassium 3.7 3.8 (3.5-5.1) mmol/L Chloride 102 107 (98-107) mmol/L Carbon Dioxide 16 L 19 L (22-30) mmol/L BUN 12 9 (7-17) mg/dL Creatinine 0.50 L 0.43 L (0.52-1.04) mg/dL Glucose 288 H 196 H (74-99) mg/dL Calcium 9.1 7.9 L (8.4-10.2) mg/dL AST 35 26 (14-36) U/L ALT 45 H 28 (4-34) U/L Alkaline Phosphatase 83 67 (38-126) U/L Total Protein 6.5 5.4 L (6.3-8.2) g/dL Albumin 3.8 3.1 L (3.5-5.0) g/dL Current Medications Generic Name Dose Route Start Last Admin Trade Name Freq PRN Reason Stop Dose Admin Acetaminophen 650 mg 03/20/21 23:58 Acetaminophen Tab 325 Mg Tab PO Q6HR PRN Mild Pain or Fever > 100.5 Albuterol Sulfate 2 puff 03/21/21 02:00 03/21/21 09:33 Albuterol Hfa Inhaler INHALATION Not Given RT-Q6H TINY Sodium Chloride 1,000 mls @ 130 mls/hr 03/20/21 23:45 03/21/21 06:58 Saline 0.9% IV 130 mls/hr .Q7H42M TINY Administration Ibuprofen 400 mg 03/20/21 23:58 Ibuprofen 400 Mg Tab PO Q6HR PRN Mild Pain or Fever > 100.5 Lorazepam 0.5 mg 03/20/21 23:58 Lorazepam 2 Mg/Ml Inj IV Q6HR PRN Anxiety Morphine Sulfate 4 mg 03/20/21 23:58 Morphine Sulfate 4 Mg/Ml Syringe IV Q4HR PRN Severe Pain Naloxone HCl 0.2 mg 03/20/21 23:58 Naloxone 0.4 Mg/Ml 1 Ml Vial IV Q2M PRN Opioid Reversal Ondansetron HCl 4 mg 03/20/21 23:58 Ondansetron 4 Mg/2 Ml Vial IVP Q8HR PRN Nausea And Vomiting Intake and Output 03/20/21 03/21/21 03/21/21 22:59 06:59 14:59 Intake Total 2259 Balance 2259 Intake: IV 2259 Sodium Chloride 0.9% 1, 2259 000 ml @ 999 mls/hr IV . Q1H1M STA Rx#:[id number] Other: # Voids 1 Weight 95.254 kg 95.254 kg 03/21/21 03:18 03/21/21 03:18
[2021-03-21] MEDS ORDERED: methocarbamoL 750 MG TAB PO PRN (10:51)
[2021-03-21] MEDS ORDERED: NITROGLYCERIN SL TABS 0.4 MG TAB SUBLINGUAL PRN (10:51)
[2021-03-21] MEDS: CLOPIDOGREL 75 MG TAB PO SCH (11:22)
[2021-03-21] MEDS: ASPIRIN 81 MG PO SCH (11:22)
[2021-03-21] MEDS: AZITHROMYCIN 500 MG in SODIUM CHLORIDE 0.9% 250 ML IVPB SCH (11:23)
[2021-03-21] MEDS: METOPROLOL TARTRATE 25 MG TAB PO SCH (11:23)
[2021-03-21] MEDS: ISOSORBIDE MONONITRATE ER 30 MG TAB.ER.24H PO SCH (11:23)
[2021-03-21] MEDS: DEXAMETHASONE SOD PHOSPHATE 10 MG/ML 1 ML VIAL IVP SCH (11:23)
[2021-03-21] MEDS: LEVOTHYROXINE 137 MCG TAB PO SCH (11:50)
[2021-03-21 11:52] LABS: Magnesium 2.1 mg/dL (1.6-2.3)
[2021-03-21] MEDS: BENZOCAINE/MENTHOL LOZENG 1 EACH LOZENGE MUCOUS MEM PRN ×3 (12:18→22:26)
[2021-03-21 13:11] LABS: T4, Free (Free Thyroxine) 1.26 ng/dL (0.78-2.19)
--- NOTE | 2021-03-21 16:26 | P.HPIM ---
History of Present Illness H&P Date: 03/21/21 HISTORY OF PRESENT ILLNESS This is a pleasant 55-year-old female patient of Dr. Espinal, known history of CAD with multiple heart cath and stents, requiring mid LAD stent 2013, heart cath in September 2018 with 80% stenosis, along with history of statin intolerance, hyperlipidemia, lumbar disc disease, hypothyroidism 3 nodes disease. Patient states that she started having symptoms of shortness of breath weakness almost passed out a few times. Initially symptoms started 11 days ago and positive for coronavirus. She was in the emergency center on March 16 and received monoclonal antibodies and was discharged home on a course of dexamethasone. 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 In the emergency room, EKG was sinus rhythm with heart rate of 80 Chest x-ray revealed some interstitial pneumonia that is worse than last exam Laboratory data: WBC 1.9. Hemoglobin 12.2. Platelet count 221. Sodium 136. Potassium 3.8. BUN 9. Creatinine 0.43. Lactic acid 5.1. Repeat 1.2. D-dimer 0.55. TSH 0.360 and free T4 1 0.26. Echocardiogram completed in January 2020 revealed ejection fraction 50-55%, mild mitral regurgitation, and mild tricuspid regurgitation Patient underwent cardiac catheterization in January 2020 revealing dominant RCA has a new 80-90% proximal lesion with some ostial 40% disease. Previously stented LAD diagonal patent with a 40% lesion in the LAD beyond the stent. Circumflex was free of significant disease. Stenting of the RCA was performed with a drug-eluting stent. Patient was admitted to the [facility] floor and started on azithromycin, albuterol inhaler, vitamin supplements, IV dexamethasone REVIEW OF SYSTEMS Constitutional: Reports fever, Reports chills, no night sweats. No weight change. Reports weakness, Reports fatigue. No daytime sleepiness. EENT: No headache. No blurred vision or double vision, no loss of vision. No loss of Hearing, no ringing in the ears, no dizziness. No nasal drainage or congestion. No epistaxis. No sore throat. Lungs: Reports shortness of breath, Reports cough, no sputum production. No wheezing. Cardiovascular: No chest pain, no lower extremity edema. Reports palpitations. No paroxysmal nocturnal dyspnea. No orthopnea. No lightheadedness or dizziness. Reports near-syncopal episodes. Abdominal: No abdominal pain. No nausea, vomiting. No diarrhea. No constipation. No bloody or tarry stools. No loss of appetite. Genitourinary: No dysuria, increased frequency, urgency. No urinary retention. Musculoskeletal: No myalgias. No muscle weakness, no gait dysfunction, no frequent falls. No back pain. No neck pain. Integumentary: No wounds, no lesions. No rash or pruritus. No unusual bruising. No change in hair or nails. Neurologic: No aphasia. No facial droop. No change in mentation. No head injury. No headache. No paralysis. No paresthesia. Psychiatric: No depression. No anxiety. No mood swings. Endocrine: No abnormal blood sugars. No weight change. No excessive sweating or thirst. No cold intolerance. SOCIAL HISTORY Patient was a smoker for 13 years and quit more than 18 years ago. FAMILY HISTORY Mother has history of coronary artery disease and diabetes. Father has history of pulmonary embolus. Patient has brother with history of coronary artery disease and myocardial infarction. PHYSICAL EXAMINATION Gen: This is a 55-year-old female. She is resting in bed appears to be comfortable in no acute distress, no acute respiratory distress. HEENT: Head is atraumatic, normocephalic. Pupils equal, round. Sclerae is anicteric. NECK: Supple. No JVD. No lymphadenopathy. No thyromegaly. LUNGS: Clear to auscultation. No wheezes or rhonchi. No intercostal retractions. HEART: Regular rate and rhythm. No murmur. ABDOMEN: Soft. Bowel sounds are present. No masses. No tenderness. EXTREMITIES: No pedal edema. No calf tenderness. NEUROLOGICAL: Patient is awake, alert and oriented x3. Cranial nerves 2 through 12 are grossly intact. ASSESSMENT AND PLAN 1. Palpitations and reported tachycardia. Continue Lopressor. 2. Covid 19 infection diagnosed 11 days ago. Consult with Dr. Rich. Patient started on dexamethasone, Lovenox, vitamin supplements, azithromycin. 3. History of CAD with catheterization in January 2020 revealing dominant RCA has a new 80-90% proximal lesion with some ostial 40% disease. Previously sten alexia LAD diagonal patent with a 40% lesion in the LAD beyond the stent. Circumflex was free of significant disease. Stenting of the RCA was performed with a drug-eluting stent. Continue aspirin 81 mg daily, Lipitor 20 mg daily, Imdur 30 mg daily, Aldactone 50 mg daily, Lopressor 25 mg daily, Plavix 75 mg daily. 4. Mild intermittent asthma without any exacerbation, Singulair daily 5. Prior history of cholecystectomy, complicated by sepsis, February 2019 6. Hypothyroidism. Continue levothyroxine 137 g Friday through Friday. 7. Hypertension. Continue amlodipine 2.5 mg daily, Lasix 20 mg daily as needed. 8. Hyperlipidemia. Continue Zetia 10 mg at bedtime, atorvastatin 20 mg at bedtime. 9. Gastroesophageal reflux disease. Continue Protonix 40 mg daily 10. DVT prophylaxis. Lovenox subcu. Patient will be admitted to the hospital for a minimum of 2 night stay. DISCHARGE PLAN Home Impression and plan of care have been directed as dictated by the signing physician. Toya Jung nurse practitioner acting as scribe for signing physician. Past Medical History Past Medical History: Asthma, Coronary Artery Disease (CAD), Chest Pain / Angina, GERD/Reflux, Musculoskeletal Disorder, Pneumonia, Syncope, Thyroid Disorder, Vascular Disorder Additional Past Medical History / Comment(s): raynauds, lupus-suspected, had ruptured disc, hx. stomach ulcer, has 4 cardiac stents, hiatal hernia, sepsis History of Any Multi-Drug Resistant Organisms: None Reported Past Surgical History: Appendectomy, Cholecystectomy, Heart Catheterization With Stent, Tonsillectomy, Uterine Ablation Past Anesthesia/Blood Transfusion Reactions: No Reported Reaction, Family History of Problems w/ Anesthesia Additional Past Anesthesia/Blood Transfusion Reaction / Comment(s): has had hematomas in past after cardiac caths. & syncopal episode, mom had some issues w/anesthesia Date of Last Stent Placement:: Past Psychological History: No Psychological Hx Reported Smoking Status: Former smoker Past Alcohol Use History: None Reported Additional Past Alcohol Use History / Comment(s): quit smoking 18 yrs., smoked for 13yrs. Past Drug Use History: None Reported - Past Family History Brother(s) Family Medical History: Coronary Artery Disease (CAD), Myocardial Infarction ([place]) Mother Family Medical History: Coronary Artery Disease (CAD), Diabetes Mellitus Sister(s) Family Medical History: Cancer Father Family Medical History: Cancer, Pulmonary Embolus Medications and Allergies Home Medications Medication Instructions Recorded Confirmed Type Loratadine [Claritin] 10 mg PO HS 08/17/13 03/20/21 History Montelukast [Singulair] 10 mg PO HS 08/17/13 03/20/21 History amLODIPine BESYLATE [Norvasc] 2.5 mg PO DAILY 12/12/13 03/20/21 History Clopidogrel [Plavix] 75 mg PO DAILY 05/23/14 03/20/21 History Nitroglycerin Sl Tabs [Nitrostat] 0.4 mg SUBLINGUAL Q5M PRN #25 tab 07/04/15 03/20/21 Rx Omeprazole 20 mg PO BID 10/30/15 03/20/21 History Albuterol Nebulized [Ventolin 2.5 mg INHALATION RT-QID PRN 04/05/16 03/20/21 History Nebulized] Ezetimibe [Zetia] 10 mg PO HS 04/07/18 03/20/21 History Metoprolol Tartrate 25 mg PO DAILY 04/07/18 03/20/21 History Aspirin EC [Ecotrin Low Dose] 81 mg PO DAILY 04/10/18 03/20/21 History Levothyroxine Sodium [Synthroid] 137 mcg PO MOTUWETHFRSA 04/10/18 03/20/21 History Ascorbic Acid [Vitamin C] 2,000 mg PO DAILY 02/27/19 03/20/21 History Furosemide [Lasix] 20 mg PO DAILY PRN 02/27/19 03/20/21 History Isosorbide Mononitrate ER [Imdur] 30 mg PO DAILY 02/27/19 03/20/21 History Zolpidem [Ambien] 5 mg PO HS PRN 03/31/19 03/20/21 History Vitamin A [Vitamin A (8,000 Units 8,000 unit PO DAILY 02/01/20 03/20/21 History = 2,400 MCG)] Albuterol Sulfate [Albuterol 2 puff PO RT-QID PRN 02/04/20 03/20/21 History Sulfate Hfa] Calcium Carbonate [Calcium] 1,200 mg PO DAILY 02/04/20 03/20/21 History Dexamethasone [Decadron] 6 mg PO DAILY #7 tablet 03/17/21 03/20/21 Rx Atorvastatin [Lipitor] 20 mg PO HS 03/20/21 03/20/21 History Azithromycin [Zithromax Z-pack (6 See Taper PO DIRECTED 03/20/21 03/20/21 History tabs)] Cholecalciferol (Vitamin D3) 125 mcg PO DAILY 03/20/21 03/20/21 History [Vitamin D3 (125 MCG = 5,000 IU)] Edyniwhwwwz-Rftjhxynaux-Jodmeejs 1 tab PO DAILY 03/20/21 03/20/21 History L.acidoph,Paracasei, B.lactis 1 cap PO DAILY 03/20/21 03/20/21 History [Probiotic] Methocarbamol [Robaxin-750] 750 mg PO TID PRN 03/20/21 03/20/21 History Multivit-Min/Iron/Folic/Lutein 1 tab PO DAILY 03/20/21 03/20/21 History [Centrum Silver Women Tablet] Ondansetron [Zofran] 4 mg PO TID PRN 03/20/21 03/20/21 History Spironolactone 50 mg PO DAILY PRN 03/20/21 03/20/21 History Zinc 50 mg PO DAILY 03/20/21 03/20/21 History Allergies Allergy/AdvReac Type Severity Reaction Status Date / Time adhesive Allergy skin came Verified 03/20/21 23:30 off ranolazine [From Ranexa] Allergy Dyspnea, Verified 03/20/21 23:30 Edema shellfish derived Allergy throat Verified 03/20/21 23:30 swelling sulfamethoxazole Allergy Rash/Hives Verified 03/20/21 23:30 [From Bactrim] trimethoprim [From Bactrim] Allergy Rash/Hives Verified 03/20/21 23:30 atorvastatin calcium AdvReac muscle Verified 03/20/21 23:30 [From Lipitor] aches diltiazem HCl [From Cardizem] AdvReac EXTREME Verified 03/20/21 23:30 FLUSHING rosuvastatin calcium AdvReac SEVERE Verified 03/20/21 23:30 [From Crestor] MUSCLE PAIN simvastatin [From Zocor] AdvReac MUSCLE PAIN Verified 03/20/21 23:30 Physical Exam Vitals: Vital Signs Temp Pulse Pulse Resp BP BP Pulse Ox 03/21/21 09:20 97.8 F 75 18 126/79 96 03/21/21 07:15 16 03/21/21 06:05 97.1 F L 71 16 116/72 94 L 03/21/21 02:41 18 03/21/21 02:00 97.5 F L 72 16 105/64 94 L 03/21/21 00:10 92 18 99/66 97 03/20/21 22:52 97.5 F L 130 H 22 95/62 97 Intake and Output 03/20/21 03/21/21 03/21/21 22:59 06:59 14:59 Intake Total 2259 Balance 2259 Intake: IV 2259 Sodium Chloride 0.9% 1, 2259 000 ml @ 999 mls/hr IV . Q1H1M STA Rx#:[id number] Other: # Voids 1 Weight 95.254 kg 95.254 kg Results CBC & Chem 7: 03/21/21 03:18 03/21/21 03:18 Labs: Abnormal Lab Results - Last 24 Hours (Table) 03/20/21 03/20/21 03/20/21 Range/Units 23:23 23:23 23:23 WBC 2.9 L (3.8-10.6) k/uL RBC (3.80-5.40) m/uL Lymphocytes # 0.4 L (1.0-4.8) k/uL Sodium 133 L (137-145) mmol/L Carbon Dioxide 16 L (22-30) mmol/L Creatinine 0.50 L (0.52-1.04) mg/dL Glucose 288 H (74-99) mg/dL Plasma Lactic Acid Godwin 5.1 H* (0.7-2.0) mmol/L Calcium (8.4-10.2) mg/dL ALT 45 H (4-34) U/L Lactate Dehydrogenase 665 H (313-618) U/L C-Reactive Protein 6.8 H (<1.0) mg/dL Total Protein (6.3-8.2) g/dL Albumin (3.5-5.0) g/dL 03/21/21 03/21/21 03/21/21 Range/Units 03:18 03:18 03:18 WBC 1.9 L (3.8-10.6) k/uL RBC 3.69 L (3.80-5.40) m/uL Lymphocytes # 0.5 L (1.0-4.8) k/uL Sodium 136 L (137-145) mmol/L Carbon Dioxide 19 L (22-30) mmol/L Creatinine 0.43 L (0.52-1.04) mg/dL Glucose 196 H (74-99) mg/dL Plasma Lactic Acid Godwin 3.0 H* (0.7-2.0) mmol/L Calcium 7.9 L (8.4-10.2) mg/dL ALT (4-34) U/L Lactate Dehydrogenase (313-618) U/L C-Reactive Protein (<1.0) mg/dL Total Protein 5.4 L (6.3-8.2) g/dL Albumin 3.1 L (3.5-5.0) g/dL Thrombosis Risk Factor Assmnt - Choose All That Apply Any of the Below Risk Factors Present?: Yes Each Factor Represents 1 point: Age 41-60 years, Medical pt on bed rest, Obesity (BMI >25) Thrombosis Risk Factor Assessment Total Risk Factor Score: 3 Thrombosis Risk Factor Assessment Level: Moderate Risk
[2021-03-21] MEDS: MONTELUKAST 10 MG TAB PO SCH ×2 (20:26→20:43)
[2021-03-21] MEDS: LORATADINE 10 MG TAB PO SCH ×2 (20:26→20:43)
[2021-03-21] MEDS: ATORVASTATIN 20 MG TAB PO SCH ×2 (20:26→20:43)
[2021-03-21] MEDS: EZETIMIBE 10 MG TAB PO SCH ×2 (20:26→20:43)
[2021-03-21] MEDS: ACETAMINOPHEN TAB 325 MG TAB PO PRN (20:43)
[2021-03-21] MEDS: ZOLPIDEM 5 MG TAB PO PRN (22:26)
[2021-03-22] MEDS: BENZOCAINE/MENTHOL LOZENG 1 EACH LOZENGE MUCOUS MEM PRN ×2 (03:27→22:49)
[2021-03-22] MEDS: guaiFENesin-DM 100-10MG/5ML 10 ML CUP PO PRN ×2 (03:39→22:49)
[2021-03-22] MEDS: FUROSEMIDE 20 MG TAB PO PRN (05:29)
[2021-03-22] MEDS: ACETAMINOPHEN TAB 325 MG TAB PO PRN (05:29)
[2021-03-22] MEDS: LEVOTHYROXINE 137 MCG TAB PO SCH (06:08)
[2021-03-22] MEDS: METOPROLOL TARTRATE 25 MG TAB PO SCH (07:14)
[2021-03-22] MEDS: ISOSORBIDE MONONITRATE ER 30 MG TAB.ER.24H PO SCH (07:14)
[2021-03-22] MEDS ORDERED: KETOROLAC 30 MG/ML 1 ML VIAL IVP STA (07:48)
[2021-03-22] MEDS: METOPROLOL TARTRATE 5 MG/5 ML VIAL IVP SCH ×2 (07:58→09:55)
[2021-03-22] MEDS ORDERED: HEPARIN SODIUM 1,000 UN/ML (10ML VL) IV PRN (08:05)
[2021-03-22] MEDS ORDERED: HEPARIN SODIUM 1,000 UN/ML (10ML VL) IV ONE (08:05)
--- NOTE | 2021-03-22 08:13 | XR ---
EXAMINATION TYPE: XR chest 1V portable DATE OF EXAM: 03/22/2021 Comparison: 03/20/2021 Clinical History: 55-year-old female chest pain Findings: Heart borderline enlarged. Bilateral patchy and interstitial interstitial opacities throughout simila r to prior exam. No pleural effusion. Impression: Similar bilateral interstitial COVID infiltrates.
[2021-03-22 08:27] LABS: Glucose,Whole Blood 96 mg/dL (75-99)
[2021-03-22 08:27] LABS: Basophils % (A) 0 %; Eosinophils % (A) 0 %; HGB 12.6 gm/dL (11.4-16.0); Lymphocytes # (A) 1.1 k/uL (1.0-4.8); Lymphocytes % (A) 16 %; MCH 32.8 pg (25.0-35.0); MCHC 33.9 g/dL (31.0-37.0); MCV 96.8 fL (80.0-100.0); Mean Platelet Volume 7.1; Monocytes # (A) 0.3 k/uL (0-1.0); Monocytes % (A) 4 %; Neutrophils # (A) 5.5 k/uL (1.3-7.7); Neutrophils % (A) 79 %; Platelet Count 314 k/uL (150-450); RBC 3.83 m/uL (3.80-5.40); RDW 12.6 % (11.5-15.5)
--- NOTE | 2021-03-22 08:36 | P.PN ---
Progress Note - Text Progress Note Date: 03/22/21 A- team: Indication: [A. fib with RVR] Arrived on Scene to find: [patient is complaining of palpitation and shortness of breath was A. fib with RVR heart rate between 140s or 50s] Patient seen and examined at bedside. [she denies any chest pain but she is complaining of shortness of breath. Patient is having heart rate between 140s and 150s with palpitation, no chest pain.] Vital signs reviewed(heart rate between 140s or 50s blood pressure 157/117. Temperature 103, respiratory rate is 20. satting 95% on 3 L nasal cannula General:mild distress Derm: dry and warm Head: normocephalic atraumatic pupils equal round reactive further coordination Mouth: no lip lesion, mucus membranes moist Cardiovascular: S1 and S2 positive, irregularly irregular Lungs:diminished air entry bilaterally,no wheezing or rhonchi Abdominal:soft, nontender, nondistended, no hepatosplenomegaly. No rebound te nderness or rigidity Ext: warm , well perfused no cyanosis clubbing edema Neuro:no focal deficit Psych:alert and oriented x 3. Assessment and paln: #1 new-onset A. fib with rapid ventricular response -Patient received 5 mg IV Lopressor without success. -Patient will be started on a Cardizem drip on IV heparin and transferred to cardiac unit] -EKG showed A. fib with RVR -TREND TROPONIN -cHEST X-RAY ORDERED -cardiology and PCP notified. 2. Covid 19 infection diagnosed 11 days ago. -on dexamethasone, Lovenox, vitamin supplements, azithromycin. 3. History of CAD with catheterization in January 2020 revealing dominant RCA has a new 80-90% proximal lesion with some ostial 40% disease. Previously stented LAD diagonal patent with a 40% lesion in the LAD beyond the stent. Circumflex was free of significant disease. Stenting of the RCA was performed with a drug-eluting stent. Continue aspirin 81 mg daily, Lipitor 20 mg daily, Imdur 30 mg daily, Aldactone 50 mg daily, Lopressor 25 mg daily, Plavix 75 mg daily. 4. Mild intermittent asthma without any exacerbation, Singulair daily 5. Prior history of cholecystectomy, complicated by sepsis, February 2019 6. Hypothyroidism. Continue levothyroxine 137 g Friday through Friday. 7. Hypertension. Continue amlodipine 2.5 mg daily, Lasix 20 mg daily as needed. 8. Hyperlipidemia. Continue Zetia 10 mg at bedtime, atorvastatin 20 mg at bedtime. Disposition: [cardiac unit] Notified: [cardiology and PCP] A Total of [35] minutes of critical care time was spent on the complex care of this patient.
[2021-03-22] MEDS ORDERED: dexAMETHasone 2 MG TAB PO SCH (09:00)
[2021-03-22] MEDS ORDERED: ENOXAPARIN 40 MG/0.4 ML SYRINGE SQ SCH (09:00)
[2021-03-22] MEDS: DILTIAZEM DRIP BOLUS FROM BAG 1 MG SOLN IV ONE ×2 (09:05→09:24)
[2021-03-22] MEDS: DILTIAZEM 125 MG in SODIUM CHLORIDE 0.9% 100 ML IV SCH ×2 (09:06→21:06)
[2021-03-22 09:09] LABS: INR 0.9 (<1.2); Prothrombin Time 9.8 sec (9.0-12.0)
[2021-03-22 09:16] LABS: Partial Thromboplastin Time 21.8 sec (22.0-30.0)
[2021-03-22] MEDS: CALCIUM CARBONATE 500 MG CHEWABLE PO SCH (10:50)
[2021-03-22] MEDS: ASCORBIC ACID 500 MG TAB PO SCH (10:50)
[2021-03-22] MEDS: CLOPIDOGREL 75 MG TAB PO SCH (10:51)
[2021-03-22] MEDS: ZINC SULFATE 220 MG CAP PO SCH (10:51)
[2021-03-22] MEDS: PANTOPRAZOLE 40 MG TABLET PO SCH (10:51)
[2021-03-22] MEDS: MULTIVITAMINS, THERA 1 EACH TAB PO SCH (10:51)
[2021-03-22] MEDS: CHOLECALCIFEROL 125 MCG (5000 IU) TABLET PO SCH (10:51)
[2021-03-22] MEDS: ASPIRIN 81 MG PO SCH (10:51)
[2021-03-22] MEDS: DEXAMETHASONE SOD PHOSPHATE 10 MG/ML 1 ML VIAL IVP SCH (10:52)
[2021-03-22] MEDS: HEPARIN SOD,PORK IN 0.45% NACL 25,000 UNIT in 0.45% NACL 1 250ML.BAG IV SCH (10:58)
[2021-03-22] MEDS: amLODIPine 2.5 MG TAB PO SCH (10:58)
[2021-03-22 11:03] LABS: HCT 34.8 % (37.2-46.3); HGB 11.7 g/dL (12.0-15.0); MCH 31.9 pg (27.0-32.0); MCHC 33.6 g/dL (32.0-37.0); MCV 94.8 fL (80.0-97.0); Mean Platelet Volume 9.4 fL (9.5-12.2); Platelet Count 301 X 10*3/uL (140-440); RBC 3.67 X 10*6/uL (4.10-5.20); WBC 7.74 X 10*3/uL (4.50-10.00)
[2021-03-22 11:25] LABS: African American GFR (CKD) 128.1 (60.0-200.0); Albumin 3.5 g/dL (3.8-4.9); Albumin/Globulin Ratio 1.75 (1.60-3.17); Anion Gap 14.4 mmol/L (10.00-18.00); Blood Urea Nitrogen 7.5 mg/dL (9.0-27.0); C Reactive Protein 3.2 mg/dL (0.00-0.80); Calcium 8.5 mg/dL (8.7-10.3); Carbon Dioxide 19.6 mmol/L (20.0-27.5); Non-African American GFR(CKD) 110.5 (60.0-200.0); Potassium 3.7 mmol/L (3.5-5.5); Total Bilirubin 0.2 mg/dL (0.30-1.20); Total Protein 5.5 g/dL (6.2-8.2)
[2021-03-22 11:49] LABS: Glucose,Whole Blood 89 mg/dL (75-99)
--- NOTE | 2021-03-22 11:52 | P.PN ---
Subjective This is Dr. Alaniz dictating progress note The patient was interviewed along with the chart review IMPRESSION / ASSESSMENT: Typical atrial flutter with RVR, paroxysmal Patient's previously converted to sinus rhythm Covid infection with bilateral interstitial infiltrates Hypertension Dyslipidemia CAD with multivessel PCI PLAN: Continue IV heparin, continue other cardiac medications Heparin may be discontinued upon discharge Discussed with primary care team HPI Patient is admitted for Covid pneumonitis She was evaluated for typical atrial flutter and she is converted to sinus rhythm and is currently on IV heparin She does give a past history of palpitations although we were not sustained ROS: No fever chills or rigors, no cough, phlegm or expectoration, no nausea, vomiting or diarrhea, no hematuria, dysuria, no musculoskeletal complaints, no strokes or seizures, no skin lesions. EXAMINATION: Febrile 100.7, pulse rate is in the normal range. Previously 250 beats a minute in atrial flutter typical Blood pressure 132/86. His mercury REVIEW OF LABS, ECG & MEDICAL DATA White count 7000, hemoglobin 12.6, platelet count 314,000 D-dimer mildly increased at 1.09 Sodium 139 potassium 3.7, BUN 7 and creatinine 0.5 C-reactive (2 Troponin normal TSH 0.36 and free T4 1 0.26 Objective - Vital Signs Vital signs: Vital Signs Temp 100.7 F H 03/22/21 06:08 Pulse 148 H 03/22/21 07:15 Resp 20 03/22/21 07:15 BP 115/71 03/22/21 07:15 Pulse Ox 95 03/22/21 07:28 Intake & Output 03/21/21 03/22/21 03/22/21 18:59 06:59 18:59 Intake Total 3 Output Total 950 Balance -947 Intake: Intake, IV Titration 3 Amount Diltiazem 125 mg In 3 Sodium Chloride 0.9% 100 ml @ 10 MG/HR 10 mls/hr IV .[id number] TINY Rx#: [id number] Output: Urine 950 Uretheral (Levy) 950 Other: # Voids 2 1 - Labs CBC & Chem 7: 03/22/21 08:10 03/22/21 06:11 Labs: Abnormal Lab Results - Last 24 Hours (Table) 03/21/21 03/22/21 03/22/21 Range/Units 11:00 06:11 06:11 RBC (4.10-5.20) X 10*6/uL Hgb (12.0-15.0) g/dL Hct (37.2-46.3) % MPV (9.5-12.2) fL APTT (22.0-30.0) sec D-Dimer 1.09 H (<0.60) mg/L FEU Carbon Dioxide 19.6 L (20.0-27.5) mmol/L BUN 7.5 L (9.0-27.0) mg/dL Creatinine 0.5 L (0.6-1.5) mg/dL Calcium 8.5 L (8.7-10.3) mg/dL Total Bilirubin 0.20 L (0.30-1.20) mg/dL Lactate Dehydrogenase 298 H (120-246) U/L C-Reactive Protein 3.20 H (0.00-0.80) mg/dL Total Protein 5.5 L (6.2-8.2) g/dL Albumin 3.5 L (3.8-4.9) g/dL TSH 0.360 L (0.465-4.680) mIU/L 03/22/21 03/22/21 Range/Units 06:11 08:10 RBC 3.67 L (4.10-5.20) X 10*6/uL Hgb 11.7 L (12.0-15.0) g/dL Hct 34.8 L (37.2-46.3) % MPV 9.4 L (9.5-12.2) fL APTT 21.8 L (22.0-30.0) sec D-Dimer (<0.60) mg/L FEU Carbon Dioxide (20.0-27.5) mmol/L BUN (9.0-27.0) mg/dL Creatinine (0.6-1.5) mg/dL Calcium (8.7-10.3) mg/dL Total Bilirubin (0.30-1.20) mg/dL Lactate Dehydrogenase (120-246) U/L C-Reactive Protein (0.00-0.80) mg/dL Total Protein (6.2-8.2) g/dL Albumin (3.8-4.9) g/dL TSH (0.465-4.680) mIU/L
--- NOTE | 2021-03-22 12:39 | ECHOF ---
Referral Reason:tachycardia MEASUREMENTS -------- HEIGHT: 160.0 cm WEIGHT: 95.3 kg BP: 131/81 IVSd: 1.6 cm (0.6 - 1.1) LVIDd: 3.5 cm (3.9 - 5.3) LVPWd: 1.4 cm (0.6 - 1.1) IVSs: 1.7 cm LVIDs: 2.7 cm LVPWs: 1.6 cm FINDINGS -------- Atrial fibrillation. WITH RVR This was a technically adequate study. The left ventricular size is normal. There is moderate concentric left ventricular hypertrophy. C OULD NOT ESTIMATE EF DUE TO HR There is no pericardial effusion. CONCLUSIONS -------- 1. The left ventricular size is normal. 2. There is moderate concentric left ventricular hypertrophy. BROACH SETTER: Yuliet Rae [facility]
--- NOTE | 2021-03-22 12:53 | P.PN ---
Subjective Progress Note Date: 03/22/21 HISTORY OF PRESENT ILLNESS This is a pleasant 55-year-old female patient of Dr. Espinal, known history of CAD with multiple heart cath and stents, requiring mid LAD stent 2013, heart cath in September 2018 with 80% stenosis, along with history of statin intolerance, hyperlipidemia, lumbar disc disease, hypothyroidism 3 nodes disease. Patient states that she started having symptoms of shortness of breath weakness almost passed out a few times. Initially symptoms started 11 days ago and positive for coronavirus. She was in the emergency center on March 16 and received monoclonal antibodies and was discharged home on a course of dexamethasone. Patient states that she has not received the vaccine and had contact with grandchildren on [place] , progress to that daughter and son were positive for COVID Patient had heart rate at home at 150 to 160s and contacted [employer] administrator and was instructed to come into the emergency center for evaluation. In the emergency room, EKG was sinus rhythm with heart rate of 80 Chest x-ray revealed some interstitial pneumonia that is worse than last exam Laboratory data: WBC 1.9. Hemoglobin 12.2. Platelet count 221. Sodium 136. Potassium 3.8. BUN 9. Creatinine 0.43. Lactic acid 5.1. Repeat 1.2. D-dimer 0.55. TSH 0.360 and free T4 1 0.26. Echocardiogram completed in January 2020 revealed ejection fraction 50-55%, mild mitral regurgitation, and mild tricuspid regurgitation Patient underwent cardiac catheterization in January 2020 revealing dominant RCA has a new 80-90% proximal lesion with some ostial 40% disease. Previously stented LAD diagonal patent with a 40% lesion in the LAD beyond the stent. Ci rcumflex was free of significant disease. Stenting of the RCA was performed with a drug-eluting stent. Patient was admitted to the [facility] floor and started on azithromycin, albuterol inhaler, vitamin supplements, IV dexamethasone 03/22: This a.m. A-Team was called for SOB and palpitations and found to be in Afib with RVR 140-150s. No CP. Lopez physician attended and started patient on Cardizem and heparin drip and cardiology consult was added. No beds were available on the cardiac stepdown unit and patient was transferred to the intensive care unit. Patient has been seen by Dr. Alaniz for trial flutter with RVR paroxysmal and converted to sinus rhythm. He recommended IV heparin to continue blood no Cardizem drip. REVIEW OF SYSTEMS Constitutional: Reports fever, Reports chills, no night sweats. No weight change. Reports weakness, Reports fatigue. No daytime sleepiness. EENT: No headache. No blurred vision or double vision, no loss of vision. No loss of Hearing, no ringing in the ears, no dizziness. No nasal drainage or congestion. No epistaxis. No sore throat. Lungs: Reports shortness of breath, Reports cough, no sputum production. No w heezing. Cardiovascular: No chest pain, no lower extremity edema. Reports palpitations. No paroxysmal nocturnal dyspnea. No orthopnea. No lightheadedness or dizziness. Reports near-syncopal episodes. Abdominal: No abdominal pain. No nausea, vomiting. No diarrhea. No constipation. No bloody or tarry stools. No loss of appetite. Genitourinary: No dysuria, increased frequency, urgency. No urinary retention. Musculoskeletal: No myalgias. No muscle weakness, no gait dysfunction, no frequ ent falls. No back pain. No neck pain. Integumentary: No wounds, no lesions. No rash or pruritus. No unusual bruising. No change in hair or nails. Neurologic: No aphasia. No facial droop. No change in mentation. No head injury. No headache. No paralysis. No paresthesia. Psychiatric: No depression. No anxiety. No mood swings. Endocrine: No abnormal blood sugars. No weight change. No excessive sweating or thirst. No cold intolerance. PHYSICAL EXAMINATION Gen: This is a 55-year-old female. She is resting in icu bed appears to be comfortable in no acute distress, no acute respiratory distress. HEENT: Head is atraumatic, normocephalic. Pupils equal, round. Sclerae is anicteric. NECK: Supple. No JVD. No lymphadenopathy. No thyromegaly. LUNGS: Clear to auscultation. No wheezes or rhonchi. No intercostal retractions. HEART: Regular rate and rhythm. No murmur. ABDOMEN: Soft. Bowel sounds are present. No masses. No tenderness. EXTREMITIES: No pedal edema. No calf tenderness. NEUROLOGICAL: Patient is awake, alert and oriented x3. Cranial nerves 2 through 12 are grossly intact. ASSESSMENT AND PLAN 1. Palpitations and reported tachycardia likely secondary to paroxysmal atrial flutter. Patient was transferred to the ICU to be on Cardizem drip and subsequently discontinued by cardiology. Patient is a cardiac stepdown overflow. Continue heparin drip, Lopressor 25 mg daily. 2. Covid 19 infection diagnosed 11 days ago. Consult with Dr. Rich. Patient started on dexamethasone, Lovenox, vitamin supplements, azithromycin. 3. History of CAD with catheterization in January 2020 revealing dominant RCA has a new 80-90% proximal lesion with some ostial 40% disease. Previously stented LAD diagonal patent with a 40% lesion in the LAD beyond the stent. Circumflex was free of significant disease. Stenting of the RCA was performed with a drug-eluting stent. Continue aspirin 81 mg daily, Lipitor 20 mg daily, Imdur 30 mg daily, Aldactone 50 mg daily, Lopressor 25 mg daily, Plavix 75 mg daily. 4. Mild intermittent asthma without any exacerbation, Singulair daily 5. Prior history of cholecystectomy, complicated by sepsis, February 2019 6. Hypothyroidism. Continue levothyroxine 137 g Friday through Friday. 7. Hypertension. Continue amlodipine 2.5 mg daily, Lasix 20 mg daily as needed. 8. Hyperlipidemia. Continue Zetia 10 mg at bedtime, atorvastatin 20 mg at bedtime. 9. Gastroesophageal reflux disease. Continue Protonix 40 mg daily 10. DVT prophylaxis. Lovenox subcu. DISCHARGE PLAN Home Impression and plan of care have been directed as dictated by the signing physician. Toya Jung nurse practitioner acting as scribe for signing physician. Objective - Vital Signs Vital signs: Vital Signs Temp 100.7 F H 03/22/21 06:08 Pulse 148 H 03/22/21 07:15 Resp 20 03/22/21 07:15 BP 115/71 03/22/21 07:15 Pulse Ox 95 03/22/21 07:28 Intake & Output 03/21/21 03/22/21 03/22/21 18:59 06:59 18:59 Intake Total 3 Output Total 950 Balance -947 Intake: Intake, IV Titration 3 Amount Diltiazem 125 mg In 3 Sodium Chloride 0.9% 100 ml @ 10 MG/HR 10 mls/hr IV .[id number] TINY Rx#: [id number] Output: Urine 950 Uretheral (Levy) 950 Other: # Voids 2 1 - Labs CBC & Chem 7: 03/22/21 08:10 03/22/21 06:11 Labs: Abnormal Lab Results - Last 24 Hours (Table) 03/21/21 03/22/21 03/22/21 Range/Units 11:00 06:11 08:10 APTT 21.8 L (22.0-30.0) sec D-Dimer 1.09 H (<0.60) mg/L FEU TSH 0.360 L (0.465-4.680) mIU/L
[2021-03-22] MEDS: VITAMIN A 10,000 UNIT (3000 MCG) CAPSULE PO SCH (13:59)
[2021-03-22] MEDS: SODIUM CHLORIDE 0.9% 1,000 ML IV SCH (15:35)
[2021-03-22] MEDS: AZITHROMYCIN 500 MG in SODIUM CHLORIDE 0.9% 250 ML IVPB SCH (16:04)
[2021-03-22 17:07] LABS: Glucose,Whole Blood 145 mg/dL (75-99)
[2021-03-22 20:03] LABS: Glucose,Whole Blood 124 mg/dL (75-99)
[2021-03-22] MEDS: INSULIN ASPART (NovoLOG) 100 UNIT/ML VIAL SQ SCH (20:56)
[2021-03-22] MEDS: LORATADINE 10 MG TAB PO SCH (21:06)
[2021-03-22] MEDS: MONTELUKAST 10 MG TAB PO SCH (21:06)
[2021-03-22] MEDS: ZOLPIDEM 5 MG TAB PO PRN (21:06)
[2021-03-22] MEDS: ATORVASTATIN 20 MG TAB PO SCH (21:06)
--- NOTE | 2021-03-22 22:39 | P.CONS ---
History of Present Illness - Reason for Consult Consult date: 03/22/21 covid 19 Requesting physician: Vicki Whitmroe - Chief Complaint weakness and shortness of breath x days - History of Present Illness History of present illness : Patient is 55-year-old female with a past medical history significant for asthma/COPD presenting to the ER for evaluation of not feeling well in this patient symptoms started around March 10, 2021, patient subsequently was diagnosed with a COVID-19 and has received monoclonal antibody infusion on March 17, 2021, patient presenting to the ER for evaluation of generalized weakness body aches, is also complaining of shortness of breath and has been complaining of almost passed out a few times patient did have a positive COVID contact over the new year, patient on presentation to the hospital was afebrile however she did spike a fever of 103 F earlier this morning patient was also noticed to be in A. fib with RVR for the patient was transferred to the ICU patient did have a leukopenia as well as lymphopenia D- dimer was mildly elevated creatinine was normal liver exams are normal patient did have a chest x-ray some interstitial pneumonia that is worse than last exam infectious he was consulted for further management of underlying COVID-19 infection Review of system: CONSTITUTIONAL: Positive for weakness along with the fever. EYES: No complaint. ENT: No complaint. RESPIRATORY: As per history of present illness. CARDIOVASCULAR: As per history of present illness. GENITOURINARY: No complaint. GASTROINTESTINAL: Nausea but no vomiting. MUSCULOSKELETAL: No complaint. INTEGUMENTARY: No complaint. PSYCHOLOGIC: No complaint. ENDOCRINE: No complaint. NEUROLOGIC: No complaint. Past medical history : Reviewed, documented below Past surgical history : Reviewed, documented below Social history: Reviewed, documented below Medications: Reviewed, as documented below EXAMINATION: Vital sigans= Reviewed and documented below GENERAL DESCRIPTION: Middle-aged female lying in bed, no distress. No tachypnea or accessory muscle of respiration use. HEENT: Shows Pallor , no scleral icterus. Oral mucous membrane is dry. NECK: Trachea central, no thyromegaly. LUNGS: Unlabored breathing. Coarse breath sounds bilaterally. No wheeze or crackle. HEART: S1, S2, regular rate and rhythm. ABDOMEN: Soft, no tenderness , guarding or rigidity EXTREMITIES: No edema of feet. SKIN: No rash, no masses palpable. NEUROLOGICAL: The patient is awake, alert, oriented x3, mood and affect normal. LABS AND RADIOLOGY: Reviewed results see below Assessment : Patient presented to hospital with increasing shortness of breath weakness and cough in this patient symptom has been going on since March 10 was diagnosed with COVID-19 on March 16 and has received monoclonal antibody infusion and did not have improvement to eat patient now with mild hypoxemia with need for supplemental oxygen chest x-ray with mild pneumonia secondary to COVID-19 and have no evidence of any secondary bacterial pneumonia with normal procalcitonin, patient did have a episodes of A. fib with RVR that may be affecting her overall her respiratory status, patient is currently out of the therapeutic window for remdesivir per [facility] policy Plan: 1-patient to continue with a heparin dexamethasone zinc and ascorbic acid 2-discontinue Zithromax 3-droplet isolation and respiratory support We will follow on clinical condition and cultures to further adjust medication if needed Thank you for this consultation we will follow the patient along with you Past Medical History Past Medical History: Asthma, Coronary Artery Disease (CAD), Chest Pain / Angina, GERD/Reflux, Musculoskeletal Disorder, Pneumonia, Syncope, Thyroid Disorder, Vascular Disorder Additional Past Medical History / Comment(s): raynauds, lupus-suspected, had ruptured disc, hx. stomach ulcer, has 4 cardiac stents, hiatal hernia, sepsis History of Any Multi-Drug Resistant Organisms: None Reported Past Surgical History: Appendectomy, Cholecystectomy, Heart Catheterization With Stent, Tonsillectomy, Uterine Ablation Past Anesthesia/Blood Transfusion Reactions: No Reported Reaction, Family History of Problems w/ Anesthesia Additional Past Anesthesia/Blood Transfusion Reaction / Comm: has had hematomas in past after cardiac caths. & syncopal episode, mom had some issues w/anesthesi a Date of Last Stent Placement:: Past Psychological History: No Psychological Hx Reported Smoking Status: Former smoker Past Alcohol Use History: None Reported Additional Past Alcohol Use History / Comment(s): quit smoking 20 yrs., smoked for 13yrs. Past Drug Use History: None Reported - Past Family History Brother(s) Family Medical History: Coronary Artery Disease (CAD), Myocardial Infarction ([place]) Mother Family Medical History: Coronary Artery Disease (CAD), Diabetes Mellitus Sister(s) Family Medical History: Cancer Father Family Medical History: Cancer, Pulmonary Embolus Medications and Allergies Home Medications Medication Instructions Recorded Confirmed Type Loratadine [Claritin] 10 mg PO HS 08/17/13 03/20/21 History Montelukast [Singulair] 10 mg PO HS 08/17/13 03/20/21 History amLODIPine BESYLATE [Norvasc] 2.5 mg PO DAILY 12/12/13 03/20/21 History Clopidogrel [Plavix] 75 mg PO DAILY 05/23/14 03/20/21 History Nitroglycerin Sl Tabs [Nitrostat] 0.4 mg SUBLINGUAL Q5M PRN #25 tab 07/04/15 03/20/21 Rx Omeprazole 20 mg PO BID 10/30/15 03/20/21 History Albuterol Nebulized [Ventolin 2.5 mg INHALATION RT-QID PRN 04/05/16 03/20/21 History Nebulized] Ezetimibe [Zetia] 10 mg PO HS 04/07/18 03/20/21 History Metoprolol Tartrate 25 mg PO DAILY 04/07/18 03/20/21 History Aspirin EC [Ecotrin Low Dose] 81 mg PO DAILY 04/10/18 03/20/21 History Levothyroxine Sodium [Synthroid] 137 mcg PO [id number] 04/10/18 03/20/21 History Ascorbic Acid [Vitamin C] 2,000 mg PO DAILY 02/27/19 03/20/21 History Furosemide [Lasix] 20 mg PO DAILY PRN 02/27/19 03/20/21 History Isosorbide Mononitrate ER [Imdur] 30 mg PO DAILY 02/27/19 03/20/21 History Zolpidem [Ambien] 5 mg PO HS PRN 03/31/19 03/20/21 History Vitamin A [Vitamin A (8,000 Units 8,000 unit PO DAILY 02/01/20 03/20/21 History = 2,400 MCG)] Albuterol Sulfate [Albuterol 2 puff PO RT-QID PRN 02/04/20 03/20/21 History Sulfate Hfa] Calcium Carbonate [Calcium] 1,200 mg PO DAILY 02/04/20 03/20/21 History Dexamethasone [Decadron] 6 mg PO DAILY #7 tablet 03/17/21 03/20/21 Rx Atorvastatin [Lipitor] 20 mg PO HS 03/20/21 03/20/21 History Azithromycin [Zithromax Z-pack (6 See Taper PO DIRECTED 03/20/21 03/20/21 History tabs)] Cholecalciferol (Vitamin D3) 125 mcg PO DAILY 03/20/21 03/20/21 History [Vitamin D3 (125 MCG = 5,000 IU)] Hkdzepwlsxt-Qzmeadlqzzk-Wwfummyz 1 tab PO DAILY 03/20/21 03/20/21 History L.acidoph,Paracasei, B.lactis 1 cap PO DAILY 03/20/21 03/20/21 History [Probiotic] Methocarbamol [Robaxin-750] 750 mg PO TID PRN 03/20/21 03/20/21 History Multivit-Min/Iron/Folic/Lutein 1 tab PO DAILY 03/20/21 03/20/21 History [Centrum Silver Women Tablet] Ondansetron [Zofran] 4 mg PO TID PRN 03/20/21 03/20/21 History Spironolactone 50 mg PO DAILY PRN 03/20/21 03/20/21 History Zinc 50 mg PO DAILY 03/20/21 03/20/21 History Allergies Allergy/AdvReac Type Severity Reaction Status Date / Time adhesive Allergy skin came Verified 03/20/21 23:30 off ranolazine [From Ranexa] Allergy Dyspnea, Verified 03/20/21 23:30 Edema shellfish derived Allergy throat Verified 03/20/21 23:30 swelling sulfamethoxazole Allergy Rash/Hives Verified 03/20/21 23:30 [From Bactrim] trimethoprim [From Bactrim] Allergy Rash/Hives Verified 03/20/21 23:30 atorvastatin calcium AdvReac muscle Verified 03/20/21 23:30 [From Lipitor] aches diltiazem HCl [From Cardizem] AdvReac EXTREME Verified 03/20/21 23:30 FLUSHING rosuvastatin calcium AdvReac SEVERE Verified 03/20/21 23:30 [From Crestor] MUSCLE PAIN simvastatin [From Zocor] AdvReac MUSCLE PAIN Verified 03/20/21 23:30 Physical Exam Vitals: Vital Signs Temp Pulse Pulse Pulse Resp BP BP 03/22/21 12:40 158 H 22 03/22/21 12:30 111 H 22 03/22/21 12:20 86 17 03/22/21 12:10 89 20 118/70 03/22/21 12:00 81 24 03/22/21 11:50 79 28 H 03/22/21 11:40 77 22 114/62 03/22/21 11:30 80 18 03/22/21 11:20 79 17 03/22/21 11:10 85 17 108/68 03/22/21 11:00 78 20 03/22/21 10:50 81 19 03/22/21 10:40 80 36 H 107/62 03/22/21 10:30 82 23 03/22/21 10:20 84 30 H 03/22/21 10:10 82 17 101/66 03/22/21 10:00 82 23 03/22/21 09:50 83 19 03/22/21 09:40 98.4 F 83 15 102/72 03/22/21 09:30 92 23 03/22/21 09:20 87 20 111/67 03/22/21 09:10 125 H 24 87/73 03/22/21 09:00 149 H 21 03/22/21 08:50 154 H 32 H 03/22/21 08:40 154 H 29 H 03/22/21 08:30 146 H 21 112/78 03/22/21 08:23 36 H 03/22/21 07:28 03/22/21 07:15 148 H 20 115/71 03/22/21 07:00 155 H 20 132/86 03/22/21 06:08 100.7 F H 03/22/21 05:25 103.1 F H 118 H 20 137/81 03/22/21 02:00 98.7 F 89 16 118/73 03/21/21 21:03 86 18 119/72 03/21/21 20:32 99.4 F 03/21/21 16:46 98.4 F 80 18 124/75 Pulse Ox 03/22/21 12:40 94 L 03/22/21 12:30 95 03/22/21 12:20 94 L 03/22/21 12:10 95 03/22/21 12:00 95 03/22/21 11:50 96 03/22/21 11:40 97 03/22/21 11:30 97 03/22/21 11:20 96 03/22/21 11:10 96 03/22/21 11:00 96 03/22/21 10:50 95 03/22/21 10:40 96 03/22/21 10:30 96 03/22/21 10:20 96 03/22/21 10:10 96 03/22/21 10:00 96 03/22/21 09:50 96 03/22/21 09:40 95 03/22/21 09:30 97 03/22/21 09:20 95 03/22/21 09:10 95 03/22/21 09:00 96 03/22/21 08:50 95 03/22/21 08:40 95 03/22/21 08:30 95 03/22/21 08:23 03/22/21 07:28 95 03/22/21 07:15 03/22/21 07:00 03/22/21 06:08 03/22/21 05:25 93 L 03/22/21 02:00 96 03/21/21 21:03 98 03/21/21 20:32 03/21/21 16:46 94 L Intake and Output 03/22/21 03/22/21 03/22/21 06:59 14:59 22:59 Intake Total 33.5 Output Total 1625 Balance -1591.5 Intake: Intake, IV Titration 33.5 Amount Diltiazem 125 mg In 33.5 Sodium Chloride 0.9% 100 ml @ 10 MG/HR 10 mls/hr IV .[id number] [facility] Rx#: [id number] Output: Urine 1625 Uretheral (Levy) 950 Other: Voiding Method Indwelling Catheter # Voids 1 Results CBC & Chem 7: 03/22/21 08:10 03/22/21 06:11 Labs: Abnormal Lab Results - Last 24 Hours (Table) 03/22/21 03/22/21 03/22/21 Range/Units 06:11 06:11 06:11 RBC 3.67 L (4.10-5.20) X 10*6/uL Hgb 11.7 L (12.0-15.0) g/dL Hct 34.8 L (37.2-46.3) % MPV 9.4 L (9.5-12.2) fL APTT (22.0-30.0) sec D-Dimer 1.09 H (<0.60) mg/L FEU Carbon Dioxide 19.6 L (20.0-27.5) mmol/L BUN 7.5 L (9.0-27.0) mg/dL Creatinine 0.5 L (0.6-1.5) mg/dL Calcium 8.5 L (8.7-10.3) mg/dL Total Bilirubin 0.20 L (0.30-1.20) mg/dL Lactate Dehydrogenase 298 H (120-246) U/L C-Reactive Protein 3.20 H (0.00-0.80) mg/dL Total Protein 5.5 L (6.2-8.2) g/dL Albumin 3.5 L (3.8-4.9) g/dL Free T3 pg/mL (2.8-5.3) pg/ml 03/22/21 03/22/21 Range/Units 08:10 13:52 RBC (4.10-5.20) X 10*6/uL Hgb (12.0-15.0) g/dL Hct (37.2-46.3) % MPV (9.5-12.2) fL APTT 21.8 L (22.0-30.0) sec D-Dimer (<0.60) mg/L FEU Carbon Dioxide (20.0-27.5) mmol/L BUN (9.0-27.0) mg/dL Creatinine (0.6-1.5) mg/dL Calcium (8.7-10.3) mg/dL Total Bilirubin (0.30-1.20) mg/dL Lactate Dehydrogenase (120-246) U/L C-Reactive Protein (0.00-0.80) mg/dL Total Protein (6.2-8.2) g/dL Albumin (3.8-4.9) g/dL Free T3 pg/mL 2.1 L (2.8-5.3) pg/ml
[2021-03-22] MEDS: EZETIMIBE 10 MG TAB PO SCH (22:50)
[2021-03-23] MEDS: PANTOPRAZOLE 40 MG TABLET PO SCH (05:24)
[2021-03-23] MEDS: guaiFENesin-DM 100-10MG/5ML 10 ML CUP PO PRN ×2 (05:24→23:43)
[2021-03-23 06:13] LABS: Glucose,Whole Blood 159 mg/dL (75-99)
[2021-03-23] MEDS: LEVOTHYROXINE 137 MCG TAB PO SCH (06:29)
[2021-03-23] MEDS: INSULIN ASPART (NovoLOG) 100 UNIT/ML VIAL SQ SCH ×4 (06:29→21:26)
[2021-03-23 07:39] LABS: Basophils % (A) 0 %; Eosinophils % (A) 0 %; HCT 34.9 % (34.0-46.0); HGB 11.8 gm/dL (11.4-16.0); Lymphocytes # (A) 0.7 k/uL (1.0-4.8); Lymphocytes % (A) 15 %; MCH 33.1 pg (25.0-35.0); MCHC 33.9 g/dL (31.0-37.0); MCV 97.7 fL (80.0-100.0); Monocytes # (A) 0.4 k/uL (0-1.0); Monocytes % (A) 8 %; Neutrophils # (A) 3.3 k/uL (1.3-7.7); Neutrophils % (A) 74 %; Platelet Count 304 k/uL (150-450); RBC 3.57 m/uL (3.80-5.40); RDW 12.6 % (11.5-15.5); WBC 4.4 k/uL (3.8-10.6)
[2021-03-23 07:47] LABS: INR 0.9 (<1.2); Partial Thromboplastin Time 49.7 sec (22.0-30.0); Prothrombin Time 10.2 sec (9.0-12.0)
[2021-03-23] MEDS: ALBUTEROL HFA INHALER INHALATION PRN ×3 (08:09→20:31)
[2021-03-23] MEDS: CLOPIDOGREL 75 MG TAB PO SCH (09:34)
[2021-03-23] MEDS: ZINC SULFATE 220 MG CAP PO SCH (09:34)
[2021-03-23] MEDS: ASCORBIC ACID 500 MG TAB PO SCH (09:34)
[2021-03-23] MEDS: amLODIPine 2.5 MG TAB PO SCH (09:34)
[2021-03-23] MEDS: CALCIUM CARBONATE 500 MG CHEWABLE PO SCH (09:34)
[2021-03-23] MEDS: CHOLECALCIFEROL 125 MCG (5000 IU) TABLET PO SCH (09:35)
[2021-03-23] MEDS: ASPIRIN 81 MG PO SCH (09:35)
[2021-03-23] MEDS: VITAMIN A 10,000 UNIT (3000 MCG) CAPSULE PO SCH (09:35)
[2021-03-23] MEDS: MULTIVITAMINS, THERA 1 EACH TAB PO SCH (09:35)
[2021-03-23] MEDS: ISOSORBIDE MONONITRATE ER 30 MG TAB.ER.24H PO SCH (09:35)
[2021-03-23] MEDS: DEXAMETHASONE SOD PHOSPHATE 10 MG/ML 1 ML VIAL IVP SCH (09:36)
[2021-03-23] MEDS: FUROSEMIDE 20 MG TAB PO PRN (09:44)
[2021-03-23] MEDS: DILTIAZEM 125 MG in SODIUM CHLORIDE 0.9% 100 ML IV SCH (10:05)
[2021-03-23] MEDS: APIXABAN 5 MG TAB PO SCH ×2 (10:06→21:25)
[2021-03-23] MEDS: HEPARIN SOD,PORK IN 0.45% NACL 25,000 UNIT in 0.45% NACL 1 250ML.BAG IV SCH (10:06)
[2021-03-23] MEDS: METOPROLOL TARTRATE 25 MG TAB PO SCH ×3 (10:15→21:26)
[2021-03-23 11:55] LABS: Glucose,Whole Blood 127 mg/dL (75-99)
[2021-03-23] MEDS ORDERED: AZITHROMYCIN 500 MG TAB PO SCH (12:00)
--- NOTE | 2021-03-23 12:07 | P.PN ---
Subjective HISTORY OF PRESENT ILLNESS: This is a 55-year-old female with a past medical history significant for CAD with multivessel PCI, hypertension, hyperlipidemia, and asthma. Patient follows in the office with Dr. Greenberg. We have been asked to see the patient in consultation for tachycardia. The patient is admitted to the hospital secondary to Covid. The patient initially was complaining of palpitations 03/20-03/21 which resolved. Telemetry reviewed at that time revealed no arrhythmia, patient maintained sinus mechanism. Patient's EKG on admission revealed sinus mechanism. On 03/21-03/22 patient went into atrial flutter with RVR she was started on IV Cardizem drip and IV heparin drip. Patient seen and examined at bedside, no acute distress. She denies any chest pain or shortness of breath. She states she gets occasional palpitations. Telemetry reviewed patient is currently in sinus mechanism heart rate in the 70s80s. She continues to go in and out of atrial flutter. She's currently maintained on aspirin 81 mg daily, amlodipine 2.5 mg daily, atorvastatin 20 mg nightly, IV Cardizem at 10 mg/hr, PO Lasix 20mg daily, Imdur 30 mg daily, metoprolol titrate 25 mg daily. PREVIOUS DIAGNOSTICS: Echocardiogram completed in January 2020 revealed ejection fraction 50-55%, mild mitral regurgitation, and mild tricuspid regurgitation Patient underwent cardiac catheterization in January 2020 revealing dominant RCA has a new 80-90% proximal lesion with some ostial 40% disease. Previously stented LAD diagonal patent with a 40% lesion in the LAD beyond the stent. Circumflex was free of significant disease. Stenting of the RCA was performed with a drug-eluting stent. PHYSICAL EXAM: Patient alert and oriented x 3. No acute distress Heart sounds are Regular, patient in sinus mechanism Thorough physical exam not completed secondary to limited evaluation/examination due to Covid19 ASSESSMENT: Palpitations Typical Atrial flutter with RVR [id number] score 3 Covid 19 pneumonia Coronary artery disease with multivessel PCI Hypertension Hyperlipidemia Asthma PLAN: Increase metoprolol to 25mg BID Wean off Cardizem Drip Obtain 2D echocardiogram We will start Eliquis 5mg BID, consult case management for coverage, per case management copay is $47/month Patient states she has a history of increased bruising from anticoagulation, denies bleeding, discussed atrial fib/flutter with patient, risk of stroke and risk if bleeding with patient. Benefit of anticoagulation outweighs risk,patient is agreeable. Discontinue aspirin, patient will continue Plavix Continue all other cardiac medications Continue telemetry monitoring From a cardiology perspective, if patient rates are controlled ok to discharge if hemodynamically stable Follow up with Dr. Greenberg Nurse practitioner note has been reviewed by physician. Signing provider agrees with the documented findings, assessment, and plan of care. Objective - Vital Signs Vital signs: Vital Signs Temp 98.3 F 03/23/21 08:00 Pulse 80 03/23/21 08:00 Resp 18 03/23/21 08:00 BP 115/73 03/23/21 08:00 Pulse Ox 95 03/23/21 08:00 Intake & Output 03/22/21 03/23/21 03/23/21 18:59 06:59 18:59 Intake Total 434.333 629.856 125 Output Total 1625 1700 Balance -1190.667 -1070.144 125 Intake: IV 90 Diltiazem 125 mg In 90 Sodium Chloride 0.9% 100 ml @ 10 MG/HR 10 mls/hr IV .[id number] [facility] Rx#: [id number] Intake, IV Titration 194.333 414.856 125 Amount Azithromycin 500 mg In 75 250 Sodium Chloride 0.9% 250 ml @ 250 mls/hr IVPB DAILY@1200 [facility] Rx#: [id number] Diltiazem 125 mg In 33.5 71 125 Sodium Chloride 0.9% 100 ml @ 10 MG/HR 10 mls/hr IV .[id number] [facility] Rx#: [id number] Heparin Sod,Pork in 0.45% 85.833 93.856 NaCl 25,000 unit In 0.45 % NaCl 1 250ml.bag @ 10. 498 UNITS/KG/HR 10 mls/hr IV .Q24H [facility] Rx#: [id number] Oral 240 125 Output: Urine 1625 1700 Uretheral (Levy) 950 Other: Voiding Method Indwelling Catheter Indwelling Catheter Indwelling Catheter - Labs CBC & Chem 7: 03/23/21 06:57 03/22/21 06:11 Labs: Abnormal Lab Results - Last 24 Hours (Table) 03/22/21 03/22/21 03/22/21 Range/Units 13:52 16:55 16:56 RBC (3.80-5.40) m/uL Lymphocytes # (1.0-4.8) k/uL APTT 32.4 H (22.0-30.0) sec POC Glucose (mg/dL) 145 H (75-99) mg/dL Free T3 pg/mL 2.1 L (2.8-5.3) pg/ml 03/22/21 03/23/21 03/23/21 Range/Units 20:02 00:19 06:12 RBC (3.80-5.40) m/uL Lymphocytes # (1.0-4.8) k/uL APTT 35.5 H (22.0-30.0) sec POC Glucose (mg/dL) 124 H 159 H (75-99) mg/dL Free T3 pg/mL (2.8-5.3) pg/ml 03/23/21 03/23/21 Range/Units 06:57 06:57 RBC 3.57 L (3.80-5.40) m/uL Lymphocytes # 0.7 L (1.0-4.8) k/uL APTT 49.7 H (22.0-30.0) sec POC Glucose (mg/dL) (75-99) mg/dL Free T3 pg/mL (2.8-5.3) pg/ml
[2021-03-23 13:06] LABS: Thyroid Stim Immun Quant <0.10 IU/L (<0.10)
--- NOTE | 2021-03-23 14:37 | P.PN ---
Subjective Progress Note Date: 03/23/21 HISTORY OF PRESENT ILLNESS This is a pleasant 55-year-old female patient of Dr. Espinal, known history of CAD with multiple heart cath and stents, requiring mid LAD stent 2013, heart cath in September 2018 with 80% stenosis, along with history of statin intolerance, hyperlipidemia, lumbar disc disease, hypothyroidism 3 nodes disease. Patient states that she started having symptoms of shortness of breath weakness almost passed out a few times. Initially symptoms started 11 days ago and positive for coronavirus. She was in the emergency center on March 16 and received monoclonal antibodies and was discharged home on a course of dexamethasone. Patient states that she has not received the vaccine and had contact with grandchildren on [place] , progress to that daughter and son were positive for COVID Patient had heart rate at home at 150 to 160s and contacted film waxer and was instructed to come into the emergency center for evaluation. In the emergency room, EKG was sinus rhythm with heart rate of 80 Chest x-ray revealed some interstitial pneumonia that is worse than last exam Laboratory data: WBC 1.9. Hemoglobin 12.2. Platelet count 221. Sodium 136. Potassium 3.8. BUN 9. Creatinine 0.43. Lactic acid 5.1. Repeat 1.2. D-dimer 0.55. TSH 0.360 and free T4 1 0.26. Echocardiogram completed in January 2020 revealed ejection fraction 50-55%, mild mitral regurgitation, and mild tricuspid regurgitation Patient underwent cardiac catheterization in January 2020 revealing dominant RCA has a new 80-90% proximal lesion with some ostial 40% disease. Previously stented LAD diagonal patent with a 40% lesion in the LAD beyond the stent. Ci rcumflex was free of significant disease. Stenting of the RCA was performed with a drug-eluting stent. Patient was admitted to the [facility] floor and started on azithromycin, albuterol inhaler, vitamin supplements, IV dexamethasone 03/22: This a.m. A-Team was called for SOB and palpitations and found to be in Afib with RVR 140-150s. No CP. John physician attended and started patient on Cardizem and heparin drip and cardiology consult was added. No beds were available on the cardiac stepdown unit and patient was transferred to the intensive care unit. Patient has been seen by Dr. Alaniz for trial flutter with RVR paroxysmal and converted to sinus rhythm. He recommended IV heparin to continue no Cardizem drip. 03/23: A is seen on the cardiac stepdown unit. She states she is feeling much better today, denies palpitations. She states she has had chest pain on and off. She was seen this morning by cardiology and heparin drip was discontinued and started on eliquis. Patient is also been seen by Dr. Rich with plan to continue dexamethasone and vitamin supplements, discontinue Zithromax. Patient has been afebrile, heart rate 79, pulse ox 95% on 2 L nasal cannula, blood pres sure 96/53. Intestinal probable discharge home tomorrow. REVIEW OF SYSTEMS Constitutional: Reports fever, Reports chills, no night sweats. No weight change. Reports weakness, Reports fatigue. No daytime sleepiness. EENT: No headache. No blurred vision or double vision, no loss of vision. No loss of Hearing, no ringing in the ears, no dizziness. No nasal drainage or congestion. No epistaxis. No sore throat. Lungs: Reports shortness of breath, Reports cough, no sputum production. No wheezing. Cardiovascular: Reports intermittent episodes of chest pain, no lower extremity edema. Denies palpitations. No paroxysmal nocturnal dyspnea. No orthopnea. No lightheadedness or dizziness. Reports near-syncopal episodes. Abdominal: No abdominal pain. No nausea, vomiting. No diarrhea. No constipation. No bloody or tarry stools. No loss of appetite. Genitourinary: No dysuria, increased frequency, urgency. No urinary retention. Musculoskeletal: No myalgias. No muscle weakness, no gait dysfunction, no frequent falls. No back pain. No neck pain. Integumentary: No wounds, no lesions. No rash or pruritus. No unusual bruising. No change in hair or nails. Neurologic: No aphasia. No facial droop. No change in mentation. No head injury. No headache. No paralysis. No paresthesia. Psychiatric: No depression. No anxiety. No mood swings. Endocrine: No abnormal blood sugars. No weight change. No excessive sweating or thirst. No cold intolerance. PHYSICAL EXAMINATION Gen: This is a 55-year-old female. She is resting on the side of the bed appears to be comfortable in no acute distress, no acute respiratory distress. HEENT: Head is atraumatic, normocephalic. Pupils equal, round. Sclerae is anicteric. NECK: Supple. No JVD. No lymphadenopathy. No thyromegaly. LUNGS: Clear to auscultation. No wheezes or rhonchi. No intercostal retractions. HEART: Regular rate and rhythm. No murmur. ABDOMEN: Soft. Bowel sounds are present. No masses. No tenderness. EXTREMITIES: No pedal edema. No calf tenderness. NEUROLOGICAL: Patient is awake, alert and oriented x3. Cranial nerves 2 through 12 are grossly intact. ASSESSMENT AND PLAN 1. Palpitations likely secondary to paroxysmal atrial flutter. Patient is now on the cardiac stepdown unit. Heparin drip has been discontinued and transitioned to eliquis, off Cardizem drip, continue Lopressor 25 mg twice daily. Plan to follow-up with Dr. Greenberg as an outpatient. Patient is cleared for discharge from cardiology. 2. Covid 19 infection diagnosed 11 days ago. Consult with Dr. Hilario francis. Patient started on dexamethasone, Lovenox, vitamin supplements, discontinue azithromycin. 3. History of CAD with catheterization in January 2020 revealing dominant RCA has a new 80-90% proximal lesion with some ostial 40% disease. Previously stented LAD diagonal patent with a 40% lesion in the LAD beyond the stent. Circumflex was free of significant disease. Stenting of the RCA was performed with a drug-eluting stent. Continue aspirin 81 mg daily, Lipitor 20 mg daily, Imdur 30 mg daily, Aldactone 50 mg daily, Lopressor 25 mg daily, Plavix 75 mg daily. 4. Mild intermittent asthma without any exacerbation, Singulair daily 5. Prior history of cholecystectomy, complicated by sepsis, February 2019 6. Hypothyroidism. Continue levothyroxine 137 g Friday through Friday. 7. Hypertension. Continue amlodipine 2.5 mg daily, Lasix 20 mg daily as needed. 8. Hyperlipidemia. Continue Zetia 10 mg at bedtime, atorvastatin 20 mg at bedtime. 9. Gastroesophageal reflux disease. Continue Protonix 40 mg daily 10. DVT prophylaxis. Lovenox subcu. DISCHARGE PLAN Home on Friday Impression and plan of care have been directed as dictated by the signing physician. Toya Jung nurse practitioner acting as scribe for signing physician. Objective - Vital Signs Vital signs: Vital Signs Temp 98.5 F 03/23/21 03:03 Pulse 79 03/23/21 03:03 Resp 18 03/23/21 03:03 BP 96/53 03/23/21 03:03 Pulse Ox 95 03/23/21 03:03 Intake & Output 03/22/21 03/23/21 03/23/21 18:59 06:59 18:59 Intake Total 434.333 629.856 125 Output Total 1625 1700 Balance -1190.667 -1070.144 125 Intake: IV 90 Diltiazem 125 mg In 90 Sodium Chloride 0.9% 100 ml @ 10 MG/HR 10 mls/hr IV .[id number] [facility] Rx#: [id number] Intake, IV Titration 194.333 414.856 125 Amount Azithromycin 500 mg In 75 250 Sodium Chloride 0.9% 250 ml @ 250 mls/hr IVPB DAILY@1200 [facility] Rx#: [id number] Diltiazem 125 mg In 33.5 71 125 Sodium Chloride 0.9% 100 ml @ 10 MG/HR 10 mls/hr IV .[id number] [facility] Rx#: [id number] Heparin Sod,Pork in 0.45% 85.833 93.856 NaCl 25,000 unit In 0.45 % NaCl 1 250ml.bag @ 10. 498 UNITS/KG/HR 10 mls/hr IV .Q24H [facility] Rx#: [id number] Oral 240 125 Output: Urine 1625 1700 Uretheral (Levy) 950 Other: Voiding Method Indwelling Catheter Indwelling Catheter - Labs CBC & Chem 7: 03/23/21 06:57 03/22/21 06:11 Labs: Abnormal Lab Results - Last 24 Hours (Table) 03/22/21 03/22/21 03/22/21 Range/Units 06:11 06:11 13:52 RBC 3.67 L (4.10-5.20) X 10*6/uL Hgb 11.7 L (12.0-15.0) g/dL Hct 34.8 L (37.2-46.3) % MPV 9.4 L (9.5-12.2) fL Lymphocytes # (1.0-4.8) k/uL APTT (22.0-30.0) sec Carbon Dioxide 19.6 L (20.0-27.5) mmol/L BUN 7.5 L (9.0-27.0) mg/dL Creatinine 0.5 L (0.6-1.5) mg/dL POC Glucose (mg/dL) (75-99) mg/dL Calcium 8.5 L (8.7-10.3) mg/dL Total Bilirubin 0.20 L (0.30-1.20) mg/dL Lactate Dehydrogenase 298 H (120-246) U/L C-Reactive Protein 3.20 H (0.00-0.80) mg/dL Total Protein 5.5 L (6.2-8.2) g/dL Albumin 3.5 L (3.8-4.9) g/dL Free T3 pg/mL 2.1 L (2.8-5.3) pg/ml 03/22/21 03/22/21 03/22/21 Range/Units 16:55 16:56 20:02 RBC (4.10-5.20) X 10*6/uL Hgb (12.0-15.0) g/dL Hct (37.2-46.3) % MPV (9.5-12.2) fL Lymphocytes # (1.0-4.8) k/uL APTT 32.4 H (22.0-30.0) sec Carbon Dioxide (20.0-27.5) mmol/L BUN (9.0-27.0) mg/dL Creatinine (0.6-1.5) mg/dL POC Glucose (mg/dL) 145 H 124 H (75-99) mg/dL Calcium (8.7-10.3) mg/dL Total Bilirubin (0.30-1.20) mg/dL Lactate Dehydrogenase (120-246) U/L C-Reactive Protein (0.00-0.80) mg/dL Total Protein (6.2-8.2) g/dL Albumin (3.8-4.9) g/dL Free T3 pg/mL (2.8-5.3) pg/ml 03/23/21 03/23/21 03/23/21 Range/Units 00:19 06:12 06:57 RBC 3.57 L (4.10-5.20) X 10*6/uL Hgb (12.0-15.0) g/dL Hct (37.2-46.3) % MPV (9.5-12.2) fL Lymphocytes # 0.7 L (1.0-4.8) k/uL APTT 35.5 H (22.0-30.0) sec Carbon Dioxide (20.0-27.5) mmol/L BUN (9.0-27.0) mg/dL Creatinine (0.6-1.5) mg/dL POC Glucose (mg/dL) 159 H (75-99) mg/dL Calcium (8.7-10.3) mg/dL Total Bilirubin (0.30-1.20) mg/dL Lactate Dehydrogenase (120-246) U/L C-Reactive Protein (0.00-0.80) mg/dL Total Protein (6.2-8.2) g/dL Albumin (3.8-4.9) g/dL Free T3 pg/mL (2.8-5.3) pg/ml 03/23/21 Range/Units 06:57 RBC (4.10-5.20) X 10*6/uL Hgb (12.0-15.0) g/dL Hct (37.2-46.3) % MPV (9.5-12.2) fL Lymphocytes # (1.0-4.8) k/uL APTT 49.7 H (22.0-30.0) sec Carbon Dioxide (20.0-27.5) mmol/L BUN (9.0-27.0) mg/dL Creatinine (0.6-1.5) mg/dL POC Glucose (mg/dL) (75-99) mg/dL Calcium (8.7-10.3) mg/dL Total Bilirubin (0.30-1.20) mg/dL Lactate Dehydrogenase (120-246) U/L C-Reactive Protein (0.00-0.80) mg/dL Total Protein (6.2-8.2) g/dL Albumin (3.8-4.9) g/dL Free T3 pg/mL (2.8-5.3) pg/ml
[2021-03-23 16:44] LABS: Glucose,Whole Blood 176 mg/dL (75-99)
--- NOTE | 2021-03-23 17:26 | PN ---
PROGRESS NOTE DATE OF SERVICE: 03/23/2021 REASON FOR FOLLOWUP: COVID-19 pneumonia. INTERVAL HISTORY: The patient is afebrile. The patient mentioned breathing slightly comfortably. She is on 2 L nasal cannula. The patient denies having any chest pain or worsening cough or sputum production. No abdominal pain or diarrhea. PHYSICAL EXAMINATION: Blood pressure 101/64, pulse of 81, temperature 98. She is 97% on 2 L nasal cannula. General description is a middle-aged female lying in bed in no distress. Respiratory system: Unlabored breathing, decreased intensity of breath sounds. No wheeze. Heart S1, S2. Regular rate and rhythm. Abdomen soft, no tenderness. LABS: Hemoglobin is 11. , white count of 4.4. DIAGNOSTIC IMPRESSION AND PLAN: Patient with acute COVID-19 pneumonia, slow clinical improvement. Patient to continue with Eliquis, dexamethasone, zinc and ascorbic acid along with respiratory support. Monitor clinical course closely. MMLISAL / IJN: [id number] /
[2021-03-23 20:44] LABS: Glucose,Whole Blood 136 mg/dL (75-99)
[2021-03-23] MEDS ORDERED: METOPROLOL TARTRATE 25 MG TAB PO SCH (21:00)
[2021-03-23] MEDS: LORATADINE 10 MG TAB PO SCH (21:26)
[2021-03-23] MEDS: EZETIMIBE 10 MG TAB PO SCH (21:26)
[2021-03-23] MEDS: ATORVASTATIN 20 MG TAB PO SCH (21:26)
[2021-03-23] MEDS: MONTELUKAST 10 MG TAB PO SCH (21:26)
[2021-03-23] MEDS: ZOLPIDEM 5 MG TAB PO PRN (23:43)
[2021-03-24] MEDS: DILTIAZEM 125 MG in SODIUM CHLORIDE 0.9% 100 ML IV SCH ×2 (04:00→21:41)
[2021-03-24 06:09] LABS: Glucose,Whole Blood 133 mg/dL (75-99)
[2021-03-24] MEDS: INSULIN ASPART (NovoLOG) 100 UNIT/ML VIAL SQ SCH ×4 (06:32→21:41)
[2021-03-24] MEDS: PANTOPRAZOLE 40 MG TABLET PO SCH (06:32)
[2021-03-24] MEDS: LEVOTHYROXINE 137 MCG TAB PO SCH (06:32)
[2021-03-24] MEDS: ASCORBIC ACID 500 MG TAB PO SCH (09:22)
[2021-03-24] MEDS: VITAMIN A 10,000 UNIT (3000 MCG) CAPSULE PO SCH (09:22)
[2021-03-24] MEDS: ZINC SULFATE 220 MG CAP PO SCH (09:22)
[2021-03-24] MEDS: BENZOCAINE/MENTHOL LOZENG 1 EACH LOZENGE MUCOUS MEM PRN (09:23)
[2021-03-24] MEDS: APIXABAN 5 MG TAB PO SCH ×2 (09:23→21:40)
[2021-03-24] MEDS: METOPROLOL TARTRATE 25 MG TAB PO SCH ×2 (09:23→21:41)
[2021-03-24] MEDS: CLOPIDOGREL 75 MG TAB PO SCH (09:23)
[2021-03-24] MEDS: MULTIVITAMINS, THERA 1 EACH TAB PO SCH (09:23)
[2021-03-24] MEDS: CALCIUM CARBONATE 500 MG CHEWABLE PO SCH (09:24)
[2021-03-24] MEDS: amLODIPine 2.5 MG TAB PO SCH (09:24)
[2021-03-24] MEDS: ISOSORBIDE MONONITRATE ER 30 MG TAB.ER.24H PO SCH (09:24)
[2021-03-24] MEDS: CHOLECALCIFEROL 125 MCG (5000 IU) TABLET PO SCH (09:24)
[2021-03-24] MEDS: FUROSEMIDE 20 MG TAB PO SCH (09:24)
[2021-03-24] MEDS: DEXAMETHASONE SOD PHOSPHATE 10 MG/ML 1 ML VIAL IVP SCH (09:25)
[2021-03-24 09:56] LABS: C Reactive Protein 3.4 mg/dL (<1.0)
[2021-03-24] MEDS: guaiFENesin-DM 100-10MG/5ML 10 ML CUP PO PRN ×2 (10:52→17:53)
[2021-03-24 11:34] LABS: Glucose,Whole Blood 169 mg/dL (75-99)
--- NOTE | 2021-03-24 12:51 | ECHOF ---
Referral Reason:atrial flutter, now in sinus MEASUREMENTS -------- HEIGHT: 160.0 cm WEIGHT: 95.3 kg BP: 107/64 IVSd: 1.4 cm (0.6 - 1.1) LVIDd: 4.9 cm (3.9 - 5.3) LVPWd: 1.4 cm (0.6 - 1.1) EDV(Teich): 111 ml IVSs: 1.7 cm LVIDs: 3.0 cm LVPWs: 2.1 cm %IVS Thck: 26 % ESV(Teich): 34 ml EF(Teich): 69 % %FS: 39 % SV(Teich): 77 ml TR Vmax: 2.26 m/s TR maxP.41 mmHg RAP: 5.00 mmHg RVSP: 25.41 mmHg FINDINGS -------- Sinus rhythm. This was a technically adequate study. Limited study due to covid 19 exposure. The left ventricular size is normal. There is moderate concentric left ventricular hypertrophy. O verall left ventricular systolic function is normal with, an EF between 55 - 60 %. There is no evidence of aortic regurgitation. There is no evidence of aortic stenosis. There is trace mitral regurgitation. Mild tricuspid regurgitation present. There is no evidence of pulmonary hypertension. The right v entricular systolic pressure, as measured by Doppler, is 25.41mmHg. There is no pericardial effusion. CONCLUSIONS -------- 1. Limited study due to covid 19 exposure. 2. The left ventricular size is normal. 3. There is moderate concentric left ventricular hypertrophy. 4. Overall left ventricular systolic function is normal with, an EF between 55 - 60 %. 5. There is trace mitral regurgitation. 6. Mild tricuspid regurgitation present. PIN ATTACHER: Yuliet Rae, [facility]
--- NOTE | 2021-03-24 14:58 | P.PN ---
Subjective Progress Note Date: 03/24/21 HISTORY OF PRESENT ILLNESS This is a pleasant 55-year-old female patient of Dr. Espinal, known history of CAD with multiple heart cath and stents, requiring mid LAD stent 2013, heart cath in September 2018 with 80% stenosis, along with history of statin intolerance, hyperlipidemia, lumbar disc disease, hypothyroidism 3 nodes disease. Patient states that she started having symptoms of shortness of breath weakness almost passed out a few times. Initially symptoms started 11 days ago and positive for coronavirus. She was in the emergency center on March 16 and received monoclonal antibodies and was discharged home on a course of dexamethasone. Patient states that she has not received the vaccine and had contact with grandchildren on [place] , progress to that daughter and son were positive for COVID Patient had heart rate at home at 150 to 160s and contacted pump mechanic and was instructed to come into the emergency center for evaluation. In the emergency room, EKG was sinus rhythm with heart rate of 80 Chest x-ray revealed some interstitial pneumonia that is worse than last exam Laboratory data: WBC 1.9. Hemoglobin 12.2. Platelet count 221. Sodium 136. Potassium 3.8. BUN 9. Creatinine 0.43. Lactic acid 5.1. Repeat 1.2. D-dimer 0.55. TSH 0.360 and free T4 1 0.26. Echocardiogram completed in January 2020 revealed ejection fraction 50-55%, mild mitral regurgitation, and mild tricuspid regurgitation Patient underwent cardiac catheterization in January 2020 revealing dominant RCA has a new 80-90% proximal lesion with some ostial 40% disease. Previously stented LAD diagonal patent with a 40% lesion in the LAD beyond the stent. C ircumflex was free of significant disease. Stenting of the RCA was performed with a drug-eluting stent. Patient was admitted to the [facility] floor and started on azithromycin, albuterol inhaler, vitamin supplements, IV dexamethasone 03/22: This a.m. A-Team was called for SOB and palpitations and found to be in Afib with RVR 140-150s. No CHENCHO. John physician attended and started patient on Cardizem and heparin drip and cardiology consult was added. No beds were available on the cardiac stepdown unit and patient was transferred to the intensive care unit. Patient has been seen by Dr. Alaniz for trial flutter with RVR paroxysmal and converted to sinus rhythm. He recommended IV heparin to continue no Cardizem drip. 03/23: A is seen on the cardiac stepdown unit. She states she is feeling much better today, denies palpitations. She states she has had chest pain on and off. She was seen this morning by cardiology and heparin drip was discontinued and started on eliquis. Patient is also been seen by Dr. Rich with plan to continue dexamethasone and vitamin supplements, discontinue Zithromax. Patient has been afebrile, heart rate 79, pulse ox 95% on 2 L nasal cannula, blood pre ssure 96/53. Intestinal probable discharge home probably Friday 03/24: Patient is seen in the medical floor, she is still on Cardizem drip at 2.5 mics per hour, transitioned to oral eliquis 5 mg twice a day, patient's noted to have minimal hemoptysis, and a small amount of epistaxis, related to blowing her nose. Patient still has shortness of breath with exertion, labs shows an LDH of 417, d-dimer 0.57, CRP of 3.4, normal pro-calcitonin. Patient is a 2 L nasal cannula, has shortness of breath and exertion. Echocardiogram shows EF 55-60%, concentric LVH, mild TR, trace MR, no aortic stenosis, no pericardial effusion pulse ox at 95%, 2 L a skilled, T-max 97.8, blood pressure stable at 127/79, heart rate in the 80s, nonlabored breathing, follows closely by cardiology, and infectious disease. Zithromax discontinued, on dexamethasone zinc and ascorbic acid Cardizem drip is going to be weaned off today, and metoprolol was increased to 25 mg twice a day REVIEW OF SYSTEMS Constitutional: Reports fever, Reports chills, no night sweats. No weight change. Reports weakness, Reports fatigue. No daytime sleepiness. EENT: No headache. No blurred vision or double vision, no loss of vision. No loss of Hearing, no ringing in the ears, no dizziness. No nasal drainage or congestion. No epistaxis. No sore throat. Lungs: Reports shortness of breath, Reports cough, no sputum production. No wheezing. Cardiovascular: Reports intermittent episodes of chest pain, no lower extremity edema. Denies palpitations. No paroxysmal nocturnal dyspnea. No orthopnea. No lightheadedness or dizziness. Reports near-syncopal episodes. Abdominal: No abdominal pain. No nausea, vomiting. No diarrhea. No constipation. No bloody or tarry stools. No loss of appetite. Genitourinary: No dysuria, increased frequency, urgency. No urinary retention. Musculoskeletal: No myalgias. No muscle weakness, no gait dysfunction, no frequent falls. No back pain. No neck pain. Integumentary: No wounds, no lesions. No rash or pruritus. No unusual bruising. No change in hair or nails. Neurologic: No aphasia. No facial droop. No change in mentation. No head injury. No headache. No paralysis. No paresthesia. Psychiatric: No depression. No anxiety. No mood swings. Endocrine: No abnormal blood sugars. No weight change. No excessive sweating or thirst. No cold intolerance. PHYSICAL EXAMINATION Gen: This is a 55-year-old female. She is resting on the side of the bed appears to be comfortable in no acute distress, no acute respiratory distress. HEENT: Head is atraumatic, normocephalic. Pupils equal, round. Sclerae is anicteric. NECK: Supple. No JVD. No lymphadenopathy. No thyromegaly. LUNGS: Clear to auscultation. No wheezes or rhonchi. No intercostal retractions. HEART: Regular rate and rhythm. No murmur. ABDOMEN: Soft. Bowel sounds are present. No masses. No tenderness. EXTREMITIES: No pedal edema. No calf tenderness. NEUROLOGICAL: Patient is awake, alert and oriented x3. Cranial nerves 2 through 12 are grossly intact. ASSESSMENT AND PLAN 1. Palpitations likely secondary to paroxysmal atrial flutter. Patient is now on the cardiac stepdown unit. Heparin drip has been discontinued and transitioned to eliquis, off Cardizem drip, continue Lopressor 25 mg twice daily. Plan to follow-up with Dr. Greenberg as an outpatient. Patient is cleared for discharge from cardiology. 2. Covid 19 infection diagnosed 11 days ago. Consult with Dr. Rich appreciated. Patient started on dexamethasone, Lovenox, vitamin supplements, discontinue azithromycin. 3. History of CAD with catheterization in January 2020 revealing dominant RCA has a new 80-90% proximal lesion with some ostial 40% disease. Previously stented LAD diagonal patent with a 40% lesion in the LAD beyond the stent. Circumflex was free of significant disease. Stenting of the RCA was performed with a drug-eluting stent. Continue aspirin 81 mg daily, Lipitor 20 mg daily, Imdur 30 mg daily, Aldactone 50 mg daily, Lopressor 25 mg daily, Plavix 75 mg daily. 4. Mild intermittent asthma without any exacerbation, Singulair daily 5. Prior history of cholecystectomy, complicated by sepsis, February 2019 6. Hypothyroidism. Continue levothyroxine 137 g Friday through Friday. 7. Hypertension. Continue amlodipine 2.5 mg daily, Lasix 20 mg daily as needed. 8. Hyperlipidemia. Continue Zetia 10 mg at bedtime, atorvastatin 20 mg at bedtime. 9. Gastroesophageal reflux disease. Continue Protonix 40 mg daily 10. DVT prophylaxis. Lovenox subcu. DISCHARGE PLAN Home on Friday Objective - Vital Signs Vital signs: Vital Signs Temp 97.6 F 03/24/21 09:30 Pulse 81 03/24/21 09:30 Resp 18 03/24/21 09:30 BP 122/78 03/24/21 09:30 Pulse Ox 95 03/24/21 09:30 Intake & Output 03/23/21 03/24/21 03/24/21 18:59 06:59 18:59 Intake Total 605 562 240 Output Total 1200 Balance -595 562 240 Intake: Intake, IV Titration 125 125 Amount Diltiazem 125 mg In 125 125 Sodium Chloride 0.9% 100 ml @ 5 MG/HR 5 mls/hr IV .Q24H [facility] Rx#:[id number] Oral 480 437 240 Output: Urine 1200 Other: Voiding Method Indwelling Catheter Indwelling Catheter # Voids 2 - Labs CBC & Chem 7: 03/23/21 06:57 03/22/21 06:11 Labs: Abnormal Lab Results - Last 24 Hours (Table) 03/23/21 03/23/21 03/24/21 Range/Units 16:42 20:43 06:07 POC Glucose (mg/dL) 176 H 136 H 133 H (75-99) mg/dL Lactate Dehydrogenase (313-618) U/L C-Reactive Protein (<1.0) mg/dL 03/24/21 03/24/21 Range/Units 08:51 11:32 POC Glucose (mg/dL) 169 H (75-99) mg/dL Lactate Dehydrogenase 714 H (313-618) U/L C-Reactive Protein 3.4 H (<1.0) mg/dL
[2021-03-24] MEDS: ALBUTEROL HFA INHALER INHALATION PRN ×2 (16:04→20:35)
--- NOTE | 2021-03-24 16:45 | PN ---
PROGRESS NOTE DATE OF SERVICE: 03/24/2021 REASON FOR FOLLOWUP: COVID-19 infection. INTERVAL HISTORY: The patient is afebrile. The patient is breathing more comfortably. She did have a cough and did have some blood-stained sputum slightly concerning. The patient denies any chest pain. Some nausea but no vomiting. No abdominal pain and no worsening diarrhea. PHYSICAL EXAMINATION: Blood pressure 122/78 with a pulse of 81, temperature is 97.6. She is 95% on 2 L nasal cannula. General description is a middle-aged female lying in bed in no distress. Respiratory system: Unlabored breathing, clear to auscultation anteriorly. Heart S1, S2. Regular rate and rhythm. Abdomen soft, no tenderness. Extremities: No edema of the feet. LABS: ( ) is 3.4. D-dimer 0.57. IMPRESSION/PLAN: Patient with acute COVID-19 infection in this patient with minimal clinical improvement. Patient is currently on Eliquis, dexamethasone, zinc and ascorbic acid along with respiratory support and and monitor clinical course closely. MMODL / IJN: [id number] /
[2021-03-24 16:54] LABS: Glucose,Whole Blood 158 mg/dL (75-99)
[2021-03-24 21:41] LABS: Glucose,Whole Blood 175 mg/dL (75-99)
[2021-03-24] MEDS: MONTELUKAST 10 MG TAB PO SCH (21:41)
[2021-03-24] MEDS: LORATADINE 10 MG TAB PO SCH (21:41)
[2021-03-24] MEDS: EZETIMIBE 10 MG TAB PO SCH (21:41)
[2021-03-24] MEDS: ATORVASTATIN 20 MG TAB PO SCH (21:41)
[2021-03-25] MEDS: ZOLPIDEM 5 MG TAB PO PRN (00:10)
[2021-03-25] MEDS: guaiFENesin-DM 100-10MG/5ML 10 ML CUP PO PRN (00:10)
[2021-03-25] MEDS: ALBUTEROL HFA INHALER INHALATION PRN ×2 (01:04→19:50)
[2021-03-25 06:18] LABS: Glucose,Whole Blood 125 mg/dL (75-99)
[2021-03-25] MEDS: INSULIN ASPART (NovoLOG) 100 UNIT/ML VIAL SQ SCH ×4 (06:23→21:46)
[2021-03-25] MEDS: ACETAMINOPHEN TAB 325 MG TAB PO PRN (06:54)
[2021-03-25] MEDS: PANTOPRAZOLE 40 MG TABLET PO SCH (06:54)
[2021-03-25] MEDS: ASCORBIC ACID 500 MG TAB PO SCH (09:22)
[2021-03-25] MEDS: MULTIVITAMINS, THERA 1 EACH TAB PO SCH (09:22)
[2021-03-25] MEDS: ZINC SULFATE 220 MG CAP PO SCH (09:22)
[2021-03-25] MEDS: CALCIUM CARBONATE 500 MG CHEWABLE PO SCH (09:22)
[2021-03-25] MEDS: VITAMIN A 10,000 UNIT (3000 MCG) CAPSULE PO SCH (09:23)
[2021-03-25] MEDS: CHOLECALCIFEROL 125 MCG (5000 IU) TABLET PO SCH (09:23)
[2021-03-25] MEDS: ISOSORBIDE MONONITRATE ER 30 MG TAB.ER.24H PO SCH (09:23)
[2021-03-25] MEDS: METOPROLOL TARTRATE 25 MG TAB PO SCH ×2 (09:23→21:46)
[2021-03-25] MEDS: amLODIPine 2.5 MG TAB PO SCH (09:23)
[2021-03-25] MEDS: FUROSEMIDE 20 MG TAB PO SCH (09:23)
[2021-03-25] MEDS: APIXABAN 5 MG TAB PO SCH ×2 (09:24→21:46)
[2021-03-25] MEDS: CLOPIDOGREL 75 MG TAB PO SCH (09:24)
[2021-03-25 11:45] LABS: Glucose,Whole Blood 122 mg/dL (75-99)
[2021-03-25] MEDS: DEXAMETHASONE SOD PHOSPHATE 10 MG/ML 1 ML VIAL IVP SCH (12:04)
--- NOTE | 2021-03-25 13:41 | P.PN ---
Subjective Progress Note Date: 03/25/21 HISTORY OF PRESENT ILLNESS This is a pleasant 55-year-old female patient of Dr. Espinal, known history of CAD with multiple heart cath and stents, requiring mid LAD stent 2013, heart cath in September 2018 with 80% stenosis, along with history of statin intolerance, hyperlipidemia, lumbar disc disease, hypothyroidism 3 nodes disease. Patient states that she started having symptoms of shortness of breath weakness almost passed out a few times. Initially symptoms started 11 days ago and positive for coronavirus. She was in the emergency center on March 16 and received monoclonal antibodies and was discharged home on a course of dexamethasone. 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 In the emergency room, EKG was sinus rhythm with heart rate of 80 Chest x-ray revealed some interstitial pneumonia that is worse than last exam Laboratory data: WBC 1.9. Hemoglobin 12.2. Platelet count 221. Sodium 136. Potassium 3.8. BUN 9. Creatinine 0.43. Lactic acid 5.1. Repeat 1.2. D-dimer 0.55. TSH 0.360 and free T4 1 0.26. Echocardiogram completed in January 2020 revealed ejection fraction 50-55%, mild mitral regurgitation, and mild tricuspid regurgitation Patient underwent cardiac catheterization in January 2020 revealing dominant RCA has a new 80-90% proximal lesion with some ostial 40% disease. Previously stented LAD diagonal patent with a 40% lesion in the LAD beyond the stent. C ircumflex was free of significant disease. Stenting of the RCA was performed with a drug-eluting stent. Patient was admitted to the [facility] floor and started on azithromycin, albuterol inhaler, vitamin supplements, IV dexamethasone 03/22: This a.m. A-Team was called for SOB and palpitations and found to be in Afib with RVR 140-150s. No CHENCHO. John physician attended and started patient on Cardizem and heparin drip and cardiology consult was added. No beds were available on the cardiac stepdown unit and patient was transferred to the intensive care unit. Patient has been seen by Dr. Alaniz for trial flutter with RVR paroxysmal and converted to sinus rhythm. He recommended IV heparin to continue no Cardizem drip. 03/23: A is seen on the cardiac stepdown unit. She states she is feeling much better today, denies palpitations. She states she has had chest pain on and off. She was seen this morning by cardiology and heparin drip was discontinued and started on eliquis. Patient is also been seen by Dr. Rich with plan to continue dexamethasone and vitamin supplements, discontinue Zithromax. Patient has been afebrile, heart rate 79, pulse ox 95% on 2 L nasal cannula, blood pre ssure 96/53. Intestinal probable discharge home probably Friday 03/24: Patient is seen in the medical floor, she is still on Cardizem drip at 2.5 mics per hour, transitioned to oral eliquis 5 mg twice a day, patient's noted to have minimal hemoptysis, and a small amount of epistaxis, related to blowing her nose. Patient still has shortness of breath with exertion, labs shows an LDH of 417, d-dimer 0.57, CRP of 3.4, normal pro-calcitonin. Patient is a 2 L nasal cannula, has shortness of breath and exertion. Echocardiogram shows EF 55-60%, concentric LVH, mild TR, trace MR, no aortic stenosis, no pericardial effusion pulse ox at 95%, 2 L a skilled, T-max 97.8, blood pressure stable at 127/79, heart rate in the 80s, nonlabored breathing, follows closely by cardiology, and infectious disease. Zithromax discontinued, on dexamethasone zinc and ascorbic acid Cardizem drip is going to be weaned off today, and metoprolol was increased to 25 mg twice a day /16: Patient is doing okay, has been off Cardizem drip, heart rate 60s, on metoprolol 25 mg twice a day, patient has oral candidal changes, fluconazole 100 mg daily to be given, O2 sats 98% on 2 L nasal cannula, to be a possibility to discontinue O2 upon discharge, and evaluate for ambulatory hypoxemia, anticipate discharge in the next 24 hours, patient does not feel well enough to go home today. REVIEW OF SYSTEMS Constitutional: Reports fever, Reports chills, no night sweats. No weight change. Reports weakness, Reports fatigue. No daytime sleepiness. EENT: No headache. No blurred vision or double vision, no loss of vision. No loss of Hearing, no ringing in the ears, no dizziness. No nasal drainage or congestion. No epistaxis. No sore throat. Lungs: Reports shortness of breath, Reports cough, no sputum production. No wheezing. Cardiovascular: Reports intermittent episodes of chest pain, no lower extremity edema. Denies palpitations. No paroxysmal nocturnal dyspnea. No orthopnea. No lightheadedness or dizziness. Reports near-syncopal episodes. Abdominal: No abdominal pain. No nausea, vomiting. No diarrhea. No constipation. No bloody or tarry stools. No loss of appetite. Genitourinary: No dysuria, increased frequency, urgency. No urinary retention. Musculoskeletal: No myalgias. No muscle weakness, no gait dysfunction, no frequent falls. No back pain. No neck pain. Integumentary: No wounds, no lesions. No rash or pruritus. No unusual bruising. No change in hair or nails. Neurologic: No aphasia. No facial droop. No change in mentation. No head injury. No headache. No paralysis. No paresthesia. Psychiatric: No depression. No anxiety. No mood swings. Endocrine: No abnormal blood sugars. No weight change. No excessive sweating or thirst. No cold intolerance. PHYSICAL EXAMINATION Gen: This is a 55-year-old female. She is resting on the side of the bed appears to be comfortable in no acute distress, no acute respiratory distress. HEENT: Head is atraumatic, normocephalic. Pupils equal, round. Sclerae is anict jordy. NECK: Supple. No JVD. No lymphadenopathy. No thyromegaly. LUNGS: Clear to auscultation. No wheezes or rhonchi. No intercostal retractions. HEART: Regular rate and rhythm. No murmur. ABDOMEN: Soft. Bowel sounds are present. No masses. No tenderness. EXTREMITIES: No pedal edema. No calf tenderness. NEUROLOGICAL: Patient is awake, alert and oriented x3. Cranial nerves 2 through 12 are grossly intact. ASSESSMENT AND PLAN 1. Palpitations likely secondary to paroxysmal atrial flutter. Patient is now on the cardiac stepdown unit. Heparin drip has been discontinued and transitioned to eliquis, off Cardizem drip, continue Lopressor 25 mg twice daily. Plan to follow-up with Dr. Greenberg as an outpatient. Patient is cleared for discharge from cardiology. 2. Covid 19 infection diagnosed hypoxemia status post monoclonal infusion,. Consult with Dr. Rich appreciated. Patient started on dexamethasone, Lovenox, vitamin supplements, discontinue azithromycin. Vaccination discussed, eligible to get the vaccination as early as mid June 2021 3. History of CAD with catheterization in January 2020 revealing dominant RCA has a new 80-90% proximal lesion with some ostial 40% disease. Previously stented LAD diagonal patent with a 40% lesion in the LAD beyond the stent. Circumflex was free of significant disease. Stenting of the RCA was performed with a drug-eluting stent. Continue aspirin 81 mg daily, Lipitor 20 mg daily, Imdur 30 mg daily, Aldactone 50 mg daily, Lopressor 25 mg daily, Plavix 75 mg daily. 4. Mild intermittent asthma without any exacerbation, Singulair daily 5. Prior history of cholecystectomy, complicated by sepsis, February 2019 6. Hypothyroidism. Continue levothyroxine 137 g Friday through Friday. 7. Hypertension. Continue amlodipine 2.5 mg daily, Lasix 20 mg daily as needed. 8. Hyperlipidemia. Continue Zetia 10 mg at bedtime, atorvastatin 20 mg at bedtime. 9. Gastroesophageal reflux disease. Continue Protonix 40 mg daily 10. DVT prophylaxis. Lovenox subcu. DISCHARGE PLAN Home on Friday pending O2 requirements Current Medications Acetaminophen (Acetaminophen Tab 325 Mg Tab) 650 mg PO Q6HR PRN PRN Reason: Mild Pain or Fever > 100.5 Last Admin: 03/25/21 06:54 Dose: 650 mg Documented by: Albuterol Sulfate (Albuterol Hfa Inhaler) 2 puff INHALATION RT-QID PRN PRN Reason: Shortness Of Breath Last Admin: 03/25/21 01:04 Dose: 2 puff Documented by: Amlodipine Besylate (Amlodipine 2.5 Mg Tab) 2.5 mg PO DAILY [facility] Last Admin: 03/25/21 09:23 Dose: 2.5 mg Documented by: Apixaban (Apixaban 5 Mg Tab) 5 mg PO BID [facility]; Protocol Last Admin: 03/25/21 09:24 Dose: 5 mg Documented by: Ascorbic Acid (Ascorbic Acid 500 Mg Tab) 2,000 mg PO DAILY [facility] Last Admin: 03/25/21 09:22 Dose: 2,000 mg Documented by: Atorvastatin Calcium (Atorvastatin 20 Mg Tab) 20 mg PO HS [facility] Last Admin: 03/24/21 21:41 Dose: 20 mg Documented by: Benzocaine/Menthol (Benzocaine/Menthol Lozeng 1 Each Lozenge) 1 each MUCOUS MEM Q4HR PRN PRN Reason: Cough Last Admin: 03/24/21 09:23 Dose: 1 each Documented by: Calcium Carbonate/Glycine (Calcium Carbonate 500 Mg Chewable) 1,000 mg PO DAILY [facility] Last Admin: 03/25/21 09:22 Dose: 1,000 mg Documented by: Cholecalciferol (Cholecalciferol 125 Mcg (5000 Iu) Tablet) 125 mcg PO DAILY [facility] Last Admin: 03/25/21 09:23 Dose: 125 mcg Documented by: Clopidogrel Bisulfate (Clopidogrel 75 Mg Tab) 75 mg PO DAILY [facility] Last Admin: 03/25/21 09:24 Dose: 75 mg Documented by: Dexamethasone Sodium Phosphate (Dexamethasone Sod Phosphate 10 Mg/Ml 1 Ml Vial) 6 mg IVP DAILY [facility] Last Admin: 03/25/21 12:04 Dose: Not Given Documented by: Ezetimibe (Ezetimibe 10 Mg Tab) 10 mg PO HS [facility] Last Admin: 03/24/21 21:41 Dose: 10 mg Documented by: Furosemide (Furosemide 20 Mg Tab) 20 mg PO DAILY [facility] Last Admin: 03/25/21 09:23 Dose: 20 mg Documented by: Guaifenesin/Dextromethorphan (Guaifenesin-Dm 100-10mg/5ml 10 Ml Cup) 10 ml PO Q6HR PRN PRN Reason: Cough Last Admin: 03/25/21 00:10 Dose: 10 ml Documented by: Diltiazem HCl 125 mg/ Sodium (Chloride) 125 mls @ 5 mls/hr IV .Q24H [facility] Last Admin: 03/24/21 21:41 Dose: Not Given Documented by: Ibuprofen (Ibuprofen 400 Mg Tab) 400 mg PO Q6HR PRN PRN Reason: Mild Pain or Fever > 100.5 Insulin Aspart (Insulin Aspart (Novolog) 100 Unit/Ml Vial) 0 unit SQ ACHS [facility]; Protocol Last Admin: 03/25/21 12:04 Dose: Not Given Documented by: Isosorbide Mononitrate (Isosorbide Mononitrate Er 30 Mg Tab.Er.24h) 30 mg PO DAILY [facility] Last Admin: 03/25/21 09:23 Dose: 30 mg Documented by: Levothyroxine Sodium (Levothyroxine 137 Mcg Tab) 137 mcg PO [id number]@0630 [facility] Last Admin: 03/24/21 06:32 Dose: 137 mcg Documented by: Loratadine (Loratadine 10 Mg Tab) 10 mg PO [facility] Last Admin: 03/24/21 21:41 Dose: 10 mg Documented by: Lorazepam (Lorazepam 2 Mg/Ml Inj) 0.5 mg IV Q6HR PRN PRN Reason: Anxiety Methocarbamol (Methocarbamol 750 Mg Tab) 750 mg PO TID PRN PRN Reason: Muscle Pain Metoprolol Tartrate (Metoprolol Tartrate 25 Mg Tab) 25 mg PO BID [facility] Last Admin: 03/25/21 09:23 Dose: 25 mg Documented by: Montelukast Sodium (Montelukast 10 Mg Tab) 10 mg PO [facility] Last Admin: 03/24/21 21:41 Dose: 10 mg Documented by: Morphine Sulfate (Morphine Sulfate 4 Mg/Ml Syringe) 4 mg IV Q4HR PRN PRN Reason: Severe Pain Multivitamins (Multivitamins, Thera 1 Each Tab) 1 each PO DAILY [facility] Last Admin: 03/25/21 09:22 Dose: 1 each Documented by: Naloxone HCl (Naloxone 0.4 Mg/Ml 1 Ml Vial) 0.2 mg IV Q2M PRN PRN Reason: Opioid Reversal Nitroglycerin (Nitroglycerin Sl Tabs 0.4 Mg Tab) 0.4 mg SUBLINGUAL Q5M PRN PRN Reason: Chest Pain Last Admin: 03/22/21 07:13 Dose: 0.4 mg Documented by: Ondansetron HCl (Ondansetron 4 Mg/2 Ml Vial) 4 mg IVP Q8HR PRN PRN Reason: Nausea And Vomiting Pantoprazole Sodium (Pantoprazole 40 Mg Tablet) 40 mg PO AC-BRKFST [facility] Last Admin: 03/25/21 06:54 Dose: 40 mg Documented by: Spironolactone (Spironolactone 25 Mg Tab) 50 mg PO DAILY PRN PRN Reason: Edema Vitamin A (Vitamin A 10,000 Unit (3000 Mcg) Capsule) 10,000 unit PO DAILY [facility] Last Admin: 03/25/21 09:23 Dose: 10,000 unit Documented by: Zinc Sulfate (Zinc Sulfate 220 Mg Cap) 220 mg PO DAILY [facility] Last Admin: 03/25/21 09:22 Dose: 220 mg Documented by: Zolpidem Tartrate (Zolpidem 5 Mg Tab) 5 mg PO HS PRN PRN Reason: Insomnia Last Admin: 03/25/21 00:10 Dose: 5 mg Documented by: Vital Signs Temp 97.8 F 03/25/21 11:30 Pulse 65 03/25/21 11:30 Resp 03/25/21 11:30 BP 122/79 03/25/21 11:30 Pulse Ox 98 03/25/21 11:30 Intake & Output 03/24/21 03/25/21 03/25/21 18:59 06:59 18:59 Intake Total 960 720 Balance 960 720 Intake: Oral 960 720 Other: Voiding Method Indwelling Catheter Indwelling Catheter Indwelling Catheter # Voids 2 1 2 Objective - Vital Signs Vital signs: Vital Signs Temp 97.8 F 03/25/21 11:30 Pulse 65 03/25/21 11:30 Resp 16 03/25/21 11:30 BP 122/79 03/25/21 11:30 Pulse Ox 98 03/25/21 11:30 Intake & Output 03/24/21 03/25/21 03/25/21 18:59 06:59 18:59 Intake Total 960 720 Balance 960 720 Intake: Oral 960 720 Other: Voiding Method Indwelling Catheter Indwelling Catheter Indwelling Catheter # Voids 2 1 2 - Labs CBC & Chem 7: 03/23/21 06:57 03/22/21 06:11 Labs: Abnormal Lab Results - Last 24 Hours (Table) 03/24/21 03/24/21 03/25/21 Range/Units 16:52 21:08 06:16 POC Glucose (mg/dL) 158 H 175 H 125 H (75-99) mg/dL 03/25/21 Range/Units 11:44 POC Glucose (mg/dL) 122 H (75-99) mg/dL
[2021-03-25] MEDS: FLUCONAZOLE 100 MG TAB PO SCH (16:42)
[2021-03-25 16:57] LABS: Glucose,Whole Blood 210 mg/dL (75-99)
--- NOTE | 2021-03-25 19:26 | P.PN ---
Subjective Progress Note Date: 03/25/21 Principal diagnosis: Covid 19 Pneumonia Patient is a 55 female presented to the hospital with increased shortness of breath and cough has been diagnosed with COVID-19 pneumonia. On today's evaluation that is 03/25/2021, The patient remains to be afebrile. The patient is feeling better, breathing comfortably. The patient denies chest pain, shortness of breath or cough. No abdominal pain or diarrhea. Objective - Vital Signs Vital signs: Vital Signs Temp 98.2 F 03/25/21 16:45 Pulse 76 03/25/21 16:45 Resp 16 03/25/21 16:45 BP 135/78 03/25/21 16:45 Pulse Ox 96 03/25/21 16:45 Intake & Output 03/25/21 03/25/21 03/26/21 06:59 18:59 06:59 Intake Total 960 Balance 960 Intake: Oral 960 Other: Voiding Method Indwelling Catheter Indwelling Catheter # Voids 1 2 - Exam GENERAL DESCRIPTION: General description is an middle-age female up in the chair in no distress. RESPIRATORY SYSTEM: Unlabored breathing. Decreased breath sounds at the bases. No wheeze. HEART: S1, S2. Regular rate and rhythm. ABDOMEN: Soft. No tenderness. EXTREMITIES: Some chronic swelling. No redness - Labs CBC & Chem 7: 03/23/21 06:57 03/22/21 06:11 Labs: Abnormal Lab Results - Last 24 Hours (Table) 03/24/21 03/25/21 03/25/21 Range/Units 21:08 06:16 11:44 POC Glucose (mg/dL) 175 H 125 H 122 H (75-99) mg/dL 03/25/21 Range/Units 16:55 POC Glucose (mg/dL) 210 H (75-99) mg/dL Assessment and Plan Plan: Patient presented to hospital with acute COVID-19 pneumonia this patient seems to have shown some clinical improvement patient to continue with current supportive treatment of Eliquis vitamin C zinc and ascorbic acid no need for systemic antibiotic therapy
[2021-03-25 21:29] LABS: Glucose,Whole Blood 136 mg/dL (75-99)
[2021-03-25] MEDS: ATORVASTATIN 20 MG TAB PO SCH (21:46)
[2021-03-25] MEDS: LORATADINE 10 MG TAB PO SCH (21:46)
[2021-03-25] MEDS: MONTELUKAST 10 MG TAB PO SCH (21:46)
[2021-03-25] MEDS: EZETIMIBE 10 MG TAB PO SCH (21:48)
[2021-03-26] MEDS: ZOLPIDEM 5 MG TAB PO PRN (00:12)
[2021-03-26] MEDS: guaiFENesin-DM 100-10MG/5ML 10 ML CUP PO PRN ×2 (00:12→13:02)
[2021-03-26 06:57] LABS: Glucose,Whole Blood 112 mg/dL (75-99)
[2021-03-26] MEDS: PANTOPRAZOLE 40 MG TABLET PO SCH (06:59)
[2021-03-26] MEDS: LEVOTHYROXINE 137 MCG TAB PO SCH (06:59)
[2021-03-26] MEDS: INSULIN ASPART (NovoLOG) 100 UNIT/ML VIAL SQ SCH ×2 (09:27→13:00)
[2021-03-26] MEDS: DILTIAZEM 125 MG in SODIUM CHLORIDE 0.9% 100 ML IV SCH (09:27)
[2021-03-26] MEDS: amLODIPine 2.5 MG TAB PO SCH (09:36)
[2021-03-26] MEDS: ISOSORBIDE MONONITRATE ER 30 MG TAB.ER.24H PO SCH (09:36)
[2021-03-26] MEDS: ASCORBIC ACID 500 MG TAB PO SCH (09:36)
[2021-03-26] MEDS: VITAMIN A 10,000 UNIT (3000 MCG) CAPSULE PO SCH (09:36)
[2021-03-26] MEDS: APIXABAN 5 MG TAB PO SCH (09:36)
[2021-03-26] MEDS: CALCIUM CARBONATE 500 MG CHEWABLE PO SCH (09:36)
[2021-03-26] MEDS: FUROSEMIDE 20 MG TAB PO SCH (09:37)
[2021-03-26] MEDS: CLOPIDOGREL 75 MG TAB PO SCH (09:37)
[2021-03-26] MEDS: FLUCONAZOLE 100 MG TAB PO SCH (09:37)
[2021-03-26] MEDS: CHOLECALCIFEROL 125 MCG (5000 IU) TABLET PO SCH (09:37)
[2021-03-26] MEDS: DEXAMETHASONE SOD PHOSPHATE 10 MG/ML 1 ML VIAL IVP SCH (09:37)
[2021-03-26] MEDS: ZINC SULFATE 220 MG CAP PO SCH (09:37)
[2021-03-26] MEDS: MULTIVITAMINS, THERA 1 EACH TAB PO SCH (09:37)
[2021-03-26] MEDS: METOPROLOL TARTRATE 25 MG TAB PO SCH (09:37)
--- NOTE | 2021-03-26 10:09 | CDI ---
Documentation Clarification Form Date: 03/26/2021 09:59:20 AM From: Annette Cotter CCS, CCDS Admit Date: 03/20/2021 11:58:00 PM Patient Name: Violette Salcedo Visit Number: [id number] Discharge Date: ATTENTION: The Clinical Documentation Specialists (CDI) and [facility] Coding Staff appreciate your assistance in clarifying documentation. Please respond to the clarification below the line at the bottom and electronically sign. The CDI & [facility] Coding staff will review the response and follow-up if needed. Please note: Queries are made part of the Legal Health Record. If you have any questions, please contact the author of this message via ITS. Dr. Slime Su: The patient is admitted with COVID 19 infection and hypoxemia with history of Mild Intermittent Asthma without exacerbation. Based on this information and the findings below, is there an additional diagnosis that is clinically appropriate for this patient? History/Risk Factors: CAD status post PCI, Mild Intermittent Asthma, COPD, Hypertension, Hyperlipidemia, Hypothyroidism, GERD, former smoker. Clinical Indicators: Presented to the ED on 03/20 via EMS with COVID + and SOB, was told she has pneumonia. Admit with COVID 19 Pneumonia with Tachycardia and Fever. 03/20 VS: T 97.5, P 130, R 22, BP 95/62, PO 97 2Lnc - 97 3Lnc, BMI: 37.2 03/22 VS: T 100.7, P 146 - 155, R 20 - 36, BP 115/71, PO 95 3Lnc 03/20 LAB: WBC 2.9, Lymph 0.4; Na 133, CO2 16, Creatinine 0.50, glucose 288, Lactic Acid 5.1, ALT 45, LDH 665, CRP 6.8. 03/20 Outpatient COVID test scanned: Positive. 03/20 CXR: Some Interstitial pneumonia. Treatment: O2 2-3Lnc, IV Decadron, IV Toradol, IV Na Cl 999 mls/hr q1H, IV Ativan. Is there an additional diagnosis that is clinically appropriate for this patient? [ x ] Acute Hypoxic Respiratory Failure [ x ] Present on Admission [ ] Not Present on Admission [ ] Acute on Chronic Respiratory Failure [ ] Present on Admission [ ] Not Present on Admission [ ] Chronic Respiratory Failure [ ] Other Diagnosis, please specify: [ ] Unable to determine (Template Last Revised: May 2020) MTDD
[2021-03-26 11:57] LABS: Glucose,Whole Blood 113 mg/dL (75-99)
[2021-03-26 12:05] VITALS: BP 118/75; PULSE 61; RESP 17; TEMP 98.2
--- NOTE | 2021-03-26 12:32 | P.DS ---
Providers Date of admission: 03/20/21 23:58 Expected date of discharge: 03/26/21 Attending physician: René Fernandes Consults: 03/21/21 16:51 Consult Physician Routine Consulting Provider: Neville Rich Consult Reason/Comments: Covid Do you want consulting provider notified?: Yes 03/22/21 10:26 Consult Physician Stat Consulting Provider: Arnold Alaniz Consult Reason/Comments: A-fib RVR Do you want consulting provider notified?: Already Contacted Primary care physician: Rey Espinal [facility] Course: HISTORY OF PRESENT ILLNESS This is a pleasant 55-year-old female patient of Dr. Espinal, known history of CAD with multiple heart cath and stents, requiring mid LAD stent 2013, heart cath in September 2018 with 80% stenosis, along with history of statin intolerance, hyperlipidemia, lumbar disc disease, hypothyroidism 3 nodes disease. Patient states that she started having symptoms of shortness of breath weakness almost passed out a few times. Initially symptoms started 11 days ago and positive for coronavirus. She was in the emergency center on March 16 and received monoclonal antibodies and was discharged home on a course of dexamethasone. Patient states that she has not received the vaccine and had contact with grandchildren on 's, progress to that daughter and son were positive for COVID Patient had heart rate at home at 150 to 160s and contacted home lending officer and was instructed to come into the emergency center for evaluation. In the emergency room, EKG was sinus rhythm with heart rate of 80 Chest x-ray revealed some interstitial pneumonia that is worse than last exam Laboratory data: WBC 1.9. Hemoglobin 12.2. Platelet count 221. Sodium 136. Potassium 3.8. BUN 9. Creatinine 0.43. Lactic acid 5.1. Repeat 1.2. D-dimer 0.55. TSH 0.360 and free T4 1 0.26. Echocardiogram completed in January 2020 revealed ejection fraction 50-55%, mild mitral regurgitation, and mild tricuspid regurgitation Patient underwent cardiac catheterization in January 2020 revealing dominant RCA has a new 80-90% proximal lesion with some ostial 40% disease. Previously stented LAD diagonal patent with a 40% lesion in the LAD beyond the stent. Circumflex was free of significant disease. Stenting of the RCA was performed with a drug-eluting stent. Patient was [facility] floor and started on azithromycin, albuterol inhaler, vitamin supplements, IV dexamethasone 03/22: This a.m. A-Team was called for SOB and palpitations and found to be in Afib with RVR 140-150s. No CP. Lopez physician attended and started patient on Cardizem and heparin drip and cardiology consult was added. No beds were available on the cardiac stepdown unit and patient was transferred to the intensive care unit. Patient has been seen by Dr. Alaniz for trial flutter with RVR paroxysmal and converted to sinus rhythm. He recommended IV heparin to continue no Cardizem drip. 03/23: A is seen on the cardiac stepdown unit. She states she is feeling much better today, denies palpitations. She states she has had chest pain on and off. She was seen this morning by cardiology and heparin drip was discontinued and started on eliquis. Patient is also been seen by Dr. Rich with plan to continue dexamethasone and vitamin supplements, discontinue Zithromax. Patient has been afebrile, heart rate 79, pulse ox 95% on 2 L nasal cannula, blood pressure 96/53. Intestinal probable discharge home probably Friday 03/24: Patient is seen in the medical floor, she is still on Cardizem drip at 2.5 mics per hour, transitioned to oral eliquis 5 mg twice a day, patient's noted to have minimal hemoptysis, and a small amount of epistaxis, related to blowing her nose. Patient still has shortness of breath with exertion, labs shows an LDH of 417, d-dimer 0.57, CRP of 3.4, normal pro-calcitonin. Patient is a 2 L nasal cannula, has shortness of breath and exertion. Echocardiogram shows EF 55-60%, concentric LVH, mild TR, trace MR, no aortic stenosis, no pericardial effusion pulse ox at 95%, 2 L a skilled, T-max 97.8, blood pressure stable at 127/79, heart rate in the 80s, nonlabored breathing, follows closely by cardiology, and infectious disease. Zithromax discontinued, on dexamethasone zinc and ascorbic acid Cardizem drip is going to be weaned off today, and metoprolol was increased to 25 mg twice a day 03/25: Patient is doing okay, has been off Cardizem drip, heart rate 60s, on metoprolol 25 mg twice a day, patient has oral candidal changes, fluconazole 100 mg daily to be given, O2 sats 98% on 2 L nasal cannula, to be a possibility to discontinue O2 upon discharge, and evaluate for ambulatory hypoxemia, anticipate discharge in the next 24 hours, patient does not feel well enough to go home today. 03/26: Patient states that she has been off oxygen for 24 hours. She is utilizing incentive spirometry and reaching [id number] ML's. She does have some mild lower extremity edema. Cardiology has adjusted her metoprolol dose. Heart rate is running in the 60s. She's been afebrile, blood pressure 118/75 and pulse ox 96% on room air. Capillary blood glucose running between [address] Rich does not recommend antibiotics at discharge. Patient will be discharged home today in stable condition. DISCHARGE DIAGNOSES 1. Palpitations likely secondary to paroxysmal atrial flutter, typical. 2. Covid 19 infection diagnosed hypoxemia status post monoclonal infusion. 3. History of CAD with catheterization in January 2020 revealing dominant RCA has a new 80-90% proximal lesion with some ostial 40% disease. Previously stented LAD diagonal patent with a 40% lesion in the LAD beyond the stent. Circumflex was free of significant disease. Stenting of the RCA was performed with a drug-eluting stent. 4. Mild intermittent asthma without any exacerbation 5. Prior history of cholecystectomy, complicated by sepsis, February 2019 6. Hypothyroidism. 7. Hypertension. 8. Hyperlipidemia. 9. Gastroesophageal reflux disease. DISCHARGE PLAN Home Greater than 35 minutes was utilized and coordinating patient's discharge. Impression and plan of care have been directed as dictated by the signing physician. Toya Jung nurse practitioner acting as scribe for signing physician. Patient Condition at Discharge: Stable Plan - Discharge Summary New Discharge Prescriptions: New Apixaban [Eliquis] 5 mg PO BID 30 Days #60 tab Fluconazole [Diflucan] 100 mg PO DAILY #10 tab guaiFENesin-DM 100-10MG/5ML [Robitussin DM] 10 ml PO Q6HR PRN ml PRN Reason: Cough Metoprolol Tartrate [Lopressor] 25 mg PO BID #60 tab Continue Montelukast [Singulair] 10 mg PO HS Loratadine [Claritin] 10 mg PO HS amLODIPine BESYLATE [Norvasc] 2.5 mg PO DAILY Clopidogrel [Plavix] 75 mg PO DAILY Nitroglycerin Sl Tabs [Nitrostat] 0.4 mg SUBLINGUAL Q5M PRN #25 tab PRN Reason: Chest Pain Omeprazole 20 mg PO BID Albuterol Nebulized [Ventolin Nebulized] 2.5 mg INHALATION RT-QID PRN PRN Reason: Shortness Of Breath Ezetimibe [Zetia] 10 mg PO HS Levothyroxine Sodium [Synthroid] 137 mcg PO MOTUWETHFRSA Isosorbide Mononitrate ER [Imdur] 30 mg PO DAILY Furosemide [Lasix] 20 mg PO DAILY PRN PRN Reason: Edema Ascorbic Acid [Vitamin C] 2,000 mg PO DAILY Zolpidem [Ambien] 5 mg PO HS PRN PRN Reason: Insomnia Vitamin A [Vitamin A (8,000 Units = 2,400 MCG)] 8,000 unit PO DAILY Albuterol Sulfate [Albuterol Sulfate Hfa] 2 puff PO RT-QID PRN PRN Reason: Shortness Of Breath Calcium Carbonate [Calcium] 1,200 mg PO DAILY Cholecalciferol (Vitamin D3) [Vitamin D3 (125 MCG = 5,000 IU)] 125 mcg PO DAILY Methocarbamol [Robaxin-750] 750 mg PO TID PRN PRN Reason: Muscle Pain Spironolactone 50 mg PO DAILY PRN PRN Reason: Edema Atorvastatin [Lipitor] 20 mg PO HS Bdvsenoguao-Sgfmsevriwu-Jlcktrqf 1 tab PO DAILY Dexamethasone [Decadron] 6 mg PO DAILY #5 tablet Multivit-Min/Iron/Folic/Lutein [Centrum Silver Women Tablet] 1 tab PO DAILY L.acidoph,Paracasei, B.lactis [Probiotic] 1 cap PO DAILY Zinc 50 mg PO DAILY Ondansetron [Zofran] 4 mg PO TID PRN PRN Reason: Nausea Discontinued Metoprolol Tartrate 25 mg PO DAILY Aspirin EC [Ecotrin Low Dose] 81 mg PO DAILY Azithromycin [Zithromax Z-pack (6 tabs)] See Taper PO DIRECTED Discharge Medication List Loratadine [Claritin] 10 mg PO HS 08/17/13 [History] Montelukast [Singulair] 10 mg PO HS 08/17/13 [History] amLODIPine BESYLATE [Norvasc] 2.5 mg PO DAILY 12/12/13 [History] Clopidogrel [Plavix] 75 mg PO DAILY 05/23/14 [History] Nitroglycerin Sl Tabs [Nitrostat] 0.4 mg SUBLINGUAL Q5M PRN #25 tab 07/04/15 [Rx] Omeprazole 20 mg PO BID 10/30/15 [History] Albuterol Nebulized [Ventolin Nebulized] 2.5 mg INHALATION RT-QID PRN 04/05/16 [History] Ezetimibe [Zetia] 10 mg PO HS 04/07/18 [History] Levothyroxine Sodium [Synthroid] 137 mcg PO MOTUWETHFRSA 04/10/18 [History] Ascorbic Acid [Vitamin C] 2,000 mg PO DAILY 02/27/19 [History] Furosemide [Lasix] 20 mg PO DAILY PRN 02/27/19 [History] Isosorbide Mononitrate ER [Imdur] 30 mg PO DAILY 02/27/19 [History] Zolpidem [Ambien] 5 mg PO HS PRN 03/31/19 [History] Vitamin A [Vitamin A (8,000 Units = 2,400 MCG)] 8,000 unit PO DAILY 02/01/20 [History] Albuterol Sulfate [Albuterol Sulfate Hfa] 2 puff PO RT-QID PRN 02/04/20 [History] Calcium Carbonate [Calcium] 1,200 mg PO DAILY 02/04/20 [History] Atorvastatin [Lipitor] 20 mg PO HS 03/20/21 [History] Cholecalciferol (Vitamin D3) [Vitamin D3 (125 MCG = 5,000 IU)] 125 mcg PO DAILY 03/20/21 [History] Ihejldilyus-Ojpeiuvocbf-Ncfttsah 1 tab PO DAILY 03/20/21 [History] L.acidoph,Paracasei, B.lactis [Probiotic] 1 cap PO DAILY 03/20/21 [History] Methocarbamol [Robaxin-750] 750 mg PO TID PRN 03/20/21 [History] Multivit-Min/Iron/Folic/Lutein [Centrum Silver Women Tablet] 1 tab PO DAILY 03/20/21 [History] Ondansetron [Zofran] 4 mg PO TID PRN 03/20/21 [History] Spironolactone 50 mg PO DAILY PRN 03/20/21 [History] Zinc 50 mg PO DAILY 03/20/21 [History] Apixaban [Eliquis] 5 mg PO BID 30 Days #60 tab 03/23/21 [Rx] Dexamethasone [Decadron] 6 mg PO DAILY #5 tablet 03/26/21 [Rx] Fluconazole [Diflucan] 100 mg PO DAILY #10 tab 03/26/21 [Rx] Metoprolol Tartrate [Lopressor] 25 mg PO BID #60 tab 03/26/21 [Rx] guaiFENesin-DM 100-10MG/5ML [Robitussin DM] 10 ml PO Q6HR PRN ml 03/26/21 [Rx] Follow up Appointment(s)/Referral(s): Isidoro Greenberg MD [STAFF PHYSICIAN] - 04/04/21 3:15 pm (Dr. Greenberg ) Rey Espinal DO [Primary Care Provider] - 04/02/21 11:00 am (Dr. Espinal ) Patient Instructions/Handouts: Coronavirus Disease 2019 (COVID-19), A-fib (Atrial Fibrillation) (DC), Chest Pain (DC) Discharge Disposition: HOME SELF-CARE
--- NOTE | 2021-03-26 13:43 | P.PN ---
Subjective Progress Note Date: 03/26/21 Principal diagnosis: Covid 19 Pneumonia Patient is a 55 female presented to the hospital with increased shortness of breath and cough has been diagnosed with COVID-19 pneumonia. On today's evaluation that is 03/25/2021, The patient remains to be afebrile. The patient is feeling better, breathing comfortably. The patient denies chest pain, shortness of breath or cough. No abdominal pain or diarrhea. Objective - Vital Signs Vital signs: Vital Signs Temp 98.2 F 03/26/21 12:05 Pulse 61 03/26/21 12:05 Resp 17 03/26/21 12:05 BP 118/75 03/26/21 12:05 Pulse Ox 96 03/26/21 12:05 Intake & Output 03/25/21 03/26/21 03/26/21 18:59 06:59 18:59 Intake Total 960 Output Total 1200 Balance 960 -1200 Intake: Oral 960 Output: Urine 1200 Other: Voiding Method Indwelling Catheter Indwelling Catheter # Voids 2 1 - Exam GENERAL DESCRIPTION: General description is an middle-age female up in the chair in no distress. RESPIRATORY SYSTEM: Unlabored breathing. Decreased breath sounds at the bases. No wheeze. HEART: S1, S2. Regular rate and rhythm. ABDOMEN: Soft. No tenderness. EXTREMITIES: Some chronic swelling. No redness - Labs CBC & Chem 7: 03/23/21 06:57 03/22/21 06:11 Labs: Abnormal Lab Results - Last 24 Hours (Table) 03/25/21 03/25/21 03/26/21 Range/Units 16:55 21:02 06:55 POC Glucose (mg/dL) 210 H 136 H 112 H (75-99) mg/dL 03/26/21 Range/Units 11:52 POC Glucose (mg/dL) 113 H (75-99) mg/dL Assessment and Plan Plan: Patient presented to hospital with acute COVID-19 pneumonia this patient seems to have shown some clinical improvement patient to continue with current supportive treatment of Eliquis vitamin C zinc and ascorbic acid no need for systemic antibiotic therapy
[2021-03-29 13:37] LABS: Metanephrine, Free <25 pg/mL (< OR = 57); Normetanephrine, Free 61 pg/mL (< OR = 148); Total, Free (MN + NMN) 61 pg/mL (< OR = 205)
== END 2021-03-26 13:57 | disposition home or self-care (01) | DRG 177 ==
LOC: EC 22:50 → 4SSUR 23:58 → 2SICU 03-22 08:15 → 3SCARD 03-22 16:26
PROVIDERS: ADMIT Internal Medicine Geriatric Medicine; ATTEND Internal Medicine Geriatric Medicine
PROC: 05HC33Z Insertion of Infusion Device into Left Basilic Vein, Percutaneous Approach (ICD-10-PCS; principal; 2021-03-23 07:30)
DX: U07.1 COVID-19 (principal); J12.82 Pneumonia due to coronavirus disease 2019; J96.01 Acute respiratory failure with hypoxia; I48.3 Typical atrial flutter; J44.0 Chronic obstructive pulmonary disease with (acute) lower respiratory infection; E03.9 Hypothyroidism, unspecified; E78.5 Hyperlipidemia, unspecified; I10 Essential (primary) hypertension; I25.10 Atherosclerotic heart disease of native coronary artery without angina pectoris; I48.91 Unspecified atrial fibrillation; I73.00 Raynaud's syndrome without gangrene; J45.20 Mild intermittent asthma, uncomplicated; K21.9 Gastro-esophageal reflux disease without esophagitis; K44.9 Diaphragmatic hernia without obstruction or gangrene; I08.1 Rheumatic disorders of both mitral and tricuspid valves; Z79.01 Long term (current) use of anticoagulants; Z79.02 Long term (current) use of antithrombotics/antiplatelets; Z79.82 Long term (current) use of aspirin; Z79.890 Hormone replacement therapy; Z79.899 Other long term (current) drug therapy; Z82.49 Family history of ischemic heart disease and other diseases of the circulatory system; Z83.3 Family history of diabetes mellitus; Z80.9 Family history of malignant neoplasm, unspecified; Z83.2 Family history of diseases of the blood and blood-forming organs and certain disorders involving the immune mechanism; Z87.891 Personal history of nicotine dependence; Z90.49 Acquired absence of other specified parts of digestive tract; Z98.890 Other specified postprocedural states; Z87.01 Personal history of pneumonia (recurrent); Z88.2 Allergy status to sulfonamides; Z91.013 Allergy to seafood; Z88.8 Allergy status to other drugs, medicaments and biological substances; Z88.1 Allergy status to other antibiotic agents; Z91.048 Other nonmedicinal substance allergy status
CPT/HCPCS: 36410; 36415; 71045; 76937; 80053; 83605; 83615; 83735; 83835; 83880; 84100; 84145; 84439; 84443; 84445; 84481; 84484; 85025; 85027; 85379; 85610; 85730; 86140; 93005; 93308; 94640; 94760; 99285

== ENCOUNTER → 2021-04-02 | Outpatient (CLI) | payer MEDICARE ==
--- NOTE | 2021-04-03 10:47 | MR ---
MRI CERVICAL SPINE: CLINICAL HISTORY: Neck Pain causing bilateral upper extremity weakness and numbness. TECHNIQUE: Multiplanar, multisequence imaging of the cervical spine is performed without IV contrast. COMPARISON: CT cervical spine 2018. FINDINGS: Sagittal images of the cervical spine show the craniocervical junction to remain within nor mal limits. The cervical and upper thoracic spinal cord is normal in caliber and signal. Reversal of normal cervical curvature redemonstrated. Redemonstration of grade 1 retrolisthesis C4 on C5 and C6 on C7 and greatest at C5 on C6 related to prior CT. Ktbq-nn-rzblysnz disc space narrowing C5-C6 level otherwise the vertebral body and intravertebral disk heights are within normal limits. The bone mar row signal intensity is within normal limits. Mild multilevel anterior spurring. Axial images at C2-C3 level appear within normal limits. Axial images at C3-C4 level also appear within normal limits. Axial images at C4-C5 level shows broad-based left paracentral disc protrusion moderately mildly effa cing the anterior thecal sac with uncovertebral facet degenerative changes causing mild bilateral santiago ral foraminal narrowing. Axial images at C5-C6 level show spondylolisthesis and left paracentral spur disc complex effacing th e anterior thecal sac and uncovertebral facet degenerative changes causing mild/moderate bilateral ne ural foraminal narrowing. Axial images at C6-C7 level show tiny posterior disc herniation minimally effacing anterior thecal sa c and causing asymmetric mild right-sided neural foraminal narrowing. Axial images at C7-T1 level appear within normal limits. IMPRESSION: Multilevel spondylolisthesis and degenerative changes in the mid to lower cervical spine as detailed above.
== END | disposition home or self-care (01) ==
LOC: RADMRIMAIN 15:40
PROVIDERS: ATTEND Orthopaedic Surgery
DX: M50.223 Other cervical disc displacement at C6-C7 level (principal); M50.322 Other cervical disc degeneration at C5-C6 level; M43.12 Spondylolisthesis, cervical region
CPT/HCPCS: 72141

== ENCOUNTER → 2021-04-30 | Outpatient (CLI) | payer MEDICARE ==
--- NOTE | 2021-05-02 14:03 | MM ---
Reason for exam: screening (asymptomatic). Last mammogram was performed 1 year and 6 months ago. History: Patient is postmenopausal. Family history of breast cancer in sister and breast cancer in sister at age 62. Physical Findings: A clinical breast exam by your physician is recommended on an annual basis and results should be correlated with mammographic findings. MG 3D Screening Mammo W/Cad Bilateral CC and MLO view(s) were taken. Prior study comparison: November 09, 2019, bilateral MG 3d screening mammo w/cad. December 31, 2017, bilateral MG 3d screening mammo w/cad. No significant changes when compared with prior studies. ASSESSMENT: Benign, BI-RAD 2 RECOMMENDATION: Routine screening mammogram of both breasts in 1 year.
== END | disposition home or self-care (01) ==
LOC: RADMAMWWP 16:12
PROVIDERS: ATTEND Family Medicine
DX: Z12.31 Encounter for screening mammogram for malignant neoplasm of breast (principal); Z78.0 Asymptomatic menopausal state; Z80.3 Family history of malignant neoplasm of breast
CPT/HCPCS: 77063; 77067

== ENCOUNTER → 2021-05-11 | Outpatient (CLI) | payer MEDICARE ==
[2021-05-11 18:14] LABS: T4, Free (Free Thyroxine) 1.28 ng/dL (0.800-1.800)
== END | disposition home or self-care (01) ==
LOC: LABWHC1 09:42
PROVIDERS: ATTEND Internal Medicine
DX: E55.9 Vitamin D deficiency, unspecified (principal); E16.2 Hypoglycemia, unspecified; E03.9 Hypothyroidism, unspecified
CPT/HCPCS: 36415; 82306; 83036; 84439; 84443

== ENCOUNTER → 2021-07-25 | Outpatient (CLI) | payer MEDICARE ==
--- NOTE | 2021-07-25 13:53 | SFUN ---
SLEEP CENTER FOLLOW UP NOTE DATE OF SERVICE: 07/25/2021 This 56-year-old lady has been followed in Sleep Center for treatment of obstructive sleep apnea-hypopnea syndrome. Recently the patient had a home sleep apnea test which showed extremely severe sleep apnea with apnea-hypopnea index 66.6 and oxygen desaturation to 56%. I discussed the results of her sleep study with the patient in detail. The patient also had PAP titration in May, and after that she received a CPAP unit. This is her first visit after she started using her new CPAP equipment. I checked her CPAP unit. Range of the pressure is between 5 and 12, average pressure 11.8 cm of water. Usage is 100% of the nights for more than 4 hours, average 8 hours 43 minutes. Leak is 15.4 L/minute 95%, which is in acceptable range. Apnea-hypopnea index is 1.2, which is totally normal. [place] Sleepiness Scale is 9. MEDICATIONS: 1. Lasix 20 mg once a day. 2. Metoprolol 25 mg once a day. 3. Imdur 30 mg once a day. 4. Aspirin 81 mg once a day. 5. Norvasc 2.5 mg once a day. 6. Synthroid 137 mcg once a day. 7. Plavix 75 mg once a day. 8. Omeprazole 20 mg twice a day. 9. Singulair 10 mg at bedtime. 10.Zetia 10 mg at bedtime. 11.Lipitor 20 mg at bedtime. 12.Loratadine 10 mg at bedtime. 13.Albuterol inhaler. 14.Spironolactone mg once a day. 15.Methocarbamol 750 mg three times a day. 16.Ambien 10 mg half tablet at bedtime if necessary. PHYSICAL EXAMINATION: GENERAL: Pleasant patient in no distress. VITAL SIGNS: BP 120/80, HR 68, RR 16, weight 224.4, height 5 feet 3 inches. Temperature 97.0. Oxygen saturation at room air 97%. HEENT: PERRLA, EOMI, evaluation of oropharynx showed tongue protrudes midline. Low position of soft palate; Mallampati III to IV. NECK: Supple, no JVD. Thyroid is not palpable. LUNGS: Clear to percussion and to auscultation. Good air exchange. No wheezing or rhonchi. HEART: S1, S2 regular. No murmurs, gallops, or rubs. ABDOMEN: Obese. EXTREMITIES: No clubbing or cyanosis. FORESTRY PILOT: Awake, alert, and oriented X3. Cranial nerves 2 to 7 intact. There is no fasciculation or atrophy. noted. No focal deficits observed. IMPRESSION: 1. Severe obstructive sleep apnea-hypopnea syndrome; apnea-hypopnea index 66.6 with oxygen desaturation to 56%. Patient demonstrated 100% compliance with CPAP therapy, benefitting from treatment. Normal respiration on CPAP. 2. Coronary artery disease, status post multiple stent insertions. 3. Hypothyroidism. 4. Asthma. 5. Hyperlipidemia. 6. Status post tonsillectomy. 7. History of endometriosis, status post uterus ablation. 8. Status post cholecystectomy. PLAN: 1. I discussed with the patient details about position of the machine and the necessity of using only distilled water for the humidifier, adjustments of temperature in the humidifier and in the heated tube. 2. I wrote the patient a prescription for a different style of djumz-wum-dqmy mask. 3. Patient will continue to use PAP equipment every night for the whole night. 4. Sleep hygiene with regular time in bed for at least 7-1/2 to 8 hours. 5. Precautions related to driving. No driving if feeling sleepiness. 6. I will maintain all necessary prescription for PAP supplies including mask, tube, filters. 7. Watching weight. 8. Follow-up visit in 6 months or earlier if patient has any problems. Thank you very much for allowing me to participate in the management of your patient. Sincerely, Leo Sage MD, PhD, FAASM Diplomat of [place] [employer] Sleep Medicine Board of [place] [employer] Maker of [facility] [place] MMODL / LAURAN: [id number] /
== END ==
LOC: SLEEP 10:41
PROVIDERS: ATTEND Internal Medicine
DX: G47.33 Obstructive sleep apnea (adult) (pediatric) (principal); G47.36 Sleep related hypoventilation in conditions classified elsewhere; Z99.89 Dependence on other enabling machines and devices; I25.10 Atherosclerotic heart disease of native coronary artery without angina pectoris; Z95.5 Presence of coronary angioplasty implant and graft; E03.9 Hypothyroidism, unspecified; J45.909 Unspecified asthma, uncomplicated; E78.5 Hyperlipidemia, unspecified; Z90.09 Acquired absence of other part of head and neck; Z90.49 Acquired absence of other specified parts of digestive tract; Z87.42 Personal history of other diseases of the female genital tract; Z98.890 Other specified postprocedural states; Z79.890 Hormone replacement therapy; Z79.82 Long term (current) use of aspirin; Z91.048 Other nonmedicinal substance allergy status; Z91.013 Allergy to seafood; Z88.2 Allergy status to sulfonamides; Z88.8 Allergy status to other drugs, medicaments and biological substances

== ENCOUNTER → 2021-12-31 | Outpatient (CLI) | payer MEDICARE ==
[2021-12-31 15:07] LABS: T4, Free (Free Thyroxine) 1.05 ng/dL (0.800-1.800)
== END | disposition home or self-care (01) ==
LOC: LABWHC1 10:57
PROVIDERS: ATTEND Internal Medicine
DX: E06.3 Autoimmune thyroiditis (principal)
CPT/HCPCS: 36415; 84439; 84443

== ENCOUNTER → 2022-02-06 | Outpatient (CLI) | payer MEDICARE ==
--- NOTE | 2022-02-06 12:24 | P.PN ---
Subjective DATE: 02/06/2022 FOLLOW UP VISIT. Patient with obstructive sleep apnea hypopnea syndrome return to sleep center for follow-up visit. Information from previous visit have been reviewed. Patient is using PAP equipment every night for the whole night, getting PAP supplies in time. The patient does not have significant problems with thePAP unit and humidification. She feels discomfort with nasal pillows, although she did use Eaton gel. Piffard sleepiness scale is 8, which is normal. Occasionally patient has snoring with CPAP. Positive history of tachycardia during episodes when patient fell asleep in front of the TV without CPAP. I checked information from PAP unit. PAP unit pressure 5-12, average 11.9 cm H2O. Usage is 100 % for more then 4 hours, average 8.5 hours per night. Leak is 7.2 l/m, which is in acceptable range. Apnea Hypopnea Index is 1.4, which is normal. MEDICATIONS:1. Omeprazole 20 mg once a day 2. Plavix 75 mg once a day 3. Norvasc 2.5 mg once a day 4. Synthroid 137 g once a day 5. Metoprolol 25 mg twice a day 6. Singulair 10 mg once a day 7. Claritin 10 mg once a day 8. Zetia 10 mg once a day During physical exam: GENERAL: A pleasant patient without any distress. VITAL SIGNS: BP 128/82, HR 58, RR 16, weight 218.8, temperature 97.1, oxygen saturation at room air 99 % . HEENT: PERRLA, EOMI.low position of soft palate, Mallapati 3-4 . NECK: Supple. No JVD. LUNGS: Clear to percussion and to auscultation. Good air exchange. No wheezing or rhonchi. HEART: S1, S2 regular. ABDOMEN: Soft and nontender. Slightly obese. EXTREMITIES: No clubbing or cyanosis. WEBMETHODS CONSULTANT: Awake, alert, and oriented x3. No focal deficit. Impressions: 1. Obstructive sleep apnea-hypopnea syndrome. Patient demonstrated great compliance with treatment, benefiting from treatment. Occasional snoring with CPAP. 2. Coronary artery disease, status post multiple stent insertion. 3. Asthma. 4. Hypothyroidism. 5. Hyperlipidemia. 6. History of endometriosis, status post uterosacral ablation. 7. Status post tonsillectomy. 8. Status post cholecystectomy. Plan: 1. Continue using PAP equipment every night for the whole night. I increased maximal pressure in AutoPAP unit to 12 cm of water. 2. To change air filter at least 1-2 times per month. 3. PAP unit should stay lower then position of the head. 4. Advised patient to remove all remaining water from humidifier canister daily and make it dry after each usage. Refill canister with fresh distilled water before each usage. 5. Sleep hygiene with regular time in bed for at least 8 hours. 6. Precautions related to driving. No driving if feel any sleepiness. 7. I will maintain prescription for PAP supplies including mask, tube, filters. Patient will start to use mask which goes under the nose. 8. Follow up visit in 6 months or earlier if patient has any problems. 9. Watching and losing weight. Thank you very much for allowing me to participate in the management of your patient. Leo Sage MD, PhD, FAASM. Diplomat of [place] [employer], Sleep Medicine Board by [place] [employer] Roster Clerk of [facility] [place]
== END ==
LOC: SLEEP 11:35
PROVIDERS: ATTEND Internal Medicine
DX: G47.33 Obstructive sleep apnea (adult) (pediatric) (principal); Z99.89 Dependence on other enabling machines and devices; J45.909 Unspecified asthma, uncomplicated; E03.9 Hypothyroidism, unspecified; E78.5 Hyperlipidemia, unspecified; Z95.5 Presence of coronary angioplasty implant and graft; Z98.891 History of uterine scar from previous surgery; Z87.891 Personal history of nicotine dependence; Z91.048 Other nonmedicinal substance allergy status; Z88.8 Allergy status to other drugs, medicaments and biological substances; Z88.2 Allergy status to sulfonamides
CPT/HCPCS: 99212

== ENCOUNTER → 2022-06-06 | Outpatient (CLI) | payer MEDICARE ==
--- NOTE | 2022-06-06 12:48 | US ---
EXAMINATION TYPE: US kidneys/renal and bladder DATE OF EXAM: 06/06/2022 COMPARISON: CT 2019, US 2009 CLINICAL HISTORY: N20.0 Calculus of kidney. Calculus of kidney per order. Hematuria per patient. EXAM MEASUREMENTS: Right Kidney: 12.5 x 5.4 x 4.3 cm Left Kidney: 12.6 x 5.8 x 5.9 cm Exam is limited due to gas and body habitus. Right Kidney: Slightly enlarged. Left Kidney: Slightly enlarged. Bladder: Appears anechoic. Bilateral Jets seen: Yes IMPRESSION: No evidence of obstructive uropathy. No renal calculus visible on ultrasound imaging. No calculi were visualized and CT in 2019.
== END | disposition home or self-care (01) ==
LOC: RADUSWWP 12:03
PROVIDERS: ATTEND Family Medicine
DX: N20.0 Calculus of kidney (principal)
CPT/HCPCS: 76770

== ENCOUNTER → 2022-06-19 | Outpatient (CLI) | payer MEDICARE ==
--- NOTE | 2022-06-19 17:49 | CT ---
EXAMINATION TYPE: CT abdomen pelvis wo/w con DATE OF EXAM: 06/19/2022 COMPARISON: 07/27/2019 HISTORY: lower abdominal pain and flank pain. hx of abdominal sxs. CT DLP: 3023 mGycm CONTRAST: CT scan of the abdomen and pelvis is performed without Oral Contrast and without and with IV Contrast , patient injected with 100 mL of Isovue 300. FINDINGS: LUNG BASES-: No visible nodule. No infiltrate. Small moderate fixed hiatal hernia. LIVER/GB: The gallbladder is surgically absent. No space occupying hepatic lesion. Biliary tree is of normal caliber. PANCREAS: No inflammation. No distinct mass. SPLEEN: No splenic enlargement. No lesion seen. ADRENALS: No nodule. No thickening. KIDNEYS/BLADDER: No hydronephrosis. No nephrolithiasis. No distinct renal mass. Urinary bladder g rossly unremarkable. BOWEL: Normal appendix. Normal bowel caliber. No inflammation. GENITAL ORGANS: No gross abnormality. LYMPH NODES: No greater than 1cm abdominal or pelvic lymph nodes are appreciated. AORTA: No significant abnormality. OSSEOUS STRUCTURES: No significant abnormality is seen. OTHER: No significant additional abnormality is seen. IMPRESSION: 1. No significant abnormality appreciated.
== END | disposition home or self-care (01) ==
LOC: RADCTMAIN 15:32
PROVIDERS: ATTEND Physical Medicine & Rehabilitation
DX: R10.32 Left lower quadrant pain (principal)
CPT/HCPCS: 74178; Q9967

== ENCOUNTER → 2022-08-08 | Outpatient (CLI) | payer MEDICARE ==
[2022-08-08 16:03] LABS: HCT 39.8 % (37.2-46.3); HGB 13.8 g/dL (12.0-15.0); MCH 32.8 pg (27.0-32.0); MCHC 34.7 g/dL (32.0-37.0); MCV 94.5 fL (80.0-97.0); Mean Platelet Volume 9.9 fL (9.5-12.2); NRBC Per 100 WBC 0 /100 WBCS (0.0-0.0); Platelet Count 288 X 10*3/uL (140-440); RBC 4.21 X 10*6/uL (4.10-5.20); RDW 11.9 % (11.5-14.5); WBC 5.35 X 10*3/uL (4.50-10.00)
[2022-08-08 16:15] LABS: African American GFR (CKD) 118.8 (60.0-200.0); BUN/Creat Ratio 19.27 Ratio (12.00-20.00); Blood Urea Nitrogen 11.6 mg/dL (9.0-27.0); Calcium 9.6 mg/dL (8.7-10.3); Carbon Dioxide 24.9 mmol/L (20.0-27.5); Non-African American GFR(CKD) 102.5 (60.0-200.0); Potassium 4.2 mmol/L (3.5-5.5); T4, Free (Free Thyroxine) 1.41 ng/dL (0.800-1.800)
== END | disposition home or self-care (01) ==
LOC: LABWHC1 11:07
PROVIDERS: ATTEND Internal Medicine Interventional Cardiology
DX: I10 Essential (primary) hypertension (principal); I25.10 Atherosclerotic heart disease of native coronary artery without angina pectoris
CPT/HCPCS: 36415; 80048; 84439; 84443; 85027

== ENCOUNTER → 2022-08-08 | Outpatient (CLI) | payer MEDICARE ==
--- NOTE | 2022-08-08 11:14 | P.PN ---
Subjective DATE: 08/08/2022 FOLLOW UP VISIT. Patient with obstructive sleep apnea hypopnea syndrome return to sleep center for follow-up visit. Information from previous visit have been reviewed. Patient is using PAP equipment every night for the whole night, getting PAP supplies in time. The patient does not have significant problems with the mask or PAP unit. Sometimes discharges from the nose after using CPAP . Coats sleepiness scale is 8, which is normal. I checked information from PAP unit. PAP unit pressure 5-13, average 12.6 cm H2O. Usage is 100 % for more then 4 hours, average 8.8 hours per night. Leak is 12.6 l/m, which is in acceptable range. Apnea Hypopnea Index is 1.1, which is normal. MEDICATIONS:1. Metoprolol 25 mg 3 times a day 2. Norvasc 2.5 mg once a day 3. Plavix 75 mg once a day 4. Synthroid 137 g once a day 5. Singulair 10 mg once a day 6. Zetia 10 mg once a day 7. Eliquis 5 mg twice a day 8. Ambien 5 mg at bedtime 9. Albuterol During physical exam: GENERAL: A pleasant patient without any distress. VITAL SIGNS: BP 107/73, HR 70, RR 12 , weight 222, temperature 98.4, oxygen saturation at room air 97 % . HEENT: PERRLA, EOMI.low position of soft palate, Mallapati 3-4 . NECK: Supple. No JVD. LUNGS: Clear to percussion and to auscultation. Good air exchange. No wheezing or rhonchi. HEART: S1, S2 regular. ABDOMEN: Soft and nontender. Slightly obese EXTREMITIES: No clubbing or cyanosis. MINUTE CLERK: Awake, alert, and oriented x3. No focal deficit. I explained to the patient how to adjust level of humidity. We adjusted humidity level up from 3 to 6. Impressions: 1. Obstructive sleep apnea-hypopnea syndrome. Patient demonstrated great compliance with treatment, benefiting from treatment. 2. Episodes of paroxysmal lateral fibrillation. 3. Obesity BMI 40.1, patient increased to wait on 4 pounds. 4. More artery disease status post multiple stent insertions. 5. Asthma. 6. Hypothyroidism. 7. Hyperlipidemia. 8. Status post tonsillectomy. 9. Status post cholecystectomy. 10. History of endometriosis, status post uterus ablation. Plan: 1. Continue using PAP equipment every night for the whole night. 2. To change air filter at least 1-2 times per month. 3. PAP unit should stay lower then position of the head. 4. Advised patient to remove all remaining water from humidifier canister daily and make it dry after each usage. Refill canister with fresh distilled water before each usage. 5. Sleep hygiene with regular time in bed for at least 8 hours. 6. Precautions related to driving. No driving if feel any sleepiness. 7. I will maintain prescription for PAP supplies including mask, tube, filters. 8. Watching and losing weight. 9. Follow up visit in 6 months or earlier if patient has any problems. Thank you very much for allowing me to participate in the management of your patient. Leo Sage MD, PhD, FAASM. Diplomat of [place] [employer], Sleep Medicine Board by [place] [employer] Tank Crewmember of [facility] [place]
== END ==
LOC: 3 N SLEEP 10:22
PROVIDERS: ATTEND Internal Medicine
DX: G47.33 Obstructive sleep apnea (adult) (pediatric) (principal); E66.9 Obesity, unspecified; I48.0 Paroxysmal atrial fibrillation; Z99.89 Dependence on other enabling machines and devices; E03.9 Hypothyroidism, unspecified; E78.5 Hyperlipidemia, unspecified; J45.909 Unspecified asthma, uncomplicated; Z68.41 Body mass index [BMI] 40.0-44.9, adult; Z98.890 Other specified postprocedural states; Z91.048 Other nonmedicinal substance allergy status; Z88.2 Allergy status to sulfonamides; Z91.013 Allergy to seafood; Z88.8 Allergy status to other drugs, medicaments and biological substances; Z79.899 Other long term (current) drug therapy; I77.9 Disorder of arteries and arterioles, unspecified; Z79.01 Long term (current) use of anticoagulants; Z87.891 Personal history of nicotine dependence; Z79.02 Long term (current) use of antithrombotics/antiplatelets; Z90.89 Acquired absence of other organs; Z90.49 Acquired absence of other specified parts of digestive tract; Z87.42 Personal history of other diseases of the female genital tract
CPT/HCPCS: 99212

== ENCOUNTER → 2022-10-24 | Outpatient (CLI) | payer MEDICARE ==
--- NOTE | 2022-10-25 10:37 | MM ---
Reason for Exam: Screening (asymptomatic). Last mammogram was performed 1 year(s) and 6 month(s) ago. Patient History: Menarche at age 13. First Full-Term at age 20. Postmenopausal. Sister had breast cancer, age 62. Sister had breast cancer, age 52. Risk Values: Anna 5 year model risk: 6.2%. NCI Lifetime model risk: 36.0%. Prior Study Comparison: 12/31/2017 Bilateral Screening Mammogram, [facility]. 11/09/2019 Bilateral Screening Mammogram, [facility]. 04/30/2021 Bilateral Screening Mammogram, [facility]. Tissue Density: There are scattered fibroglandular densities. Findings: Analyzed By CAD. Pattern appears symmetrical and stable. No significant interval change is evident. No suspicious groups of microcalcifications, spiculated or lobular masses, architectural distortion or other secondary signs of malignancy are mammographically apparent. Overall Assessment: Benign, BI-RAD 2 Management: Screening Mammogram of both breasts in 1 year. A negative mammogram report should not preclude additional follow up of suspicious palpable abnormalities. Patient should continue monthly self breast exam. A clinical breast exam by your physician is recommended on an annual basis and results should be correlated with mammographic findings. Electronically signed and approved by: Antonio Byrne D.O. Radiologis
== END | disposition home or self-care (01) ==
LOC: RADMAMWWP 13:35
PROVIDERS: ATTEND Family Medicine
DX: Z12.31 Encounter for screening mammogram for malignant neoplasm of breast (principal); Z80.3 Family history of malignant neoplasm of breast; Z78.0 Asymptomatic menopausal state
CPT/HCPCS: 77063; 77067

== ENCOUNTER → 2023-01-23 | Outpatient (CLI) | payer MEDICARE | END | disposition home or self-care (01) | LOC: LABWHC1 11:55 | PROVIDERS: ATTEND Internal Medicine | DX: R06.02 Shortness of breath (principal) | CPT/HCPCS: 36415; 85379 ==

== ENCOUNTER → 2023-02-26 | Outpatient (CLI) | payer MEDICARE ==
--- NOTE | 2023-02-26 11:59 | P.PN ---
Subjective DATE: 02/26/2023. FOLLOW UP VISIT. Patient with obstructive sleep apnea hypopnea syndrome return to sleep center for follow-up visit. Information from previous visit have been reviewed. Recently DLCO test showed decreasing to 26%. Patient has episodes of awakenings from sleep with gasping for air while using sure CPAP unit. Patient is using PAP equipment every night for the whole night, getting PAP supplies in time. The patient does not have significant problems with the mask, PAP unit and humidification. Richards sleepiness scale is 10, which is slightly increased. I checked information from PAP unit. PAP unit pressure 5-13, average 12.6 cm H2O. Usage is 100 % for more then 4 hours, average 9 hours per night. Leak is 12.5 l/m, which is in acceptable range. Apnea Hypopnea Index is one 1.0, which is normal. MEDICATIONS:1. Metoprolol 25 mg 3 times a day 2. Indoor 30 mg once a day 3. Plavix 75 mg once a day 4. Norvasc 2.5 mg once a day 5. Eliquis 5 mg twice a day 6. Synthroid 137 g once a day 7. Singulair 10 mg at bedtime 8. Albuterol During physical exam: GENERAL: A pleasant patient without any distress. VITAL SIGNS: BP 110/76, HR 72, RR 20 , weight 222.4, temperature 98.1, oxygen saturation at room air 98 % . HEENT: PERRLA, EOMI.low position of soft palate, Mallapati 3-4 . NECK: Supple. No JVD. LUNGS: Clear to percussion and to auscultation. Good air exchange. No wheezing or rhonchi. HEART: S1, S2 regular. ABDOMEN: Soft and nontender. Slightly obese EXTREMITIES: No clubbing or cyanosis. COUNTER MANAGER: Awake, alert, and oriented x3. No focal deficit. Impressions: 1. Obstructive sleep apnea-hypopnea syndrome. Patient demonstrated great compliance with treatment, benefiting from treatment. Patient has episodes of awakenings with gasping for air during the night. 2. History of paroxysmal atrial fibrillation. 3. Obesity, BMI 39.8. 4. Coronary artery disease, status post multiple stent insertions. 5. Asthma. 6. Low DLCO. 7. Status post Covid-19 2 years ago. 8. Hypothyroidism. 9. Hyperlipidemia. 10. Status post tonsillectomy. 11. Status post cholecystectomy. 12. History of endometriosis, status post uterine ablation. I increased range of the pressure in CPAP unit to 515 centimeters of water. Plan: 1. Repeat CPAP titration. Patient has awakenings from sleep with episodes of gasping for air, DLCO significantly decreased. Patient may need BiPAP or oxygen supplement during the sleep if necessary. 2. Continue using PAP equipment every night for the whole night. 3. PAP unit should stay lower then position of the head. 4. Advised patient to remove all remaining water from humidifier canister daily and make it dry after each usage. Refill canister with fresh distilled water before each usage. 5. Sleep hygiene with regular time in bed for at least 8 hours. 6. Precautions related to driving. No driving if feel any sleepiness. 7. I will maintain prescription for PAP supplies including mask, tube, filters. 8. Following plan after reading Pap titration test. 9. Watching and losing weight. Thank you very much for allowing me to participate in the management of your patient. Leo Sage MD, PhD, FAASM. Diplomat of [place] [employer], Sleep Medicine Board by [place] Telephone Recorder of [facility] [place]
== END ==
LOC: 3 N SLEEP 10:54
PROVIDERS: ATTEND Internal Medicine
DX: G47.33 Obstructive sleep apnea (adult) (pediatric) (principal); I48.0 Paroxysmal atrial fibrillation; E66.9 Obesity, unspecified; I25.10 Atherosclerotic heart disease of native coronary artery without angina pectoris; J45.909 Unspecified asthma, uncomplicated; E03.9 Hypothyroidism, unspecified; E78.5 Hyperlipidemia, unspecified; Z79.890 Hormone replacement therapy; Z68.39 Body mass index [BMI] 39.0-39.9, adult; Z90.89 Acquired absence of other organs; Z95.5 Presence of coronary angioplasty implant and graft; Z90.49 Acquired absence of other specified parts of digestive tract; Z79.01 Long term (current) use of anticoagulants; Z79.02 Long term (current) use of antithrombotics/antiplatelets; Z79.899 Other long term (current) drug therapy; Z88.8 Allergy status to other drugs, medicaments and biological substances; Z88.2 Allergy status to sulfonamides; Z91.048 Other nonmedicinal substance allergy status; Z91.018 Allergy to other foods; Z91.013 Allergy to seafood; Z87.891 Personal history of nicotine dependence
CPT/HCPCS: 99212

== ENCOUNTER 2023-04-08 19:40 | Outpatient (CLI) | payer MEDICARE ==
--- NOTE | 2023-04-09 14:56 | P.PCN ---
Description of Procedure: CLINICAL: Titration with positive air pressure has been done for correction of respiratory abnormalities during sleep. DESCRIPTION OF PROCEDURE: The standard montage for clinical polysomnography included the electroencephalogram, the electrocardiogram, the mentalis surface electromyography and Lead II cardiography. The respiratory battery consisted of measurements of nasal /buccal air flow, pressure transducer measurements from the nose, thoracic and /or abdominal effort and intercostal surface electromyography. Video monitoring has been done to check for any parasomnia events. Nocturnal oxyhemoglobin saturations were obtained by finger oximetry. Step-damian titration with positive airway pressure was utilized to control respiratory events. Raw data of sleep recording has been reviewed and is adequate. RESULTS: Sleep efficiency was significantly decreased to 70.2 %. Latency to sleep onset was significantly prolonged to 59.5 minutes.]. Sleep architecture showed stage N1 was decreased to 3.0 %, Delta sleep was in high range 25.1 %, REM sleep was close to border 17.9 %. Heart rate was minimum 59 BPM, maximum 67 BPM, average 62 BPM. EMG showed 0 periodic limb movements per hour. PAP titration have been done with CPAP up to the pressure 11 cm H2O. The best results were at the pressure 11 cm H2O. Apnea hypopnea index reduced to 1.3. IMPRESSION: 1. Obstructive sleep apnea hypopnea syndrome on controle with PAP treatment. 2. No significant periodic limb movements have been documented. Please see other impressions from consultation. PLAN: 1. The patient will have treatment with positive air pressure equipment with the level of pressure AutoPAP 5-12 cm H2O and should use it every night for the whole night. 2. Watching and losing weight. 3. Sleep hygiene with regular time in bed for at least 8 hours. 4. No driving if feeling any sleepiness. 5. I will see the patient for follow up visit to explain the results of the test, recommendations, check compliance with treatment and make any necessary adjustment related to mask fitting, pressure and humidification. Thank you very much for allowing me to participate in the management of your patient. Sincerely, Leo Sage MD, PhD, FAASM Diplomat of [place] [employer] Sleep Medicine Board of [place] [employer] Cooler Supervisor of [facility] [place]
== END 2023-04-09 05:30 | disposition home or self-care (01) ==
LOC: 3 N SLEEP 19:40
PROVIDERS: ATTEND Internal Medicine
DX: G47.33 Obstructive sleep apnea (adult) (pediatric) (principal); G47.61 Periodic limb movement disorder; Z91.048 Other nonmedicinal substance allergy status; Z91.013 Allergy to seafood; Z88.2 Allergy status to sulfonamides; Z91.018 Allergy to other foods; Z88.8 Allergy status to other drugs, medicaments and biological substances; Z88.3 Allergy status to other anti-infective agents; Z87.891 Personal history of nicotine dependence
CPT/HCPCS: 95811

== ENCOUNTER → 2024-02-10 | Outpatient (CLI) | payer MEDICARE ==
--- NOTE | 2024-02-10 15:56 | CT ---
EXAMINATION TYPE: CT sinus wo con CT DLP: 468 mGycm, Automated exposure control for dose reduction was used. DATE OF EXAM: 02/10/2024 3:21 PM COMPARISON: None. CLINICAL INDICATION:Female, 58 years old with history of J32.0 CHRONIC MAXILLARY SINUSITIS; PHH, sinu s congestion CONTRAST: None. TECHNIQUE: Multiple thin axial images were obtained through the paranasal sinuses without the use of IV contrast. Additional coronal and sagittal reformatted images were submitted for evaluation. FINDINGS: Frontal sinuses: Aplasia of the bilateral frontal sinuses. Maxillary Sinuses: Normally developed and aerated. Maxillary Infundibula(OMC): Clear, . Ethmoid sinuses: Normally developed and aerated. Ethmoidal notch: Protected and abutting the lateral lamina. Sphenoid sinuses: Normally developed and aerated. There is presellar sphenoid sinus pneumatization wi thout evidence of dehiscence. No dehiscence of carotid canal. No evidence of optic nerve dehiscence within the sphenoid sinus. Sphenoethmoidal recesses: Clear. Nasal septum: Within normal limits.. Nasal Turbinates: Within normal limits. Mastoid air cells & middle ears: The air cells are clear. The middle ears are grossly unremarkable. Modified Soft tissues & Brain: Partially seen without gross abnormality. Globes are intact. Other: Cribriform plate demonstrates symmetric Keros classification type 2 cribriform plate. No evidence of bony dehiscence of skull base. Lamina papyracea is intact without evidence of remote orbital fracture or orbital prolapse into the e thmoid sinus. IMPRESSION: 1. No significant mucosal sinus disease. 2. The ostiomeatal units, frontonasal and sphenoethmoidal recesses are clear. 3. Aplasia of the bilateral frontal sinuses. [facility], , 02/10/2024 3:53 PM
== END | disposition home or self-care (01) ==
LOC: RADCTMAIN 14:50
PROVIDERS: ATTEND Otolaryngology
DX: J32.0 Chronic maxillary sinusitis (principal); Q30.1 Agenesis and underdevelopment of nose
CPT/HCPCS: 70486

== ENCOUNTER 2024-03-04 12:32 | Day surgery (SDC) | payer MEDICARE ==
[~2024-03-04 12:32] MED LIST changes: -ALPRAZolam 0.25 MG TAB PO PRN; -ALPRAZolam 0.5 MG TAB PO PRN; -ASPIRIN 325 MG TAB PO STA; +LIDOCAINE 1% (10MG/ML) FOR IV START INTRADERMA PRN; -NITROGLYCERIN SL TABS 0.4 MG TAB SUBLINGUAL PRN; -SODIUM CHLORIDE 0.9% 1,000 ML in EMPTY BAG 1 BAG IV ONE
[2024-03-04 13:21] VITALS: TEMP 97.7
[2024-03-04] MEDS: LACTATED RINGERS 1,000 ML IV ONE ×2 (13:22→13:29)
[2024-03-04] MEDS: LACTATED RINGERS 1,000 ML IV SCH (13:24)
[2024-03-04] MEDS ORDERED: PROPOFOL 10 MG/ML 20 ML VIAL IV ONE (13:30)
[2024-03-04] MEDS ORDERED: LIDOCAINE 1% INJ 10MG/ML (20 ML MDV) ONE (13:30)
--- NOTE | 2024-03-04 13:43 | P.GSHP ---
History of Present Illness H&P Date: 03/04/24 Chief Complaint: Dysphagia, abdominal pain, history of polyps, screening 58-year-old female here for upper and lower endoscopy. Patient has personal history of colon polyps. Thinks her last colonoscopy 4 to 5 years ago. 2014 she had an EGD showing a small gastric ulcer and a small hiatal hernia. Patient has been on omeprazole since then however recently switched to Pepcid because of her Plavix. Has had some complaints of dysphagia recently. Past Medical History Past Medical History: Asthma, Coronary Artery Disease (CAD), Chest Pain / Angina, GERD/Reflux, Hyperlipidemia, Musculoskeletal Disorder, Pneumonia, Sleep Apnea/CPAP/BIPAP, Syncope, Thyroid Disorder, Vascular Disorder Additional Past Medical History / Comment(s): raynauds, lupus-suspected, had ruptured disc, hx. stomach ulcer, has 4 cardiac stents, hiatal hernia, sepsis, syncope last about 2 yrs ago, uses CPAP History of Any Multi-Drug Resistant Organisms: None Reported Past Surgical History: Appendectomy, Cholecystectomy, Heart Catheterization, Heart Catheterization With Stent, Orthopedic Surgery, Tonsillectomy, Uterine Ablation Additional Past Surgical History / Comment(s): 11 heart caths, 4 stents, laser eye surg, colonoscopy with polyp removal, left foot surg Past Anesthesia/Blood Transfusion Reactions: No Reported Reaction, Family History of Problems w/ Anesthesia Additional Past Anesthesia/Blood Transfusion Reaction / Comment(s): has had hematomas in past after cardiac caths. & syncopal episode; bradycardia with appendectomy; mom had some issues w/anesthesia Date of Last Stent Placement:: Smoking Status: Former smoker - Past Family History Brother(s) Family Medical History: Coronary Artery Disease (CAD), Myocardial Infarction (ME) Mother Family Medical History: Coronary Artery Disease (CAD), Diabetes Mellitus Sister(s) Family Medical History: Cancer Father Family Medical History: Cancer, Pulmonary Embolus Medications and Allergies Home Medications Medication Instructions Recorded Confirmed Type Montelukast [Singulair] 10 mg PO HS 08/17/13 03/04/24 History amLODIPine BESYLATE [Norvasc] 2.5 mg PO DAILY 12/12/13 03/04/24 History Clopidogrel [Plavix] 75 mg PO DAILY 05/23/14 03/04/24 History Nitroglycerin Sl Tabs [Nitrostat] 0.4 mg SUBLINGUAL Q5M PRN #25 tab 07/04/15 03/04/24 Rx Albuterol Nebulized [Ventolin 2.5 mg INHALATION RT-QID PRN 04/05/16 03/04/24 History Nebulized] Levothyroxine Sodium [Synthroid] 137 mcg PO DAILY 04/10/18 03/04/24 History Ascorbic Acid [Vitamin C] 1,000 mg PO DAILY 02/27/19 03/04/24 History Isosorbide Mononitrate ER [Imdur] 30 mg PO DAILY 02/27/19 03/04/24 History Zolpidem [Ambien] 10 mg PO HS PRN 03/31/19 03/04/24 History Albuterol Sulfate [Albuterol 2 puff PO RT-QID PRN 02/04/20 03/04/24 History Sulfate Hfa] Cholecalciferol (Vitamin D3) 125 mcg PO DAILY 03/20/21 03/04/24 History [Vitamin D3 (125 MCG = 5,000 IU)] Multivit-Min/Iron/Folic/Lutein 1 tab PO HS 03/20/21 03/04/24 History [Centrum Silver Women Tablet] Zinc 50 mg PO DAILY PRN 03/20/21 03/04/24 History Apixaban [Eliquis] 5 mg PO BID 30 Days #60 tab 03/23/21 03/04/24 Rx Metoprolol Tartrate [Lopressor] 25 mg PO BID #60 tab 03/26/21 03/04/24 Rx Cholestyramine (with Sugar) 4 gm PO DAILY 03/01/24 03/04/24 History [Cholestyramine Powder] EPINEPHrine (Auto Inject) [Epipen] 0.3 mg IM ONCE PRN 03/01/24 03/04/24 History Ezetimibe [Zetia] 10 mg PO HS 03/01/24 03/04/24 History Famotidine [Pepcid] 20 mg PO BID 03/01/24 03/04/24 History Loratadine [Claritin] 10 mg PO HS 03/01/24 03/04/24 History levalbuterol HCL [Xopenex 0.63 mg INHALATION DAILY PRN 03/01/24 03/04/24 History Nebulized] Allergies Allergy/AdvReac Type Severity Reaction Status Date / Time adhesive Allergy skin came Verified 03/04/24 12:56 off ranolazine [From Ranexa] Allergy Dyspnea, Verified 03/04/24 12:56 Edema shellfish derived Allergy throat Verified 03/04/24 12:56 swelling sulfamethoxazole Allergy Rash/Hives Verified 03/04/24 12:56 [From Bactrim] trimethoprim [From Bactrim] Allergy Rash/Hives Verified 03/04/24 12:56 atorvastatin calcium AdvReac muscle Verified 03/04/24 12:56 [From Lipitor] aches diltiazem HCl [From Cardizem] AdvReac EXTREME Verified 03/04/24 12:56 FLUSHING rosuvastatin calcium AdvReac SEVERE Verified 03/04/24 12:56 [From Crestor] MUSCLE PAIN simvastatin [From Zocor] AdvReac MUSCLE PAIN Verified 03/04/24 12:56 statins AdvReac Unknown Uncoded 03/04/24 12:58 Surgical - Exam Vital Signs Temp Pulse Resp BP Pulse Ox 97.7 F 68 20 145/78 97 03/04/24 13:10 03/04/24 13:10 03/04/24 13:10 03/04/24 13:10 03/04/24 13:10 Physical exam: General: Well-developed, well-nourished HEENT: Normocephalic, sclerae nonicteric Abdomen: Nontender, nondistended Extremities: No edema Neuro: Alert and oriented Assessment and Plan (1) GERD (gastroesophageal reflux disease) Narrative/Plan: Will proceed with upper and lower endoscopy Current Visit: Yes Status: Acute Code(s): K21.9 - GASTRO-ESOPHAGEAL REFLUX DISEASE WITHOUT ESOPHAGITIS SNOMED Code(s): 566319727
--- NOTE | 2024-03-04 14:04 | P.PCN ---
Date of Procedure: 03/04/24 Procedure(s) Performed: PREOPERATIVE DIAGNOSIS: GERD, dysphagia, screening, history of polyps POSTOPERATIVE DIAGNOSIS: Mild gastritis, hiatal hernia, mild diverticulosis PROCEDURE: 1. EGD with biopsy 2. Colonoscopy ANESTHESIA: MAC SURGEON: Tim Luke M.D. SPECIMENS: Antrum ENDOSCOPIC PROCEDURE: The patient was on the endoscopy table in the left decubitus position. The Olympus gastroscope was inserted into the oropharynx and passed under direct visualization to the region of the third portion of the duodenum. From that point the scope was slowly withdrawn inspecting all surfaces carefully. There were no neoplastic inflammatory or polypoid lesions throughout the duodenum. The pylorus was widely patent. The stomach was carefully inspected. There was mild gastritis present. A biopsy of the antrum took place to rule out H. pylori. Retroflexion revealed a moderate-sized hiatal hernia. The GE junction was present about 3 to 4 cm above the diaphragmatic hiatus. There is mild inflammatory changes within the stomach above the diaphragm. No ulcerations were seen. The esophagus was free of abnormalities. The patient was kept on the endoscopy table in the left decubitus position. The Olympus colonoscope was inserted into the anus and passed under direct visualization to the base of the cecum. The appendiceal orifice was visualized. From that point the scope was slowly withdrawn inspecting all surfaces carefully. There were no neoplastic inflammatory or polypoid lesions throughout the cecum, ascending, transverse, descending, sigmoid and rectum. There was mild scattered diverticulosis noted. Digital rectal examination was normal. The patient was taken to the recovery room in stable condition per anesthesia guidelines. RECOMMENDATIONS: Await biopsy results. Continue antiacids. Repeat colonoscopy 5 to 7 years.
[2024-03-04 14:08] VITALS: RESP 16
[2024-03-04 14:20] VITALS: BP 120/75; PULSE 75
== END 2024-03-04 14:40 | disposition home or self-care (01) ==
LOC: ORWHC2ENDO 12:32
PROVIDERS: ATTEND Surgery
DX: Z12.11 Encounter for screening for malignant neoplasm of colon (principal); K57.30 Diverticulosis of large intestine without perforation or abscess without bleeding; K29.50 Unspecified chronic gastritis without bleeding; K21.9 Gastro-esophageal reflux disease without esophagitis; K44.9 Diaphragmatic hernia without obstruction or gangrene; I25.119 Atherosclerotic heart disease of native coronary artery with unspecified angina pectoris; Z95.5 Presence of coronary angioplasty implant and graft; E78.5 Hyperlipidemia, unspecified; G47.33 Obstructive sleep apnea (adult) (pediatric); E07.9 Disorder of thyroid, unspecified; J45.909 Unspecified asthma, uncomplicated; M32.9 Systemic lupus erythematosus, unspecified; I73.00 Raynaud's syndrome without gangrene; Z91.89 Other specified personal risk factors, not elsewhere classified; Z79.890 Hormone replacement therapy; Z79.02 Long term (current) use of antithrombotics/antiplatelets; Z79.01 Long term (current) use of anticoagulants; Z79.899 Other long term (current) drug therapy; Z87.891 Personal history of nicotine dependence; Z86.0100 Personal history of colon polyps, unspecified; Z87.11 Personal history of peptic ulcer disease; Z88.1 Allergy status to other antibiotic agents; Z91.013 Allergy to seafood; Z88.2 Allergy status to sulfonamides; Z88.8 Allergy status to other drugs, medicaments and biological substances; Z91.048 Other nonmedicinal substance allergy status
CPT/HCPCS: 88305; 43239; J2003; J2704; G0121; 45378

== ENCOUNTER → 2024-05-03 | Outpatient (CLI) | payer MEDICARE ==
[2024-05-03 15:00] LABS: HCT 40.7 % (37.2-46.3); HGB 13.9 g/dL (12.0-15.0); MCH 32.3 pg (27.0-32.0); MCHC 34.2 g/dL (32.0-37.0); MCV 94.7 FL (80.0-97.0); Mean Platelet Volume 9.4 FL (9.5-12.2); NRBC Per 100 WBC 0 X 10*3/uL (0.00-0.01); Platelet Count 263 X 10*3/uL (140-440); RDW 12.3 % (11.5-14.5); WBC 5.71 X 10*3/uL (4.50-10.00)
[2024-05-03 15:26] LABS: Blood Urea Nitrogen 14.3 mg/dL (9.0-27.0); Carbon Dioxide 24.4 mmol/L (21.6-31.8); Chloride 104 mmol/L (96-109); Potassium 4.4 mmol/L (3.5-5.5); Sodium 141 mmol/L (135-145)
== END | disposition home or self-care (01) ==
LOC: LABPAT 10:58
PROVIDERS: ATTEND Internal Medicine Interventional Cardiology
DX: Z01.812 Encounter for preprocedural laboratory examination (principal); I25.10 Atherosclerotic heart disease of native coronary artery without angina pectoris
CPT/HCPCS: 80051; 82565; 84520; 85027

== ENCOUNTER 2024-05-05 10:36 | Day surgery (SDC) | payer MEDICARE ==
[~2024-05-05 10:36] MED LIST changes: +ALPRAZolam 0.5 MG TAB PO PRN; -LIDOCAINE 1% (10MG/ML) FOR IV START INTRADERMA PRN; +NITROGLYCERIN SL TABS 0.4 MG TAB SUBLINGUAL PRN
[2024-05-05] MEDS: SODIUM CHLORIDE 0.9% 1,000 ML IV ONE (11:18)
[2024-05-05] MEDS: ASPIRIN 325 MG TAB PO ONE (11:27)
[2024-05-05] MEDS: SODIUM CHLORIDE 0.9% 1,000 ML in EMPTY BAG 1 BAG IV SCH (11:27)
[2024-05-05] MEDS: HEPARIN SODIUM,PORCINE 10,000 UNIT in SODIUM CHLORIDE 0.9% 1,000 ML IRRIGATION PRN (12:05)
[2024-05-05] MEDS: HEPARIN SODIUM,PORCINE (1 ML) 2,500 UNIT in SODIUM CHLORIDE 0.9% 250 ML IRRIGATION PRN (12:05)
[2024-05-05] MEDS: MIDAZOLAM 2 MG/2 ML VIAL IVP ONE ×3 (12:21→12:45)
[2024-05-05] MEDS: LIDOCAINE 1% INJ 10MG/ML (20 ML MDV) SQ ONE (12:24)
[2024-05-05] MEDS: VERAPAMIL SYRINGE (5 MG/10 ML) INTRAARTER ONE (12:25)
[2024-05-05] MEDS: HEPARIN SODIUM 1,000 UN/ML (10ML VL) IVP ONE ×3 (12:28→13:41)
[2024-05-05] MEDS: NITROGLYCERIN 1000MCG/10ML SYRINGE INTRACORON ONE ×3 (13:10→13:27)
[2024-05-05] MEDS: CLOPIDOGREL 75 MG TAB PO ONE (13:42)
[2024-05-05] MEDS: IOPAMIDOL-370 100ML BTL INJ ONE (13:43)
[2024-05-05] MEDS: SODIUM CHLORIDE 0.9% 1,000 ML IV SCH (13:50)
[2024-05-05 14:38] VITALS: RESP 16
[2024-05-05] MEDS: ATORVASTATIN 80 MG TAB PO ONE (15:12)
[2024-05-05] MEDS: METOPROLOL TARTRATE 25 MG TAB PO STA (15:14)
[2024-05-05] MEDS: ACETAMINOPHEN TAB 325 MG TAB PO PRN (16:51)
[2024-05-05] MEDS: ATORVASTATIN 40 MG TAB PO SCH (21:52)
[2024-05-05] MEDS: METOPROLOL TARTRATE 25 MG TAB PO SCH (21:52)
[2024-05-05] MEDS: MONTELUKAST 10 MG TAB PO STA (21:52)
--- NOTE | 2024-05-05 22:59 | CC ---
CARDIAC CATHETERIZATION REPORT PROCEDURES PERFORMED: 1. Left heart catheterization and coronary angiography. 2. Percutaneous transluminal coronary angioplasty and stenting of mid left anterior descending coronary artery with a drug-eluting stent. 3. Adjunctive intravascular ultrasound before and after the percutaneous coronary intervention. PERFORMED BY: Dr. Praneeth Greenberg. ANESTHESIA: Moderate conscious sedation time was 73 minutes. The patient was administered Versed. Oxygen saturation, hemodynamics, and EKG were monitored closely. CLINICAL INFORMATION: Ms. Violette Salcedo is a 58-year-old lady with a known history of multivessel CAD with multivessel PCI. She also has some Raynaud's type symptoms periodically. She has hypertension, hyperlipidemia, paroxysmal atrial fibrillation and saw me on the with symptoms strongly suggestive of angina with mild activity and sometimes at rest. She was advised cardiac catheterization and brought in for the procedure after due discussion regarding risks, benefits, and options. Her PCI information includes the following: In 2013, I performed mid LAD stenting, jailing a diagonal branch, which came off from the origin of the LAD. In 2015, I performed PTCA and stenting of the major diagonal branch and the mid LAD and performed a kissing balloon dilatation. There was recurrence of the diagonal lesion, and in 2018, I performed a dilatation of both LAD and diagonals with excellent angiographic result and since then, she also had a followup at [facility] with intravascular ultrasound, which revealed that the LAD was patent. However, in 2019, she presented with unstable angina, had a tight proximal LAD lesion, that was also stented. She is here now with symptoms of angina. Circumflex was never intervened. PROCEDURE NOTE: Under strict aseptic precautions and local anesthesia using an ultrasound, I gained access into the right radial artery and a 6-Pakistani introducer was placed. Using JL3.5 and JR4 catheters, I performed coronary angiography and the same right catheter was used to check LV pressures. LV-gram was not performed. Following this, I performed intervention of the mid LAD lesion, which is a new lesion beyond the previously stented mid LAD that was initially stented in 2013. The diagonal and the bifurcation were widely patent, but before the diagonal, there was also about a 40% to 50% narrowing noted. The RCA that was stented in January 2020 was widely patent with good flow. I performed intervention of the mid LAD and dilated the entire LAD stent with a 3.5 NC Trek balloon. The patient received 300 mg dose of Plavix on the table. She was already on Plavix and Eliquis prior to the procedure. Eliquis was held for 48 hours. The patient will be on a combination therapy of Eliquis and Plavix for 1 year without interruption. I performed PCI of the LAD lesion, and then, the sheath was taken out and TR band applied with saturation of 92% in the fingers. The patient tolerated the procedure well without complications. Results were discussed with the patient as well as her friend, and I also spoke to her daughter, Luz by phone. CARDIAC CATHETERIZATION FINDINGS: The left ventricular end-diastolic pressure was about 13 mmHg without any gradient across the aortic valve. CORONARY ANGIOGRAPHY FINDINGS: Right coronary artery: Technically, a dominant vessel that was stented in 2019, widely patent at the site of stenting, brisk flow, distally bifurcates into PDA and PLV, supply a sizable amount of myocardium. Minor irregularities. No significant disease. Left main coronary artery: Short patent disease-free vessel that bifurcates into LAD and circumflex. Left anterior descending coronary artery: Good caliber vessel. The stented segment in the proximal and mid LAD is patent. The diagonal stent is patent. The bifurcation also looks good, but in the mid LAD after the diagonal branch, there is a 95% stenosis with haziness and beyond it, the caliber improves, and vessel runs all the way to the apex supplying a sizable amount of myocardium. The diagonal has a 40% narrowing in the proximal portion, but the ostium appears to be good without any stenosis. Left posterior circumflex coronary artery: Nondominant vessel, fair caliber, fair distribution, gives off 2 obtuse marginal branches proximally and then divides into PDA and PLV, smaller in caliber. No significant disease in the circumflex system. FINAL IMPRESSION: This patient has normal filling pressures. No significant gradient. No significant restenosis in the proximal RCA, that was stented in 2019. The mid LAD has a new lesion of 95% with the diagonal ostium being patent. Proximal diagonal has 40% and before the diagonal branch, LAD has another 40% to 45% lesion. Circumflex is free of significant disease. RECOMMENDATIONS: I have recommended PCI of LAD lesion, which is a 95% mid lesion beyond the previously stented area. I also performed intravascular ultrasound to assess the caliber and also after the procedure to assess the results. PCI PROCEDURE DETAILS: I used a JL3.5 guide catheter and a Runthrough wire; wire was kept distally. I used a 2.5 caliber NC Trek balloon of 15 mm length and dilated the new lesion and also the mid LAD stent up to the diagonal branch. I also dilated proximal to the diagonal branch to the same balloon. I then performed intravascular ultrasound and noted that the reference lesion was about 3.2 mm, distal as well as proximal to the area of stenosis. After some deliberation, I deployed a 3.5 caliber 15 mm long Xience stent with excellent angiographic result. The stent was deployed at 13 atmospheres. I then used a 3.5 caliber NC Trek balloon and dilated the previous stent proximal to the diagonal branch. The diagonal flow was very well preserved. Excellent angiographic result was achieved. I then performed intravascular ultrasound of the entire area and noted that the stent was fully expanded very well apposed with excellent ultrasound picture as well as angiographic picture. The patient had chest pain and ST elevation on the anterior leads with inflations. Excellent angiographic result without complication was achieved. Sheath was taken out and TR band applied and patient was sent to the room in a stable condition. Details and results were discussed with the patient and family. The patient will be discharged tomorrow, if stable. MMODL / IJN: [id number] /
[2024-05-06] MEDS: ALPRAZolam 0.25 MG TAB PO PRN (00:17)
[2024-05-06 05:49] LABS: Basophils % (A) 0 %; Eosinophils # (A) 0.1 k/uL (0-0.7); Eosinophils % (A) 2 %; HCT 39.6 % (34.0-46.0); HGB 12.7 gm/dL (11.4-16.0); Lymphocytes # (A) 1.1 k/uL (1.0-4.8); Lymphocytes % (A) 21 %; MCH 31.9 pg (25.0-35.0); MCHC 32.2 g/dL (31.0-37.0); MCV 99.2 fL (80.0-100.0); Monocytes # (A) 0.4 k/uL (0-1.0); Monocytes % (A) 7 %; Neutrophils # (A) 3.5 k/uL (1.3-7.7); Neutrophils % (A) 68 %; Platelet Count 219 k/uL (150-450); RBC 3.99 m/uL (3.80-5.40); WBC 5.1 k/uL (3.8-10.6)
[2024-05-06 06:06] LABS: ALT 24 U/L (4-34); AST 19 U/L (14-36); African American GFR (CKD) >90 (>60 ml/min/1.73 sqM); Anion Gap 5 mmol/L; Blood Urea Nitrogen 12 mg/dL (7-17); Calcium 8.9 mg/dL (8.4-10.2); Carbon Dioxide 27 mmol/L (22-30); Chloride 107 mmol/L (98-107); Creatine Kinase 57 U/L (30-135); Glucose 101 mg/dL (74-99); Non-African American GFR(CKD) >90 (>60 ml/min/1.73 sqM); Potassium 3.7 mmol/L (3.5-5.1); Sodium 139 mmol/L (137-145)
[2024-05-06] MEDS: LEVOTHYROXINE 137 MCG TAB PO SCH (06:22)
[2024-05-06 06:23] LABS: T4, Free (Free Thyroxine) 0.95 ng/dL (0.78-2.19)
[2024-05-06 08:38] VITALS: BP 120/72; TEMP 98.2
[2024-05-06] MEDS: ALBUTEROL NEBULIZED 2.5 MG/3 ML INHALATION STA (08:38)
--- NOTE | 2024-05-06 08:47 | P.DS ---
Providers Date of admission: DISCHARGE DIAGNOSES: 1. #1 CAD with unstable angina with previous multivessel PCI of LAD, diagonal and RCA, # 2 benign hypertension,#3 bronchial asthma, #4 hypercholesterolemia PROCEDURES: 1. [Left heart catheterization and coronary angiography, PTCA and stenting of mid LAD with a new drug-eluting stent and PTCA of the previous stented area with a larger noncompliant balloon, intravascular ultrasound before and after PCI HISTORY OF PRESENTATION: This patient was electively admitted because of symptoms of angina. She has a known history of CAD multivessel PCI. Last intervention was of the RCA performed in January 2020. Prior to that in 2015 or so she had stenting of the LAD and diagonal with bifurcation stenting and kissing balloon. Last intervention of the LAD and diagonal was performed in 2018. Because of symptoms of angina she was admitted for elective coronary angiogram and PCI. HOSPITAL COURSE: Following the admission I performed coronary angiography from right radial approach. She had a new area of stenosis just distal to the previous stent in the mid LAD of about 90 to 95%. This was addressed with a new drug-eluting stent and I performed intravascular ultrasound before and after the procedure. The previous stented areas were also dilated with a larger 3.5 NC trek balloon. Excellent angiographic result was achieved as documented by angiography as well as ultrasound. Postprocedure course was uneventful. This morning she feels somewhat wheezy. I am going to give her a breathing treatment and 1 dose of 60 mg of Solu-Medrol intravenously. She can be discharged and I will see her in about 10 days in the office. Discharge instructions regarding medications and diet were given. DISCHARGE MEDICATIONS: Patient will be on aspirin Plavix and Eliquis combination for 3 weeks and then I will drop the aspirin and continue Eliquis and Plavix down the road. She will also take Lipitor 40 mg daily she has had some sort of intolerance with the Lipitor rosuvastatin as well as with Repatha etc. However she is willing to try the Lipitor 40 mg which I will start her and also will provide her sublingual nitroglycerin if she needs. Discharge instructions were given in great detail. I will see her in the office in 10 days. FOLLOW-UP: Appointment in 10 days in the office discharge instructions given Expected date of discharge: 05/06/24 Attending physician: Isidoro Valadez Primary care physician: Rey Espinal Plan - Discharge Summary Discharge Rx Participant: No New Discharge Prescriptions: No Action Montelukast [Singulair] 10 mg PO HS amLODIPine BESYLATE [Norvasc] 2.5 mg PO DAILY Clopidogrel [Plavix] 75 mg PO DAILY Nitroglycerin Sl Tabs [Nitrostat] 0.4 mg SUBLINGUAL Q5M PRN #25 tab PRN Reason: Chest Pain Albuterol Nebulized [Ventolin Nebulized] 2.5 mg INHALATION RT-QID PRN PRN Reason: Shortness Of Breath Levothyroxine Sodium [Synthroid] 137 mcg PO DAILY Isosorbide Mononitrate ER [Imdur] 30 mg PO DAILY Ascorbic Acid [Vitamin C] 1,000 mg PO DAILY PRN PRN Reason: as directed Zolpidem [Ambien] 10 mg PO HS PRN PRN Reason: Insomnia Albuterol Sulfate [Albuterol Sulfate Hfa] 2 puff PO RT-QID PRN PRN Reason: Shortness Of Breath Cholecalciferol (Vitamin D3) [Vitamin D3 (125 MCG = 5,000 IU)] 125 mcg PO DAILY Apixaban [Eliquis] 5 mg PO BID 30 Days #60 tab Cholestyramine (with Sugar) [Cholestyramine Powder] 4 gm PO DAILY Loratadine [Claritin] 10 mg PO HS levalbuterol HCL [Xopenex Nebulized] 0.63 mg INHALATION DAILY PRN PRN Reason: Shortness Of Breath Multivit-Min/Iron/Folic/Lutein [Centrum Silver Women Tablet] 1 tab PO HS Zinc 50 mg PO DAILY PRN PRN Reason: as directed Metoprolol Tartrate [Lopressor] 25 mg PO BID #60 tab EPINEPHrine (Auto Inject) [Epipen] 0.3 mg IM ONCE PRN PRN Reason: Anaphylaxis Ezetimibe [Zetia] 10 mg PO HS Famotidine [Pepcid] 20 mg PO BID Discharge Medication List Montelukast [Singulair] 10 mg PO HS 08/17/13 [History] amLODIPine BESYLATE [Norvasc] 2.5 mg PO DAILY 12/12/13 [History] Clopidogrel [Plavix] 75 mg PO DAILY 05/23/14 [History] Nitroglycerin Sl Tabs [Nitrostat] 0.4 mg SUBLINGUAL Q5M PRN #25 tab 07/04/15 [Rx] Albuterol Nebulized [Ventolin Nebulized] 2.5 mg INHALATION RT-QID PRN 04/05/16 [History] Levothyroxine Sodium [Synthroid] 137 mcg PO DAILY 04/10/18 [History] Ascorbic Acid [Vitamin C] 1,000 mg PO DAILY PRN 02/27/19 [History] Isosorbide Mononitrate ER [Imdur] 30 mg PO DAILY 02/27/19 [History] Zolpidem [Ambien] 10 mg PO HS PRN 03/31/19 [History] Albuterol Sulfate [Albuterol Sulfate Hfa] 2 puff PO RT-QID PRN 02/04/20 [History] Cholecalciferol (Vitamin D3) [Vitamin D3 (125 MCG = 5,000 IU)] 125 mcg PO DAILY 03/20/21 [History] Multivit-Min/Iron/Folic/Lutein [Centrum Silver Women Tablet] 1 tab PO HS 03/20/21 [History] Zinc 50 mg PO DAILY PRN 03/20/21 [History] Apixaban [Eliquis] 5 mg PO BID 30 Days #60 tab 03/23/21 [Rx] Metoprolol Tartrate [Lopressor] 25 mg PO BID #60 tab 03/26/21 [Rx] Cholestyramine (with Sugar) [Cholestyramine Powder] 4 gm PO DAILY 03/01/24 [History] EPINEPHrine (Auto Inject) [Epipen] 0.3 mg IM ONCE PRN 03/01/24 [History] Ezetimibe [Zetia] 10 mg PO HS 03/01/24 [History] Famotidine [Pepcid] 20 mg PO BID 03/01/24 [History] Loratadine [Claritin] 10 mg PO HS 03/01/24 [History] levalbuterol HCL [Xopenex Nebulized] 0.63 mg INHALATION DAILY PRN 03/01/24 [History] Follow up Appointment(s)/Referral(s): Isidoro Valadez MD [STAFF PHYSICIAN] - 05/17/24 10:30 am (FOLLOW UP APPOINTMENT WAS ALREADY SCHEDULED WITH DR. VALADEZ. )
[2024-05-06 08:57] VITALS: PULSE 88
[2024-05-06] MEDS: APIXABAN 5 MG TAB PO SCH (09:04)
[2024-05-06] MEDS: methylPREDNISolone SOD SUCCI 125 MG/2 ML VIAL IV STA (09:06)
[2024-05-06] MEDS: CLOPIDOGREL 75 MG TAB PO SCH (09:06)
[2024-05-06] MEDS: ASPIRIN 81 MG PO SCH (09:06)
[2024-05-06] MEDS: ISOSORBIDE MONONITRATE ER 30 MG TAB.ER.24H PO SCH (09:07)
[2024-05-06] MEDS: amLODIPine 2.5 MG TAB PO SCH (09:07)
[2024-05-06 15:27] LABS: Chol/HDL Ratio 4.73 Ratio; LDL Cholesterol,Calculated 124.2 mg/dL (0.0-131.0)
== END 2024-05-06 10:14 | disposition home or self-care (01) ==
LOC: CATHCVL 10:36 → 6NMEDSUR 15:03 → CATHCVL 05-06 10:14
PROVIDERS: ATTEND Internal Medicine Interventional Cardiology
DX: I25.10 Atherosclerotic heart disease of native coronary artery without angina pectoris (principal); I48.0 Paroxysmal atrial fibrillation; J45.909 Unspecified asthma, uncomplicated; I10 Essential (primary) hypertension; E78.00 Pure hypercholesterolemia, unspecified; Z79.01 Long term (current) use of anticoagulants; Z79.02 Long term (current) use of antithrombotics/antiplatelets; Z79.899 Other long term (current) drug therapy
CPT/HCPCS: 94640; 92978; 93458; 84439; 84481; 80061; 80048; 84443; 82550; 84450; 84460; 85025; 99152; 99153; C9600; J2250; J1644 ×3; J2003; Q9967; J2305; J2919

== ENCOUNTER → 2024-05-17 | Outpatient (CLI) | payer MEDICARE ==
[2024-05-17 12:44] LABS: Influenza A Not Detected (Not Detectd); Influenza B Not Detected (Not Detectd); RSV Not Detected (Not Detectd)
== END | disposition home or self-care (01) ==
LOC: LABWHC1 11:06
PROVIDERS: ATTEND Internal Medicine
DX: Z20.822 Contact with and (suspected) exposure to COVID-19 (principal); R05.3 Chronic cough
CPT/HCPCS: 87636

== ENCOUNTER 2024-06-01 11:55 | Observation (INO) | payer MEDICARE ==
[2024-06-01] MEDS: ASPIRIN 81 MG PO STA (12:24)
--- NOTE | 2024-06-01 12:33 | ED ---
General Adult HPI - General Chief complaint: Chest Pain Stated complaint: chest pain Time Seen by Provider: 06/01/24 11:59 Source: patient, EMS, RN notes reviewed, old records reviewed Mode of arrival: EMS Limitations: no limitations - History of Present Illness Initial comments: This is a 59-year-old female who has a past medical history significant for coronary artery disease and 5 stent placements. Patient states she has had 2 brothers and both parents of heart attacks. Patient comes in today stating her chest pain started by 1115 when she was under stress because of finances and that she took a nitroglycerin and it did help. Patient states currently she is Minimal chest pain. Patient states she was mildly short of breath at the time but had no nausea or vomiting. Patient has had no fever recently though a month ago she was sick and was placed on antibiotics. - Related Data Home Medications Medication Instructions Recorded Confirmed Montelukast [Singulair] 10 mg PO HS 08/17/13 06/01/24 amLODIPine BESYLATE [Norvasc] 2.5 mg PO DAILY 12/12/13 06/01/24 Clopidogrel [Plavix] 75 mg PO DAILY 05/23/14 06/01/24 Albuterol Nebulized [Ventolin 2.5 mg INHALATION RT-QID PRN 04/05/16 06/01/24 Nebulized] Levothyroxine Sodium [Synthroid] 137 mcg PO DAILY 04/10/18 06/01/24 Ascorbic Acid [Vitamin C] 1,000 mg PO DAILY 02/27/19 06/01/24 Isosorbide Mononitrate ER [Imdur] 30 mg PO DAILY 02/27/19 06/01/24 Zolpidem [Ambien] 10 mg PO HS PRN 03/31/19 06/01/24 Albuterol Sulfate [Albuterol 2 puff PO RT-QID PRN 02/04/20 06/01/24 Sulfate Hfa] Cholecalciferol (Vitamin D3) 125 mcg PO DAILY 03/20/21 06/01/24 [Vitamin D3 (125 MCG = 5,000 IU)] Multivit-Min/Iron/Folic/Lutein 1 tab PO HS 03/20/21 06/01/24 [Centrum Silver Women Tablet] Zinc 50 mg PO DAILY 03/20/21 06/01/24 Cholestyramine (with Sugar) 4 gm PO DAILY 03/01/24 06/01/24 [Cholestyramine Powder] EPINEPHrine (Auto Inject) [Epipen] 0.3 mg IM ONCE PRN 03/01/24 06/01/24 Ezetimibe [Zetia] 10 mg PO HS 03/01/24 06/01/24 Famotidine [Pepcid] 20 mg PO BID 03/01/24 06/01/24 Loratadine [Claritin] 10 mg PO HS 03/01/24 06/01/24 levalbuterol HCL [Xopenex 0.63 mg INHALATION RT-DAILY PRN 03/01/24 06/01/24 Nebulized] Atorvastatin Calcium [Lipitor] 40 mg PO HS 06/01/24 06/01/24 predniSONE See Taper PO DAILY 06/01/24 06/01/24 Previous Rx's Medication Instructions Recorded Nitroglycerin Sl Tabs [Nitrostat] 0.4 mg SUBLINGUAL Q5M PRN #25 tab 07/04/15 Apixaban [Eliquis] 5 mg PO BID 30 Days #60 tab 03/23/21 Metoprolol Tartrate [Lopressor] 25 mg PO BID #60 tab 03/26/21 Allergies Allergy/AdvReac Type Severity Reaction Status Date / Time adhesive Allergy skin came Verified 06/01/24 13:12 off ranolazine [From Ranexa] Allergy Dyspnea, Verified 06/01/24 13:12 Edema shellfish derived Allergy throat Verified 06/01/24 13:12 swelling sulfamethoxazole Allergy Rash/Hives Verified 06/01/24 13:12 [From Bactrim] trimethoprim [From Bactrim] Allergy Rash/Hives Verified 06/01/24 13:12 alirocumab AdvReac EXTREME Verified 06/01/24 13:12 [From Praluent Pen] MUSCLE ACHES atorvastatin calcium AdvReac muscle Verified 06/01/24 13:12 [From Lipitor] aches - see comment diltiazem HCl [From Cardizem] AdvReac EXTREME Verified 06/01/24 13:12 FLUSHING rosuvastatin calcium AdvReac SEVERE Verified 06/01/24 13:12 [From Crestor] MUSCLE PAIN simvastatin [From Zocor] AdvReac MUSCLE PAIN Verified 06/01/24 13:12 statins AdvReac Unknown Uncoded 05/04/24 08:45 Review of Systems ROS Statement: Those systems with pertinent positive or pertinent negative responses have been documented in the HPI. ROS Other: All systems not noted in ROS Statement are negative. Past Medical History Past Medical History: Asthma, Coronary Artery Disease (CAD), Chest Pain / Angina, GERD/Reflux, Musculoskeletal Disorder, Pneumonia, Syncope, Thyroid Disorder, Vascular Disorder Additional Past Medical History / Comment(s): raynauds, lupus-suspected, had ruptured disc, hx. stomach ulcer, has 4 cardiac stents, hiatal hernia, sepsis History of Any Multi-Drug Resistant Organisms: None Reported Past Surgical History: Appendectomy, Cholecystectomy, Heart Catheterization With Stent, Tonsillectomy, Uterine Ablation Additional Past Surgical History / Comment(s): 11 heart caths, 4 stents, laser eye surg, colonoscopy with polyp removal, left foot surg Past Anesthesia/Blood Transfusion Reactions: No Reported Reaction, Family History of Problems w/ Anesthesia Additional Past Anesthesia/Blood Transfusion Reaction / Comment(s): has had hematomas in past after cardiac caths. & syncopal episode, mom had some issues w/anesthesia Date of Last Stent Placement:: Past Psychological History: No Psychological Hx Reported Smoking Status: Former smoker Past Alcohol Use History: None Reported Past Drug Use History: None Reported - Past Family History Brother(s) Family Medical History: Coronary Artery Disease (CAD), Myocardial Infarction (IA) Mother Family Medical History: Coronary Artery Disease (CAD), Diabetes Mellitus Sister(s) Family Medical History: Cancer Father Family Medical History: Cancer, Pulmonary Embolus General Exam - General Exam Comments Initial Comments: GENERAL: Patient is well-developed and well-nourished. Patient is nontoxic and well- hydrated and is in mild distress. ENT: Neck is soft and supple. No significant lymphadenopathy is noted. Oropharynx is clear. Moist mucous membranes. Neck has full range of motion without eliciting any pain. EYES: The sclera were anicteric and conjunctiva were pink and moist. Extraocular movements were intact and pupils were equal round and reactive to light. Eyelids were unremarkable. PULMONARY: Unlabored respirations. Good breath sounds bilaterally. No audible rales rhonchi or wheezing was noted. CARDIOVASCULAR: There is a regular rate and rhythm without any murmurs gallops or rubs. ABDOMEN: Soft and nontender with normal bowel sounds. SKIN: Skin is clear with no lesions or rashes and otherwise unremarkable. NEUROLOGIC: Patient is alert and oriented x3. Cranial nerves II through XII are grossly intact. Motor and sensory are also intact. Normal speech, volume and content. Symmetrical smile. MUSCULOSKELETAL: Normal extremities with adequate strength and full range of motion. No lower extremity swelling or edema. No calf tenderness. LYMPHATICS: No significant lymphadenopathy is noted PSYCHIATRIC: Normal psychiatric evaluation. Limitations: no limitations Course Vital Signs 06/01/24 06/01/24 11:58 13:49 Temperature 97.7 F 98.1 F Pulse Rate 71 70 Respiratory 18 18 Rate Blood Pressure 156/83 109/63 O2 Sat by Pulse 97 96 Oximetry Medical Decision Making - Medical Decision Making EKG is interpreted by myself. EKG shows a sinus rhythm at 66 bpm [place] was 178 QRS is 99 QT interval 367 QTc is 381. Patient's EKG shows no ST segment elevation or depression. Was pt. sent in by a medical professional or institution (, PA, RECLAMATION ENGINEER, urgent care, hospital, or half-way...) When possible be specific @ -No Did you speak to anyone other than the patient for history (EMS, parent, family, police, friend...)? What history was obtained from this source @ -No Did you review nursing and triage notes (agree or disagree)? Why? @ -I reviewed and agree with nursing and triage notes Were old charts reviewed (outside hosp., previous admission, EMS record, old EKG, old radiological studies, urgent care reports/EKG's, half-way records)? Report findings @ -No old charts were reviewed Differential Diagnosis? @ -Differential Chest Pain: Stable Angina, Unstable Angina, STEMI, NSTEMI Aortic Dissection, Pneumothorax, Musculoskeletal, Esophageal Spasm GERD, Cholecystitis, Pancreatitis, Zoster, this is not meant to be an all-inclusive list. EKG interpreted by me (3pts min.). @ -As above X-rays interpreted by me (1pt min.). @ -Chest x-ray shows no acute abnormality CT interpreted by me (1pt min.). @ -None done U/S interpreted by me (1pt. min.). @ -None done What testing was considered but not performed or refused? (CT, X-rays, U/S, labs)? Why? @ -None What meds were considered but not given or refused? Why? @ -None Did you discuss the management of the patient with other professionals (professionals i.e. , PA, RECLAMATION ENGINEER, lab, RT, psych nurse, social work job titles, interviewing clerk, teacher, gifts officer, case supervisor)? Give summary @ -I spoke with [facility] hospitalist agreed to admit the patient admit the patient wrote admitting orders Was smoking cessation discussed for >3mins.? @ -No Was critical care preformed (if so, how long)? @ -No Were there social determinants of health that impacted care today? How? (Homelessness, low income, unemployed, alcoholism, drug addiction, transportation, low edu. Level, literacy, decrease access to med. care, care home, rehab)? @ -No Was there de-escalation of care discussed even if they declined (Discuss DNR or withdrawal of care, Hospice)? DNR status @ -No What co-morbidities impacted this encounter? (DM, HTN, Smoking, COPD, CAD, Cancer, CVA, ARF, Chemo, Hep., AIDS, mental health diagnosis, sleep apnea, morbid obesity)? @ -None Was patient admitted / discharged? Hospital course, mention meds given and route, prescriptions, significant lab abnormalities, going to OR and other per tinent info. @ -Patient stated her chest pain in the emergency department was minimal compared to what it was earlier and it comes and goes. Undiagnosed new problem with uncertain prognosis? @ -No Drug Therapy requiring intensive monitoring for toxicity (Heparin, Nitro, Insulin, Cardizem)? @ -No Were any procedures done? @ -No Diagnosis/symptom? @ -Chest pain Acute, or Chronic, or Acute on Chronic? @ -Acute Uncomplicated (without systemic symptoms) or Complicated (systemic symptoms)? @ -Complicated Side effects of treatment? @ -No Exacerbation, Progression, or Severe Exacerbation? @ -No Poses a threat to life or bodily function? How? (Chest pain, USA, IA, pneumonia, PE, COPD, DKA, ARF, appy, cholecystitis, CVA, Diverticulitis, Homicidal, Suicidal, threat to staff... and all critical care pts) @ -Yes this can lead to an IA and heart failure and - Lab Data Result diagrams: 06/01/24 13:07 06/01/24 13:07 Lab Results 06/01/24 06/01/24 06/01/24 Range/Units 13:07 13:07 13:07 WBC 8.4 (3.8-10.6) k/uL RBC 4.43 (3.80-5.40) m/uL Hgb 14.1 (11.4-16.0) gm/dL Hct 42.6 (34.0-46.0) % MCV 96.2 (80.0-100.0) fL MCH 31.9 (25.0-35.0) pg MCHC 33.1 (31.0-37.0) g/dL RDW 12.7 (11.5-15.5) % Plt Count 252 (150-450) k/uL MPV 6.5 Neutrophils % 72 % Lymphocytes % 19 % Monocytes % 6 % Eosinophils % 1 % Basophils % 0 % Neutrophils # 6.1 (1.3-7.7) k/uL Lymphocytes # 1.6 (1.0-4.8) k/uL Monocytes # 0.5 (0-1.0) k/uL Eosinophils # 0.1 (0-0.7) k/uL Basophils # 0.0 (0-0.2) k/uL PT 10.3 (10.0-12.5) sec INR 0.9 (<1.2) APTT 23.7 (22.0-30.0) sec Sodium 138 (137-145) mmol/L Potassium 4.2 (3.5-5.1) mmol/L Chloride 98 (98-107) mmol/L Carbon Dioxide 30 (22-30) mmol/L Anion Gap 10 mmol/L BUN 15 (7-17) mg/dL Creatinine 0.56 (0.52-1.04) mg/dL Est GFR (CKD-EPI)AfAm >90 (>60 ml/min/1.73 sqM) Est GFR (CKD-EPI)NonAf >90 (>60 ml/min/1.73 sqM) Glucose 116 H (74-99) mg/dL Calcium 9.6 (8.4-10.2) mg/dL Magnesium 1.9 (1.6-2.3) mg/dL Total Bilirubin 0.6 (0.2-1.3) mg/dL AST 21 (14-36) U/L ALT 31 (4-34) U/L Alkaline Phosphatase 98 (38-126) U/L Troponin I (0.000-0.034) ng/mL Total Protein 6.9 (6.3-8.2) g/dL Albumin 4.3 (3.5-5.0) g/dL 06/01/24 Range/Units 13:07 WBC (3.8-10.6) k/uL RBC (3.80-5.40) m/uL Hgb (11.4-16.0) gm/dL Hct (34.0-46.0) % MCV (80.0-100.0) fL MCH (25.0-35.0) pg MCHC (31.0-37.0) g/dL RDW (11.5-15.5) % Plt Count (150-450) k/uL MPV Neutrophils % % Lymphocytes % % Monocytes % % Eosinophils % % Basophils % % Neutrophils # (1.3-7.7) k/uL Lymphocytes # (1.0-4.8) k/uL Monocytes # (0-1.0) k/uL Eosinophils # (0-0.7) k/uL Basophils # (0-0.2) k/uL PT (10.0-12.5) sec INR (<1.2) APTT (22.0-30.0) sec Sodium (137-145) mmol/L Potassium (3.5-5.1) mmol/L Chloride (98-107) mmol/L Carbon Dioxide (22-30) mmol/L Anion Gap mmol/L BUN (7-17) mg/dL Creatinine (0.52-1.04) mg/dL Est GFR (CKD-EPI)AfAm (>60 ml/min/1.73 sqM) Est GFR (CKD-EPI)NonAf (>60 ml/min/1.73 sqM) Glucose (74-99) mg/dL Calcium (8.4-10.2) mg/dL Magnesium (1.6-2.3) mg/dL Total Bilirubin (0.2-1.3) mg/dL AST (14-36) U/L ALT (4-34) U/L Alkaline Phosphatase (38-126) U/L Troponin I <0.012 (0.000-0.034) ng/mL Total Protein (6.3-8.2) g/dL Albumin (3.5-5.0) g/dL Disposition Clinical Impression: Chest pain Disposition: ADMITTED IP TO THIS HOSP Referrals: Rey Espinal DO [Primary Care Provider] - 1-2 days Time of Disposition: 14:32
[2024-06-01 13:20] LABS: Basophils % (A) 0 %; Eosinophils # (A) 0.1 k/uL (0-0.7); Eosinophils % (A) 1 %; HCT 42.6 % (34.0-46.0); HGB 14.1 gm/dL (11.4-16.0); Lymphocytes # (A) 1.6 k/uL (1.0-4.8); Lymphocytes % (A) 19 %; MCH 31.9 pg (25.0-35.0); MCHC 33.1 g/dL (31.0-37.0); MCV 96.2 fL (80.0-100.0); Mean Platelet Volume 6.5; Monocytes # (A) 0.5 k/uL (0-1.0); Monocytes % (A) 6 %; Neutrophils # (A) 6.1 k/uL (1.3-7.7); Neutrophils % (A) 72 %; Platelet Count 252 k/uL (150-450); RBC 4.43 m/uL (3.80-5.40); RDW 12.7 % (11.5-15.5); WBC 8.4 k/uL (3.8-10.6)
--- NOTE | 2024-06-01 13:35 | XR ---
EXAMINATION TYPE: XR chest 2V DATE OF EXAM: 06/01/2024 CLINICAL INDICATION: Female, 59 years old with history of Chest Pain, TECHNIQUE: Frontal and lateral views of the chest are obtained. COMPARISON: Chest x-ray April 29, 2022 FINDINGS: There is no focal air space opacity, pleural effusion, or pneumothorax seen. Cardiomegaly is present. The osseous structures are intact. IMPRESSION: Cardiomegaly without acute pulmonary process. [facility], , 06/01/2024 1:33 PM
[2024-06-01 13:36] LABS: ALT 31 U/L (4-34); AST 21 U/L (14-36); African American GFR (CKD) >90 (>60 ml/min/1.73 sqM); Albumin 4.3 g/dL (3.5-5.0); Alkaline Phosphatase 98 U/L (38-126); Anion Gap 10 mmol/L; Blood Urea Nitrogen 15 mg/dL (7-17); Calcium 9.6 mg/dL (8.4-10.2); Carbon Dioxide 30 mmol/L (22-30); Chloride 98 mmol/L (98-107); Glucose 116 mg/dL (74-99); Magnesium 1.9 mg/dL (1.6-2.3); Non-African American GFR(CKD) >90 (>60 ml/min/1.73 sqM); Potassium 4.2 mmol/L (3.5-5.1); Sodium 138 mmol/L (137-145); Total Bilirubin 0.6 mg/dL (0.2-1.3); Total Protein 6.9 g/dL (6.3-8.2)
[2024-06-01] MEDS: ONDANSETRON 4 MG/2 ML VIAL IVP STA (13:40)
[2024-06-01] MEDS: NITROGLYCERIN OINT 1 INCH/GM PACKET TOPICAL STA (13:44)
[2024-06-01 13:53] LABS: INR 0.9 (<1.2); Partial Thromboplastin Time 23.7 sec (22.0-30.0); Prothrombin Time 10.3 sec (10.0-12.5)
[2024-06-01] MEDS ORDERED: NITROGLYCERIN SL TABS 0.4 MG TAB SUBLINGUAL PRN (14:32)
[2024-06-01] MEDS: NITROGLYCERIN OINT 1 INCH/GM PACKET TOPICAL SCH (18:57)
[2024-06-01] MEDS: ACETAMINOPHEN TAB 325 MG TAB PO PRN (21:44)
[2024-06-01] MEDS: SODIUM CHLORIDE 0.9% 1,000 ML IV SCH (21:45)
[2024-06-02] MEDS: APIXABAN 5 MG TAB PO SCH (01:03)
[2024-06-02] MEDS ORDERED: LEVALBUTEROL HCL 0.63 MG/3 ML INHALATION PRN (05:25)
[2024-06-02] MEDS ORDERED: ALBUTEROL HFA INHALER INHALATION PRN (05:25)
[2024-06-02] MEDS ORDERED: ALBUTEROL NEBULIZED 2.5 MG/3 ML INHALATION PRN (05:25)
[2024-06-02] MEDS ORDERED: DOBUTamine DRIP for NUC MED 500 MG in DEXTROSE/WATER 1 250ML.BAG IV PRN (07:20)
[2024-06-02] MEDS ORDERED: DOBUTamine DRIP for NUC MED 500 MG/250 ML BAG IV ONE (08:00)
[2024-06-02 08:31] LABS: Chol/HDL Ratio 2.26 Ratio; LDL Cholesterol,Calculated 74.4 mg/dL (0.0-131.0); VLDL Calculation 19.22 mg/dL (5.00-40.00)
[2024-06-02 08:38] VITALS: BP 102/61; PULSE 64; RESP 16; TEMP 98.1
--- NOTE | 2024-06-02 08:59 | P.CRDCN ---
History of Present Illness History of present illness: HISTORY OF PRESENT ILLNESS: This is a 59-year-old female with a past medical history significant for coronary artery disease with previous stenting, paroxysmal atrial fibrillation, hypertension, and hyperlipidemia. Patient follows in the office with Dr. Greenberg. We have been asked to see the patient in consultation for chest pain. Patient examined at the bedside. Patient presented to the hospital for chief complaint of chest pain. Patient reports the pain was in the middle of her chest. She did take sublingual nitro which did help with the pain. At the time of examination she denies any chest pain or pressure. DIAGNOSTICS: - EKG reveals sinus mechanism with no signs of acute ischemia. - Chest xray cardiomegaly without acute pulmonary process - Laboratory data: WBC 8.4. Hemoglobin 14.1. Platelet count 252. Sodium 138. Potassium 4.2. BUN 15. Creatinine 0.56. Magnesium 1.9. Troponin negative x 3. - Current home cardiac medications include Eliquis 5 mg twice a day, Lipitor 40 mg at night, Plavix 75 mg daily, Imdur 30 mg daily, metoprolol tartrate 25 mg twice a day, amlodipine 2.5 mg daily, Zetia 10 mg at night. - Most recent echocardiogram obtained in August 2023 revealed ejection fraction 55%, mild MR and trace to mild TR - Cardiac catheterization history: 05/05/2024 with stenting of the mid LAD REVIEW OF SYSTEMS: At the time of my exam: CONSTITUTIONAL: Denies fever or chills. HEENT: Denies blurred vision, vision changes, or eye pain. Denies hemoptysis CARDIOVASCULAR: Denies chest pain. Denies orthopnea. Denies PND. Denies palpitations RESPIRATORY: Denies shortness of breath. GASTROINTESTINAL: Denies abdominal pain. Denies nausea or vomiting. HEMATOLOGIC: Denies bleeding disorders. GENITOURINARY: Denies any blood in urine. SKIN: Denies pruitis. Denies rash. PHYSICAL EXAM: VITAL SIGNS: Reviewed. GENERAL: Well-developed in no acute distress. HEENT: Head is normocephalic. Pupils are equal, round. Sclerae anicteric. Mucous membranes of the mouth are moist. Neck supple. No JVD or thyromegaly LUNGS: Respirations even and unlabored. Lungs essentially clear to auscultation bilaterally. HEART: Regular rate and rhythm. S1 and S2 heard. ABDOMEN: Soft. Nondistended. Nontender. EXTREMITIES: Normal range of motion. No clubbing or cyanosis. Peripheral pulses intact. No lower extremity edema NEUROLOGIC: Awake and alert. Oriented x 3. ASSESSMENT: Chest pain Coronary artery disease with recent stenting of the mid LAD, 05/05/2024 Paroxysmal atrial fibrillation Hypertension Hyperlipidemia PLAN: Obtain 2D echo to assess cardiac structure and function Resume home cardiac medications Patient to undergo dobutamine stress echo today If negative, patient may be discharged home today from a cardiac standpoint Nurse practitioner note has been reviewed by physician. Signing provider agrees with the documented findings, assessment, and plan of care documented by PSYCHIC READER as a scribe. Past Medical History Past Medical History: Asthma, Coronary Artery Disease (CAD), Chest Pain / Angina, GERD/Reflux, Musculoskeletal Disorder, Syncope, Thyroid Disorder, Vascular Disorder Additional Past Medical History / Comment(s): raynauds, lupus-suspected, had ruptured disc, hx. stomach ulcer, has 5 cardiac stents, hiatal hernia, sepsis, hypothyroid History of Any Multi-Drug Resistant Organisms: None Reported Past Surgical History: Appendectomy, Cholecystectomy, Heart Catheterization With Stent, Tonsillectomy, Uterine Ablation Additional Past Surgical History / Comment(s): 12 heart caths, 5 stents, laser eye surg, colonoscopy with polyp removal, left foot surg Past Anesthesia/Blood Transfusion Reactions: No Reported Reaction, Family History of Problems w/ Anesthesia Additional Past Anesthesia/Blood Transfusion Reaction / Comment(s): has had hematomas in past after cardiac caths. & syncopal episode, mom had some issues w/anesthesia Date of Last Stent Placement:: 05-05-24 Past Psychological History: No Psychological Hx Reported Smoking Status: Former smoker Past Alcohol Use History: None Reported Additional Past Alcohol Use History / Comment(s): quit smoking 20 yrs., smoked for 13yrs. Past Drug Use History: None Reported - Past Family History Brother(s) Family Medical History: Coronary Artery Disease (CAD), Myocardial Infarction ([place]) Mother Family Medical History: Coronary Artery Disease (CAD), Diabetes Mellitus Sister(s) Family Medical History: Cancer Father Family Medical History: Cancer, Pulmonary Embolus Medications and Allergies Home Medications Medication Instructions Recorded Confirmed Type Montelukast [Singulair] 10 mg PO HS 08/17/13 06/01/24 History amLODIPine BESYLATE [Norvasc] 2.5 mg PO DAILY 12/12/13 06/01/24 History Clopidogrel [Plavix] 75 mg PO DAILY 05/23/14 06/01/24 History Nitroglycerin Sl Tabs [Nitrostat] 0.4 mg SUBLINGUAL Q5M PRN #25 tab 07/04/15 06/01/24 Rx Albuterol Nebulized [Ventolin 2.5 mg INHALATION RT-QID PRN 04/05/16 06/01/24 History Nebulized] Levothyroxine Sodium [Synthroid] 137 mcg PO DAILY 04/10/18 06/01/24 History Ascorbic Acid [Vitamin C] 1,000 mg PO DAILY 02/27/19 06/01/24 History Isosorbide Mononitrate ER [Imdur] 30 mg PO DAILY 02/27/19 06/01/24 History Zolpidem [Ambien] 10 mg PO HS PRN 03/31/19 06/01/24 History Albuterol Sulfate [Albuterol 2 puff PO RT-QID PRN 02/04/20 06/01/24 History Sulfate Hfa] Cholecalciferol (Vitamin D3) 125 mcg PO DAILY 03/20/21 06/01/24 History [Vitamin D3 (125 MCG = 5,000 IU)] Multivit-Min/Iron/Folic/Lutein 1 tab PO HS 03/20/21 06/01/24 History [Centrum Silver Women Tablet] Zinc 50 mg PO DAILY 03/20/21 06/01/24 History Apixaban [Eliquis] 5 mg PO BID 30 Days #60 tab 03/23/21 06/01/24 Rx Metoprolol Tartrate [Lopressor] 25 mg PO BID #60 tab 03/26/21 06/01/24 Rx Cholestyramine (with Sugar) 4 gm PO DAILY 03/01/24 06/01/24 History [Cholestyramine Powder] EPINEPHrine (Auto Inject) [Epipen] 0.3 mg IM ONCE PRN 03/01/24 06/01/24 History Ezetimibe [Zetia] 10 mg PO HS 03/01/24 06/01/24 History Famotidine [Pepcid] 20 mg PO BID 03/01/24 06/01/24 History Loratadine [Claritin] 10 mg PO HS 03/01/24 06/01/24 History levalbuterol HCL [Xopenex 0.63 mg INHALATION RT-DAILY PRN 03/01/24 06/01/24 History Nebulized] Atorvastatin Calcium [Lipitor] 40 mg PO HS 06/01/24 06/01/24 History predniSONE See Taper PO DAILY 06/01/24 06/01/24 History Allergies Allergy/AdvReac Type Severity Reaction Status Date / Time adhesive Allergy skin came Verified 06/01/24 13:12 off ranolazine [From Ranexa] Allergy Dyspnea, Verified 06/01/24 13:12 Edema shellfish derived Allergy throat Verified 06/01/24 13:12 swelling sulfamethoxazole Allergy Rash/Hives Verified 06/01/24 13:12 [From Bactrim] trimethoprim [From Bactrim] Allergy Rash/Hives Verified 06/01/24 13:12 alirocumab AdvReac EXTREME Verified 06/01/24 13:12 [From Praluent Pen] MUSCLE ACHES atorvastatin calcium AdvReac muscle Verified 06/01/24 13:12 [From Lipitor] aches - see comment diltiazem HCl [From Cardizem] AdvReac EXTREME Verified 06/01/24 13:12 FLUSHING rosuvastatin calcium AdvReac SEVERE Verified 06/01/24 13:12 [From Crestor] MUSCLE PAIN simvastatin [From Zocor] AdvReac MUSCLE PAIN Verified 06/01/24 13:12 statins AdvReac Unknown Uncoded 05/04/24 08:45 Physical Exam Vitals: Vital Signs Temp Pulse Pulse Resp BP BP Pulse Ox 06/02/24 08:08 98.1 F 64 16 102/61 97 06/02/24 02:00 98.0 F 65 18 118/76 96 06/02/24 00:04 98.3 F 73 18 116/64 98 06/01/24 22:00 72 18 117/64 97 06/01/24 21:00 98.2 F 72 18 101/54 98 06/01/24 18:08 98.1 F 73 18 115/61 96 06/01/24 15:03 67 18 110/68 06/01/24 13:49 98.1 F 70 18 109/63 96 06/01/24 11:58 97.7 F 71 18 156/83 97 Intake and Output 06/01/24 06/02/24 06/02/24 22:59 06:59 14:59 Other: # Voids 2 Weight 102.965 kg Results 06/01/24 13:07 06/01/24 13:07 Cardiac Enzymes 06/01/24 06/01/24 06/01/24 Range/Units 13:07 13:07 17:16 AST 21 (14-36) U/L Troponin I <0.012 <0.012 (0.000-0.034) ng/mL 06/01/24 Range/Units 20:43 AST (14-36) U/L Troponin I <0.012 (0.000-0.034) ng/mL Coagulation 06/01/24 Range/Units 13:07 PT 10.3 (10.0-12.5) sec APTT 23.7 (22.0-30.0) sec Lipids 06/01/24 Range/Units 13:07 Triglycerides 96.10 (0.00-149.00) mg/dL Cholesterol 168.00 (0.00-200.00) mg/dL HDL Cholesterol 74.40 H (40.00-60.00) mg/dL Cholesterol/HDL Ratio 2.26 Ratio CBC 06/01/24 Range/Units 13:07 WBC 8.4 (3.8-10.6) k/uL RBC 4.43 (3.80-5.40) m/uL Hgb 14.1 (11.4-16.0) gm/dL Hct 42.6 (34.0-46.0) % Plt Count 252 (150-450) k/uL Comprehensive Metabolic Panel 06/01/24 Range/Units 13:07 Sodium 138 (137-145) mmol/L Potassium 4.2 (3.5-5.1) mmol/L Chloride 98 (98-107) mmol/L Carbon Dioxide 30 (22-30) mmol/L BUN 15 (7-17) mg/dL Creatinine 0.56 (0.52-1.04) mg/dL Glucose 116 H (74-99) mg/dL Calcium 9.6 (8.4-10.2) mg/dL AST 21 (14-36) U/L ALT 31 (4-34) U/L Alkaline Phosphatase 98 (38-126) U/L Total Protein 6.9 (6.3-8.2) g/dL Albumin 4.3 (3.5-5.0) g/dL Current Medications Generic Name Dose Route Start Last Admin Trade Name Freq PRN Reason Stop Dose Admin Acetaminophen 650 mg 06/01/24 21:28 06/01/24 21:44 Acetaminophen Tab 325 Mg Tab PO 650 mg Q6HR PRN Administration Mild Pain or Fever > 100.5 Albuterol Sulfate 2.5 mg 06/02/24 05:25 Albuterol Nebulized 2.5 Mg/3 Ml INHALATION RT-QID PRN Shortness Of Breath Albuterol Sulfate 2 puff 06/02/24 05:25 Albuterol Hfa Inhaler INHALATION RT-QID PRN Shortness Of Breath Apixaban 5 mg 06/01/24 23:45 06/02/24 01:03 Apixaban 5 Mg Tab PO 5 mg BID TINY Administration Protocol Ascorbic Acid 1,000 mg 06/02/24 09:00 Ascorbic Acid 500 Mg Tab PO DAILY TINY Aspirin 325 mg 06/02/24 09:00 Aspirin 325 Mg Tab PO DAILY [facility] Atorvastatin Calcium 40 mg 06/02/24 21:00 Atorvastatin 40 Mg Tab PO HS TINY Cholecalciferol 125 mcg 06/02/24 09:00 Cholecalciferol 125 Mcg (5000 Iu) Tablet PO DAILY [facility] Cholestyramine Resin 4 gm 06/02/24 09:00 Cholestyramine (With Sugar) 4 Gm Packet PO DAILY [facility] Ezetimibe 10 mg 06/02/24 21:00 Ezetimibe 10 Mg Tab PO HS [facility] Epinephrine HCl 0.3 mg 06/02/24 09:00 Epinephrine 1 Mg/Ml 1 Ml Vial IM ONCE PRN Anaphylaxis Sodium Chloride 1,000 mls @ 75 mls/hr 06/01/24 21:30 06/01/24 21:45 Saline 0.9% IV 75 mls/hr .[id number] TINY Administration Dobutamine HCl/Dextrose 500 mg 250 mls @ 30.89 mls/hr 06/02/24 07:20 / IV Solution IV 06/02/24 11:20 .Q8H6M PRN Per Protocol Protocol 10 MCG/KG/MIN Levothyroxine Sodium 137 mcg 06/02/24 09:00 Levothyroxine 137 Mcg Tab PO DAILY [facility] Loratadine 10 mg 06/02/24 21:00 Loratadine 10 Mg Tab PO HS [facility] Montelukast Sodium 10 mg 06/02/24 21:00 Montelukast 10 Mg Tab PO HS [facility] Multivitamins/Minerals 1 each 06/02/24 21:00 Vit A,C & J-Usjsii-Wcngidkg 1 Each Tab PO HS [facility] Nitroglycerin 0.4 mg 06/01/24 14:32 Nitroglycerin Sl Tabs 0.4 Mg Tab SUBLINGUAL Q5M PRN Chest Pain Nitroglycerin 1 inch 06/01/24 18:00 06/02/24 05:39 Nitroglycerin Oint 1 Inch/Gm Packet TOPICAL Not Given Q6HR [facility] Non-Formulary Medication 0.63 mg 06/02/24 05:25 Levalbuterol Hcl [Xopenex Nebulized] INHALATION RT-DAILY PRN Shortness Of Breath Zolpidem Tartrate 10 mg 06/02/24 21:00 Zolpidem 5 Mg Tab PO HS PRN Insomnia Intake and Output 06/01/24 06/02/24 06/02/24 22:59 06:59 14:59 Other: # Voids 2 Weight 102.965 kg 06/01/24 13:07 06/01/24 13:07
--- NOTE | 2024-06-02 11:09 | CA ---
Dobutamine Stress Echocardiogram Report Violette Salcedo Age: 59 Gender: F : 1965 Exam Date: 06/02/2024 09:58 Exam Location: [facility] Ordering Physician: Joshua Anderson MD ([id number]) Referring Physician: Justin PEPE Breaking Machine Operator: CRYSTAL Technologist: Ht (in): 63 Wt (lb): 227 Procedure CPT: Indication: Chest Pain ICD-9 Codes: Rhythm: Patient History: Cardiac Medications: see chart Medications in past 24 hours: Contrast: N/A Total Dose (mL): NA Stress Results Protocol: Dobutamine Peak Dose (???g/kg/min): 30 Duration (min:sec): Atropine:(mg) None Target HR: 139 Double Product: [id number] Resting HR: 70 Resting BP: 127 / 77 Peak HR: 151 Peak BP: 175 / 38 Max Predicted HR: 163 93 % Max Predicted HR Stress Summary: BP Response: Reason for Termination: Exceeded target heart rate (85% max predicted) Cardiac Symptoms: NAUSEA ECG Analysis Resting EKG: Normal sinus rhythm normal axis normal intervals Stress EKG: Patient was given intravenous dobutamine as per protocol did not have chest pain but had [address] segment depression Arrhythmia: None Echo Analysis Base Echo Analysis: Normal left ventricular size wall motion and systolic function Low Echo Anaylsis: Normal hyperdynamic response Peak Echo Analysis: Hyperdynamic Recovery Echo: Normal MEASUREMENTS (Male/Female) Normal Values CONCLUSIONS Abnormal stress test by EKG criteria No evidence of dobutamine induced wall motion abnormalities Dr. Joshua Anderson MD (Electronically Signed) Final Date: 02 June 2024 11:08
[2024-06-02] MEDS: CHOLESTYRAMINE (WITH SUGAR) 4 GM PACKET PO SCH (12:00)
[2024-06-02] MEDS: ASCORBIC ACID 500 MG TAB PO SCH (12:04)
[2024-06-02] MEDS: LEVOTHYROXINE 137 MCG TAB PO SCH (12:04)
[2024-06-02] MEDS: ONDANSETRON 4 MG/2 ML VIAL IVP PRN (12:04)
[2024-06-02] MEDS: ASPIRIN 325 MG TAB PO SCH (12:04)
[2024-06-02] MEDS: CHOLECALCIFEROL 125 MCG (5000 IU) TABLET PO SCH (12:04)
--- NOTE | 2024-06-02 17:06 | CA ---
Transthoracic Echo Report Name: Violette Salcedo Age: 59 Gender: F : 1965 Exam Date: 06/02/2024 10:35 Exam Location: [facility] Ht (in): 63 Wt (lb): 227 Ordering Physician: Anna Marie Antonio Attending/Referring Phys: [id number], Paco Marble Setter Helper Mary Joe RDCS Procedure CPT: Indications: LV function, CP Cardiac Hx: Technical Quality: Fair Contrast 1: Total Dose (mL): Contrast 2: Total Dose (mL): MEASUREMENTS (Male / Female) Normal Values 2D ECHO LV Diastolic Diameter PLAX 4.8 cm 4.2 - 5.9 / 3.9 - 5.3 cm LV Systolic Diameter PLAX 3.4 cm IVS Diastolic Thickness 1.0 cm 0.6 - 1.0 / 0.6 - 0.9 cm LVPW Diastolic Thickness 1.1 cm 0.6 - 1.0 / 0.6 - 0.9 cm LV Relative Wall Thickness 0.4 LVOT Diameter 2.1 cm LV Diastolic Volume MOD BP 97.1 cm??? 67 - 155 / 56 - 104 cm??? LV Systolic Volume MOD BP 38.3 cm??? 22 - 58 / 19 - 49 cm??? LV Ejection Fraction MOD BP 60.5 % >= 55 % LV Cardiac Index MOD BP 2276.8 cm???/min???m??? LV Diastolic Volume MOD 4C 98.0 cm??? LV Systolic Volume MOD 4C 39.7 cm??? LV Ejection Fraction MOD 4C 59.5 % LV Cardiac Index MOD 4C 2258.6 cm???/min???m??? LV Diastolic Length 4C 7.6 cm LV Systolic Length 4C 6.4 cm LV Diastolic Volume MOD 2C 92.4 cm??? LV Systolic Volume MOD 2C 37.1 cm??? LV Ejection Fraction MOD 2C 59.9 % LV Cardiac Index MOD 2C 2144.4 cm???/min???m??? LV Diastolic Length 2C 7.9 cm LV Systolic Length 2C 6.5 cm LA Volume 50.7 cm??? 18 - 58 / 22 - 52 cm??? LA Volume Index 23.1 cm???/m??? 16 - 28 cm???/m??? DOPPLER AV Peak Velocity 135.9 cm/s AV Peak Gradient 7.4 mmHg AV Mean Velocity 92.5 cm/s AV Mean Gradient 3.8 mmHg AV Velocity Time Integral 29.2 cm LVOT Peak Velocity 115.5 cm/s LVOT Peak Gradient 5.3 mmHg LVOT Velocity Time Integral 24.9 cm LVOT Stroke Volume 83.0 cm??? LVOT Stroke Volume Index 40.7 ml/m??? LVOT Cardiac Index 3215.2 cm???/min???m??? AV Area Cont Eq vti 2.8 cm??? AV Area Cont Eq pk 2.8 cm??? MV Area PHT 5.3 cm??? Mitral E Point Velocity 82.5 cm/s Mitral A Point Velocity 59.4 cm/s Mitral E to A Ratio 1.4 MV Deceleration Time 144.2 ms TR Peak Velocity 238.6 cm/s TR Peak Gradient 22.8 mmHg Right Atrial Pressure 5.0 mmHg Pulmonary Artery Systolic Pressu 27.8 mmHg Right Ventricular Systolic Press 27.8 mmHg PV Peak Velocity 87.5 cm/s PV Peak Gradient 3.1 mmHg FINDINGS Left Ventricle Left ventricular ejection fraction is estimated at 55-60 %. Mildly increased septal wall thickness. Mildly increased posterior wall thickness. Left ventricular cavity size normal. No obvious regional wall motion abnormalities. Right Ventricle Normal right ventricular size and function. Right ventricular systolic pressure within normal limits. Right Atrium Normal right atrial size. Left Atrium Normal left atrial size. Mitral Valve Structurally normal mitral valve. No evidence for mitral valve prolapse. No mitral stenosis. Trace mitral regurgitation. Aortic Valve Trileaflet aortic valve. No aortic valve stenosis or regurgitation. Tricuspid Valve Structurally normal tricuspid valve. No tricuspid stenosis. Trace to mild tricuspid regurgitation. Pulmonic Valve Structurally normal pulmonic valve. No pulmonic stenosis. Trace pulmonic regurgitation. Pericardium No pericardial effusion. Aorta Normal size aortic root and proximal ascending aorta. CONCLUSIONS Normal LV function Previewed by: Dr. Joshua Anderson MD (Electronically Signed) Final Date: 02 June 2024 17:05
[2024-06-02] MEDS ORDERED: ATORVASTATIN 40 MG TAB PO SCH (21:00)
[2024-06-02] MEDS ORDERED: METOPROLOL TARTRATE 25 MG TAB PO SCH (21:00)
[2024-06-02] MEDS ORDERED: LORATADINE 10 MG TAB PO SCH (21:00)
[2024-06-02] MEDS ORDERED: EZETIMIBE 10 MG TAB PO SCH (21:00)
[2024-06-02] MEDS ORDERED: VIT A,C & E-LUTEIN-MINERALS 1 EACH TAB PO SCH (21:00)
[2024-06-02] MEDS ORDERED: ZOLPIDEM 5 MG TAB PO PRN (21:00)
[2024-06-02] MEDS ORDERED: MONTELUKAST 10 MG TAB PO SCH (21:00)
[2024-06-03] MEDS ORDERED: CLOPIDOGREL 75 MG TAB PO SCH (09:00)
--- NOTE | 2024-06-20 18:52 | P.HPIM ---
History of Present Illness Chief Complaint: Chest pain 59-year-old female who has a past medical history significant for coronary artery disease and 5 stent placements. Patient states she has had 2 brothers and both parents of heart attacks. Patient comes in today stating her chest pain started by 1115 when she was under stress because of finances and that she took a nitroglycerin and it did help. Patient states currently she is Minimal chest pain. Patient states she was mildly short of breath at the time but had no nausea or vomiting. Patient has had no fever recently though a month ago she was sick and was placed on antibiotics. - EKG reveals sinus mechanism with no signs of acute ischemia. - Chest xray cardiomegaly without acute pulmonary process - Laboratory data: WBC 8.4. Hemoglobin 14.1. Platelet count 252. Sodium 138. Potassium 4.2. BUN 15. Creatinine 0.56. Magnesium 1.9. Troponin negative x 3. - Current home cardiac medications include Eliquis 5 mg twice a day, Lipitor 40 mg at night, Plavix 75 mg daily, Imdur 30 mg daily, metoprolol tartrate 25 mg twice a day, amlodipine 2.5 mg daily, Zetia 10 mg at night. - Most recent echocardiogram obtained in August 2023 revealed ejection fraction 55%, mild MR and trace to mild TR - Cardiac catheterization history: 05/05/2024 with stenting of the mid LAD Review of Systems REVIEW OF SYSTEMS: CONSTITUTIONAL: No fever, no malaise, no fatigue. HEENT: No recent visual problems or hearing problems. Denied any sore throat. CARDIOVASCULAR: No chest pain, orthopnea, PND, no palpitations, no syncope. PULMONARY: No shortness of breath, no cough, no hemoptysis. GASTROINTESTINAL: No diarrhea, no nausea, no vomiting, no abdominal pain. NEUROLOGICAL: No headaches, no weakness, no numbness. HEMATOLOGICAL: Denies any bleeding or petechiae. GENITOURINARY: Denies any burning micturition, frequency, or urgency. MUSCULOSKELETAL/RHEUMATOLOGICAL: Denies any joint pain, swelling, or any muscle pain. ENDOCRINE: Denies any polyuria or polydipsia. The rest of the 14-point review of systems is negative. Past Medical History Past Medical History: Asthma, Coronary Artery Disease (CAD), Chest Pain / Angina, GERD/Reflux, Musculoskeletal Disorder, Pneumonia, Syncope, Thyroid Disorder, Vascular Disorder Additional Past Medical History / Comment(s): raynauds, lupus-suspected, had ruptured disc, hx. stomach ulcer, has 4 cardiac stents, hiatal hernia, sepsis History of Any Multi-Drug Resistant Organisms: None Reported Past Surgical History: Appendectomy, Cholecystectomy, Heart Catheterization With Stent, Tonsillectomy, Uterine Ablation Additional Past Surgical History / Comment(s): 11 heart caths, 4 stents, laser eye surg, colonoscopy with polyp removal, left foot surg Past Anesthesia/Blood Transfusion Reactions: No Reported Reaction, Family History of Problems w/ Anesthesia Additional Past Anesthesia/Blood Transfusion Reaction / Comment(s): has had hematomas in past after cardiac caths. & syncopal episode, mom had some issues w/anesthesia Date of Last Stent Placement:: Past Psychological History: No Psychological Hx Reported Smoking Status: Former smoker Past Alcohol Use History: None Reported Past Drug Use History: None Reported - Past Family History Brother(s) Family Medical History: Coronary Artery Disease (CAD), Myocardial Infarction ([place]) Mother Family Medical History: Coronary Artery Disease (CAD), Diabetes Mellitus Sister(s) Family Medical History: Cancer Father Family Medical History: Cancer, Pulmonary Embolus Medications and Allergies Home Medications Medication Instructions Recorded Confirmed Type Montelukast [Singulair] 10 mg PO HS 08/17/13 06/01/24 History amLODIPine BESYLATE [Norvasc] 2.5 mg PO DAILY 12/12/13 06/01/24 History Clopidogrel [Plavix] 75 mg PO DAILY 05/23/14 06/01/24 History Nitroglycerin Sl Tabs [Nitrostat] 0.4 mg SUBLINGUAL Q5M PRN #25 tab 07/04/15 Rx Albuterol Nebulized [Ventolin 2.5 mg INHALATION RT-QID PRN 04/05/16 06/01/24 History Nebulized] Levothyroxine Sodium [Synthroid] 137 mcg PO DAILY 04/10/18 06/01/24 History Ascorbic Acid [Vitamin C] 1,000 mg PO DAILY 02/27/19 06/01/24 History Isosorbide Mononitrate ER [Imdur] 30 mg PO DAILY 02/27/19 06/01/24 History Zolpidem [Ambien] 10 mg PO HS PRN 03/31/19 06/01/24 History Albuterol Sulfate [Albuterol 2 puff PO RT-QID PRN 02/04/20 06/01/24 History Sulfate Hfa] Cholecalciferol (Vitamin D3) 125 mcg PO DAILY 03/20/21 06/01/24 History [Vitamin D3 (125 MCG = 5,000 IU)] Multivit-Min/Iron/Folic/Lutein 1 tab PO HS 03/20/21 06/01/24 History [Centrum Silver Women Tablet] Zinc 50 mg PO DAILY 03/20/21 06/01/24 History Apixaban [Eliquis] 5 mg PO BID 30 Days #60 tab 03/23/21 06/01/24 Rx Metoprolol Tartrate [Lopressor] 25 mg PO BID #60 tab 03/26/21 06/01/24 Rx Cholestyramine (with Sugar) 4 gm PO DAILY 03/01/24 06/01/24 History [Cholestyramine Powder] EPINEPHrine (Auto Inject) [Epipen] 0.3 mg IM ONCE PRN 03/01/24 06/01/24 History Ezetimibe [Zetia] 10 mg PO HS 03/01/24 06/01/24 History Famotidine [Pepcid] 20 mg PO BID 03/01/24 06/01/24 History Loratadine [Claritin] 10 mg PO HS 03/01/24 06/01/24 History levalbuterol HCL [Xopenex 0.63 mg INHALATION RT-DAILY PRN 03/01/24 06/01/24 History Nebulized] Atorvastatin Calcium [Lipitor] 40 mg PO HS 06/01/24 06/01/24 History predniSONE See Taper PO DAILY 06/01/24 06/01/24 History Allergies Allergy/AdvReac Type Severity Reaction Status Date / Time adhesive Allergy skin came Verified 06/01/24 13:12 off ranolazine [From Ranexa] Allergy Dyspnea, Verified 06/01/24 13:12 Edema shellfish derived Allergy throat Verified 06/01/24 13:12 swelling sulfamethoxazole Allergy Rash/Hives Verified 06/01/24 13:12 [From Bactrim] trimethoprim [From Bactrim] Allergy Rash/Hives Verified 06/01/24 13:12 alirocumab AdvReac EXTREME Verified 06/01/24 13:12 [From Praluent Pen] MUSCLE ACHES atorvastatin calcium AdvReac muscle Verified 06/01/24 13:12 [From Lipitor] aches - see comment diltiazem HCl [From Cardizem] AdvReac EXTREME Verified 06/01/24 13:12 FLUSHING rosuvastatin calcium AdvReac SEVERE Verified 06/01/24 13:12 [From Crestor] MUSCLE PAIN simvastatin [From Zocor] AdvReac MUSCLE PAIN Verified 06/01/24 13:12 statins AdvReac Unknown Uncoded 05/04/24 08:45 Physical Exam Vitals: Vital Signs Temp Pulse Resp BP Pulse Ox 06/01/24 13:49 98.1 F 70 18 109/63 96 06/01/24 11:58 97.7 F 71 18 156/83 97 Intake and Output 05/31/24 06/01/24 06/01/24 22:59 06:59 14:59 Other: Weight 102.965 kg - Constitutional General appearance: Present: average body habitus, cooperative, no acute distress - EENT Eyes: Present: anicteric sclerae, EOMI, PERRLA, normal appearance ENT: Present: hearing grossly normal, normal oropharynx Ears: bilateral: normal - Neck Neck: Present: normal ROM. Absent: lymphadenopathy, rigidity, thyromegaly Carotids: negative: bruit present Thyroid: bilateral: normal size, negative: enlarged, nodule - Respiratory Respiratory: bilateral: CTA, negative: rales, rhonchi, wheezing - Cardiovascular Rhythm: regular Heart sounds: normal: S1, S2 Abnormal Heart Sounds: Absent: systolic murmur, diastolic murmur - Gastrointestinal General gastrointestinal: Present: normal bowel sounds, soft. Absent: distended, organomegaly, tenderness - Genitourinary Genitourinary Comment(s): deferred - Integumentary Integumentary: Present: normal turgor. Absent: jaundiced, rash, ulcer - Neurologic Neurologic: Present: CNII-XII intact. Absent: focal deficits - Musculoskeletal Musculoskeletal: Present: gait normal, strength equal bilaterally - Psychiatric Psychiatric: Present: A&O x's 3, appropriate affect, intact judgment & insight Results CBC & Chem 7: 06/01/24 13:07 06/01/24 13:07 Labs: Abnormal Lab Results - Last 24 Hours (Table) 06/01/24 Range/Units 13:07 Glucose 116 H (74-99) mg/dL Assessment and Plan Assessment: Chest pain Coronary artery disease with recent stenting of the mid LAD, 05/05/2024 Paroxysmal atrial fibrillation Hypertension Hyperlipidemia -- Patient is admitted to telemetry; monitor EKG and trend troponin - Patient remains on aspirin, Lipitor, Plavix, Eliquis and Imdur along with metoprolol 25 mg twice daily - Recommend 2D echo - Consult cardiology
--- NOTE | 2024-06-20 18:54 | P.DS ---
Providers Date of admission: 06/01/24 14:34 Expected date of discharge: 06/02/24 Attending physician: Lakshmi Mayer Consults: 06/01/24 14:33 Consult Physician Urgent Consulting Provider: [facility] Reason/Comments: Chest pain Do you want consulting provider notified?: Yes Primary care physician: [facility] Course: 59-year-old female who has a past medical history significant for coronary artery disease and 5 stent placements. Patient states she has had 2 brothers and both parents of heart attacks. Patient comes in today stating her c hest pain started by 1115 when she was under stress because of finances and that she took a nitroglycerin and it did help. Patient states currently she is Minimal chest pain. Patient states she was mildly short of breath at the time but had no nausea or vomiting. Patient has had no fever recently though a month ago she was sick and was placed on antibiotics. - EKG reveals sinus mechanism with no signs of acute ischemia. - Chest xray cardiomegaly without acute pulmonary process - Laboratory data: WBC 8.4. Hemoglobin 14.1. Platelet count 252. Sodium 138. Potassium 4.2. BUN 15. Creatinine 0.56. Magnesium 1.9. Troponin negative x 3. - Current home cardiac medications include Eliquis 5 mg twice a day, Lipitor 40 mg at night, Plavix 75 mg daily, Imdur 30 mg daily, metoprolol tartrate 25 mg twice a day, amlodipine 2.5 mg daily, Zetia 10 mg at night. - Most recent echocardiogram obtained in August 2023 revealed ejection fraction 55%, mild MR and trace to mild TR - Cardiac catheterization history: 05/05/2024 with stenting of the mid LAD Chest pain Coronary artery disease with recent stenting of the mid LAD, 05/05/2024 Paroxysmal atrial fibrillation Hypertension Hyperlipidemia -- Patient is admitted to telemetry; monitor EKG and trend troponin - Patient remains on aspirin, Lipitor, Plavix, Eliquis and Imdur along with metoprolol 25 mg twice daily - Recommend 2D echo - Consult cardiology Patient evaluated by cardiology with following recommendations Obtain 2D echo to assess cardiac structure and function Resume home cardiac medications Patient to undergo dobutamine stress echo today If negative, patient may be discharged home today from a cardiac standpoint Patient discharged home in a stable condition Plan - Discharge Summary Discharge Rx Participant: No New Discharge Prescriptions: Continue Montelukast [Singulair] 10 mg PO HS amLODIPine BESYLATE [Norvasc] 2.5 mg PO DAILY Clopidogrel [Plavix] 75 mg PO DAILY Nitroglycerin Sl Tabs [Nitrostat] 0.4 mg SUBLINGUAL Q5M PRN #25 tab PRN Reason: Chest Pain Albuterol Nebulized [Ventolin Nebulized] 2.5 mg INHALATION RT-QID PRN PRN Reason: Shortness Of Breath Levothyroxine Sodium [Synthroid] 137 mcg PO DAILY Isosorbide Mononitrate ER [Imdur] 30 mg PO DAILY Ascorbic Acid [Vitamin C] 1,000 mg PO DAILY Zolpidem [Ambien] 10 mg PO HS PRN PRN Reason: Insomnia Albuterol Sulfate [Albuterol Sulfate Hfa] 2 puff PO RT-QID PRN PRN Reason: Shortness Of Breath Cholecalciferol (Vitamin D3) [Vitamin D3 (125 MCG = 5,000 IU)] 125 mcg PO DAILY Apixaban [Eliquis] 5 mg PO BID 30 Days #60 tab Cholestyramine (with Sugar) [Cholestyramine Powder] 4 gm PO DAILY Loratadine [Claritin] 10 mg PO HS levalbuterol HCL [Xopenex Nebulized] 0.63 mg INHALATION RT-DAILY PRN PRN Reason: Shortness Of Breath Multivit-Min/Iron/Folic/Lutein [Centrum Silver Women Tablet] 1 tab PO HS Zinc 50 mg PO DAILY Metoprolol Tartrate [Lopressor] 25 mg PO BID #60 tab EPINEPHrine (Auto Inject) [Epipen] 0.3 mg IM ONCE PRN PRN Reason: Anaphylaxis Ezetimibe [Zetia] 10 mg PO HS Famotidine [Pepcid] 20 mg PO BID predniSONE See Taper PO DAILY Atorvastatin Calcium [Lipitor] 40 mg PO HS Discharge Medication List Montelukast [Singulair] 10 mg PO HS 08/17/13 [History] amLODIPine BESYLATE [Norvasc] 2.5 mg PO DAILY 12/12/13 [History] Clopidogrel [Plavix] 75 mg PO DAILY 05/23/14 [History] Nitroglycerin Sl Tabs [Nitrostat] 0.4 mg SUBLINGUAL Q5M PRN #25 tab 07/04/15 [Rx] Albuterol Nebulized [Ventolin Nebulized] 2.5 mg INHALATION RT-QID PRN 04/05/16 [History] Levothyroxine Sodium [Synthroid] 137 mcg PO DAILY 04/10/18 [History] Ascorbic Acid [Vitamin C] 1,000 mg PO DAILY 02/27/19 [History] Isosorbide Mononitrate ER [Imdur] 30 mg PO DAILY 02/27/19 [History] Zolpidem [Ambien] 10 mg PO HS PRN 03/31/19 [History] Albuterol Sulfate [Albuterol Sulfate Hfa] 2 puff PO RT-QID PRN 02/04/20 [History] Cholecalciferol (Vitamin D3) [Vitamin D3 (125 MCG = 5,000 IU)] 125 mcg PO DAILY 03/20/21 [History] Multivit-Min/Iron/Folic/Lutein [Centrum Silver Women Tablet] 1 tab PO HS 03/20/21 [History] Zinc 50 mg PO DAILY 03/20/21 [History] Apixaban [Eliquis] 5 mg PO BID 30 Days #60 tab 03/23/21 [Rx] Metoprolol Tartrate [Lopressor] 25 mg PO BID #60 tab 03/26/21 [Rx] Cholestyramine (with Sugar) [Cholestyramine Powder] 4 gm PO DAILY 03/01/24 [History] EPINEPHrine (Auto Inject) [Epipen] 0.3 mg IM ONCE PRN 03/01/24 [History] Ezetimibe [Zetia] 10 mg PO HS 03/01/24 [History] Famotidine [Pepcid] 20 mg PO BID 03/01/24 [History] Loratadine [Claritin] 10 mg PO HS 03/01/24 [History] levalbuterol HCL [Xopenex Nebulized] 0.63 mg INHALATION RT-DAILY PRN 03/01/24 [History] Atorvastatin Calcium [Lipitor] 40 mg PO HS 06/01/24 [History] predniSONE See Taper PO DAILY 06/01/24 [History] Follow up Appointment(s)/Referral(s): Isidoro Greenberg MD [STAFF PHYSICIAN] - 06/16/24 3:00 pm Rey Espinal DO [Primary Care Provider] - 1-2 days Patient Instructions/Handouts: Chest Pain (DC) Discharge Disposition: HOME SELF-CARE
== END 2024-06-02 14:20 | disposition home or self-care (01) ==
LOC: EC 11:55 → 6NMEDSUR 14:34
PROVIDERS: ADMIT Hospitalist; ATTEND Hospitalist
DX: R07.89 Other chest pain (principal); I25.10 Atherosclerotic heart disease of native coronary artery without angina pectoris; I48.0 Paroxysmal atrial fibrillation; I11.9 Hypertensive heart disease without heart failure; E78.5 Hyperlipidemia, unspecified; I08.1 Rheumatic disorders of both mitral and tricuspid valves; F43.9 Reaction to severe stress, unspecified; Z79.02 Long term (current) use of antithrombotics/antiplatelets; Z79.890 Hormone replacement therapy; Z79.52 Long term (current) use of systemic steroids; Z79.01 Long term (current) use of anticoagulants; Z79.899 Other long term (current) drug therapy; Z88.1 Allergy status to other antibiotic agents; Z88.2 Allergy status to sulfonamides; Z88.8 Allergy status to other drugs, medicaments and biological substances; Z91.013 Allergy to seafood; Z91.048 Other nonmedicinal substance allergy status; Z95.5 Presence of coronary angioplasty implant and graft; Z87.891 Personal history of nicotine dependence
CPT/HCPCS: 96376; 96361; 96374; 99285; 36415; 93005 ×2; 93306; 93351; 80061; 80053; 83735; 84484; 85025; 85610; 85730; 71046; G0378 ×2; J1250; J2405 ×2

== ENCOUNTER → 2024-07-09 | Outpatient (CLI) | payer MEDICARE ==
--- NOTE | 2024-07-09 12:35 | MM ---
Reason for Exam: Screening (asymptomatic). Last mammogram was performed 1 year(s) and 9 month(s) ago. Patient History: Menarche at age 13. First Full-Term at age 20. Postmenopausal. Sister had breast cancer, age 62. Sister had breast cancer, age 52. Risk Values: Anna 5 year model risk: 6.7%. NCI Lifetime model risk: 34.8%. Prior Study Comparison: 11/09/2019 Bilateral Screening Mammogram, [facility]. 04/30/2021 Bilateral Screening Mammogram, [facility]. 10/24/2022 Bilateral MG 3D screening mammo w/cad, [facility]. Tissue Density: There are scattered areas of fibroglandular density. Findings: Analyzed By CAD. There is no suspicious group of microcalcifications or new suspicious mass in either breast. Overall Assessment: Negative, BI-RAD 1 Management: Screening Mammogram of both breasts in 1 year. . Patient should continue monthly self-breast exams. A clinical breast exam by your physician is recommended on an annual basis. This exam should not preclude additional follow-up of suspicious palpable abnormalities. Note on Anna scores and lifetime risk: 1. A Anna score greater than 3% is considered moderate risk. If this is the case, consider specialist referral to assess eligibility for a risk reducing agent. 2. If overall lifetime risk for the development of breast cancer is 20% or higher, the patient may qualify for future screening with alternating mammogram and breast MRI. [facility], , 07/09/2024 12:31 PM. Electronically signed and approved by: Ramon Moss M.D.
== END | disposition home or self-care (01) ==
LOC: RADMAMWWP 11:29
PROVIDERS: ATTEND Obstetrics & Gynecology
DX: Z12.31 Encounter for screening mammogram for malignant neoplasm of breast (principal); R92.323 Mammographic fibroglandular density, bilateral breasts; Z78.0 Asymptomatic menopausal state; Z80.3 Family history of malignant neoplasm of breast
CPT/HCPCS: 77063; 77067

== ENCOUNTER → 2024-07-23 | Outpatient (CLI) | payer MEDICARE ==
[2024-07-23 15:11] LABS: HCT 38.3 % (37.2-46.3); HGB 12.4 g/dL (12.0-15.0); MCH 31.6 pg (27.0-32.0); MCHC 32.4 g/dL (32.0-37.0); MCV 97.5 FL (80.0-97.0); Mean Platelet Volume 9.5 FL (9.5-12.2); NRBC Per 100 WBC 0 X 10*3/uL (0.00-0.01); Platelet Count 271 X 10*3/uL (140-440); RBC 3.93 X 10*6/uL (4.10-5.20); RDW 12.3 % (11.5-14.5); WBC 3.93 X 10*3/uL (4.50-10.00)
[2024-07-23 15:31] LABS: ALT 36 U/L (8-44); AST 25 U/L (13-35); Albumin 4.2 g/dL (3.8-4.9); Albumin/Globulin Ratio 2.21 Ratio (1.60-3.17); Alkaline Phosphatase 85 U/L (41-126); BUN/Creat Ratio 14.33 Ratio (12.00-20.00); Blood Urea Nitrogen 8.6 mg/dL (9.0-27.0); Calcium 9.5 mg/dL (8.7-10.3); Chloride 105 mmol/L (96-109); Chol/HDL Ratio 2.38 Ratio; Globulin 1.9 g/dL (1.6-3.3); Glucose 114 mg/dL (70-110); LDL Cholesterol,Calculated 50.6 mg/dL (0.0-131.0); Potassium 4.4 mmol/L (3.5-5.5); Sodium 141 mmol/L (135-145); T4, Free (Free Thyroxine) 1.52 ng/dL (0.80-1.80); Total Bilirubin 0.4 mg/dL (0.3-1.2); Total Protein 6.1 g/dL (6.2-8.2); VLDL Calculation 19.62 mg/dL (5.00-40.00)
== END | disposition home or self-care (01) ==
LOC: LABWHC1 11:06
PROVIDERS: ATTEND Internal Medicine Cardiovascular Disease
DX: E78.2 Mixed hyperlipidemia (principal); E07.9 Disorder of thyroid, unspecified; I25.10 Atherosclerotic heart disease of native coronary artery without angina pectoris; I10 Essential (primary) hypertension
CPT/HCPCS: 36415; 80053; 80061; 81596; 84439; 84443; 85027

== ENCOUNTER → 2024-08-30 | Outpatient (CLI) | payer MEDICARE ==
[2024-08-30 15:32] LABS: ALT 28 U/L (8-44); AST 23 U/L (13-35); LDL Cholesterol,Calculated 67.3 mg/dL (0.0-131.0); T4, Free (Free Thyroxine) 0.94 ng/dL (0.80-1.80)
== END | disposition home or self-care (01) ==
LOC: LABWHC1 10:34
PROVIDERS: ATTEND Internal Medicine Interventional Cardiology
DX: E03.9 Hypothyroidism, unspecified (principal)
CPT/HCPCS: 36415; 80061; 84439; 84443; 84450; 84460